=== PATIENT | female | born 1935 | race Caucasian/White ===

== ENCOUNTER 2016-08-18 18:48 | Inpatient (IN) | payer OTHER ==
[~2016-08-18] VITALS: Ht 162.6 cm; Wt 65.4 kg
[~2016-08-18 18:48] MED LIST: ASPI81TA28 PO; BENA-4 PO; CALCTAB5 PO; CHOL100010 PO; DTR5 PO; FSM70 PO; LEVO112T4 PO; MULT-506 PO; PANT40TA2 PO; PRED1SUS3 OPR; ULT50HP PO; ZNTT/150 PO
[2016-08-18 19:14] LABS: BASO % 1.1 %; BASO ABS # 0.07 K/uL (0-0.2); COMPLETE YES; EOS % 2.1 %; HEMATOCRIT 34.1 % (37-47); IG% 0.2 %; LYMPH % 38.4 %; LYMPH ABS # 2.37 K/uL (1.2-3.4); MEAN CELL VOLUME 80.2 fL (80-100); MEAN CORPUSCULAR HEMOGLOBIN 27.1 pg (25-34); MEAN CORPUSCULAR HGB CONC 33.7 g/dl (32-36); MEAN PLATELET VOLUME 9.2 fL (7.4-10.4); MONO % 10.7 %; NEUT % 47.5 %; PLATELET COUNT 213 K/uL (130-400); RED BLOOD COUNT 4.25 M/uL (4.2-5.4); WHITE BLOOD COUNT 6.17 K/uL (4.8-10.8)
[2016-08-18 19:29] LABS: PROTHROMBIN TIME (PATIENT) 10.9 SECONDS (9.0-12.0)
[2016-08-18 19:30] LABS: ALT/SGPT 13 U/L (12-78); BLOOD UREA NITROGEN 15 mg/dl (7-18); BUN/CREATININE RATIO 18.8 (10-20); CALCIUM 9.1 mg/dl (8.5-10.1); CARBON DIOXIDE 29 mmol/L (21-32); CHLORIDE 94 mmol/L (98-107); CREATININE 0.82 mg/dl (0.60-1.20); GLUCOSE 98 mg/dl (70-99); POTASSIUM 3.4 mmol/L (3.5-5.1); SODIUM 132 mmol/L (136-145)
[2016-08-18 19:35] LABS: ALKALINE PHOSPHATASE 52 U/L (45-117); AST/SGOT 16 U/L (15-37); CKMB/CK RATIO 1.5 (0-3.0)
--- NOTE | 2016-08-18 19:44 | DIAGNOSTIC IMAGING REPORT ---
CHEST ONE VIEW PORTABLE CLINICAL HISTORY: Gastrointestinal hemorrhage COMPARISON STUDY: No previous studies for comparison. FINDINGS: The heart is normal in size. There is mild elevation right hemidiaphragm. There is no failure. There is no focal pulmonary consolidation. There is mild basilar interstitial thickening. There is no free intraperitoneal air. Surgical clips are visualized in the right upper quadrant consistent with a prior cholecystectomy.[ IMPRESSION: No active disease in the chest. Electronically signed by: Kristopher Kumar M.D. 08/18/2016 7:42 PM Dictated Date/Time: 08/18/2016 7:41 PM
[2016-08-18] MEDS ORDERED: DTR/5 PO (19:46)
[2016-08-18] MEDS ORDERED: CALCTAB7 PO (19:46)
[2016-08-18] MEDS ORDERED: ULT50 PO (19:46)
[2016-08-18] MEDS ORDERED: CHOL100041 PO (19:46)
[2016-08-18] MEDS ORDERED: SODIUM CHLORIDE 0.9% 1000ML 1,000 ML IV STA (20:03)
[2016-08-18 20:17] LABS: URINE APPEARANCE TURBID (CLEAR); URINE BILIRUBIN NEG (NEG); URINE COLOR YELLOW; URINE EPITHELIAL CELL AUTO >30 /lpf (0-5); URINE NITRITE NEG (NEG); URINE SPECIFIC GRAVITY 1.015 (1.000-1.030); UROBILINOGEN NEG (NEG)
[2016-08-18 20:23] LABS: MANUAL MICROSCOPIC REQUIRED? NO; REVIEW REQ? YES
[2016-08-18] MEDS ORDERED: OPTIRAY 320 IV PRN (21:15)
[2016-08-18] MEDS ORDERED: ONDANSETRON INJ 2 MG/ML 2 ML VIAL IV PRN (21:30)
[2016-08-18] MEDS ORDERED: TRAM-10 PO (21:42)
[2016-08-18] MEDS ORDERED: LEVO100T7 PO (21:42)
[2016-08-18] MEDS ORDERED: PANTOprazole INJ 80 MG in DEXTROSE 5% 100ML IV STA (21:54)
--- NOTE | 2016-08-18 22:03 | DIAGNOSTIC IMAGING REPORT ---
CT ABD/PELVIS IV CONTRAST ONLY CLINICAL HISTORY: Heme-positive stools. Suspected diverticular hemorrhage. COMPARISON STUDY: 07/28/2014 TECHNIQUE: Following the IV administration of 94 mL of Optiray-320, CT scan of the abdomen and pelvis was performed from the lung bases to the proximal femurs. Images are reviewed in the axial, sagittal, and coronal planes. IV contrast was administered without complication. CT DOSE: 311.69 mGy.cm FINDINGS: Lower chest: There is mild basilar atelectasis. There is colonic interposition. Liver: There are scattered hypodensities, the largest of which is located within the right lobe measuring 25 mm. These are felt to reflect cysts. There is mild prominence the central intrahepatic biliary ducts unchanged the prior study Gallbladder: Surgically absent. The common bile duct remains dilated measuring 1 cm. Spleen: Normal in size and attenuation. Pancreas: The pancreas is atrophic. There is borderline dilatation of pancreatic duct which measures 4 mm. Adrenal glands: Unremarkable. Kidneys: There is an 11.5 cm upper pole left renal cyst. There is a 13 mm mid pole right renal cortical cyst. There is mild prominence of the collecting systems bilaterally. There is no ureteral dilatation. Bowel: There are no transition zones indicate bowel obstruction. There is colonic diverticulosis. There are foci of increased density within the sigmoid colon. These are viewed as suspicious for hemorrhage or contrast extravasation. This suggests a sigmoid source for the patient's hemorrhage. Peritoneum: There is no intraperitoneal free air or abdominal ascites. Vasculature: The abdominal aorta is normal in course and caliber. Adenopathy: None. Pelvic viscera: The bladder is mildly dilated. The uterus appears absent. Skeletal structures: Postsurgical changes involve the left hip. IMPRESSION: 1. Hyperdense material within the sigmoid colon, likely representing hemorrhage or extravasated contrast. Given the clinical history, the findings suggest a sigmoid source for the patient's gastrointestinal hemorrhage 2. Colonic diverticulosis. 3. Surgically absent gallbladder with stable mild intrahepatic biliary ductal dilatation and a dilated common bile duct 4. Pancreatic atrophy and borderline dilatation of pancreatic duct 5. Bilateral renal cysts including an 11.5 cm left renal cyst 6. Mild bilateral hydronephrosis. No ureteral dilatation.. Electronically signed by: Kristopher Kumar M.D. 08/18/2016 10:01 PM Dictated Date/Time: 08/18/2016 9:52 PM
[2016-08-18 22:04] LABS: HEMATOCRIT 28.9 % (37-47)
--- NOTE | 2016-08-18 22:04 | History and Physical ---
History & Physical Date & Time of Service: Aug 18, 2016 at 21:44 Chief Complaint: Rectal Bleeding Primary Care Physician: Josesito Frost M.D. History of Present Illness Source: patient This is an 81 y/o female with PMHx of Hypothyroidism, HTN, Dyslipidemia and other problems as outlined below who presents to the ED c/o rectal bleed that began this morning. Pt reports that around 0630 she had a loose BM that was mostly dark blood. She experienced 5 more episodes over the course of the day. Pt takes a baby aspirin daily but is not on any other anticoagulation. Pt denies recent NSAID or abx use. She has a history of similar sxs in 2014 when she had a rectal bleed that was thought to be secondary to C.diff colitis. Colonoscopy August 2014 + diverticulosis of sigmoid, descending and ascending colon as well as internal hemorrhoids. Pt denies fever/chills, diaphoresis, syncope, chest pain, palpitations, SOB, wheezing, abd pain, N/V, bladder issues , LE edema, calf pain, lightheadedness/dizziness. In the ED, pt is tachy on arrival. HgB 11.5. UA 4+ bacteria. Pt is hemodynamically stable and will be admitted for further evaluation and treatment. Past Medical/Surgical History Medical Problems: (1) Dyslipidemia Status: Chronic (2) GERD (gastroesophageal reflux disease) Status: Chronic (3) HTN (hypertension) Status: Chronic (4) Hypothyroidism Status: Chronic (5) Osteoarthritis Status: Chronic Surgical Problems: (1) History of arthroscopic knee surgery Status: Resolved (2) History of cholecystectomy Status: Resolved (3) History of hysterectomy Status: Resolved (4) History of tonsillectomy Status: Resolved Social History Smoking Status: Never Smoker Alcohol Use: none Drug Use: none Marital Status: Housing status: lives with family Occupational Status: retired Immunizations History of Influenza Vaccine: N/A History of Tetanus Vaccine?: Yes History of Pneumococcal: Yes History of Hepatitis B Vaccine: Yes Multi-Drug Resistant Organisms History of MDRO: No Allergies Coded Allergies: Montelukast (Verified Allergy, Intermediate, RASH, HYPER, 08/18/16) Adhesives (Verified Adverse Reaction, Intermediate, SENSITIVE, RASH, ) Salicylates (Verified Adverse Reaction, Mild, VOMITING, 08/18/16) can take baby asp/lo dose...high dose lead to stomach probllems Home Medications Scheduled Aspirin (Aspirin Ec), 81 MG PO QAM Benazepril/Hctz (Lotensin Hct), 1 TAB PO BID Calcium Carbonate-Vitamin D W/ (Caltrate 600 Plus), 1 TAB PO DAILY Cholecalciferol (D 1000), 1,000 UNITS PO DAILY Levothyroxine Sodium (Levothyroxine Sodium), 100 MCG PO DAILY Multivitamin (Multivitamin), 1 TAB PO QAM Oxybutynin Chloride (Ditropan), 5 MG PO QID Pantoprazole (Pantoprazole Sodium), 40 MG PO QAM Ranitidine (Zantac), 150 MG PO BID Scheduled PRN Tramadol (Ultram), 50 MG PO Q6H PRN for Pain Review of Systems Constitutional: + fatigue, No chills, No fever, No sweats, No weakness Eyes: No worsening of vision ENT: + hearing loss (hearing aids) Respiratory: No cough, No shortness of breath Cardiovascular: No chest pain, No claudication, No edema Abdomen: + GI bleeding, + diarrhea, No constipation, No nausea, No pain, No vomiting Musculoskeletal: No calf pain, No swelling Genitourinary - Female: No dysuria Neurologic: No weakness Psychiatric: No depression symptoms Endocrine: + fatigue Hematologic / Lymphatic: + abnormal bleeding/bruising Integumentary: No new/changing skin lesions Physical Exam Vital Signs Date Time Temp Pulse Resp B/P Pulse Ox O2 Delivery O2 Flow Rate FiO2 08/18/16 20:27 90 16 157/76 93 Room Air 08/18/16 19:11 92 08/18/16 19:06 95 Room Air 08/18/16 18:50 36.5 123 20 173/90 94 Room Air General Appearance: WD/WN, no apparent distress, + pertinent finding (Pt is sitting in bed with at bedside ) Head: normocephalic, atraumatic Eyes: normal inspection ENT: hearing grossly normal Neck: supple Respiratory/Chest: chest non-tender, lungs clear, normal breath sounds, no respiratory distress Cardiovascular: no edema, no murmur, + tachycardia Abdomen/GI: normal bowel sounds, non tender, soft Back: normal inspection Extremities/Musculoskelatal: normal inspection, no calf tenderness, no pedal edema Neurologic/Psych: alert, normal mood/affect, oriented x 3 Skin: normal color, warm/dry Diagnostics Laboratory Results Results Past 24 Hours Test 08/18/16 19:05 08/18/16 19:55 Range/Units White Blood Count 6.17 4.8-10.8 K/uL Red Blood Count 4.25 4.2-5.4 M/uL Hemoglobin 11.5 12.0-16.0 g/dL Hematocrit 34.1 37-47 % Mean Corpuscular Volume 80.2 80-100 fL Mean Corpuscular Hemoglobin 27.1 25-34 pg Mean Corpuscular Hemoglobin Concent 33.7 32-36 g/dl Platelet Count 213 130-400 K/uL Mean Platelet Volume 9.2 7.4-10.4 fL Neutrophils (%) (Auto) 47.5 % Lymphocytes (%) (Auto) 38.4 % Monocytes (%) (Auto) 10.7 % Eosinophils (%) (Auto) 2.1 % Basophils (%) (Auto) 1.1 % Neutrophils # (Auto) 2.93 1.4-6.5 K/uL Lymphocytes # (Auto) 2.37 1.2-3.4 K/uL Monocytes # (Auto) 0.66 0.11-0.59 K/uL Eosinophils # (Auto) 0.13 0-0.5 K/uL Basophils # (Auto) 0.07 0-0.2 K/uL RDW Standard Deviation 44.8 36.4-46.3 fL RDW Coefficient of Variation 15.2 11.5-14.5 % Immature Granulocyte % (Auto) 0.2 % Immature Granulocyte # (Auto) 0.01 0.00-0.02 K/uL Prothrombin Time 10.9 9.0-12.0 SECONDS Prothromb Time International Ratio 1.0 0.9-1.1 Activated Partial Thromboplast Time 26.1 21.0-31.0 SECONDS Partial Thromboplastin Ratio 1.0 Sodium Level 132 136-145 mmol/L Potassium Level 3.4 3.5-5.1 mmol/L Chloride Level 94 98-107 mmol/L Carbon Dioxide Level 29 21-32 mmol/L Anion Gap 9.0 3-11 mmol/L Blood Urea Nitrogen 15 7-18 mg/dl Creatinine 0.82 0.60-1.20 mg/dl Est Creatinine Clear Calc Drug Dose 47.6 ml/min Estimated GFR () 77.2 Estimated GFR (Non- 66.6 BUN/Creatinine Ratio 18.8 10-20 Random Glucose 98 70-99 mg/dl Calcium Level 9.1 8.5-10.1 mg/dl Total Bilirubin 0.8 0.2-1 mg/dl Direct Bilirubin 0.3 0-0.2 mg/dl Aspartate Amino Transf (AST/SGOT) 16 15-37 U/L Alanine Aminotransferase (ALT/SGPT) 13 12-78 U/L Alkaline Phosphatase 52 45-117 U/L Total Creatine Kinase 68 26-192 U/L Creatine Kinase MB 1.0 0.5-3.6 ng/ml Creatine Kinase MB Ratio 1.5 0-3.0 Troponin I < 0.015 0-0.045 ng/ml Total Protein 7.5 6.4-8.2 gm/dl Albumin 4.0 3.4-5.0 gm/dl Lipase 105 73-393 U/L Urine Color YELLOW Urine Appearance TURBID CLEAR Urine pH 6.0 4.5-7.5 Urine Specific [place] 1.015 1.000-1.030 Urine Protein NEG NEG Urine Glucose (UA) NEG NEG Urine Ketones NEG NEG Urine Occult Blood 3+ NEG Urine Nitrite NEG NEG Urine Bilirubin NEG NEG Urine Urobilinogen NEG NEG Urine Leukocyte Esterase SMALL NEG Urine WBC (Auto) 1-5 0-5 /hpf Urine RBC (Auto) 0-4 0-4 /hpf Urine Hyaline Casts (Auto) 1-5 0-5 /lpf Urine Epithelial Cells (Auto) >30 0-5 /lpf Urine Bacteria (Auto) 4+ NEG Urine Yeast (Auto) NONE PRSENT Diagnostic Radiology CXR IMPRESSION: No active disease in the chest. EKG EKG: sinus rhythm at [address] [facility] PACs; PACs are new when compared to EKG from 07/28/14 Impression Assessment and Plan RECTAL BLEED; POSSIBLE DIVERTICULITIS pt presented with painless rectal bleed; no abd pain, N/V -admit to telemetry -tachy on arrival; improved with IVF -no recent abx or NSAIDs -colonoscopy 2014 + diverticulosis in the sigmoid, ascending and descending colon as well as internal hemorrhoids -FOBT is positive in ED -Hgb currently 11.5; will continue to monitor with H&H q 8h -obtain CT abd/pelvis to evaluate for diverticulitis -check stool studies -hold ASA -start IVF and Protonix -type and screen completed; transfuse PRN HgB <8 -keep NPO for now -consult GI, Dr. Borrego-pending input -pt appears to be hemodynamically stable -continue to monitor closely POSSIBLE UTI -pt denies urinary sxs -UA 4+ bacteria. neg nitrates. >30 epis; question contamination -no empiric abx; follows urine cx HYPOTHYROIDISM -hold levothyroxine for now due to NPO status -TSH level in AM HTN -BP stable -holding all home meds for now -monitor DYSLIPIDEMIA -diet-controlled DVT PROPHYLAXIS -SCDs only in setting of GI bleed CODE STATUS -FULL CODE status per discussion with patient upon admission DISPO -Pt seen in collaboration with Dr Root. Please see addendum for further details. Thanks! -Of note: patient will be seen by Dr. Leal starting tomorrow morning ATTENDING NOTE : pt seen and examined , in agreement with H&P by Laurie Bella PA-C labs and images reviewed 81 yo F presented with multiple episodes of bright red blood per rectum no complain of abdominal pain or nausea no dizzy spell initial Hb ~11 Ct abdomen /pelvis shows possible diverticular bleed in sigmoid area P/E: gen ; no sign of distress HEENT ; sclera non icteric HT: regular lungs: CTA abdomen ; soft, non tender ext ; no rash or edema neuro; no focal deficit A/P : BRBPR /LOWER GI BLEED /POSSIBLE ACUTE DIVERTICULAR BLEED ; pt had similar lower GI bleed in 2014 has colonoscopy done on 08/2013 showing diverticulosis in sigmoid colon, descending and ascending colon takes Aspirin 81 mg PO daily -kept on hold ordered for NPO H&H will be continued to be monitored q8hrs tx for acute drop of hb /hemodynamic instability or hb < 8 GI eval requested rest of the chronic problems/issues as outlined by Laurie Garcia PA-C VTE Prophylaxis VTE Risk Assessment Done? Y/N: Yes Risk Level: Moderate
[2016-08-18 22:35] VITALS: BP 137/79; PULSE 136; TEMP 36.7; O2SAT 100; Ht 162.6 cm; Wt 65.4 kg
[2016-08-18] MEDS: PANTOprazole INJ 40 MG in DEXTROSE 5% 100ML IV SCH (22:41)
[2016-08-18 22:43] VITALS: BP 137/79; PULSE 136; TEMP 36.7; O2SAT 93
--- NOTE | 2016-08-18 22:55 | EMERGENCY ROOM VISIT NOTE ---
History Report prepared by Crystal: Brigido Cherry Under the Supervision of: Dr. Isaak Alfaro M.D. First contact with patient: 18:54 Chief Complaint: RECTAL BLEEDING Stated Complaint: RECTAL BLEEDING History of Present Illness The patient is a 81 year old female who presents to the Emergency Room with complaints of persistent rectal bleeding beginning this morning. She notes she has had 4 bloody bowel movements today, she describes as loose. She notes the stools have been mostly blood. The patient has had C. diff a couple years ago, and denies being on any blood thinners currently. She has never had a blood transfusion. Pt denies LOC, headache, fevers, chills, diaphoresis, visual changes, neck pain , chest pain, breathing difficulties, nausea, vomiting, abdominal pain, back pain, melena, urinary symptoms, numbness, weakness, lymphadenopathy, rash, or other complaints. Source of History: patient Onset: this morning Position: other (rectum) Symptom Intensity: 4 bloody BMs Quality: other (rectal bleeding) Timing: other (persistent) Review of Systems See HPI for pertinent positives and negatives. A total of ten systems were reviewed and were otherwise negative. Past Medical & Surgical Medical Problems: (1) Dyslipidemia (2) GERD (gastroesophageal reflux disease) (3) HTN (hypertension) (4) Hypothyroidism (5) Osteoarthritis Surgical Problems: (1) History of arthroscopic knee surgery (2) History of cholecystectomy (3) History of hysterectomy (4) History of tonsillectomy Family History No pertinent family history stated. Social History Smoking Status: Never Smoker Marital Status: Housing Status: lives with family Current/Historical Medications Scheduled Aspirin (Aspirin Ec), 81 MG PO QAM Benazepril/Hctz (Lotensin Hct), 1 TAB PO BID Calcium Carbonate-Vitamin D W/ (Caltrate 600 Plus), 1 TAB PO DAILY Cholecalciferol (D 1000), 1,000 UNITS PO DAILY Levothyroxine Sodium (Levothyroxine Sodium), 100 MCG PO DAILY Multivitamin (Multivitamin), 1 TAB PO QAM Oxybutynin Chloride (Ditropan), 5 MG PO QID Pantoprazole (Pantoprazole Sodium), 40 MG PO QAM Ranitidine (Zantac), 150 MG PO BID Scheduled PRN Tramadol (Ultram), 50 MG PO Q6H PRN for Pain Allergies Coded Allergies: Montelukast (Verified Allergy, Intermediate, RASH, HYPER, 08/18/16) Adhesives (Verified Adverse Reaction, Intermediate, SENSITIVE, RASH, ) Salicylates (Verified Adverse Reaction, Mild, VOMITING, 08/18/16) can take baby asp/lo dose...high dose lead to stomach probllems Physical Exam Vital Signs Date Time Temp Pulse Resp B/P Pulse Ox O2 Delivery O2 Flow Rate FiO2 08/18/16 20:27 90 16 157/76 93 Room Air 08/18/16 19:11 92 08/18/16 19:06 95 Room Air 08/18/16 18:50 36.5 123 20 173/90 94 Room Air Physical Exam GENERAL: Awake, alert, well-appearing, in no distress HENT: Normocephalic, atraumatic. Oropharynx unremarkable. EYES: Normal conjunctiva. Sclera non-icteric. NECK: Supple. No nuchal rigidity. FROM. No JVD. RESPIRATORY: Clear to auscultation. CARDIAC: Regular rate, normal rhythm. Extremities warm and well perfused. Pulses equal. ABDOMEN: Soft, non-distended. No tenderness to palpation. No rebound or guarding. No masses. RECTAL: Bloody stool, heme positive. MUSCULOSKELETAL: Chest examination reveals no tenderness. The back is symmetrical on inspection without obvious abnormality. There is no CVA tenderness to palpation. No joint edema. LOWER EXTREMITIES: Calves are equal size bilaterally and non-tender. No edema. No discoloration. NEURO: Normal sensorium. No sensory or motor deficits noted. SKIN: No rash or jaundice noted. Medical Decision & Procedures ER Provider Diagnostic Interpretation: Radiology results as stated below per my review and radiologist interpretation CHEST ONE VIEW PORTABLE CLINICAL HISTORY: Gastrointestinal hemorrhage COMPARISON STUDY: No previous studies for comparison. FINDINGS: The heart is normal in size. There is mild elevation right hemidiaphragm. There is no failure. There is no focal pulmonary consolidation. There is mild basilar interstitial thickening. There is no free intraperitoneal air. Surgical clips are visualized in the right upper quadrant consistent with a prior cholecystectomy. IMPRESSION: No active disease in the chest. Electronically signed by: Kristopher Kumar M.D. 08/18/2016 7:42 PM Dictated Date/Time: 08/18/2016 7:41 PM Laboratory Results 08/18/16 19:05 Red Blood Count 4.25, Mean Corpuscular Volume 80.2, Mean Corpuscular Hemoglobin 27.1, Mean Corpuscular Hemoglobin Concent 33.7, Mean Platelet Volume 9.2, Neutrophils (%) (Auto) 47.5, Lymphocytes (%) (Auto) 38.4, Monocytes (%) (Auto) 10.7, Eosinophils (%) (Auto) 2.1, Basophils (%) (Auto) 1.1, Neutrophils # (Auto ) 2.93, Lymphocytes # (Auto) 2.37, Monocytes # (Auto) 0.66, Eosinophils # (Auto ) 0.13, Basophils # (Auto) 0.07 08/18/16 19:05 Test 08/18/16 19:05 08/18/16 19:55 White Blood Count 6.17 K/uL (4.8-10.8) Red Blood Count 4.25 M/uL (4.2-5.4) Hemoglobin 11.5 g/dL (12.0-16.0) Hematocrit 34.1 % (37-47) Mean Corpuscular Volume 80.2 fL (80-100) Mean Corpuscular Hemoglobin 27.1 pg (25-34) Mean Corpuscular Hemoglobin Concent 33.7 g/dl (32-36) Platelet Count 213 K/uL (130-400) Mean Platelet Volume 9.2 fL (7.4-10.4) Neutrophils (%) (Auto) 47.5 % Lymphocytes (%) (Auto) 38.4 % Monocytes (%) (Auto) 10.7 % Eosinophils (%) (Auto) 2.1 % Basophils (%) (Auto) 1.1 % Neutrophils # (Auto) 2.93 K/uL (1.4-6.5) Lymphocytes # (Auto) 2.37 K/uL (1.2-3.4) Monocytes # (Auto) 0.66 K/uL (0.11-0.59) Eosinophils # (Auto) 0.13 K/uL (0-0.5) Basophils # (Auto) 0.07 K/uL (0-0.2) RDW Standard Deviation 44.8 fL (36.4-46.3) RDW Coefficient of Variation 15.2 % (11.5-14.5) Immature Granulocyte % (Auto) 0.2 % Immature Granulocyte # (Auto) 0.01 K/uL (0.00-0.02) Prothrombin Time 10.9 SECONDS (9.0-12.0) Prothromb Time International Ratio 1.0 (0.9-1.1) Activated Partial Thromboplast Time 26.1 SECONDS (21.0-31.0) Partial Thromboplastin Ratio 1.0 Anion Gap 9.0 mmol/L (3-11) Est Creatinine Clear Calc Drug Dose 47.6 ml/min Estimated GFR () 77.2 Estimated GFR (Non- 66.6 BUN/Creatinine Ratio 18.8 (10-20) Calcium Level 9.1 mg/dl (8.5-10.1) Total Bilirubin 0.8 mg/dl (0.2-1) Direct Bilirubin 0.3 mg/dl (0-0.2) Aspartate Amino Transf (AST/SGOT) 16 U/L (15-37) Alanine Aminotransferase (ALT/SGPT) 13 U/L (12-78) Alkaline Phosphatase 52 U/L (45-117) Total Creatine Kinase 68 U/L (26-192) Creatine Kinase MB 1.0 ng/ml (0.5-3.6) Creatine Kinase MB Ratio 1.5 (0-3.0) Troponin I < 0.015 ng/ml (0-0.045) Total Protein 7.5 gm/dl (6.4-8.2) Albumin 4.0 gm/dl (3.4-5.0) Lipase 105 U/L (73-393) Urine Color YELLOW Urine Appearance TURBID (CLEAR) Urine pH 6.0 (4.5-7.5) Urine Specific [place] 1.015 (1.000-1.030) Urine Protein NEG (NEG) Urine Glucose (UA) NEG (NEG) Urine Ketones NEG (NEG) Urine Occult Blood 3+ (NEG) Urine Nitrite NEG (NEG) Urine Bilirubin NEG (NEG) Urine Urobilinogen NEG (NEG) Urine Leukocyte Esterase SMALL (NEG) Urine WBC (Auto) 1-5 /hpf (0-5) Urine RBC (Auto) 0-4 /hpf (0-4) Urine Hyaline Casts (Auto) 1-5 /lpf (0-5) Urine Epithelial Cells (Auto) >30 /lpf (0-5) Urine Bacteria (Auto) 4+ (NEG) Urine Yeast (Auto) (NONE PRSENT) Laboratory results reviewed by me Medications Administered Medications (Trade) Dose Ordered Sig/Ted Route Start Time Stop Time Status Last Admin Dose Admin Sodium Chloride (Nss 1000ml) 1,000 ml @ 125 mls/hr Q8H STAT IV 08/18/16 20:03 08/18/16 22:34 DC 08/18/16 20:40 125 MLS/HR ECG Indication: other (rectal bleeding) Rate (beats per minute): 85 Rhythm: sinus rhythm Findings: PAC, no acute ischemic change, no ectopy ED Course 1916: The patient was evaluated in room C1B. A complete history and physical exam was performed. 1954: The patient had a fifth bowel movement, which was also bloody. 2002: Ordered NSS 1,000 ml @ 125 mls/hr IV. 2099: Discussed the patient's case with Laurie Guerrero PA-C. The patient will be evaluated for further treatment and disposition. Medical Decision Triage Nursing notes reviewed. The patient's presentation and history were concerning for rectal bleeding. Etiologies such as diverticulosis, AVM, coagulopathy, colitis, inflammatory bowel disease, malignancy,Kelly-Pastor tear, esophagitis, peptic ulcer disease , variceal bleed, gastritis, epistaxis, fissure, hemorrhoids, as well as others were entertained. The patient was evaluated. She had no abdominal pain. She had 4 episodes of bright red blood per rectum at home. She had another episode in the emergency department. Blood work was obtained. The patient had a mild anemia on CBC. Chemistry panel was unremarkable. The patient had some bacteria on urinalysis but mostly epithelial cells. Consultation was made with internal medicine. The patient was evaluated in the Emergency Room for further treatment. The chart was completed utilizing [employer] voice recognition software. Grammatical errors, random word insertions, pronoun errors, and incomplete sentences are an occasional consequence of this system due to software limitations, ambient noise, and hardware issues. Any formal questions or concerns about the content, text, or information contained within the body of this dictation should be directly addressed to the physician for clarification. Consults Time Called: 2054 Consulting Physician: Laurie Guerrero PA-C, [facility] Returned Call: [phone] Discussed the patient's case with Laurie Guerrero PA-C. The patient will be evaluated for further treatment and disposition. Impression Primary Impression: GI bleed Scribe Attestation The scribe's documentation has been prepared under my direction and personally reviewed by me in its entirety. I confirm that the note above accurately reflects all work, treatment, procedures, and medical decision making performed by me. Departure Information Dispostion Being Evaluated By Hospitalist Referrals Josesito Frost M.D. (PCP) Patient Instructions My [facility]
[2016-08-18] MEDS: NSS + 20MEQ KCL 1000ML 1,000 ML IV SCH (23:06)
[2016-08-19 01:41] LABS: HEMATOCRIT 28.6 % (37-47)
[2016-08-19] MEDS: PANTOprazole INJ 40 MG in DEXTROSE 5% 100ML IV SCH ×4 (03:18→14:58)
[2016-08-19 04:17] VITALS: BP 147/80; PULSE 79; TEMP 37; O2SAT 96
[2016-08-19 06:14] LABS: HEMATOCRIT 27.5 % (37-47); MEAN CELL VOLUME 81.8 fL (80-100); MEAN CORPUSCULAR HEMOGLOBIN 27.4 pg (25-34); MEAN CORPUSCULAR HGB CONC 33.5 g/dl (32-36); MEAN PLATELET VOLUME 9.7 fL (7.4-10.4); PLATELET COUNT 170 K/uL (130-400); RED BLOOD COUNT 3.36 M/uL (4.2-5.4); WHITE BLOOD COUNT 5.44 K/uL (4.8-10.8)
[2016-08-19] MEDS ORDERED: SOD PHOSPHATE/SOD BIPHOSPHATE ENEMA 132 ML BTL PR STA (07:30)
[2016-08-19 07:38] LABS: BUN/CREATININE RATIO 19.5 (10-20); CALCIUM 8.2 mg/dl (8.5-10.1); CREATININE 0.62 mg/dl (0.60-1.20); POTASSIUM 3.7 mmol/L (3.5-5.1)
[2016-08-19 07:52] VITALS: BP 121/78; PULSE 111; TEMP 36.7; O2SAT 96
--- NOTE | 2016-08-19 08:31 | Gastrointestinal Consultation ---
Gastrointestinal Consultation Date of Consultation: Aug 19, 2016 Consulting Physician: Elmo Reason for Consultation: BRBPR History of Present Illness Patient is a 81 year old female w/ PMH significant for HTN, hypothyroidism, dyslipidemia, GERD, osteoarthritis who presents to the ED following a one day history of painless rectal bleeding. Blood is dark red with clots. She woke up in the AM with an urge to have a BM. At this time, there was some stool with a significant amount of dark blood with clots. She had 5 more bloody BMs since her first episode. There are no abdominal symptoms. No abdominal pain, cramping , nausea, vomiting. No rectal pain. Has had BRBPR in the past with infectious colitis and c.diff. Today, she denies fever, chills, chest pain, SOB, abdominal pain, nausea or vomiting. No recent ABX. ASA, no other NSAIDs. No ETOH. No anticoagulants. No adverse reactions with past anesthesia use. CT abd 08/18/16: Hyperdense material within the sigmoid colon, likely representing hemorrhage or extravasated contrast. Given the clinical history, the findings suggest a sigmoid source for the patient's gastrointestinal hemorrhage Colonic diverticulosis. Surgically absent gallbladder with stable mild intrahepatic biliary ductal dilatation and a dilated common bile duct Pancreatic atrophy and borderline dilatation of pancreatic duct Bilateral renal cysts including an 11.5 cm left renal cyst Mild bilateral hydronephrosis. No ureteral dilatation.. Colonoscopy 09/05/14: poor prep, stool in entire colon, diverticulosis and internal hemorrhoids Past Medical/Surgical History Medical Problems: (1) GI bleed Status: Acute Past Medical History: HTN, dyslipidemia, GERD, hypothyroidism, osteoarthritis Past Surgical History: arthroscopic knee surgery, cholecystectomy, hysterectomy, tonsillectomy Social History Smoking Status: Never Smoker Drug Use: none Marital Status: Housing Status: lives with family Occupation Status: retired Allergies Coded Allergies: Montelukast (Verified Allergy, Intermediate, RASH, HYPER, 08/18/16) Adhesives (Verified Adverse Reaction, Intermediate, SENSITIVE, RASH, ) Salicylates (Verified Adverse Reaction, Mild, VOMITING, 08/18/16) can take baby asp/lo dose...high dose lead to stomach probllems Current Medications Home Meds and Scripts Medications Dose Route/Sig Max Daily Dose Days Date Category Ultram (Tramadol HCl) 50 Mg Tab 50 Mg PO Q6H PRN 08/18/16 Reported Levothyroxine Sodium 100 Mcg Tab 100 Mcg PO DAILY 30 08/18/16 Reported Caltrate 600 Plus (Calcium Carbonate-Vitamin D W/) 1 Tab Tab 1 Tab PO DAILY 08/18/16 Reported D 1000 (Cholecalciferol) 1,000 Unit Cap 1,000 Units PO DAILY 08/18/16 Reported Ditropan (Oxybutynin Chloride) 5 Mg Tab 5 Mg PO QID 08/18/16 Reported Multivitamin (Multivitamins) Tab 1 Tab PO QAM 12/02/15 Reported Zantac (Ranitidine HCl) 150 Mg Tab 150 Mg PO BID 12/02/15 Reported Lotensin Hct (Benazepril/HCTZ) 20 Mg/12.5 Mg Tab 1 Tab PO BID 07/28/14 Reported Aspirin Ec (Aspirin) 81 Mg Tab 81 Mg PO QAM 07/28/14 Reported Pantoprazole Sodium (Pantoprazole) 40 Mg Tab 40 Mg PO QAM 07/28/14 Reported Review of Systems Constitutional: No chills, No fever ENT: + hearing loss (does not have her hearing aids) Respiratory: No cough, No shortness of breath Cardiac: No chest pain, No edema Abdomen: + GI bleeding, No constipation, No diarrhea, No nausea, No pain, No vomiting Physical Exam Date Time Temp Pulse Resp B/P Pulse Ox O2 Delivery O2 Flow Rate FiO2 08/19/16 07:52 36.7 111 18 121/78 96 Room Air 08/19/16 04:17 37.0 79 16 147/80 96 08/19/16 04:00 Room Air 08/19/16 00:00 Room Air 08/18/16 22:43 36.7 136 16 137/79 93 Room Air 08/18/16 22:35 36.7 136 18 137/79 100 Room Air 08/18/16 22:27 90 18 122/83 95 08/18/16 20:27 90 16 157/76 93 Room Air 08/18/16 19:11 92 08/18/16 19:06 95 Room Air 08/18/16 18:50 36.5 123 20 173/90 94 Room Air General Appearance: no apparent distress Eyes: PERRL ENT: hearing grossly normal Neck: supple, trachea midline Respiratory/Chest: lungs clear, normal breath sounds, no respiratory distress, no accessory muscle use Cardiovascular: regular rate, rhythm, no edema, no gallop, no JVD Abdomen: normal bowel sounds, non tender, soft, no organomegaly, no pulsatile mass Neurologic/Psych: alert, normal mood/affect, oriented x 3 Skin: normal color, no jaundice, warm/dry, no rash Laboratory Results Last 24 Hours Test 08/18/16 19:05 08/18/16 19:55 08/18/16 21:57 08/19/16 01:34 White Blood Count 6.17 K/uL Red Blood Count 4.25 M/uL Hemoglobin 11.5 g/dL 9.7 g/dL 9.6 g/dL Hematocrit 34.1 % 28.9 % 28.6 % Mean Corpuscular Volume 80.2 fL Mean Corpuscular Hemoglobin 27.1 pg Mean Corpuscular Hemoglobin Concent 33.7 g/dl Platelet Count 213 K/uL Mean Platelet Volume 9.2 fL Neutrophils (%) (Auto) 47.5 % Lymphocytes (%) (Auto) 38.4 % Monocytes (%) (Auto) 10.7 % Eosinophils (%) (Auto) 2.1 % Basophils (%) (Auto) 1.1 % Neutrophils # (Auto) 2.93 K/uL Lymphocytes # (Auto) 2.37 K/uL Monocytes # (Auto) 0.66 K/uL Eosinophils # (Auto) 0.13 K/uL Basophils # (Auto) 0.07 K/uL RDW Standard Deviation 44.8 fL RDW Coefficient of Variation 15.2 % Immature Granulocyte % (Auto) 0.2 % Immature Granulocyte # (Auto) 0.01 K/uL Prothrombin Time 10.9 SECONDS Prothromb Time International Ratio 1.0 Activated Partial Thromboplast Time 26.1 SECONDS Partial Thromboplastin Ratio 1.0 Sodium Level 132 mmol/L Potassium Level 3.4 mmol/L Chloride Level 94 mmol/L Carbon Dioxide Level 29 mmol/L Anion Gap 9.0 mmol/L Blood Urea Nitrogen 15 mg/dl Creatinine 0.82 mg/dl Est Creatinine Clear Calc Drug Dose 47.6 ml/min Estimated GFR () 77.2 Estimated GFR (Non- 66.6 BUN/Creatinine Ratio 18.8 Random Glucose 98 mg/dl Calcium Level 9.1 mg/dl Total Bilirubin 0.8 mg/dl Direct Bilirubin 0.3 mg/dl Aspartate Amino Transf (AST/SGOT) 16 U/L Alanine Aminotransferase (ALT/SGPT) 13 U/L Alkaline Phosphatase 52 U/L Total Creatine Kinase 68 U/L Creatine Kinase MB 1.0 ng/ml Creatine Kinase MB Ratio 1.5 Troponin I < 0.015 ng/ml Total Protein 7.5 gm/dl Albumin 4.0 gm/dl Lipase 105 U/L Urine Color YELLOW Urine Appearance TURBID Urine pH 6.0 Urine Specific [place] 1.015 Urine Protein NEG Urine Glucose (UA) NEG Urine Ketones NEG Urine Occult Blood 3+ Urine Nitrite NEG Urine Bilirubin NEG Urine Urobilinogen NEG Urine Leukocyte Esterase SMALL Urine WBC (Auto) 1-5 /hpf Urine RBC (Auto) 0-4 /hpf Urine Hyaline Casts (Auto) 1-5 /lpf Urine Epithelial Cells (Auto) >30 /lpf Urine Bacteria (Auto) 4+ Urine Yeast (Auto) Test 08/19/16 05:55 08/19/16 06:45 White Blood Count 5.44 K/uL Red Blood Count 3.36 M/uL Hemoglobin 9.2 g/dL Hematocrit 27.5 % Mean Corpuscular Volume 81.8 fL Mean Corpuscular Hemoglobin 27.4 pg Mean Corpuscular Hemoglobin Concent 33.5 g/dl RDW Standard Deviation 45.1 fL RDW Coefficient of Variation 15.2 % Platelet Count 170 K/uL Mean Platelet Volume 9.7 fL Sodium Level 137 mmol/L Potassium Level 3.7 mmol/L Chloride Level 102 mmol/L Carbon Dioxide Level 28 mmol/L Anion Gap 7.0 mmol/L Blood Urea Nitrogen 12 mg/dl Creatinine 0.62 mg/dl Est Creatinine Clear Calc Drug Dose 65.5 ml/min Estimated GFR () 97.3 Estimated GFR (Non- 84.0 BUN/Creatinine Ratio 19.5 Random Glucose 92 mg/dl Calcium Level 8.2 mg/dl Impression Patient is a 81 year old female with a one day history of BRBPR with clots without any associated symptoms. Obtain stool studies. Flex sig today. Differentials include infectious colitis, diverticular bleed, IBD etc Plan NPO Enema prep Colonoscopy today Trend H&H Transfuse as needed Monitor stools IVF for hydration Hold ASA Continue other outpatient medications Further recommendations pending results of colonoscopy. I aurora seen and evaluated the patient. she presented with 24 hours of dark stool and hematochezia. Imaging suggestive of a diverticular etiology. PE: nad , tachycardia, 2/6 berenice Impression: suspect a diverticular hemorrhage Plan EGD (r/o PUD) Colonoscopy / sigmoidoscopy today
[2016-08-19] MEDS: NSS + 20MEQ KCL 1000ML 1,000 ML IV SCH ×3 (09:40→21:33)
[2016-08-19] MEDS ORDERED: ATROPINE SULFATE 0.1 MG/ML 5ML SYR IV PRN (11:30)
[2016-08-19] MEDS ORDERED: EpHEDrine SULFATE INJ 50 MG/ML AMP IV PRN (11:30)
[2016-08-19] MEDS ORDERED: LIDOCAINE HCL 2% 2 ML VIAL (20MG/ML) ONE (11:40)
[2016-08-19] MEDS ORDERED: PROPOFOL IV EMULSION 10 MG/ML 20 ML VIAL IV ONE (11:40)
[2016-08-19] MEDS ORDERED: ESMOLOL HCL 10 MG/ML 10 ML VIAL ONE (12:03)
[2016-08-19] MEDS ORDERED: LABETALOL HCL IV 5 MG/ML 20ML IV ONE (12:03)
--- NOTE | 2016-08-19 12:06 | GI REPORT ---
Procedure Date: 08/19/2016 11:28 AM Procedure: Upper GI endoscopy Indications: Hematochezia Medicines: Monitored Anesthesia Care Complications: No immediate complications. Estimated blood loss: Minimal. Estimated Blood Loss: Estimated blood loss was minimal. Procedure: Pre-Anesthesia Assessment: - Prior to the procedure, a History and Physical was performed, and patient medications, allergies and sensitivities were reviewed. The patient's tolerance of previous anesthesia was reviewed. - The risks and benefits of the procedure and the sedation options and risks were discussed with the patient. All questions were answered and informed consent was obtained. - Patient identification and proposed procedure were verified prior to the procedure by the physician, the nurse and the chief operator. The procedure was verified in the procedure room. - Pre-procedure physical examination revealed no contraindications to sedation. - ASA Grade Assessment: IV - A patient with severe systemic disease that is a constant threat to life. - After reviewing the risks and benefits, the patient was deemed in satisfactory condition to undergo the procedure. - The anesthesia plan was to use monitored anesthesia care (MAC). - Immediately prior to administration of medications, the patient was re-assessed for adequacy to receive sedatives. - The heart rate, respiratory rate, oxygen saturations, blood pressure, adequacy of pulmonary ventilation, and response to care were monitored throughout the procedure. - The physical status of the patient was re-assessed after the procedure. After obtaining informed consent, the endoscope was passed under direct vision. Throughout the procedure, the patient's blood pressure, pulse, and oxygen saturations were monitored continuously. The scope was introduced through the mouth, and advanced to the third part of duodenum. The upper GI endoscopy was accomplished without difficulty. The patient tolerated the procedure well. Findings: The examined esophagus was normal. Patchy moderate inflammation characterized by congestion (edema), erythema and granularity was found in the entire examined stomach. Biopsies were taken with a cold forceps for histology. Estimated blood loss was minimal. The examined duodenum was normal. Impression: - Normal esophagus. - Chronic gastritis. Biopsied. - Normal examined duodenum. Recommendation: - Perform a colonoscopy today. - Await pathology results. Kimberly Borrego D.O. Kimberly Borrego DO 08/19/2016 12:05:34 PM This report has been signed electronically. Note Initiated On: 08/19/2016 11:28 AM I attest to the content of the Intraoperative Record and orders documented therein, exceptions below
--- NOTE | 2016-08-19 12:12 | GI REPORT ---
Procedure Date: 08/19/2016 11:44 AM Procedure: Colonoscopy Indications: Hematochezia Medicines: Monitored Anesthesia Care Complications: No immediate complications. Estimated blood loss: Minimal. Estimated Blood Loss: Estimated blood loss was minimal. Procedure: Pre-Anesthesia Assessment: - Prior to the procedure, a History and Physical was performed, and patient medications, allergies and sensitivities were reviewed. The patient's tolerance of previous anesthesia was reviewed. - The risks and benefits of the procedure and the sedation options and risks were discussed with the patient. All questions were answered and informed consent was obtained. - Patient identification and proposed procedure were verified prior to the procedure by the physician, the nurse and the cardiovascular lab director. The procedure was verified in the procedure room. - Pre-procedure physical examination revealed no contraindications to sedation. - ASA Grade Assessment: IV - A patient with severe systemic disease that is a constant threat to life. - After reviewing the risks and benefits, the patient was deemed in satisfactory condition to undergo the procedure. - The anesthesia plan was to use monitored anesthesia care (MAC). - Immediately prior to administration of medications, the patient was re-assessed for adequacy to receive sedatives. - The heart rate, respiratory rate, oxygen saturations, blood pressure, adequacy of pulmonary ventilation, and response to care were monitored throughout the procedure. - The physical status of the patient was re-assessed after the procedure. After I obtained informed consent, the scope was passed under direct vision. Throughout the procedure, the patient's blood pressure, pulse, and oxygen saturations were monitored continuously. The scope was introduced through the anus and advanced to the ascending colon. The colonoscopy was somewhat difficult due to poor endoscopic visualization. Successful completion of the procedure was aided by lavage. The patient tolerated the procedure well. The quality of the bowel preparation was fair. Findings: The digital rectal exam findings include non-thrombosed external hemorrhoids. Pertinent negatives include normal sphincter tone. Many small and large-mouthed diverticula were found in the sigmoid colon, in the descending colon, in the transverse colon and in the ascending colon. There was evidence of past bleeding (clot and some fresh blood in a majority of the colon). A transition point was noted at the hepatic flexture where the stool became a normal colon. The bleeding is likely distal to the flexture, however, despite a careful inspection I could not identify the culprit diverticulum. Impression: - Non-thrombosed external hemorrhoids found on digital rectal exam. - Moderate diverticulosis in the sigmoid colon, in the descending colon, in the transverse colon and in the ascending colon. There was evidence of past/recent bleeding without being able to identify a specific site. Recommendation: - [facility]. - Consider a referral to a tertiary centerfor Tagged RBC study and possible Angiography. Kimberly Borrego D.O. Kimberly Borrego, 08/19/2016 12:11:29 PM This report has been signed electronically. Note Initiated On: 08/19/2016 11:44 AM I attest to the content of the Intraoperative Record and orders documented therein, exceptions below
--- NOTE | 2016-08-19 12:16 | Progress Note ---
Progress Note Date of Service Aug 19, 2016. Progress Note Endoscopy results EGD--diffuse gastritis (no evidence of recent bleeding) Colonoscopy--was able to reach ascending colon (fleets prep only) -- no blood / clot noted in the right colon -- blood / clot noted from rectum to hepatic flexture -- diffuse diverticulosis Recomendations -- consider a referral to tertiary center as patient may benefit from angiography (if bleeding persists)
[2016-08-19] MEDS ORDERED: PHENYLEPHRINE HCL INJ 10 MG/ML VIAL ONE (12:22)
--- NOTE | 2016-08-19 12:25 | Anesthesiology Progress Note ---
Anesthesia Post Op Note Date & Time Aug 19, 2016 at 12:24 Vital Signs Pain Intensity: 0.0 Vital Signs Past 12 Hours Date Time Temp Pulse Resp B/P Pulse Ox O2 Delivery O2 Flow Rate FiO2 08/19/16 11:15 37.1 120 20 147/81 95 Room Air 08/19/16 07:52 36.7 111 18 121/78 96 Room Air 08/19/16 07:50 Room Air 08/19/16 04:17 37.0 79 16 147/80 96 08/19/16 04:00 Room Air Notes Mental Status: alert / awake / arousable, participated in evaluation Pt Amnestic to Procedure: Yes Nausea / Vomiting: adequately controlled Pain: adequately controlled Airway Patency, RR, SpO2: stable & adequate BP & HR: stable & adequate Hydration State: stable & adequate Anesthetic Complications: no major complications apparent
--- NOTE | 2016-08-19 13:26 | Clinical Documentation Query ---
CLINICAL DOCUMENTATION QUERY Dr. ANDERSON, In your clinical opinion is this patient being managed for: ( X ) rectal bleed due to Diverticulosis of large intestine with bleeding ( ) Other explanation of clinical findings (Please Explain) ( ) Unable to determine (Please Define) ( ) Need to Discuss ( ) Not Agree The medical record reflects the following clinical findings, treatment, and risk factors. Clinical Indicators:81 yo female presenting with rectal bleeding. Colonoscopy showed blood / clot noted from rectum to hepatic flexure. Treatment: IV fluids, IV protonix, serial H/H, Risk Factors: known diverticulosis, ASA therapy Please clarify and document your clinical opinion in the progress notes and discharge summary. Terms such as "probable", "suspected", "likely", "questionable", "possible", or "still to be ruled out" are acceptable. IF IN AGREEMENT, YOU MUST DOCUMENT ABOVE DIAGNOSTIC STATEMENT IN DAILY PROGRESS NOTES AND DISCHARGE SUMMARY. This document is not part of the patient's record. Thank You, Leandra Tapia RN [phone]
[2016-08-19 14:54] LABS: HEMATOCRIT 26.4 % (37-47)
[2016-08-19 15:21] VITALS: BP 154/77; PULSE 79; TEMP 36.7; O2SAT 96
--- NOTE | 2016-08-19 17:52 | Progress Note ---
Internal Med Progress Note Date of Service: Aug 19, 2016. Provider Documentation: SUBJECTIVE: Patient is lying in her bed comfortably and is in no apparent distress. Alert/ Awake and answers my questions well. Denies any abdominal pain. No new BM or episode of rectal bleeding today. OBJECTIVE: Vital Signs-as noted below Examination: General Appearance: WD/WN, Lying in the in no apparent distress with family members at bedside, Head: normocephalic, atraumatic Eyes: normal inspection ENT: hearing grossly normal. Ears, Nose & Throat are normal looking. Neck: supple, midline trachea, Respiratory/Chest: chest non-tender, lungs clear, normal breath sounds, no respiratory distress Cardiovascular: no edema, no murmur, + tachycardia, Normal S1, S2. Abdomen/GI: normal bowel sounds, non tender, soft Back: normal inspection Extremities/Musculoskeletal: normal inspection, no calf tenderness, no pedal edema Neurologic/Psych: alert, normal mood/affect, oriented x 3 Skin: normal color, warm/dry Lab data as noted below. ASSESSMENT & PLAN: Endoscopy results EGD--diffuse gastritis (no evidence of recent bleeding) Colonoscopy--was able to reach ascending colon (fleets prep only) -- no blood / clot noted in the right colon -- blood / clot noted from rectum to hepatic flexture -- diffuse diverticulosis Recommendations -- consider a referral to tertiary center as patient may benefit from angiography (if bleeding persists) Rectal Bleeding due to Diverticulosis: Clinically & hemodynamically stable.Patient presented with painless rectal bleed; no abd pain, N/V Was tachycardic on arrival which improved with IVF -No recent abx or NSAIDs -colonoscopy 2014 + diverticulosis in the sigmoid, ascending and descending colon as well as internal hemorrhoids -Reviewed fidnings of Endoscopies done today (08/19/2016). Explained findings to family members -FOBT positive in ED -Hgb currently 11.5; will continue to monitor with H&H q 8h -Reviewed findings of CT abd/pelvis -Reviewed GI consult. Dom for input. Discussed with Dr. Borrego as well. -No acute drop in H/H and is being monitored closely. -Continue Protonix -Type and screen done. Will transfuse PRN HgB <8 -keep NPO for now Possible UTI : No urinary symptoms. -UA 4+ bacteria. neg nitrates. >30 epis; question contamination -no empiric abx; Will follow urine culture. Hypothyroidism: Continue Synthroid Hypertension: BP stable -Holding all home meds for now -Monitor Dyslipidemia: Diet-controlled DVT ProphylaxisSCDs only in setting of GI bleed Code Status: FULL CODE status per discussion with patient upon admission Disposition: Being monitored closely. may need to be transferred to [facility] but they have no beds as of now. Vital Signs: Date Time Temp Pulse Resp B/P Pulse Ox O2 Delivery O2 Flow Rate FiO2 08/19/16 15:21 36.7 79 18 154/77 96 Nasal Cannula 4.0 08/19/16 12:34 86 20 145/91 99 Nasal Cannula 4 08/19/16 12:19 130 20 130/84 99 Nasal Cannula 4 08/19/16 12:04 103 20 137/78 93 Room Air 08/19/16 11:15 37.1 120 20 147/81 95 Room Air 08/19/16 07:52 36.7 111 18 121/78 96 Room Air 08/19/16 07:50 Room Air 08/19/16 04:17 37.0 79 16 147/80 96 08/19/16 04:00 Room Air 08/19/16 00:00 Room Air 08/18/16 22:43 36.7 136 16 137/79 93 Room Air 08/18/16 22:35 36.7 136 18 137/79 100 Room Air 08/18/16 22:27 90 18 122/83 95 08/18/16 20:27 90 16 157/76 93 Room Air 08/18/16 19:11 92 08/18/16 19:06 95 Room Air 08/18/16 18:50 36.5 123 20 173/90 94 Room Air Lab Results: Results Past 24 Hours Test 08/18/16 19:05 08/18/16 19:55 08/18/16 21:57 08/19/16 01:34 Range/Units White Blood Count 6.17 4.8-10.8 K/uL Red Blood Count 4.25 4.2-5.4 M/uL Hemoglobin 11.5 9.7 9.6 12.0-16.0 g/dL Hematocrit 34.1 28.9 28.6 37-47 % Mean Corpuscular Volume 80.2 80-100 fL Mean Corpuscular Hemoglobin 27.1 25-34 pg Mean Corpuscular Hemoglobin Concent 33.7 32-36 g/dl Platelet Count 213 130-400 K/uL Mean Platelet Volume 9.2 7.4-10.4 fL Neutrophils (%) (Auto) 47.5 % Lymphocytes (%) (Auto) 38.4 % Monocytes (%) (Auto) 10.7 % Eosinophils (%) (Auto) 2.1 % Basophils (%) (Auto) 1.1 % Neutrophils # (Auto) 2.93 1.4-6.5 K/uL Lymphocytes # (Auto) 2.37 1.2-3.4 K/uL Monocytes # (Auto) 0.66 0.11-0.59 K/uL Eosinophils # (Auto) 0.13 0-0.5 K/uL Basophils # (Auto) 0.07 0-0.2 K/uL RDW Standard Deviation 44.8 36.4-46.3 fL RDW Coefficient of Variation 15.2 11.5-14.5 % Immature Granulocyte % (Auto) 0.2 % Immature Granulocyte # (Auto) 0.01 0.00-0.02 K/uL Prothrombin Time 10.9 9.0-12.0 SECONDS Prothromb Time International Ratio 1.0 0.9-1.1 Activated Partial Thromboplast Time 26.1 21.0-31.0 SECONDS Partial Thromboplastin Ratio 1.0 Sodium Level 132 136-145 mmol/L Potassium Level 3.4 3.5-5.1 mmol/L Chloride Level 94 98-107 mmol/L Carbon Dioxide Level 29 21-32 mmol/L Anion Gap 9.0 3-11 mmol/L Blood Urea Nitrogen 15 7-18 mg/dl Creatinine 0.82 0.60-1.20 mg/dl Est Creatinine Clear Calc Drug Dose 47.6 ml/min Estimated GFR () 77.2 Estimated GFR (Non- 66.6 BUN/Creatinine Ratio 18.8 10-20 Random Glucose 98 70-99 mg/dl Calcium Level 9.1 8.5-10.1 mg/dl Total Bilirubin 0.8 0.2-1 mg/dl Direct Bilirubin 0.3 0-0.2 mg/dl Aspartate Amino Transf (AST/SGOT) 16 15-37 U/L Alanine Aminotransferase (ALT/SGPT) 13 12-78 U/L Alkaline Phosphatase 52 45-117 U/L Total Creatine Kinase 68 26-192 U/L Creatine Kinase MB 1.0 0.5-3.6 ng/ml Creatine Kinase MB Ratio 1.5 0-3.0 Troponin I < 0.015 0-0.045 ng/ml Total Protein 7.5 6.4-8.2 gm/dl Albumin 4.0 3.4-5.0 gm/dl Lipase 105 73-393 U/L Urine Color YELLOW Urine Appearance TURBID CLEAR Urine pH 6.0 4.5-7.5 Urine Specific [place] 1.015 1.000-1.030 Urine Protein NEG NEG Urine Glucose (UA) NEG NEG Urine Ketones NEG NEG Urine Occult Blood 3+ NEG Urine Nitrite NEG NEG Urine Bilirubin NEG NEG Urine Urobilinogen NEG NEG Urine Leukocyte Esterase SMALL NEG Urine WBC (Auto) 1-5 0-5 /hpf Urine RBC (Auto) 0-4 0-4 /hpf Urine Hyaline Casts (Auto) 1-5 0-5 /lpf Urine Epithelial Cells (Auto) >30 0-5 /lpf Urine Bacteria (Auto) 4+ NEG Urine Yeast (Auto) NONE PRSENT Test 08/19/16 05:55 08/19/16 06:45 08/19/16 14:35 Range/Units White Blood Count 5.44 4.8-10.8 K/uL Red Blood Count 3.36 4.2-5.4 M/uL Hemoglobin 9.2 9.1 12.0-16.0 g/dL Hematocrit 27.5 26.4 37-47 % Mean Corpuscular Volume 81.8 80-100 fL Mean Corpuscular Hemoglobin 27.4 25-34 pg Mean Corpuscular Hemoglobin Concent 33.5 32-36 g/dl RDW Standard Deviation 45.1 36.4-46.3 fL RDW Coefficient of Variation 15.2 11.5-14.5 % Platelet Count 170 130-400 K/uL Mean Platelet Volume 9.7 7.4-10.4 fL Sodium Level 137 136-145 mmol/L Potassium Level 3.7 3.5-5.1 mmol/L Chloride Level 102 98-107 mmol/L Carbon Dioxide Level 28 21-32 mmol/L Anion Gap 7.0 3-11 mmol/L Blood Urea Nitrogen 12 7-18 mg/dl Creatinine 0.62 0.60-1.20 mg/dl Est Creatinine Clear Calc Drug Dose 65.5 ml/min Estimated GFR () 97.3 Estimated GFR (Non- 84.0 BUN/Creatinine Ratio 19.5 10-20 Random Glucose 92 70-99 mg/dl Calcium Level 8.2 8.5-10.1 mg/dl Microbiology Results 08/19/16 Urine Culture, Received Pending
[2016-08-19 20:01] VITALS: BP 132/89; PULSE 133; TEMP 37.3; O2SAT 97
[2016-08-19] MEDS: PANTOprazole INJ 40 MG in SYRINGE 0 ML IV SCH (21:22)
[2016-08-19 22:51] LABS: HEMATOCRIT 24.4 % (37-47)
[2016-08-19 22:53] VITALS: BP 132/85; PULSE 116; TEMP 37.6; O2SAT 98
[2016-08-20] VITALS (10 sets, daily range): BP systolic 113–164; BP diastolic 69–89; PULSE 77–129; TEMP 36.6–37.2; O2SAT 90–99
[2016-08-20] MEDS: NSS + 20MEQ KCL 1000ML 1,000 ML IV SCH ×2 (04:57→13:04)
[2016-08-20] MEDS: LEVOTHYROXINE 100 MCG TAB PO SCH ×2 (06:18→06:24)
[2016-08-20 07:42] LABS: HEMATOCRIT 26.4 % (37-47); MEAN CORPUSCULAR HEMOGLOBIN 26.7 pg (25-34); MEAN CORPUSCULAR HGB CONC 32.6 g/dl (32-36); MEAN PLATELET VOLUME 9.9 fL (7.4-10.4); PLATELET COUNT 179 K/uL (130-400); RED BLOOD COUNT 3.22 M/uL (4.2-5.4)
[2016-08-20] MEDS: PANTOprazole INJ 40 MG in SYRINGE 0 ML IV SCH (08:13)
[2016-08-20 08:14] LABS: BUN/CREATININE RATIO 15.9 (10-20); CALCIUM 7.5 mg/dl (8.5-10.1); CREATININE 0.56 mg/dl (0.60-1.20); POTASSIUM 3.5 mmol/L (3.5-5.1)
--- NOTE | 2016-08-20 12:31 | Progress Note ---
Internal Med Progress Note Date of Service: Aug 20, 2016. Provider Documentation: SUBJECTIVE: Patient is lying in her bed comfortably and is in no apparent distress. Alert/ Awake and answers my questions well. Denies any abdominal pain. 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 OBJECTIVE: Vital Signs-as noted below Examination: General Appearance: WD/WN, Lying in the in no apparent distress with family members at bedside, Head: normocephalic, atraumatic Eyes: normal inspection ENT: hearing grossly normal. Ears, Nose & Throat are normal looking. Neck: supple, midline trachea, Respiratory/Chest: chest non-tender, lungs clear, normal breath sounds, no respiratory distress Cardiovascular: no edema, no murmur, + tachycardia, Normal S1, S2. Abdomen/GI: normal bowel sounds, non tender, soft Back: normal inspection Extremities/Musculoskeletal: normal inspection, no calf tenderness, no pedal edema Neurologic/Psych: alert, normal mood/affect, oriented x 3 Skin: normal color, warm/dry Lab data as noted below. ASSESSMENT & PLAN: Endoscopy results EGD--diffuse gastritis (no evidence of recent bleeding) Colonoscopy--was able to reach ascending colon (fleets prep only) -- no blood / clot noted in the right colon -- blood / clot noted from rectum to hepatic flexture -- diffuse diverticulosis Recommendations -- consider a referral to tertiary center as patient may benefit from angiography (if bleeding persists) Rectal Bleeding due to Diverticulosis: Getting tachycardic and hypotensive now..Patient presented with painless rectal bleed; no abd pain, N/V Was tachycardic on arrival which improved with IVF -No recent abx or NSAIDs -colonoscopy 2014 + diverticulosis in the sigmoid, ascending and descending colon as well as internal hemorrhoids -Reviewed fidnings of Endoscopies done today (08/19/2016). Explained findings to family members -FOBT positive in ED -Hgb currently 8.3; will continue to monitor with H&H q 8h. ( 11.6 --> 9.2 -- > 9.1 --> 8.3) -Reviewed findings of CT abd/pelvis -Reviewed GI consult. Dom for input. Discussed with Dr. Borrego as well. -No acute drop in H/H and is being monitored closely. -Continue Protonix -Type and screen done. Will transfuse one unit of PRBC now. -keep NPO for now Possible UTI : No urinary symptoms. -UA 4+ bacteria. neg nitrates. >30 epis; question contamination -no empiric abx; Will follow urine culture. Hypothyroidism: Continue Synthroid Hypertension: BP stable -Holding all home meds for now -Monitor Dyslipidemia: Diet-controlled DVT ProphylaxisSCDs only in setting of GI bleed Code Status: FULL CODE status per discussion with patient upon admission Disposition: Being monitored closely. Spoke to Dr. Fontanez in [place] with help of transfer service and he has accepted the patient. Have done all the needed paper work. have been in touch with family members continuously. Vital Signs: Date Time Temp Pulse Resp B/P Pulse Ox O2 Delivery O2 Flow Rate FiO2 08/20/16 11:35 36.8 126 17 145/82 98 2.0 08/20/16 11:05 37.0 127 18 139/88 96 2.0 08/20/16 10:50 36.8 127 17 135/83 97 2.0 08/20/16 10:35 37.0 121 18 138/89 98 2.0 08/20/16 07:59 37.0 118 16 113/73 96 Nasal Cannula 2.0 08/20/16 07:45 Nasal Cannula 2.0 08/20/16 04:29 37.2 88 18 132/77 99 Nasal Cannula 2.0 08/20/16 04:00 Room Air 08/20/16 00:00 Room Air 08/19/16 22:53 37.6 116 18 132/85 98 Nasal Cannula 4.0 08/19/16 20:05 Room Air 08/19/16 20:01 37.3 133 18 132/89 97 Nasal Cannula 4.0 08/19/16 16:00 Room Air 08/19/16 15:21 36.7 79 18 154/77 96 Nasal Cannula 4.0 08/19/16 13:00 Room Air 08/19/16 12:34 86 20 145/91 99 Nasal Cannula 4 Lab Results: Results Past 24 Hours Test 08/19/16 14:35 08/19/16 22:33 08/20/16 06:57 Range/Units Hemoglobin 9.1 8.3 8.6 12.0-16.0 g/dL Hematocrit 26.4 24.4 26.4 37-47 % White Blood Count 6.30 4.8-10.8 K/uL Red Blood Count 3.22 4.2-5.4 M/uL Mean Corpuscular Volume 82.0 80-100 fL Mean Corpuscular Hemoglobin 26.7 25-34 pg Mean Corpuscular Hemoglobin Concent 32.6 32-36 g/dl RDW Standard Deviation 46.6 36.4-46.3 fL RDW Coefficient of Variation 15.5 11.5-14.5 % Platelet Count 179 130-400 K/uL Mean Platelet Volume 9.9 7.4-10.4 fL Sodium Level 141 136-145 mmol/L Potassium Level 3.5 3.5-5.1 mmol/L Chloride Level 108 98-107 mmol/L Carbon Dioxide Level 25 21-32 mmol/L Anion Gap 8.0 3-11 mmol/L Blood Urea Nitrogen 9 7-18 mg/dl Creatinine 0.56 0.60-1.20 mg/dl Est Creatinine Clear Calc Drug Dose 66.9 ml/min Estimated GFR () 100.6 Estimated GFR (Non- 86.8 BUN/Creatinine Ratio 15.9 10-20 Random Glucose 107 70-99 mg/dl Calcium Level 7.5 8.5-10.1 mg/dl Iron Level 63 35-150 mcg/dl Total Iron Binding Capacity 256 250-450 mcg/dl
[2016-08-20 14:36] LABS: HEMATOCRIT 26.9 % (37-47); MEAN CELL VOLUME 81.3 fL (80-100); MEAN CORPUSCULAR HEMOGLOBIN 27.8 pg (25-34); MEAN CORPUSCULAR HGB CONC 34.2 g/dl (32-36); MEAN PLATELET VOLUME 9.2 fL (7.4-10.4); PLATELET COUNT 165 K/uL (130-400); RED BLOOD COUNT 3.31 M/uL (4.2-5.4); WHITE BLOOD COUNT 7.19 K/uL (4.8-10.8)
--- NOTE | 2016-08-20 14:52 | Discharge Instructions ---
Discharge Instructions Date of Service Aug 20, 2016. Admission Reason for Admission: Rectal Bleeding Discharge Discharge Diagnosis / Problem: Lower GI Bleeding Discharge Goals Goal(s): Therapeutic intervention Activity Recommendations Activity Limitations: as noted below (Bed Rest) . Current Hospital Diet Patient's current hospital diet: Discharge Diet Recommended Diet: N/A (Maintain NPO.) Pending Studies Studies pending at discharge: no Medical Emergencies . Who to Call and When: Medical Emergencies: If at any time you feel your situation is an emergency, please call 911 immediately. . Non-Emergent Contact Non-Emergency issues call your: Primary Care Provider, [facility] . . "Provider Documentation" section prepared by Ramirez Leal. VTE Core Measure Inpt VTE Proph given/why not?: SCD's
--- NOTE | 2016-08-20 14:57 | Discharge Summary ---
Discharge Summary Date of Service Aug 20, 2016. Discharge Summary Admission Date: Aug 18, 2016 at 21:09 Discharge Date: Aug 20, 2016 Discharge Disposition: Acute care facility ([facility]) Principal Diagnosis: Lower GI Bleeding due to Diverticulosis Anemia Due to acute blood loss Secondary Diagnoses/Problems: History Hypertension Hypothyroidism Dyslipidemia Procedures: Colonoscopy EGD CT Abdomen/Pelvis IMPRESSION: 1. Hyperdense material within the sigmoid colon, likely representing hemorrhage or extravasated contrast. Given the clinical history, the findings suggest a sigmoid source for the patient's gastrointestinal hemorrhage 2. Colonic diverticulosis. 3. Surgically absent gallbladder with stable mild intrahepatic biliary ductal dilatation and a dilated common bile duct 4. Pancreatic atrophy and borderline dilatation of pancreatic duct 5. Bilateral renal cysts including an 11.5 cm left renal cyst 6. Mild bilateral hydronephrosis. No ureteral dilatation.. Vaccinations: NONE Consultations: Gastroenterology Pending Studies/Follow-Up: Patient is being transferred to [facility]. Medication Reconciliation Continued Medications: Levothyroxine Sodium (Levothyroxine Sodium) 100 Mcg Tab 100 MCG PO DAILY for 30 Days, #30 TAB 5 Refills Discontinued Medications: Aspirin (Aspirin Ec) 81 Mg Tab 81 MG PO QAM Benazepril/Hctz (Lotensin Hct) 20 Mg/12.5 Mg Tab 1 TAB PO BID, TAB Calcium Carbonate-Vitamin D W/ (Caltrate 600 Plus) 1 Tab Tab 1 TAB PO DAILY, TAB Cholecalciferol (D 1000) 1,000 Unit Cap 1000 UNITS PO DAILY Multivitamin (Multivitamin) Tab 1 TAB PO QAM, TAB Oxybutynin Chloride (Ditropan) 5 Mg Tab 5 MG PO QID, TAB Pantoprazole (Pantoprazole Sodium) 40 Mg Tab 40 MG PO QAM Ranitidine (Zantac) 150 Mg Tab 150 MG PO BID, TAB Tramadol (Ultram) 50 Mg Tab 50 MG PO Q6H PRN for Pain, TAB Admission Information HPI (per Admitting provider): This is an 81 y/o female with PMHx of Hypothyroidism, HTN, Dyslipidemia and other problems as outlined below who presents to the ED c/o rectal bleed that began this morning. Pt reports that around 0630 she had a loose BM that was mostly dark blood. She experienced 5 more episodes over the course of the day. Pt takes a baby aspirin daily but is not on any other anticoagulation. Pt denies recent NSAID or abx use. She has a history of similar sxs in 2014 when she had a rectal bleed that was thought to be secondary to C.diff colitis. Colonoscopy August 2014 + diverticulosis of sigmoid, descending and ascending colon as well as internal hemorrhoids. Pt denies fever/chills, diaphoresis, syncope, chest pain, palpitations, SOB, wheezing, abd pain, N/V, bladder issues , LE edema, calf pain, lightheadedness/dizziness. In the ED, pt is tachy on arrival. HgB 11.5. UA 4+ bacteria. Pt is hemodynamically stable and will be admitted for further evaluation and treatment. Physical Exam (per Admitting): General Appearance: WD/WN, no apparent distress, + pertinent finding (Pt is sitting in bed with at bedside ) Head: normocephalic, atraumatic Eyes: normal inspection ENT: hearing grossly normal Neck: supple Respiratory/Chest: chest non-tender, lungs clear, normal breath sounds, no respiratory distress Cardiovascular: no edema, no murmur, + tachycardia Abdomen/GI: normal bowel sounds, non tender, soft Back: normal inspection Extremities/Musculoskelatal: normal inspection, no calf tenderness, no pedal edema Neurologic/Psych: alert, normal mood/affect, oriented x 3 Skin: normal color, warm/dry Hospital Course Endoscopy results EGD--diffuse gastritis (no evidence of recent bleeding) Colonoscopy--was able to reach ascending colon (fleets prep only) -- no blood / clot noted in the right colon -- blood / clot noted from rectum to hepatic flexture -- diffuse diverticulosis Recommendations -- consider a referral to tertiary center as patient may benefit from angiography (if bleeding persists) Rectal Bleeding due to Diverticulosis: Getting tachycardic and hypotensive now..Patient presented with painless rectal bleed; no abd pain, N/V Was tachycardic on arrival which improved with IVF -No recent abx or NSAIDs -colonoscopy 2014 + diverticulosis in the sigmoid, ascending and descending colon as well as internal hemorrhoids -Reviewed fidnings of Endoscopies done today (08/19/2016). Explained findings to family members -FOBT positive in ED -Hgb currently 8.3; will continue to monitor with H&H q 8h. ( 11.6 --> 9.2 -- > 9.1 --> 8.3) -Reviewed findings of CT abd/pelvis -Reviewed GI consult. Dom for input. Discussed with Dr. Borrego as well. -No acute drop in H/H and is being monitored closely. -Continue Protonix -Type and screen done. Will transfuse one unit of PRBC now. -keep NPO for now Anemia Due to Acute Blood Loss: Monitoring H/H closely. -Transfuse if H/H drops low or is hemodynamically unstable. Possible UTI : No urinary symptoms. -UA 4+ bacteria. neg nitrates. >30 epis; question contamination -no empiric abx; Will follow urine culture. Hypothyroidism: Continue Synthroid Hypertension: BP stable -Holding all home meds for now -Monitor Dyslipidemia: Diet-controlled DVT ProphylaxisSCDs only in setting of GI bleed Code Status: FULL CODE status per discussion with patient upon admission Disposition: Being monitored closely. Spoke to Dr. Fontanez in [place] with help of transfer service and he has accepted the patient. Have done all the needed paper work. have been in touch with family members continuously. Total time spent on discharge = 55 minutes. This includes examination of the patient, discharge planning, medication reconciliation, and communication with other providers. Discharge Instructions Patient is being transferred to [facility]. Additional Copies To Josesito Frost M.D. Kimberly Borrego,
== END 2016-08-20 16:31 | disposition short-term general hospital (02) | DRG 378 ==
LOC: ENRESERVTM → ENRESERVDT → C.EDB 18:49 → C.MED 21:09
PROVIDERS: ADMIT Hospitalist; ATTEND Emergency Medicine
PROC: 0DB68ZX Excision of Stomach, Via Natural or Artificial Opening Endoscopic, Diagnostic (ICD-10-PCS; principal; 2016-08-19 11:05)
PROC: 0DJD8ZZ Inspection of Lower Intestinal Tract, Via Natural or Artificial Opening Endoscopic (ICD-10-PCS; principal; 2016-08-19 11:05)
DX: K57.31 Diverticulosis of large intestine without perforation or abscess with bleeding (principal); D62 Acute posthemorrhagic anemia; K29.50 Unspecified chronic gastritis without bleeding; K64.4 Residual hemorrhoidal skin tags; E03.9 Hypothyroidism, unspecified; E78.5 Hyperlipidemia, unspecified; I10 Essential (primary) hypertension; K21.9 Gastro-esophageal reflux disease without esophagitis; M19.90 Unspecified osteoarthritis, unspecified site; Z90.49 Acquired absence of other specified parts of digestive tract; Z90.710 Acquired absence of both cervix and uterus

== ENCOUNTER 2020-06-15 07:54 | Inpatient (IN) ==
[2020-06-15] MEDS ORDERED: fentaNYL citrate 100 MCG/2 ML VIAL IV STA (08:16)
--- NOTE | 2020-06-15 08:21 | Emergency Department Note ---
Impression & Plan Intertrochanteric fracture of right femur, UTI (urinary tract infection) ED Provider Note CHIEF COMPLAINT: Fall, right leg pain HISTORY OF PRESENTING ILLNESS: This is an 84-year-old female who presents to the emergency department via EMS with complaint of right hip pain and left knee pain after a fall this morning. Patient states that she fell asleep while sitting on the toilet, and when she went to get up her legs were numb causing her to fall. She states she fell directly onto the right hip and also struck the left knee. She denies hitting her head or loss of consciousness. She denies any headache or neck pain. She is complaining primarily of the right hip. She was not able to get herself up off of the ground. EMS noted some shortening and external rotation of the right leg concerning for hip injury. She denies any numbness/tingling in either leg, but reports pain with bending the left knee and pain with any movement of the right leg. She rates the pain 5/10, and has not tried any medication for the pain. REVIEW OF SYSTEMS: A complete 10 point review of systems was reviewed with the patient with pertinent positives and negatives as per history of present illness . All else were negative. PAST MEDICAL HISTORY: Hypertension, dyslipidemia, osteoarthritis, hypothy roidism, GERD, history of hysterectomy, tonsillectomy, cholecystectomy, arthroscopic knee surgery, left hip replacement SOCIAL HISTORY: Lives at home, denies tobacco use ALLERGIES: Reviewed in chart and with the patient PHYSICAL EXAM: CONSTITUTIONAL: Pleasant and cooperative. No acute distress. Well appearing and well nourished. HEENT: Normocephalic, atraumatic. PERRL, EOMI. NECK: Supple, full active range of motion without discomfort. No midline tenderness to palpation of the cervical spine. RESPIRATORY: Clear to auscultation bilaterally with no wheezing, crackles, rhonchi or stridor. Equal expansion bilaterally. CARDIOVASCULAR: Regular rate and rhythm with no murmurs, rubs or gallops. Normal peripheral perfusion. No edema. GASTROINTESTINAL: Soft, nontender, nondistended. No palpable masses or HSM. Bowel sounds present in all quadrants. MUSCULOSKELETAL: The right leg is slightly shortened and externally rotated. Tenderness to palpation over the right hip joint. Mild proximal tenderness and swelling of the thigh is noted. Mild tenderness to palpation of both knees. No tenderness to palpation of the feet or ankles. INTEGUMENTARY: No rash or other significant dermatologic conditions noted. NEUROLOGIC: Alert and oriented X 4 with normal affect. Normal strength and sens ation in all 4 extremities. Normal sensation to light touch. Normal speech. ED COURSE AND MEDICAL DECISION MAKING: CC: Patient presenting with complaint of fall, right leg pain DIFFERENTIAL DIAGNOSIS: Includes, but not limited to hip contusion, fracture, dislocation, sprain/strain, hematoma, pelvic injury, urinary tract infection, among others. INTERPRETATION OF LABS: No leukocytosis, no anemia, normal platelets, no significant electrolyte abnormalities, elevated BUN with a normal creatinine, normal liver enzymes. Coagulation factors within normal limits. Urinalysis is consistent with a UTI, urine culture also pending. SARS-CoV-2 RNA test is NEGATIVE. IMAGING: SINGLE VIEW CHEST CLINICAL HISTORY: Fall. FINDINGS: An AP, portable, supine chest radiograph is compared to study dated 08/18/2016. The heart is mildly enlarged. The pulmonary vasculature is noncongested. Chronic interstitial thickening is similar to previous. There is chronic elevation of right hemidiaphragm with bibasilar scarring/atelectasis. No airspace consolidation or large pleural effusion is identified. No pneumothorax is seen. The skeletal structures are osteopenic. The bony thorax is grossly intact. Advanced degenerative change is noted in the shoulders and thoracic spine. Cholecystectomy clips are seen in the right upper quadrant. IMPRESSION: No acute cardiopulmonary abnormality. ----- SINGLE VIEW PELVIS; 2 VIEWS RIGHT HIP; 2 VIEWS RIGHT FEMUR CLINICAL HISTORY: Fall. Right leg injury. FINDINGS: An AP view of the pelvis with AP and crosstable lateral views of both the right hip and femur are compared to study dated 09/30/2012. The skeletal structures are osteopenic. There is no radiographic evidence of acute fracture involving the bony pelvis. There is chronic posttraumatic deformity and postoperative change seen in the left hip. There is an acute comminuted fracture of the intertrochanteric right femur with angulation and medial displacement of the lesser trochanter. Overlying soft tissue edema is noted. The remainder of the right femur appears intact. A right knee arthroplasty is in place. Moderate degenerative joint space narrowing is seen in both hips. Sclerotic change is seen in the sacroiliac joints and pubic symphysis. Advanced lumbosacral spondylosis and is partially visualized. Small phleboliths are noted in the pelvis. IMPRESSION: 1. There is an acute, comminuted, and angulated fracture of the intertrochanteric right femur as above. 2. No acute fracture is seen involving the bony pelvis or left hip. 3. Osteopenia and degenerative change as above. ----- XR knee LT 1 or 2V routine, XR knee RT 1 or 2V routine CLINICAL HISTORY: fall, knee pain COMPARISON STUDY: None. FINDINGS: The bones are osteopenic. No acute fracture or dislocation within the right or left knee. No significant knee effusions. Soft tissues are unremarkable. There is a right total knee arthroplasty. There is moderate to severe left tricompartmental osteoarthritis with [id number] articulation at the medial compartment. There is also chondrocalcinosis within the left knee. Th e partially visualized left femoral intramedullary jose cruz appears intact. IMPRESSION: No fracture or dislocation within the right or left knee. EKG: Shows sinus rhythm with a rate of 82 bpm, normal intervals, no ST elevation or depression, frequent PVCs by my interpretation. MEDICATION RECONCILIATION: I attest that I have personally reviewed the patient's current medication list. INITIAL VITAL SIGNS REVIEW: I reviewed the patient's initial vital signs and interpret them as follows: T: Afebrile; BP: Hypertensive; HR: Within normal limits; RR: Within normal limits; Pulse Ox: Hypoxic on room air, improved on 2 L nasal cannula. MDM SUMMARY: Patient was evaluated at bedside, history and physical exam performed. Patient is alert and oriented, in no acute distress, resting calmly in stretcher. She does have visibly shortened and externally rotated right leg concerning for femur or hip injury. She has tenderness to palpation over the right hip joint and proximal thigh with some swelling noted. She is neurovascularly intact distal to the injury and is able to move her toes. Patient was initially noted to be hypoxic with sats of 89% on room air, she was placed on 2 L nasal cannula by nursing and has normal saturations on my assessment. The patient denies any chest pain, shortness of breath, or difficulty breathing. Cardiac monitoring: An order was placed for continuous cardiac monitoring. The monitor shows a rate of 83 bpm with normal sinus rhythm. EKG reviewed at bedside noting normal sinus rhythm with no acute ischemic changes and some PVCs. Orders were placed for labs, urinalysis, Fuentes placement, IV fentanyl for pain, x-rays of the chest, pelvis, right hip and femur, and bilateral knees to evaluate for trauma. COVID-19 testing ordered suspecting the patient will be admitted. Patient discussed with Dr. Hines, who also evaluated the patient and agrees with my assessment, plan, and disposition. Labs and imaging reviewed as above, labs are fairly unremarkable. Urinalysis appears consistent with a UTI. IV Rocephin 2000 mg was ordered to treat for the UTI. X-ray of the chest did not show any acute cardiopulmonary abnormalities. Patient was able to be weaned off of nasal cannula back to room air. X-ray imaging shows an acute, comminuted and angulated fracture of the intertrochanteric right femur with no other apparent fractures. Patient reassessed multiple times throughout ED stay, she has remained hemodynamically stable and reports that her pain has been adequately controlled with the fentanyl. [facility] the patient for [facility]. The patient was updated on all results and plan for admission, she verbalized understanding and was agreeable to this plan. All questions were answered to the best of my ability at this time. The patient was stable at time of admission. The chart was completed utilizing [employer] Speech voice recognition software. Grammatical errors, random word insertions, pronoun errors, and incomplete sentences are an occasional consequence of this system due to software limitations, ambient noise, and hardware issues. Any formal questions or concerns about the content, text, or information contained within the body of this dictation should be directly addressed to the nurse practitioner for clarification. Past Med/Surg History Medical History Aortic valve sclerosis Depression Dyslipidemia GERD (gastroesophageal reflux disease) History of gastrointestinal diverticular hemorrhage HTN (hypertension) Hypothyroidism Osteoarthritis Urge incontinence Surgical History History of arthroscopic knee surgery History of cholecystectomy History of hysterectomy History of tonsillectomy Family History Father Heart disease Brother Lung cancer Brother Gastric cancer Mother Brain cancer Social History Smoking Status: Never smoker Hx Alcohol Use: No Hx Substance Use: No Preferred Language: Andorran Communication Ability: Effective Auction Clerk Required: No Beliefs That Will Affect Care: None Current Living Situation: Spouse Other Information That Helps Us Care for You: No Feels Safe at Home: Yes Safety Concerns: Feels Safe At This Time Assistive Devices: Denture - Upper, Denture - Lower, Glasses and Hearing Aid - Bilateral Allergies Allergies Allergy/AdvReac Type Severity Reaction Status Date / Time montelukast Allergy Intermediate RASH, HYPER Verified 06/15/20 08:32 adhesive AdvReac Intermediate SENSITIVE, Verified 06/15/20 08:32 RASH salicylates AdvReac Mild VOMITING Verified 06/15/20 08:32 Home Meds Home Medications Medication Instructions Recorded Confirmed benazepril-hydrochlorothiazide 1 tab PO BID 06/15/20 06/15/20 citalopram [Celexa] 10 mg PO DAILY 06/15/20 06/15/20 famotidine 20 mg PO DAILY 06/15/20 06/15/20 levothyroxine 100 mcg PO DAILY 06/15/20 06/15/20 mirabegron [Myrbetriq] 50 mg PO DAILY 06/15/20 06/15/20 pantoprazole 40 mg PO DAILY 06/15/20 06/15/20 solifenacin 5 mg PO DAILY 06/15/20 06/15/20 tramadol 50 mg PO Q6H PRN 06/15/20 06/15/20 Results & Data (ED) Vital Signs Vital Signs - 24 hr 06/15/20 07:55 06/15/20 08:00 06/15/20 08:27 Pulse Rate 92 H 88 Pulse Rate from SpO2 Sensor 88 Respiratory Rate 17 18 Respiratory Effort / Characteristics Non-Labored Spontaneous Respiratory Depth Normal Respiratory Pattern Regular Blood Pressure 164/104 H 174/99 H Blood Pressure Mean 124 124 Blood Pressure Position Sitting Pulse Oximetry 89 L 96 95 Oxygen Delivery Method Room Air Nasal Cannula Nasal Cannula Oxygen Flow Rate 2 2 Sepsis Recent Fever Within 48 Hours No Sepsis New/Unexplained Change in Mental Status N/A Sepsis Action Taken by Nursing No Action Required 06/15/20 09:04 06/15/20 09:30 06/15/20 10:00 Pulse Rate 93 H 101 H 96 H Pulse Rate from SpO2 Sensor 93 H 100 H 96 H Respiratory Rate 18 19 12 Respiratory Effort / Characteristics Respiratory Depth Respiratory Pattern Blood Pressure 136/90 124/76 118/82 Blood Pressure Mean 105 92 94 Blood Pressure Position Pulse Oximetry 98 97 96 Oxygen Delivery Method Nasal Cannula Oxygen Flow Rate 2 Sepsis Recent Fever Within 48 Hours Sepsis New/Unexplained Change in Mental Status Sepsis Action Taken by Nursing 06/15/20 10:30 06/15/20 10:31 Pulse Rate 98 H 100 H Pulse Rate from SpO2 Sensor 98 H 101 H Respiratory Rate 14 14 Respiratory Effort / Characteristics Respiratory Depth Respiratory Pattern Blood Pressure 120/70 Blood Pressure Mean 86 Blood Pressure Position Pulse Oximetry 96 96 Oxygen Delivery Method Oxygen Flow Rate 2 2 Sepsis Recent Fever Within 48 Hours Sepsis New/Unexplained Change in Mental Status Sepsis Action Taken by Nursing Laboratory Data Result diagrams: 06/15/20 08:05 06/15/20 08:05 Lab Results 06/15/20 06/15/20 06/15/20 Range/Units 08:05 08:05 08:05 WBC 7.95 (4.8-10.8) K/uL RBC 4.78 (4.2-5.4) M/uL Hgb 13.2 (12.0-16.0) g/dL Hct 41.0 (37-47) % MCV 85.8 (80-100) fL MCH 27.6 (25-34) pg MCHC 32.2 (32-36) g/dL RDW Std Deviation 51.2 H (36.4-46.3) fL RDW Coeff of Talisha 16.2 H (11.5-14.5) % Plt Count 213 (130-400) K/uL MPV 10.7 H (7.4-10.4) fL Immature Gran % (Auto) 0.3 % Neut % (Auto) 64.4 % Lymph % (Auto) 21.8 % Bond % (Auto) 10.4 % Eos % (Auto) 2.5 % Baso % (Auto) 0.6 % Neut # (Auto) 5.12 (1.4-6.5) K/uL Lymph # (Auto) 1.73 (1.2-3.4) K/uL Bond # (Auto) 0.83 H (0.11-0.59) K/uL Eos # (Auto) 0.20 (0-0.5) K/uL Baso # (Auto) 0.05 (0-0.2) K/uL Immature Gran # (Auto) 0.02 (0.00-0.02) K/uL PT 10.9 (9.0-12.0) Seconds INR 1.0 (0.9-1.1) Sodium 139 (136-145) mmol/L Potassium 3.4 L (3.5-5.1) mmol/L Chloride 103 (98-107) mmol/L Carbon Dioxide 30 (21-32) mmol/L Anion Gap 6.0 (3-11) BUN 27 H (7-18) mg/dl Creatinine 1.05 (0.6-1.2) mg/dl Est Cr Clr Drug Dosing 40.4 ml/min Est GFR ( Amer) 56.1 Est GFR (Non-Af Amer) 48.4 BUN/Creatinine Ratio 25.4 H (10-20) Glucose 98 (70-99) mg/dl Calcium 9.8 (8.5-10.1) mg/dl Total Bilirubin 0.9 (0.2-1) mg/dl AST 15 (15-37) U/L ALT 16 (12-78) U/L Alkaline Phosphatase 63 (45-117) U/L Total Protein 8.1 (6.4-8.2) gm/dl Albumin 3.6 (3.4-5.0) gm/dl Globulin 4.5 H (2.5-4.0) gm/dl Albumin/Globulin Ratio 0.8 L (0.9-2) Urine Color Urine Appearance (Clear) Urine pH (4.5-7.5) Ur Specific Mcclure (1.000-1.030) Urine Protein (Negative) Urine Glucose (UA) (Negative) Urine Ketones (Negative) Urine Blood (Negative) Urine Nitrite (Negative) Urine Bilirubin (Negative) Urine Urobilinogen (Negative) Ur Leukocyte Esterase (Negative) Urine WBC (Auto) (0-5) /hpf Urine RBC (Auto) (0-4) /hpf U Hyaline Cast (Auto) (0-5) /lpf U Epithel Cells (Auto) (0-5) /lpf Urine Bacteria (Auto) (Negative) COVID-19 Eval Order SARS-CoV-2, RNA, NAAT (NEGATIVE) 06/15/20 06/15/20 06/15/20 Range/Units 08:07 09:05 09:05 WBC (4.8-10.8) K/uL RBC (4.2-5.4) M/uL Hgb (12.0-16.0) g/dL Hct (37-47) % MCV (80-100) fL MCH (25-34) pg MCHC (32-36) g/dL RDW Std Deviation (36.4-46.3) fL RDW Coeff of Talisha (11.5-14.5) % Plt Count (130-400) K/uL MPV (7.4-10.4) fL Immature Gran % (Auto) % Neut % (Auto) % Lymph % (Auto) % Bond % (Auto) % Eos % (Auto) % Baso % (Auto) % Neut # (Auto) (1.4-6.5) K/uL Lymph # (Auto) (1.2-3.4) K/uL Bond # (Auto) (0.11-0.59) K/uL Eos # (Auto) (0-0.5) K/uL Baso # (Auto) (0-0.2) K/uL Immature Gran # (Auto) (0.00-0.02) K/uL PT (9.0-12.0) Seconds INR (0.9-1.1) Sodium (136-145) mmol/L Potassium (3.5-5.1) mmol/L Chloride (98-107) mmol/L Carbon Dioxide (21-32) mmol/L Anion Gap (3-11) BUN (7-18) mg/dl Creatinine (0.6-1.2) mg/dl Est Cr Clr Drug Dosing ml/min Est GFR ( Amer) Est GFR (Non-Af Amer) BUN/Creatinine Ratio (10-20) Glucose (70-99) mg/dl Calcium (8.5-10.1) mg/dl Total Bilirubin (0.2-1) mg/dl AST (15-37) U/L ALT (12-78) U/L Alkaline Phosphatase (45-117) U/L Total Protein (6.4-8.2) gm/dl Albumin (3.4-5.0) gm/dl Globulin (2.5-4.0) gm/dl Albumin/Globulin Ratio (0.9-2) Urine Color Yellow Urine Appearance Turbid A (Clear) Urine pH 8.5 H (4.5-7.5) Ur Specific Mcclure 1.015 (1.000-1.030) Urine Protein Trace H (Negative) Urine Glucose (UA) Negative (Negative) Urine Ketones Negative (Negative) Urine Blood 1+ H (Negative) Urine Nitrite Positive A (Negative) Urine Bilirubin Negative (Negative) Urine Urobilinogen Negative (Negative) Ur Leukocyte Esterase 3+ H (Negative) Urine WBC (Auto) >30 H (0-5) /hpf Urine RBC (Auto) 0-4 (0-4) /hpf U Hyaline Cast (Auto) 5-10 H (0-5) /lpf U Epithel Cells (Auto) 5-10 H (0-5) /lpf Urine Bacteria (Auto) 4+ H (Negative) COVID-19 Eval [facility] [place] SARS-CoV-2, RNA, NAAT NEGATIVE (NEGATIVE) Administered Medications Potassium Chloride (K rKaig / Wtr) 10 meq in 100 mls @ 100 mls/hr IV Q1H AREN Stop: 06/15/20 16:59 Last Admin: 06/15/20 15:49 Dose: 100 mls/hr Documented by: [id number] Acetaminophen (Ofirmev) 1,000 mg in 100 mls @ 400 mls/hr IV Q8H AREN Stop: 06/18/20 14:35 Last Infusion: 06/15/20 15:36 Dose: 0 mls/hr Documented by: [id number] Admin: 06/15/20 15:20 Dose: 400 mls/hr Documented by: [id number] Discontinued Medications Fentanyl Citrate (Fentanyl Citrate 100 Mcg/2 Ml Vial) 50 mcg IV NOW STA Stop: 06/15/20 08:17 Last Admin: 06/15/20 08:22 Dose: 50 mcg Documented by: [id number] Ceftriaxone Sodium (Rocephin) 2,000 mg in 70 mls @ 140 mls/hr IV NOW STA Stop: 06/15/20 09:16 Last Infusion: 06/15/20 09:31 Dose: 0 mls/hr Documented by: [id number] Admin: 06/15/20 09:01 Dose: 140 mls/hr Documented by: [id number] Discharge Plan Visit Data Chief Complaint: Fall ED Provider: Lin Hines ED Midlevel Provider: Morena Pineda Discharge Problem: Intertrochanteric fracture of right femur, UTI (urinary tract infection) Patient Disposition: Admitted As Inpatient Condition: Good Discharge Instructions Interventions: ED Discharge Assessment Last Done: 06/15/20 12:28 Discharge Problem: Intertrochanteric fracture of right femur Qualifiers: Encounter type: initial encounter Fracture type: closed Fracture alignment: displaced Qualified Code(s): S72.141A - Displaced intertrochanteric fracture of right femur, initial encounter for closed fracture UTI (urinary tract infection) Qualifiers: Urinary tract infection type: acute cystitis Hematuria presence: without hematuria Qualified Code(s): N30.00 - Acute cystitis without hematuria
[2020-06-15 08:29] LABS: Basophils # (auto) 0.05 K/uL (0-0.2); Basophils % (auto) 0.6 %; Eosinophils % (auto) 2.5 %; Hemoglobin 13.2 g/dL (12.0-16.0); Immature Granulocytes # (auto) 0.02 K/uL (0.00-0.02); Immature Granulocytes % (auto) 0.3 %; Lymphocytes # (auto) 1.73 K/uL (1.2-3.4); Lymphocytes % (auto) 21.8 %; Mean Corpuscular Hemoglobin 27.6 pg (25-34); Mean Corpuscular Hgb Conc 32.2 g/dL (32-36); Mean Corpuscular Volume 85.8 fL (80-100); Mean Platelet Volume 10.7 fL (7.4-10.4); Monocytes # (auto) 0.83 K/uL (0.11-0.59); Monocytes % (auto) 10.4 %; Neutrophils # (auto) 5.12 K/uL (1.4-6.5); Neutrophils % (auto) 64.4 %; Platelet Count 213 K/uL (130-400); RDW Coefficient of Variation 16.2 % (11.5-14.5); RDW Standard Deviation 51.2 fL (36.4-46.3); Red Blood Count 4.78 M/uL (4.2-5.4); White Blood Count 7.95 K/uL (4.8-10.8)
[2020-06-15 08:38] LABS: Appearance Urine Turbid (Clear); Bacteria Urine Automated 4+ (Negative); Bilirubin Urine Negative (Negative); Blood Urine 1+ (Negative); Color Urine Yellow; Glucose Urine UA Negative (Negative); Ketones Urine Negative (Negative); Leukocyte Esterase Urine 3+ (Negative); Nitrite Urine Positive (Negative); RBC Urine Automated 0-4 /hpf (0-4); Specific Gravity Urine 1.015 (1.000-1.030); Urobilinogen Urine Negative (Negative); WBC Urine Automated >30 /hpf (0-5); pH Urine 8.5 (4.5-7.5)
[2020-06-15 08:41] LABS: Prothrombin Time 10.9 Seconds (9.0-12.0)
[2020-06-15 08:45] LABS: Albumin Level 3.6 gm/dl (3.4-5.0); BUN Creatinine Ratio 25.4 (10-20); Calcium 9.8 mg/dl (8.5-10.1); Creatinine Clr Calc Pharmacy 40.4 ml/min; Est GFR (African American) 56.1; Est GFR (Non-African American) 48.4; Potassium 3.4 mmol/L (3.5-5.1)
[2020-06-15 08:46] LABS: Protein Urine Trace (Negative)
[2020-06-15] MEDS ORDERED: cefTRIAXone SODIUM 2,000 MG/70 ML BAG IV STA (08:47)
[2020-06-15 08:48] LABS: Albumin Globulin Ratio 0.8 (0.9-2); Bilirubin,Total 0.9 mg/dl (0.2-1); Globulin 4.5 gm/dl (2.5-4.0); Total Protein 8.1 gm/dl (6.4-8.2)
--- NOTE | 2020-06-15 09:10 | XRay Report ---
SINGLE VIEW CHEST CLINICAL HISTORY: Fall. FINDINGS: An AP, portable, supine chest radiograph is compared to study dated 08/18/2016. The heart is mildly enlarged. The pulmonary vasculature is noncongested. Chronic interstitial thickening is simila r to previous. There is chronic elevation of right hemidiaphragm with bibasilar scarring/atelectasis. No airspace consolidation or large pleural effusion is identified. No pneumothorax is seen. The skel etal structures are osteopenic. The bony thorax is grossly intact. Advanced degenerative change is no fidel in the shoulders and thoracic spine. Cholecystectomy clips are seen in the right upper quadrant. IMPRESSION: No acute cardiopulmonary abnormality. ACT 112: Negative or not required by law. Electronically signed by: Warren Johnson M.D. 06/15/2020 9:08 AM
--- NOTE | 2020-06-15 09:14 | XRay Report ---
SINGLE VIEW PELVIS; 2 VIEWS RIGHT HIP; 2 VIEWS RIGHT FEMUR CLINICAL HISTORY: Fall. Right leg injury. FINDINGS: An AP view of the pelvis with AP and crosstable lateral views of both the right hip and fem ur are compared to study dated 09/30/2012. The skeletal structures are osteopenic. There is no radiogr aphic evidence of acute fracture involving the bony pelvis. There is chronic posttraumatic deformity and postoperative change seen in the left hip. There is an acute comminuted fracture of the intertroc hanteric right femur with angulation and medial displacement of the lesser trochanter. Overlying soft tissue edema is noted. The remainder of the right femur appears intact. A right knee arthroplasty is in place. Moderate degenerative joint space narrowing is seen in both hips. Sclerotic change is seen in the sacroiliac joints and pubic symphysis. Advanced lumbosacral spondylosis and is partially visu alized. Small phleboliths are noted in the pelvis. IMPRESSION: 1. There is an acute, comminuted, and angulated fracture of the intertrochanteric right femur as abov e. 2. No acute fracture is seen involving the bony pelvis or left hip. 3. Osteopenia and degenerative change as above. Electronically signed by: Warren Johnson M.D. 06/15/2020 9:13 AM
--- NOTE | 2020-06-15 09:19 | XRay Report ---
XR knee LT 1 or 2V routine, XR knee RT 1 or 2V routine CLINICAL HISTORY: fall, knee pain COMPARISON STUDY: None. FINDINGS: The bones are osteopenic. No acute fracture or dislocation within the right or left knee. N o significant knee effusions. Soft tissues are unremarkable. There is a right total knee arthroplasty . There is moderate to severe left tricompartmental osteoarthritis with [id number] articulation at the medial compartment. There is also chondrocalcinosis within the left knee. The partially visualize d left femoral intramedullary jose cruz appears intact. IMPRESSION: No fracture or dislocation within the right or left knee. ACT 112: Negative or not required by law. Electronically signed by: Dann Childs M.D. 06/15/2020 9:18 AM
--- NOTE | 2020-06-15 09:19 | XRay Report ---
XR knee LT 1 or 2V routine, XR knee RT 1 or 2V routine CLINICAL HISTORY: fall, knee pain COMPARISON STUDY: None. FINDINGS: The bones are osteopenic. No acute fracture or dislocation within the right or left knee. N o significant knee effusions. Soft tissues are unremarkable. There is a right total knee arthroplasty . There is moderate to severe left tricompartmental osteoarthritis with [id number] articulation at the medial compartment. There is also chondrocalcinosis within the left knee. The partially visualize d left femoral intramedullary jose cruz appears intact. IMPRESSION: No fracture or dislocation within the right or left knee. ACT 112: Negative or not required by law. Electronically signed by: Dann Childs M.D. 06/15/2020 9:18 AM
--- NOTE | 2020-06-15 10:53 | Emergency Department Note ---
ED Visit Note I have personally seen and evaluated the patient with the PA. I agree with the diagnosis and management decisions and have been personally involved in the case. Please see CHELE Tee's notes for further details of the history, physical and visit. .
--- NOTE | 2020-06-15 11:16 | History & Physical Report ---
Date of Service June 15, 2020 Assessment & Plan (1) Intertrochanteric fracture of right femur: Due to fall at home this morning when leg gave out - no syncope, no dizziness. - Consult orthopedics for additional recommendations - SCDs for DVT prophylaxis until decision about potential surgical intervention - Due to hx of valvular heart disease, will check ECHO prior to OR - Oxycodone for pain control - monitor mental status - Case management consult for D/C planning (2) UTI (urinary tract infection): - Culture send by ED - starting empiric treatment based on UA - Continue ceftriaxone 2 g IV daily for now (3) GERD (gastroesophageal reflux disease): - Count outpatient PPI and famotidine (4) Hypothyroidism: - Continue levothyroxine - Check TSH in AM (5) HTN (hypertension): - Continue outpatient benazepril/HCTZ (6) Depression: - Continue Celexa Patient seen and reviewed with attending physician, Dr. Mckeon. Plan of care discussed and as outlined above. Remi Torres PA-C History of Present Illness Chief Complaint: fall, right hip pain Primary Care Provider: Josesito Frost MD This is an 84 y/o female with a PMH of HTN, aortic sclerosis, hypothyroidism, GERD, anxiety, depression, memory loss, and urge incontinence who presents to the ED via EMS after a fall at home. Pt reports that she went to the bathroom around 7 am today but fell asleep on the toilet. When she woke up and went to get up, her legs were numb and "asleep" and the left leg gave out on her when she stood resulting in a loss of balance and fall onto her right hip and knee. She denies any dizziness, syncope or hitting her head. She denies any other recent falls at home or recent gait unsteadiness. She does have a hx of a left hip fracture requiring surgical repair several years ago but cannot recall who performed that surgery. Prior right knee replacement by Dr. Nation. Per pt and the last note from her PCP, she is overall doing well from a medical perspective. Ongoing issues with memory but pt has declined neurology evaluation. She lives with her and her daughter but reports being independent in ADLs at baseline. She denies chest pain, palpitations, SOB, RED, N/V, dysuria, hematuria, diarrhea, blood in stools. Bowel pattern tends towards constipation for which patient uses Miralax 1-2 times per week with good results. No recent malaise, fatigue, fevers, chills or sweats. +nocturia but unchaged from baseline. Currently, her hip pain is tolerable after a dose of Fentanyl in the ED. She denies numbness or tingling in her LE. Allergies Allergy/AdvReac Type Severity Reaction Status Date / Time montelukast Allergy Intermediate RASH, HYPER Verified 06/15/20 08:32 adhesive AdvReac Intermediate SENSITIVE, Verified 06/15/20 08:32 RASH salicylates AdvReac Mild VOMITING Verified 06/15/20 08:32 Home Medications Medication Instructions Recorded Confirmed Type benazepril-hydrochlorothiazide 1 tab PO BID 06/15/20 06/15/20 History citalopram [Celexa] 10 mg PO DAILY 06/15/20 06/15/20 History famotidine 20 mg PO DAILY 06/15/20 06/15/20 History levothyroxine 100 mcg PO DAILY 06/15/20 06/15/20 History mirabegron [Myrbetriq] 50 mg PO DAILY 06/15/20 06/15/20 History pantoprazole 40 mg PO DAILY 06/15/20 06/15/20 History solifenacin 5 mg PO DAILY 06/15/20 06/15/20 History tramadol 50 mg PO Q6H PRN 06/15/20 06/15/20 History Past Med/Surg History Medical History (Updated 06/15/20 @ 16:20 by Salome Torres PA-C) Aortic valve sclerosis Depression Dyslipidemia GERD (gastroesophageal reflux disease) History of gastrointestinal diverticular hemorrhage HTN (hypertension) Hypothyroidism Osteoarthritis Urge incontinence Surgical History History of arthroscopic knee surgery History of cholecystectomy History of hysterectomy History of tonsillectomy Family History (Updated 06/15/20 @ 16:11 by Salome Torres PA-C) Father Heart disease Brother Lung cancer Brother Gastric cancer Mother Brain cancer Social History Smoking Status: Never smoker Hx Alcohol Use: No Hx Substance Use: No Preferred Language: Bengali Communication Ability: Effective Elevator Supervisor Required: No Beliefs That Will Affect Care: None Current Living Situation: Spouse Other Information That Helps Us Care for You: No Feels Safe at Home: Yes Safety Concerns: Feels Safe At This Time Assistive Devices: Denture - Upper, Denture - Lower, Glasses and Hearing Aid - Bilateral Review of Systems Review of Systems: All systems reviewed & are unremarkable except as noted in HPI & below Constitutional: no fever, no chills, no sweats and no fatigue Eyes: no diplopia Ear, Nose, Mouth, Throat: + hearing loss; no nasal congestion and no sore throat Respiratory: + cough (occasional at baseline); no dyspnea, no dyspnea on exertion, no hemoptysis and no wheezing Cardiovascular: no chest pain with activity, no dyspnea on exertion, no palpitations, no syncope and no edema Gastrointestinal: + constipation; no abdominal pain, no nausea, no vomiting, no diarrhea/loose stools and no blood in stools Genitourinary: no dysuria, no urinary frequency, no urinary urgency and no hematuria Musculoskeletal: as per Subjective / HPI Integumentary: no rash and no skin ulcer Neurologic: + falls; no unsteadiness, no generalized weakness, no paresthesia and no dizziness Psychiatric: + anxiety Physical Exam Constitutional: WD/WN, vitals as above no acute distress Eyes: PERRL, conjunctivae normal, anicteric sclerae Neck: trachea midline Respiratory: no respiratory distress and no labored breathing Auscultation: lungs clear to auscultation bilaterally; no rales, no rhonchi and no wheezes Cardiovascular: Rate/Rhythm: regular rate and regular rhythm Heart Sounds: no gallop, no murmur and no cardiac rub Vessels: posterior tibial pulses present and dorsalis pedis pulses present Gastrointestinal (Abdomen): Inspection/Auscultation: normal bowel sounds; abdomen not distended Percussion/Palpation: abdomen soft; abdomen nontender Musculoskeletal: Head/Neck/Chest: normocephalic, head atraumatic and neck supple Extremities: + leg externally rotated (right LE externally rotated and shortened) Moving toes bilaterally. Sensation to light touch intact distal LE bilaterally. Skin: no rashes, warm and dry Neurologic: Speech / Cognition: normal speech Psychiatric: A+Ox3, euthymic affect Results & Data Results & Data ([facility]) Vital Signs (Past 12 Hours) Vital Signs Pulse Resp BP Pulse Ox 06/15/20 10:00 96 H 12 118/82 96 06/15/20 09:30 101 H 19 124/76 97 06/15/20 09:04 93 H 18 136/90 98 06/15/20 08:27 95 06/15/20 08:00 88 18 174/99 H 96 06/15/20 07:55 92 H 17 164/104 H 89 L Laboratory Results Laboratory Results - last 24 hr 06/15/20 06/15/20 06/15/20 08:05 08:05 08:05 WBC 7.95 RBC 4.78 Hgb 13.2 Hct 41.0 MCV 85.8 MCH 27.6 MCHC 32.2 RDW Std Deviation 51.2 H RDW Coeff of Talisha 16.2 H Plt Count 213 MPV 10.7 H Immature Gran % (Auto) 0.3 Neut % (Auto) 64.4 Lymph % (Auto) 21.8 [place] % (Auto) 10.4 Eos % (Auto) 2.5 Baso % (Auto) 0.6 Neut # (Auto) 5.12 Lymph # (Auto) 1.73 [place] # (Auto) 0.83 H Eos # (Auto) 0.20 Baso # (Auto) 0.05 Immature Gran # (Auto) 0.02 PT 10.9 INR 1.0 Sodium 139 Potassium 3.4 L Chloride 103 Carbon Dioxide 30 Anion Gap 6.0 BUN 27 H Creatinine 1.05 Est Cr Clr Drug Dosing 40.4 Est GFR ( Amer) 56.1 Est GFR (Non-Af Amer) 48.4 BUN/Creatinine Ratio 25.4 H Glucose 98 Calcium 9.8 Total Bilirubin 0.9 AST 15 ALT 16 Alkaline Phosphatase 63 Total Protein 8.1 Albumin 3.6 Globulin 4.5 H Albumin/Globulin Ratio 0.8 L Urine Color Urine Appearance Urine pH Ur Specific [place] Urine Protein Urine Glucose (UA) Urine Ketones Urine Blood Urine Nitrite Urine Bilirubin Urine Urobilinogen Ur Leukocyte Esterase Urine WBC (Auto) Urine RBC (Auto) U Hyaline Cast (Auto) U Epithel Cells (Auto) Urine Bacteria (Auto) COVID-19 Eval Order SARS-CoV-2, RNA, NAAT 06/15/20 06/15/20 06/15/20 08:07 09:05 09:05 WBC RBC Hgb Hct MCV MCH MCHC RDW Std Deviation RDW Coeff of Talisha Plt Count MPV Immature Gran % (Auto) Neut % (Auto) Lymph % (Auto) [place] % (Auto) Eos % (Auto) Baso % (Auto) Neut # (Auto) Lymph # (Auto) [place] # (Auto) Eos # (Auto) Baso # (Auto) Immature Gran # (Auto) PT INR Sodium Potassium Chloride Carbon Dioxide Anion Gap BUN Creatinine Est Cr Clr Drug Dosing Est GFR ( Amer) Est GFR (Non-Af Amer) BUN/Creatinine Ratio Glucose Calcium Total Bilirubin AST ALT Alkaline Phosphatase Total Protein Albumin Globulin Albumin/Globulin Ratio Urine Color Yellow Urine Appearance Turbid A Urine pH 8.5 H Ur Specific [place] 1.015 Urine Protein Trace H Urine Glucose (UA) Negative Urine Ketones Negative Urine Blood 1+ H Urine Nitrite Positive A Urine Bilirubin Negative Urine Urobilinogen Negative Ur Leukocyte Esterase 3+ H Urine WBC (Auto) >30 H Urine RBC (Auto) 0-4 U Hyaline Cast (Auto) 5-10 H U Epithel Cells (Auto) 5-10 H Urine Bacteria (Auto) 4+ H COVID-19 Eval Order Covid19 [facility]Now [facility] SARS-CoV-2, RNA, NAAT NEGATIVE Diagnostic Findings Chest x-ray 06/15/20 - IMPRESSION: No acute cardiopulmonary abnormality. Femur/Hip/Pelvis x-ray 06/15/20 - IMPRESSION: 1. There is an acute, comminuted, and angulated fracture of the intertrochanteric right femur as above. 2. No acute fracture is seen involving the bony pelvis or left hip. 3. Osteopenia and degenerative change as above. Knee x-ray 06/15/20 - IMPRESSION: No fracture or dislocation within the right or left knee. Medications Administered Discontinued Medications Fentanyl Citrate (Fentanyl Citrate 100 Mcg/2 Ml Vial) 50 mcg IV NOW STA Stop: 06/15/20 08:17 Last Admin: 06/15/20 08:22 Dose: 50 mcg Documented by: [id number] Ceftriaxone Sodium (Rocephin) 2,000 mg in 70 mls @ 140 mls/hr IV NOW STA Stop: 06/15/20 09:16 Last Infusion: 06/15/20 09:31 Dose: 0 mls/hr Documented by: [id number] Admin: 06/15/20 09:01 Dose: 140 mls/hr Documented by: [id number] Code Status & VTE Plan VTE Prophylaxis Plan VTE Prophylaxis will be ordered: Yes Supervising Physician Co-Signing Physician Notes Ground-level fall at home S/P cute, comminuted, and angulated fracture of the intertrochanteric right femur COVID-19 ruled out History of hypertension, osteoarthritis, hypothyroidism, hyperlipidemia, depression and aortic stenosis Patient was resting comfortably upon arrival. She was sleeping. However was able to wake up and was oriented x3. Denies any chest pain or shortness of breath. Does report mild nonproductive cough. Denies any fever or sore throat. Denies any abdominal pain, diarrhea, dysuria or increased urinary frequency. Does report pain at right hip site. Uses a walker at home. Denies losing consciousness or hitting her head. Lives with her and daughter. I performed a history and physical examination of the patient on 06/15/20, including specifically History & Physical Exam. I have discussed the patient's management with the advanced practitioner. Please refer to the Elise Torres note for the documented findings and plan of care. (1) Hypothyroidism Hypothyroidism type: acquired Qualified Code(s): E03.9 - Hypothyroidism, unspecified (2) HTN (hypertension) Hypertension type: essential hypertension Qualified Code(s): I10 - Essential (primary) hypertension
--- NOTE | 2020-06-15 13:14 | XCELERA ---
[id number]
--- NOTE | 2020-06-15 13:30 | Electrocardiogram Report ---
Test Reason : Blood Pressure : / mmHG Vent. Rate : 082 BPM Atrial Rate : 082 BPM P-R Int : 156 ms QRS Dur : 084 ms QT Int : 372 ms P-R-T Axes : 060 -25 073 degrees QTc Int : 434 ms Poor data quality, interpretation may be adversely affected Sinus rhythm with frequent Premature ventricular complexes Nonspecific T wave abnormality Abnormal ECG When compared with ECG of 18-AUG-2016 19:02, Premature ventricular complexes are now Present Premature atrial complexes are no longer Present Nonspecific T wave abnormality now evident in Anterolateral leads Confirmed by Hardy Selby ([id number]) on 06/15/2020 1:30:21 PM Referred By: Confirmed By:Hardy Selby
[2020-06-15] MEDS ORDERED: NALOXONE HCL 0.4 MG/1 ML VIAL/CARP IV PRN (14:36)
[2020-06-15] MEDS ORDERED: ACETAMINOPHEN 325 MG TAB PO PRN (14:36)
[2020-06-15] MEDS ORDERED: bisacodyL 10 MG SUPP PR PRN (14:36)
[2020-06-15] MEDS: ACETAMINOPHEN 1,000 MG/100 ML VIAL IV SCH ×2 (15:20→21:13)
[2020-06-15] MEDS: POTASSIUM CHLORIDE / WTR 10 MEQ/100 ML PLCT IV SCH ×2 (15:49→18:31)
--- NOTE | 2020-06-15 16:50 | Orthopedic Consultation ---
Date of Consultation June 15, 2020 Assessment & Plan (1) Intertrochanteric fracture of right femur: The patient is a 84yo female with displaced right intertrochanteric hip fracture sustained after a fall from standing height. I indicated the patient for right hip cephalomedullary nail. The patient was informed of the risks and benefits of surgery, which include but not limited to infection, bleeding, blood clots, damage to nerves, vessels, bone and soft tissue, dislocation, leg length discrepancy, malunion, nonunion, failure of the implants, need for additional surgery and . The patient wished to proceed with surgical intervention. Tentatively planning for surgery 06/16/2020 pending medical clearance, or and surgeon availability. Maintain nonweightbearing right lower extremity, pain control, hold anticoagulation, n.p.o. after midnight. Thank you for the consultation. History of Present Illness Reason for Consultation: Right hip fracture Attending Physician: Vimal Mckeon MD History of Present Illness The patient is an 84-year-old female who presented to [facility] secondary to a mechanical fall when using the bathroom this morning. Patient fell onto her right side, complains of subsequent pain to her right hip and inability to ambulate. X-rays taken at [facility] emergency department demonstrated a right-sided intertrochanteric hip fracture, the patient denies any associated injuries, denies any numbness or tingling in her right lower extremity. Allergies Allergy/AdvReac Type Severity Reaction Status Date / Time montelukast Allergy Intermediate RASH, HYPER Verified 06/15/20 08:32 adhesive AdvReac Intermediate SENSITIVE, Verified 06/15/20 08:32 RASH salicylates AdvReac Mild VOMITING Verified 06/15/20 08:32 Home Medications Medication Instructions Recorded Confirmed Type benazepril-hydrochlorothiazide 1 tab PO BID 06/15/20 06/15/20 History citalopram [Celexa] 10 mg PO DAILY 06/15/20 06/15/20 History famotidine 20 mg PO DAILY 06/15/20 06/15/20 History levothyroxine 100 mcg PO DAILY 06/15/20 06/15/20 History mirabegron [Myrbetriq] 50 mg PO DAILY 06/15/20 06/15/20 History pantoprazole 40 mg PO DAILY 06/15/20 06/15/20 History solifenacin 5 mg PO DAILY 06/15/20 06/15/20 History tramadol 50 mg PO Q6H PRN 06/15/20 06/15/20 History Patient History Medical History Aortic valve sclerosis Depression Dyslipidemia GERD (gastroesophageal reflux disease) History of gastrointestinal diverticular hemorrhage HTN (hypertension) Hypothyroidism Osteoarthritis Urge incontinence Surgical History History of arthroscopic knee surgery History of cholecystectomy History of hysterectomy History of tonsillectomy Family History Father Heart disease Brother Lung cancer Brother Gastric cancer Mother Brain cancer Social History Smoking Status: Never smoker Hx Alcohol Use: No Hx Substance Use: No Preferred Language: [place] Communication Ability: Effective Floor Inspector Required: No Beliefs That Will Affect Care: None Current Living Situation: Spouse Other Information That Helps Us Care for You: No Feels Safe at Home: Yes Safety Concerns: Feels Safe At This Time Assistive Devices: Denture - Upper, Denture - Lower, Glasses and Hearing Aid - Bilateral Review of Systems Review of Systems: All systems reviewed & are unremarkable except as noted in HPI & below Constitutional: as per Subjective / HPI Physical Exam Physical Exam: Right lower extremity is neurovascularly and sensory intact grossly, compartment soft nontender, short and externally rotated, +2 dorsalis pedis pulse. Constitutional: WD/WN, vitals as above Results & Data ([place]) Vital Signs (Past 12 Hours) Vital Signs Temp Pulse Pulse Resp BP BP Pulse Ox 06/15/20 15:26 36.8 C 113 H 16 149/66 H 93 06/15/20 14:36 37.2 C 107 H 16 139/88 93 06/15/20 12:01 106 H 14 06/15/20 12:00 112 H 15 117/69 06/15/20 11:31 108 H 19 99 06/15/20 11:30 107 H 18 139/93 97 06/15/20 11:01 102 H 12 96 06/15/20 11:00 102 H 15 130/83 96 06/15/20 10:31 100 H 14 96 06/15/20 10:30 98 H 14 120/70 96 06/15/20 10:00 96 H 12 118/82 96 06/15/20 09:30 101 H 19 124/76 97 06/15/20 09:04 93 H 18 136/90 98 06/15/20 08:27 95 06/15/20 08:00 88 18 174/99 H 96 06/15/20 07:55 92 H 17 164/104 H 89 L Pulse Ox 06/15/20 15:26 06/15/20 14:36 90 06/15/20 12:01 06/15/20 12:00 06/15/20 11:31 06/15/20 11:30 06/15/20 11:01 06/15/20 11:00 06/15/20 10:31 06/15/20 10:30 06/15/20 10:00 06/15/20 09:30 06/15/20 09:04 06/15/20 08:27 06/15/20 08:00 06/15/20 07:55 Diagnostic Findings XR knee LT 1 or 2V routine, XR knee RT 1 or 2V routine CLINICAL HISTORY: fall, knee pain COMPARISON STUDY: None. FINDINGS: The bones are osteopenic. No acute fracture or dislocation within the right or left knee. No significant knee effusions. Soft tissues are unremarkable. There is a right total knee arthroplasty. There is moderate to severe left tricompartmental osteoarthritis with [id number] articulation at the medial compartment. There is also chondrocalcinosis within the left knee. The partially visualized left femoral intramedullary jose cruz appears intact. IMPRESSION: No fracture or dislocation within the right or left knee. SINGLE VIEW PELVIS; 2 VIEWS RIGHT HIP; 2 VIEWS RIGHT FEMUR CLINICAL HISTORY: Fall. Right leg injury. FINDINGS: An AP view of the pelvis with AP and crosstable lateral views of both the right hip and femur are compared to study dated 09/30/2012. The skeletal structures are osteopenic. There is no radiographic evidence of acute fracture involving the bony pelvis. There is chronic posttraumatic deformity and postoperative change seen in the left hip. There is an acute comminuted fracture of the intertrochanteric right femur with angulation and medial displacement of the lesser trochanter. Overlying soft tissue edema is noted. The remainder of the right femur appears intact. A right knee arthroplasty is in place. Moderate degenerative joint space narrowing is seen in both hips. Sclerotic change is seen in the sacroiliac joints and pubic symphysis. Advanced lumbosacral spondylosis and is partially visualized. Small phleboliths are noted in the pelvis. IMPRESSION: 1. There is an acute, comminuted, and angulated fracture of the intertrochanteric right femur as above. 2. No acute fracture is seen involving the bony pelvis or left hip. 3. Osteopenia and degenerative change as above. SINGLE VIEW PELVIS; 2 VIEWS RIGHT HIP; 2 VIEWS RIGHT FEMUR CLINICAL HISTORY: Fall. Right leg injury. FINDINGS: An AP view of the pelvis with AP and crosstable lateral views of both the right hip and femur are compared to study dated 09/30/2012. The skeletal structures are osteopenic. There is no radiographic evidence of acute fracture involving the bony pelvis. There is chronic posttraumatic deformity and postoperative change seen in the left hip. There is an acute comminuted fracture of the intertrochanteric right femur with angulation and medial displacement of the lesser trochanter. Overlying soft tissue edema is noted. The remainder of the right femur appears intact. A right knee arthroplasty is in place. Moderate degenerative joint space narrowing is seen in both hips. Sclerotic change is seen in the sacroiliac joints and pubic symphysis. Advanced lumbosacral spondylosis and is partially visualized. Small phleboliths are noted in the pelvis.
[2020-06-15] MEDS: hydroCHLOROthiazide 25 MG TAB PO SCH (21:17)
[2020-06-15] MEDS: ENALAPRIL MALEATE 10 MG TAB PO SCH (21:17)
[2020-06-15] MEDS: oxyCODONE HCL IR 5 MG TAB (IMMEDIATE RELEASE) PO PRN (23:43)
[2020-06-16] MEDS: LEVOTHYROXINE SODIUM 100 MCG TABLET PO SCH (05:30)
[2020-06-16] MEDS: ACETAMINOPHEN 1,000 MG/100 ML VIAL IV SCH ×3 (05:31→22:03)
[2020-06-16 06:12] LABS: Basophils # (auto) 0.03 K/uL (0-0.2); Basophils % (auto) 0.3 %; Eosinophils # (auto) 0.01 K/uL (0-0.5); Eosinophils % (auto) 0.1 %; Hematocrit (blood only) 35.9 % (37-47); Hemoglobin 11.5 g/dL (12.0-16.0); Immature Granulocytes # (auto) 0.02 K/uL (0.00-0.02); Immature Granulocytes % (auto) 0.2 %; Lymphocytes # (auto) 1.23 K/uL (1.2-3.4); Lymphocytes % (auto) 13.4 %; Mean Corpuscular Hemoglobin 27.4 pg (25-34); Mean Corpuscular Volume 85.7 fL (80-100); Mean Platelet Volume 10.7 fL (7.4-10.4); Monocytes # (auto) 1.03 K/uL (0.11-0.59); Monocytes % (auto) 11.2 %; Neutrophils # (auto) 6.89 K/uL (1.4-6.5); Neutrophils % (auto) 74.8 %; Platelet Count 190 K/uL (130-400); RDW Coefficient of Variation 16.4 % (11.5-14.5); RDW Standard Deviation 51.8 fL (36.4-46.3); Red Blood Count 4.19 M/uL (4.2-5.4); White Blood Count 9.21 K/uL (4.8-10.8)
[2020-06-16 06:43] LABS: BUN Creatinine Ratio 25.5 (10-20); Calcium 8.8 mg/dl (8.5-10.1); Creatinine Clr Calc Pharmacy 49.3 ml/min; Est GFR (African American) 71.4; Est GFR (Non-African American) 61.6; Potassium 3.4 mmol/L (3.5-5.1)
[2020-06-16] MEDS: cefTRIAXone SODIUM 2,000 MG in DEXTROSE 5% 50 ML IV SCH (08:58)
[2020-06-16] MEDS: ENALAPRIL MALEATE 10 MG TAB PO SCH ×2 (08:59→20:17)
[2020-06-16] MEDS: PANTOprazole 40 MG TAB PO SCH (08:59)
[2020-06-16] MEDS: FAMOTIDINE 20 MG TAB PO SCH (08:59)
[2020-06-16] MEDS: hydroCHLOROthiazide 25 MG TAB PO SCH ×2 (08:59→20:17)
[2020-06-16] MEDS: CITALOPRAM 20 MG TAB PO SCH (08:59)
[2020-06-16] MEDS: MIRABEGRON ER 25 MG TAB PO SCH (09:00)
[2020-06-16] MEDS ORDERED: PROPOFOL IV EMULSION 10 MG/ML 20 ML VIAL IV ONE ×2 (10:49→14:25)
[2020-06-16] MEDS ORDERED: LIDOCAINE HCL 2% 2 ML VIAL/AMP(20MG/ML) INFIL ONE ×2 (10:49→14:25)
[2020-06-16] MEDS ORDERED: fentaNYL citrate 100 MCG/2 ML VIAL ONE ×3 (10:50→16:01)
[2020-06-16] MEDS ORDERED: MIDAZOLAM HCL 1 MG/ML 2ML VIAL ONE (10:50)
--- NOTE | 2020-06-16 10:59 | Anesthesiology Consultation ---
Date of Service June 16, 2020 Assessment & Plan Chart Review Chart Review: Acceptable Risk for Surgery and Patient NOT seen in Pre Admission Testing Consults Requested none ASA ASA3 Proposed Anesthesia Anesthesia Type: General History Surgery Operation Date: 06/16/20 07:00 Proposed Procedures p Right Troch Nail Hip Fracture - Nazario Bishop DO Height/Weight Height: 5 ft 4 in Weight: 81.2 kg Allergies Allergy/AdvReac Type Severity Reaction Status Date / Time montelukast Allergy Intermediate RASH, HYPER Verified 06/15/20 08:32 adhesive AdvReac Intermediate SENSITIVE, Verified 06/15/20 08:32 RASH salicylates AdvReac Mild VOMITING Verified 06/15/20 08:32 Medications Home Medications Medication Instructions Recorded Confirmed Last Taken benazepril-hydrochlorothiazide 1 tab PO BID 06/15/20 06/15/20 06/14/20 citalopram [Celexa] 10 mg PO DAILY 06/15/20 06/15/20 Unknown famotidine 20 mg PO DAILY 06/15/20 06/15/20 06/14/20 levothyroxine 100 mcg PO DAILY 06/15/20 06/15/20 06/14/20 mirabegron [Myrbetriq] 50 mg PO DAILY 06/15/20 06/15/20 06/14/20 pantoprazole 40 mg PO DAILY 06/15/20 06/15/20 Unknown solifenacin 5 mg PO DAILY 06/15/20 06/15/20 06/14/20 tramadol 50 mg PO Q6H PRN 06/15/20 06/15/20 06/14/20 Active Medications Generic Name Dose Route Start Last Admin Trade Name Freq PRN Reason Stop Dose Admin Citalopram Hydrobromide 10 mg 06/16/20 09:00 06/16/20 08:59 Citalopram 20 Mg Tab PO 07/16/20 08:59 10 mg DAILY AREN Administration Enalapril Maleate 20 mg 06/15/20 21:00 06/16/20 08:59 Enalapril Maleate 10 Mg Tab PO 07/15/20 20:59 20 mg BID AREN Administration Famotidine 20 mg 06/16/20 09:00 06/16/20 08:59 Famotidine 20 Mg Tab PO 07/16/20 08:59 20 mg DAILY AREN Administration Hydrochlorothiazide 12.5 mg 06/15/20 21:00 06/16/20 08:59 Hydrochlorothiazide 25 Mg Tab PO 07/15/20 20:59 12.5 mg BID AREN Administration Ceftriaxone Sodium 2,000 mg/ 70 mls @ 100 mls/hr 06/16/20 09:00 06/16/20 09:40 Dextrose IV 06/20/20 08:59 Infused DAILY AREN Infusion Protocol Acetaminophen 1,000 mg in 100 mls @ 400 mls/hr 06/15/20 14:36 06/16/20 05:50 Ofirmev IV 06/18/20 14:35 Infused Q8H AREN Infusion Levothyroxine Sodium 100 mcg 06/16/20 06:30 06/16/20 05:30 Levothyroxine Sodium 100 Mcg Tablet PO 07/16/20 06:29 100 mcg DAILYBB AREN Administration Mirabegron 50 mg 06/16/20 09:00 06/16/20 09:00 Mirabegron Er 25 Mg Tab PO 07/16/20 08:59 50 mg DAILY AREN Administration Miscellaneous 1 ea 06/16/20 00:00 06/16/20 07:54 Vesicare- Order Awaiting Action N/A 07/16/20 00:00 Not Given QS ARNE Oxycodone HCl 5 mg 06/15/20 13:17 06/15/20 23:43 Oxycodone Hcl Ir 5 Mg Tab (Immediate Release) PO 06/29/20 13:16 5 mg Q8H PRN Administration Pain Pantoprazole Sodium 40 mg 06/16/20 09:00 06/16/20 08:59 Pantoprazole 40 Mg Tab PO 07/16/20 08:59 40 mg DAILY AREN Administration NPO Date Last Intake of Fluids: 06/16/20 Time Last Intake of Fluids: 05:30 Last Intake of Fluids Comment: Pt had sip of water with morning med. Past Medical History Medical History Aortic valve sclerosis Depression Dyslipidemia GERD (gastroesophageal reflux disease) History of gastrointestinal diverticular hemorrhage HTN (hypertension) Hypothyroidism Osteoarthritis Urge incontinence Exercise / Class Metabolic Activity III < 4 Walking/Shop/Light housework Past Family History Family History Father Heart disease Brother Lung cancer Brother Gastric cancer Mother Brain cancer Past Surgical History Surgical History History of arthroscopic knee surgery History of cholecystectomy History of hysterectomy History of tonsillectomy Past Anesthesia History No Hx of Anesthesia Complications and No Family Hx of Anesthesia Complications History of PONV No Hx of PONV and No Hx of Motion Sickness Social History Smoking Status: Never smoker Hx Alcohol Use: No Hx Substance Use: No Physical Exam Vital Signs Last Vital Signs Temp 36.6 C 06/16/20 07:12 Pulse 106 H 06/16/20 07:12 Resp 16 06/16/20 07:12 BP 128/77 06/16/20 07:12 Pulse Ox 93 06/16/20 07:12 Testing Laboratory Results 06/16/20 05:34 06/16/20 05:34 PT 10.9 Seconds (9.0-12.0) 06/15/20 08:05 INR 1.0 (0.9-1.1) 06/15/20 08:05 Urine Color Yellow 06/15/20 08:07 Urine Appearance Turbid (Clear) A 06/15/20 08:07 Urine pH 8.5 (4.5-7.5) H 06/15/20 08:07 Ur Specific [place] 1.015 (1.000-1.030) 06/15/20 08:07 Urine Protein Trace (Negative) H 06/15/20 08:07 Urine Glucose (UA) Negative (Negative) 06/15/20 08:07 Urine Ketones Negative (Negative) 06/15/20 08:07 Urine Nitrite Positive (Negative) A 06/15/20 08:07 Ur Leukocyte Esterase 3+ (Negative) H 06/15/20 08:07 Urine WBC (Auto) >30 /hpf (0-5) H 06/15/20 08:07 Urine RBC (Auto) 0-4 /hpf (0-4) 06/15/20 08:07 U Hyaline Cast (Auto) 5-10 /lpf (0-5) H 06/15/20 08:07 U Epithel Cells (Auto) 5-10 /lpf (0-5) H 06/15/20 08:07 Urine Bacteria (Auto) 4+ (Negative) H 06/15/20 08:07 Blood Type O Positive 06/15/20 14:41 Antibody Screen NEGATIVE 06/15/20 14:41 06/15/20 08:07 Urine Culture - Preliminary Urine,Straight Cath Proteus species Electrocardiogram Date: 06/15/20 Findings: + NSR @ (SR at 81 w/ frequent PVC's;NS T wave abnl) Chest X-Ray Date: 06/15/20 Findings: + NAD, + cardiomegaly (mild) and + other (chronic interstitial thickening) Echocardiogram Date: 06/15/20 LV Function: normal RWMA: + none Other Findings: + LVH (mild) Valvular Disease: + no significant valvular disease
--- NOTE | 2020-06-16 11:54 | Hospitalist Progress Note ---
Date of Service June 16, 2020 Assessment & Plan (1) Intertrochanteric fracture of right femur: Orthopedics is on board. Patient remains n.p.o. Plan to go to the OR today. Nonweightbearing to the right lower extremity. SCD for DVT prophylaxis. Start chemical prophylaxis postoperatively once okay with orthopedics. Oxycodone for moderate to severe pain. Work with PT/OT postoperatively. (2) UTI (urinary tract infection): Growing Proteus species. We'll continue with ceftriaxone for now. (3) GERD (gastroesophageal reflux disease): - Count outpatient PPI and famotidine. (4) Hypothyroidism: - Continue levothyroxine - TSH is pending (5) HTN (hypertension): - Continue outpatient benazepril/HCTZ (6) Depression: - Continue Celexa Admission and Anticipated Discharge Date Admission Date: June 15, 2020 Subjective Patient resting comfortably. Earlier she was having pain but reports currently it is controlled now. Denies any chest pain, shortness of breath, abdominal pain or any other weakness. No nausea or vomiting. Review of Systems Review of Systems: All systems reviewed & are unremarkable except as noted in HPI & below Physical Exam Physical Exam: General: A&Ox2 HENT: NCAT, MMM, EOMI Eyes: PERRLA Neck: Supple, normal range of motion CVS: normal rate and rhythm Resp: b/l good breath sounds Abdomen: Soft, ND/NT Extremities: right hip pain noted, externally rotated Neuro: face symmetric, able to move all four extremities - RLE weakness noted Skin: warm and dry, Results & Data Results & Data ([facility]) Vital Signs (Past 12 Hours) Vital Signs Temp Pulse Resp BP Pulse Ox 06/16/20 07:12 36.6 C 106 H 16 128/77 93 (1) Intertrochanteric fracture of right femur Encounter type: initial encounter Fracture alignment: displaced Fracture type: closed Qualified Code(s): S72.141A - Displaced intertrochanteric fracture of right femur, initial encounter for closed fracture (2) UTI (urinary tract infection) Hematuria presence: without hematuria Urinary tract infection type: acute cystitis Qualified Code(s): N30.00 - Acute cystitis without hematuria (3) Hypothyroidism Hypothyroidism type: acquired Qualified Code(s): E03.9 - Hypothyroidism, unspecified (4) HTN (hypertension) Hypertension type: essential hypertension Qualified Code(s): I10 - Essential (primary) hypertension
[2020-06-16] MEDS ORDERED: ePHEDrine sulfate 50 MG/ML AMP IV PRN (13:58)
[2020-06-16] MEDS ORDERED: ONDANSETRON INJ 2 MG/ML 2 ML VIAL IV PRN (13:58)
[2020-06-16] MEDS ORDERED: fentaNYL citrate 100 MCG/2 ML VIAL IV PRN (13:58)
[2020-06-16] MEDS ORDERED: LABETALOL HCL IV 5 MG/ML 20ML IV PRN (13:58)
[2020-06-16] MEDS ORDERED: ATROPINE SULFATE 0.1 MG/ML 10ML SYR IV PRN (13:58)
[2020-06-16] MEDS ORDERED: NALOXONE HCL 0.4 MG/1 ML VIAL/CARP IV PRN ×2 (13:58→18:04)
[2020-06-16] MEDS ORDERED: FLUMAZENIL 0.1 MG/1 ML 10 ML VIAL IV PRN (13:58)
[2020-06-16] MEDS ORDERED: PROMETHAZINE HCL 12.5 MG in SODIUM CHLORIDE 0.9% 50 ML IV PRN (13:58)
[2020-06-16] MEDS ORDERED: BUPIVACAINE/EPINEPHRINE 0.5% MPF 1:200,000 30 ML VIAL ONE (14:19)
--- NOTE | 2020-06-16 14:21 | History & Physical Bridge Note ---
Date of Service June 16, 2020 History & Physical Bridge Note I have examined the patient, reviewed the History & Physical and in the interval since the performance of the History & Physical I have noted the following changes of clinical significance: no changes noted
--- NOTE | 2020-06-16 14:22 | Orthopedic Progress Note ---
Date of Service June 16, 2020 Assessment & Plan (1) Intertrochanteric fracture of right femur: The patient is a 84yo female with displaced right intertrochanteric hip fracture sustained after a fall from standing height. The patient was medically stabilized on 06/16/2020. I indicated the patient for right hip cephalomedullary nail. The patient was informed of the risks and benefits of surgery, which include but not limited to infection, bleeding, blood clots, damage to nerves, vessels, bone and soft tissue, dislocation, leg length discrepancy, malunion, nonunion, failure of the implants, need for additional surgery and . The patient chose to proceed with surgical intervention and informed consent was obtained. Admission and Anticipated Discharge Date Admission Date: June 15, 2020 Subjective Patient seen in preoperative holding, comfortable, no acute issues, medically optimized for surgery. Review of Systems Review of Systems: All systems reviewed & are unremarkable except as noted in HPI & below Constitutional: as per Subjective / HPI Physical Exam Physical Exam: Right lower extremity is neurovascular and sensory intact, +2 dorsalis pedis pulse, compartment soft nontender, short externally rotated, skin overlying right hip clean dry and intact Constitutional: WD/WN, vitals as above Results & Data ([facility]) Vital Signs (Past 12 Hours) Vital Signs Temp Pulse Pulse Resp BP Pulse Ox 06/16/20 13:25 37.7 C H 20 L 113 H 20 126/98 93 06/16/20 07:12 36.6 C 106 H 16 128/77 93 (1) Intertrochanteric fracture of right femur Encounter type: initial encounter Fracture alignment: displaced Fracture type: closed Qualified Code(s): S72.141A - Displaced intertrochanteric fracture of right femur, initial encounter for closed fracture
[2020-06-16] MEDS ORDERED: NEOSTIGMINE METHYLSULFATE 5 MG/5 ML SYR ONE (14:25)
[2020-06-16] MEDS ORDERED: GLYCOPYRROLATE 0.2 MG/ML VIAL ONE ×2 (14:25→16:41)
[2020-06-16] MEDS ORDERED: ONDANSETRON INJ 2 MG/ML 2 ML VIAL ONE (14:25)
[2020-06-16] MEDS ORDERED: ROCURONIUM BROMIDE 10 MG/ML 5 ML VIAL IV ONE (14:25)
[2020-06-16] MEDS ORDERED: ESMOLOL HCL INJ 10 MG/ML 10ML VIAL IV ONE ×2 (14:39→15:27)
[2020-06-16] MEDS ORDERED: METOPROLOL TARTRATE 1 MG/ML VIAL IV ONE (15:27)
[2020-06-16] MEDS ORDERED: ceFAZolin 2000MG 2,000 MG/15 ML SYR IV ONE (15:49)
--- NOTE | 2020-06-16 16:59 | Post Operative Brief Note ---
Immediate Post Op Note v1 Date of Surgery June 16, 2020 Pre & Post Diagnosis Operation Date: 06/16/20 07:00 Pre-Op Diagnosis: Right Hip Fracture Post-Op Diagnosis: Right Hip Fracture I identified the patient and participated in the time-out.: Yes Procedure Operation Date: 06/16/20 07:00 Actual Procedures p Right Hip Cephalomedullary Nail(Right) - Nazario Bishop DO Surgeon Nazario Bishop DO Stick Welder none Estimated Blood Loss 175 Findings Consistent with Post-Op Diagnosis Fluids 750 cc LR Specimens none Drains Humphries Catheter (Patient had humphries in place upon arrival to OR) Anesthesia Type General Complications none Disposition Disposition: Recovery Room Overlapping Procedure I was present for: the critical portions of procedure. I was immediately available: during the entire case. Back up surgeon: was not required during procedure.
--- NOTE | 2020-06-16 17:01 | Operative Report ---
Post Operative Report Pre & Post Diagnosis Operation Date: 06/16/20 07:00 Pre-Op Diagnosis: Right Hip Fracture Post-Op Diagnosis: Right Hip Fracture I identified the patient and participated in the time-out.: Yes Procedure Operation Date: 06/16/20 07:00 Actual Procedures p Right Hip Cephalomedullary Nail(Right) - Nazario Bishop DO Surgeon Nazario Bishop DO [place] none Estimated Blood Loss 175 Findings Consistent with Post-Op Diagnosis Fluids 750 cc LR Specimens none Anesthesia Type General Complications none Disposition Disposition: Recovery Room Indications The patient is a 84yo female with displaced right intertrochanteric hip fracture sustained after a fall from standing height. The patient was medically stabilized on 06/16/2020. I indicated the patient for right hip cephalomedullary nail. The patient was informed of the risks and benefits of surgery, which include but not limited to infection, bleeding, blood clots, damage to nerves, vessels, bone and soft tissue, dislocation, leg length discrepancy, malunion, nonunion, failure of the implants, need for additional surgery and . The patient chose to proceed with surgical intervention and informed consent was obtained. Description of Procedure Following induction of adequate general anesthesia, the patient was placed on the fracture table. The left leg was placed in the well leg samuel and the right leg in the traction leg samuel. All bony prominences were protected. Utilizing c-arm fluoroscopy closed reduction of the fracture was performed utilizing tension and internal/external rotation. Once satisfied with fracture reduction the right hip and thigh was prepped and draped in the usual sterile manner. A time out was performed, the patient identified, site joe confirmed and appropriate antibiotics given. The incision was made from the tip of the greater trochanter proximally. Subcutaneous tissue was sharply dissected to the tip of the greater trochanter, electrocautery used for hemostasis. Under fluoroscopic guidance the drill tipped guidewire was inserted at the tip of the greater trochanter and advanced into the intramedullary canal. Utilizing the intramedullary drill the guidewire was overdrilled with tissue protector attached. All instruments were removed. Next a long ball-tipped guidewire was passed through the proximal opening intramedullary beyond the fracture site to the proximal pole of the patella. Guidewire position was confirmed utilizing C- arm fluoroscopy. Guidewire was measured at this time to determine length of the nail at 400 mm. An x-ray approximately was performed to verify ruler was found to bone. Next utilizing flexible reamers sequential reaming was performed in .5mm increments, a final 12.5 mm reamer was passed the length of the canal. Care was taken to protect soft tissue proximally. A 11 by 400 mm long Synthes TFN was inserted and impacted into position and confirmed by c-arm fluoroscopy. Next the aiming arm was attached to the insertion handle. A incision was made and carried down through subcutaneous tissues to bone. The blade guide sleeve was inserted and secured down to bone. The guide wire was passed across the fracture site to the tip of the femoral head, position was confirmed in the AP and lateral planes utilizing c-arm fluoroscopy. The guide pin was measured and the 11.0mm drill bit passed over the guide pin to open lateral cortex followed by a 6.0mm/10.0mm cannulated reamer to a depth of 105 mm. Next the helical blade was inserted and locked proximally. Next position the C arm in anticipation for perfect [place] technique, care was taken to insure sterilility was maintained. Distally a stab incision was made in the skin and carried down to bone. Utilizing the radiolucent drill with a 4.0mm drill bit, both cortices were drilled through the proximal static hole. The nail was locked distally using a single 4.9mm x 50 mm locking bolt. Next utilizing perfect [place] technique a distal stab incision was made overlying the dynamic hole. Blunt dissection was carried down to bone. Utilizing the radiolucent drill with a 4.0 mm drill bit both cortices were drilled through the distal aspect of the dynamic hole. A single 4.9 mm x 56 mm locking bolt was placed through the dynamic hole. The aiming guide was removed at this time and final radiographs were obtained utilizing c-arm fluoroscopy to confirm overall position and fracture reduction. Incisions were irrigated with copious amounts of sterile saline solution. Subcutaneous tissue were injected utilizing half percent Marcaine with epi. Deep closure was performed using #1 Vicryl followed by 2-0 Vicryl for subcutaneous tissues and sae in the skin. Sterile dressings were applied which included Xeroform, 4 x 4's and Tegaderm. The patient tolerated the procedure well and was transported to the PACU in stable condition. I attest to the content of the Intraoperative Record and any orders documented therein. Any exceptions are noted below.
--- NOTE | 2020-06-16 17:03 | Fluoroscopy Report ---
INTRAOPERATIVE RADIOGRAPHS CLINICAL HISTORY: Open reduction and internal fixation of the right femur. Fluoroscopy time: 211 seconds. FINDINGS: 6 spot fluoroscopic views of the right femur are compared to radiographs dated 06/15/2020. In tertrochanteric and intramedullary nails have been placed transfixing a comminuted intertrochanteric fracture. Near-anatomic alignment is restored. There is persistent medial displacement of the lesser trochanter. 2 cortical lag screws transfix the distal end of the intramedullary nail. A right knee ar throplasty is partially imaged. IMPRESSION: Intraoperative images from open reduction and internal fixation of a right femoral fractu re as above. Electronically signed by: Warren Johnson M.D. 06/16/2020 5:02 PM
--- NOTE | 2020-06-16 17:41 | Anesthesiology Progress Note ---
Date of Service June 16, 2020 Anesthesia Post Procedure Vital Signs Vital Signs: Temp Pulse Pulse Pulse Resp BP BP 06/16/20 17:30 78 18 112/53 L 06/16/20 17:20 74 20 97/54 L 06/16/20 17:10 77 14 82/59 L 06/16/20 17:02 36.5 C 80 14 103/63 06/16/20 13:25 37.7 C H 20 L 113 H 20 126/98 06/16/20 07:12 36.6 C 106 H 16 128/77 06/15/20 23:49 36.9 C 111 H 18 137/92 06/15/20 21:15 111 H 120/80 Pulse Ox 06/16/20 17:30 97 06/16/20 17:20 97 06/16/20 17:10 96 06/16/20 17:02 96 06/16/20 13:25 93 06/16/20 07:12 93 06/15/20 23:49 91 06/15/20 21:15 Pain Intensity Bilateral Knee: Pain Intensity: 5 Right Thigh: Pain Intensity: 5 Right Hip: Pain Intensity: 8 Transfer of Care Handoff Completed per policy Notes Mental Status: alert / awake / arousable Patient Amnestic to Procedure: Yes Nausea / Vomiting: adequately controlled Pain: adequately controlled Airway Patency, RR, SpO2: stable & adequate BP & HR: stable & adequate Hydration State: stable & adequate Anesthetic Complications: no major complications apparent
--- NOTE | 2020-06-16 18:31 | XRay Report ---
RIGHT FEMUR 2 VIEWS CLINICAL HISTORY: Postoperative examination. FINDINGS: AP and crosstable lateral portable views of the right femur are compared to study dated 06/15. The skeletal structures are osteopenic. There has been intertrochanteric and intramedullary na il fixation of a comminuted intertrochanteric fracture with jehovah's witness of near-anatomic alignment. 2 cortical lag screws transfix the distal end of the intramedullary nail. The orthopedic hardware appe ars intact. There is persistent medial displacement of the lesser trochanter. A right knee arthroplas ty is in place. Soft tissue edema, subcutaneous gas, and skin clips overlying the right hip are expec fidel postoperative findings. Moderate degenerative joint space narrowing seen in the right hip. The vi sualized right hemipelvis appears intact. IMPRESSION: Expected postoperative findings status post open reduction and internal fixation of the r ight femur as above. Electronically signed by: Warren Johnson M.D. 06/16/2020 6:30 PM
[2020-06-17] MEDS: ceFAZolin 2000MG 2,000 MG/15 ML SYR IV SCH ×2 (00:04→09:14)
[2020-06-17 02:59] LABS: Basophils # (auto) 0.01 K/uL (0-0.2); Basophils % (auto) 0.1 %; Hematocrit (blood only) 29.5 % (37-47); Hemoglobin 9.4 g/dL (12.0-16.0); Immature Granulocytes # (auto) 0.03 K/uL (0.00-0.02); Immature Granulocytes % (auto) 0.2 %; Lymphocytes # (auto) 0.65 K/uL (1.2-3.4); Lymphocytes % (auto) 4.9 %; Mean Corpuscular Hemoglobin 27.2 pg (25-34); Mean Corpuscular Hgb Conc 31.9 g/dL (32-36); Mean Corpuscular Volume 85.5 fL (80-100); Monocytes # (auto) 1.06 K/uL (0.11-0.59); Neutrophils # (auto) 11.56 K/uL (1.4-6.5); Neutrophils % (auto) 86.8 %; Platelet Count 164 K/uL (130-400); RDW Coefficient of Variation 16.4 % (11.5-14.5); RDW Standard Deviation 51.2 fL (36.4-46.3); Red Blood Count 3.45 M/uL (4.2-5.4); White Blood Count 13.31 K/uL (4.8-10.8)
[2020-06-17 03:01] LABS: Base Excess ABG -0.3 mEq/L (-9-1.8); HCO3 ABG 24 mmol/L (19-24); Oxygen Saturation ABG 94.3 % (90-95); PCO2 ABG 35 mmHg (35-46); PO2 ABG 67 mmHg (80-95); pH ABG 7.45 (7.35-7.45)
[2020-06-17 03:03] LABS: Allen Test Pos (Pos)
[2020-06-17 03:09] LABS: Partial Thromboplastin Ratio 0.9; Partial Thromboplastin Time 24.3 Seconds (21.0-31.0)
[2020-06-17] MEDS: ALBUMIN 25% 12.5 GM/50 ML VIAL IV SCH ×2 (03:20→04:02)
[2020-06-17 03:25] LABS: BUN Creatinine Ratio 24.3 (10-20); Calcium 8.3 mg/dl (8.5-10.1); Creatinine Clr Calc Pharmacy 43.7 ml/min; Est GFR (African American) 61.7; Est GFR (Non-African American) 53.3; Magnesium 2.2 mg/dl (1.8-2.4); Potassium 3.7 mmol/L (3.5-5.1)
[2020-06-17] MEDS ORDERED: POTASSIUM CHLORIDE CRTAB 20 MEQ TABCR PO STA (03:31)
[2020-06-17 03:53] LABS: Thyroid Stimulating Hormone 0.653 uIu/ml (0.300-4.500)
[2020-06-17] MEDS: LEVOTHYROXINE SODIUM 100 MCG TABLET PO SCH (05:02)
[2020-06-17] MEDS: ACETAMINOPHEN 1,000 MG/100 ML VIAL IV SCH ×3 (05:50→21:50)
[2020-06-17] MEDS: ENOXAPARIN INJ 40 MG/0.4 ML SYR SQ SCH (07:24)
[2020-06-17] MEDS: CITALOPRAM 20 MG TAB PO SCH (07:25)
[2020-06-17] MEDS: MIRABEGRON ER 25 MG TAB PO SCH (07:25)
[2020-06-17] MEDS: FAMOTIDINE 20 MG TAB PO SCH (07:25)
[2020-06-17] MEDS: PANTOprazole 40 MG TAB PO SCH (07:25)
[2020-06-17] MEDS: ENALAPRIL MALEATE 10 MG TAB PO SCH (07:26)
--- NOTE | 2020-06-17 07:34 | XRay Report ---
XR chest 1V portable HISTORY: Low oxygen. COMPARISON: Chest 06/15/2020. FINDINGS: The heart is normal in size. There is mild elevation the right hemidiaphragm, unchanged. A few bibasilar linear densities favor scarring or atelectasis. This is similar to the prior study. No new focal lung consolidations to suggest pneumonia. No evidence for pulmonary edema. No pleural effus ions. No pneumothorax. Degenerative changes again noted within the shoulders. IMPRESSION: No significant change compared to the prior study. No acute process. ACT 112: Negative or not required by law. Electronically signed by: Dann Childs M.D. 06/17/2020 7:33 AM
[2020-06-17] MEDS: cefTRIAXone SODIUM 2,000 MG in DEXTROSE 5% 50 ML IV SCH (09:13)
--- NOTE | 2020-06-17 10:37 | Orthopedic Progress Note ---
Date of Service June 17, 2020 Assessment & Plan (1) Intertrochanteric fracture of right femur: s/p R hip long cephalomedullary nail POD#1 -Ancef x 24 -DVT ppx: SCDs, TEDs, Lovenox daily -Toe touch WB RLE -PT/OT -PO XR demonstrates a well aligned well fixed implant, improved alignment of fractures. -am labs, as above, hgb 9.4 Admission and Anticipated Discharge Date Admission Date: June 15, 2020 Subjective Post Operative Progress Note Patient seen in PACU postoperatively and this am sitting up in bed, comfortable, denies complaints, pain well controlled, no acute issues. Denies F/C/N/V/SOB/CP. Review of Systems Review of Systems: All systems reviewed & are unremarkable except as noted in HPI & below Constitutional: as per Subjective / HPI Physical Exam Physical Exam: RLE NVSI +EHL/FHL/TA/GS SILT grossly, +2 DP pulse, compartments soft NT, dressing cdi. Constitutional: WD/WN, vitals as above Results & Data ([facility]) Vital Signs (Past 12 Hours) Vital Signs Temp Pulse Pulse Resp BP Pulse Ox Pulse Ox 06/17/20 07:18 36.6 C 118 H 18 99/61 L 92 06/17/20 04:59 36.7 C 86 16 107/67 90 06/17/20 03:17 36.7 C 115 H 16 103/69 94 06/17/20 03:03 110 H 06/17/20 02:59 36.7 C 116 H 18 94/61 L 91 06/17/20 02:05 90 06/17/20 00:11 104/68 06/17/20 00:08 93 06/17/20 00:06 95 06/17/20 00:05 94 06/16/20 23:26 36.7 C 100 H 20 93/63 L 92 Laboratory Results 06/17/20 06/17/20 06/17/20 Range/Units 02:39 02:33 02:33 WBC (4.8-10.8) K/uL RBC (4.2-5.4) M/uL Hgb (12.0-16.0) g/dL Hct (37-47) % MCV (80-100) fL MCH (25-34) pg MCHC (32-36) g/dL RDW Std Deviation (36.4-46.3) fL RDW Coeff of Talisha (11.5-14.5) % Plt Count (130-400) K/uL MPV (7.4-10.4) fL Immature Gran % (Auto) % Neut % (Auto) % Lymph % (Auto) % [place] % (Auto) % Eos % (Auto) % Baso % (Auto) % Neut # (Auto) (1.4-6.5) K/uL Lymph # (Auto) (1.2-3.4) K/uL [place] # (Auto) (0.11-0.59) K/uL Eos # (Auto) (0-0.5) K/uL Baso # (Auto) (0-0.2) K/uL Immature Gran # (Auto) (0.00-0.02) K/uL APTT 24.3 (21.0-31.0) Seconds PTT Ratio 0.9 ABG pH 7.45 (7.35-7.45) ABG pCO2 35 (35-46) mmHg ABG pO2 67 L (80-95) mmHg ABG HCO3 24 (19-24) mmol/L ABG O2 Saturation 94.3 (90-95) % ABG Base Excess -0.3 (-9-1.8) mEq/L Diogo Test Pos (Pos) Barometric Pressure 722.5 mm/Hg Oxygen Given 1L Sodium 140 (136-145) mmol/L Potassium 3.7 (3.5-5.1) mmol/L Chloride 105 (98-107) mmol/L Carbon Dioxide 29 (21-32) mmol/L Anion Gap 6.0 (3-11) BUN 24 H (7-18) mg/dl Creatinine 0.97 (0.6-1.2) mg/dl Est Cr Clr Drug Dosing 43.7 ml/min Est GFR ( Amer) 61.7 Est GFR (Non-Af Amer) 53.3 BUN/Creatinine Ratio 24.3 H (10-20) Glucose 144 H (70-99) mg/dl Calcium 8.3 L (8.5-10.1) mg/dl Magnesium 2.2 (1.8-2.4) mg/dl TSH 0.653 (0.300-4.500) uIu/ml 02/03/21 Range/Units 02:33 WBC 13.31 H (4.8-10.8) K/uL RBC 3.45 L (4.2-5.4) M/uL Hgb 9.4 L (12.0-16.0) g/dL Hct 29.5 L (37-47) % MCV 85.5 (80-100) fL MCH 27.2 (25-34) pg MCHC 31.9 L (32-36) g/dL RDW Std Deviation 51.2 H (36.4-46.3) fL RDW Coeff of [place] 16.4 H (11.5-14.5) % Plt Count 164 (130-400) K/uL MPV 11.0 H (7.4-10.4) fL Immature Gran % (Auto) 0.2 % Neut % (Auto) 86.8 % Lymph % (Auto) 4.9 % [place] % (Auto) 8.0 % Eos % (Auto) 0.0 % Baso % (Auto) 0.1 % Neut # (Auto) 11.56 H (1.4-6.5) K/uL Lymph # (Auto) 0.65 L (1.2-3.4) K/uL [place] # (Auto) 1.06 H (0.11-0.59) K/uL Eos # (Auto) 0.00 (0-0.5) K/uL Baso # (Auto) 0.01 (0-0.2) K/uL Immature Gran # (Auto) 0.03 H (0.00-0.02) K/uL APTT (21.0-31.0) Seconds PTT Ratio ABG pH (7.35-7.45) ABG pCO2 (35-46) mmHg ABG pO2 (80-95) mmHg ABG HCO3 (19-24) mmol/L ABG O2 Saturation (90-95) % ABG Base Excess (-9-1.8) mEq/L Diogo Test (Pos) Barometric Pressure mm/Hg Oxygen Given Sodium (136-145) mmol/L Potassium (3.5-5.1) mmol/L Chloride (98-107) mmol/L Carbon Dioxide (21-32) mmol/L Anion Gap (3-11) BUN (7-18) mg/dl Creatinine (0.6-1.2) mg/dl Est Cr Clr Drug Dosing ml/min Est GFR ( Amer) Est GFR (Non-Af Amer) BUN/Creatinine Ratio (10-20) Glucose (70-99) mg/dl Calcium (8.5-10.1) mg/dl Magnesium (1.8-2.4) mg/dl TSH (0.300-4.500) uIu/ml (1) Intertrochanteric fracture of right femur Encounter type: initial encounter Fracture alignment: displaced Fracture type: closed Qualified Code(s): S72.141A - Displaced intertrochanteric fracture of right femur, initial encounter for closed fracture
[2020-06-17] MEDS: oxyCODONE HCL IR 5 MG TAB (IMMEDIATE RELEASE) PO PRN (10:42)
--- NOTE | 2020-06-17 16:15 | Hospitalist Progress Note ---
Date of Service June 17, 2020 Assessment & Plan (1) Intertrochanteric fracture of right femur: Age-related n osteoporotic fracture of right femur in setting of ground level fall 84-year-old female who sustained a ground-level fall where she fractured her right intertrochanteric femur. Orthopedics consulted , s/p R hip long cephalomedullary nail on 06/16/2020 POD#1 cont PT/OT Non weightbearing to the right lower extremity-per ortho Lovenox sc for DVT prophylaxis post op (2) UTI (urinary tract infection): Growing Proteus species. on ceftriaxone , can be discharged on po Cipro on discharge needs 5-7 days tx leukocytosis : WBC elevated post op 13 K on IV Ancef X24 hrs post op cont IV Rocephin for UTI repeat CBC in AM Acute Blood loss anemia : Hb drop noted form 11.4- 9 due to post op status /acute blood loss anemia no indication for PRBC transfusion repeat CBC in AM (3) GERD (gastroesophageal reflux disease): - Count outpatient PPI and famotidine. (4) Hypothyroidism: - Continue levothyroxine - (5) HTN (hypertension): - Continue outpatient benazepril/HCTZ (6) Depression: - Continue Celexa FULL CODE DISPOSITION : cont PT/OT post hip fx social service consulted for discharge planning Had a long discussion with Daughter Lydia ( ) regarding discharge planning , as per PT eval today pt required 2 person assistance , will need continued PT while in patient for post op hip surgery daughter was worried about COVID 19 infection at rehab updated all accepting rehab facilities has strict protocol to protect patient's from infection similar to hospital admissions after next 1-2 days of PT if pt's still needs considerable assistance , not safe to return home and will benefit with rehab daughter is willing to consider for it will keep family updated regarding pt's improvement Admission and Anticipated Discharge Date Admission Date: June 15, 2020 Subjective Follow up visit for : Rt hip fracture s/p ORIF/UTI pt reports of feeling better , still experiencing some pain and discomfort on rt hip surgical site -with change of position appears to be comfortable at rest denies of any feeling of SOB , chest heaviness no fever or chills utilizing 2 L 02 via nasal canula ( was not on home 02 ) hypoxic episode noted post op recovery period , and while pt was sleeping pt will need nocturnal pulse oximetry test prior to DC Review of Systems Review of Systems: All systems reviewed & are unremarkable except as noted in Subjective Physical Exam Constitutional: WD/WN, vitals as above Eyes: + anicteric sclerae ENMT: external ear and nose normal, oropharynx normal Neck: trachea midline, no thyromegaly Respiratory: normal respiratory effort, lungs clear to auscultation Cardiovascular: RRR, no murmur, no edema Gastrointestinal (Abdomen): normal bowel sounds, soft, nontender, no hepatosplenomegaly Percussion/Palpation: abdomen soft Musculoskeletal: Extremities: + lower leg abnormality (s/p rt hip surgery ) Right Skin: no rashes, warm and dry Neurologic: PERRL, EOMI, accommodation nl, no face palsy, no dysarthria Psychiatric: A+Ox3, euthymic affect Results & Data Results & Data ([facility]) Vital Signs (Past 12 Hours) Vital Signs Temp Pulse Resp BP BP Pulse Ox Pulse Ox 06/17/20 15:13 36.7 C 109 H 18 107/69 97 06/17/20 14:31 84 L 06/17/20 07:18 36.6 C 118 H 18 99/61 L 92 06/17/20 04:59 36.7 C 86 16 107/67 90 (1) UTI (urinary tract infection) Hematuria presence: without hematuria Urinary tract infection type: acute cystitis Qualified Code(s): N30.00 - Acute cystitis without hematuria (2) Hypothyroidism Hypothyroidism type: acquired Qualified Code(s): E03.9 - Hypothyroidism, u nspecified (3) HTN (hypertension) Hypertension type: essential hypertension Qualified Code(s): I10 - Essential (primary) hypertension (4) Intertrochanteric fracture of right femur Encounter type: initial encounter Fracture alignment: displaced Fracture type: closed Qualified Code(s): S72.141A - Displaced intertrochanteric fracture of right femur, initial encounter for closed fracture
[2020-06-18] MEDS: ACETAMINOPHEN 1,000 MG/100 ML VIAL IV SCH (05:44)
[2020-06-18] MEDS: LEVOTHYROXINE SODIUM 100 MCG TABLET PO SCH (05:45)
[2020-06-18 05:57] LABS: Hematocrit (blood only) 23.6 % (37-47); Hemoglobin 7.5 g/dL (12.0-16.0); Mean Corpuscular Hemoglobin 27.6 pg (25-34); Mean Corpuscular Hgb Conc 31.8 g/dL (32-36); Mean Corpuscular Volume 86.8 fL (80-100); Mean Platelet Volume 10.5 fL (7.4-10.4); Platelet Count 150 K/uL (130-400); RDW Coefficient of Variation 16.6 % (11.5-14.5); RDW Standard Deviation 52.1 fL (36.4-46.3); Red Blood Count 2.72 M/uL (4.2-5.4); White Blood Count 9.79 K/uL (4.8-10.8)
[2020-06-18 06:28] LABS: BUN Creatinine Ratio 33.9 (10-20); Calcium 8.4 mg/dl (8.5-10.1); Creatinine Clr Calc Pharmacy 55.1 ml/min; Est GFR (African American) 81.6; Est GFR (Non-African American) 70.4; Potassium 4.1 mmol/L (3.5-5.1)
[2020-06-18] MEDS: ENALAPRIL MALEATE 10 MG TAB PO SCH (07:28)
[2020-06-18] MEDS: cefTRIAXone SODIUM 2,000 MG in DEXTROSE 5% 50 ML IV SCH (07:28)
[2020-06-18] MEDS: PANTOprazole 40 MG TAB PO SCH (07:29)
[2020-06-18] MEDS: CITALOPRAM 20 MG TAB PO SCH (07:29)
[2020-06-18] MEDS: FAMOTIDINE 20 MG TAB PO SCH (07:29)
[2020-06-18] MEDS: MIRABEGRON ER 25 MG TAB PO SCH (07:29)
[2020-06-18] MEDS: ENOXAPARIN INJ 40 MG/0.4 ML SYR SQ SCH (07:30)
[2020-06-18] MEDS: oxyCODONE HCL IR 5 MG TAB (IMMEDIATE RELEASE) PO PRN (09:03)
[2020-06-18] MEDS ORDERED: ONDANSETRON INJ 2 MG/ML 2 ML VIAL IV PRN (09:30)
--- NOTE | 2020-06-18 09:38 | Orthopedic Progress Note ---
Date of Service June 18, 2020 Assessment & Plan (1) Intertrochanteric fracture of right femur: s/p R hip long cephalomedullary nail POD#2 -Ancef x 24, then dc -DVT ppx: SCDs, TEDs, Lovenox daily -Toe touch WB RLE -PT/OT -am labs, as above, hgb 7.5 ; Will discuss possible transfusion with Med Service. DC planning - discussed with pt that she would likely need a rehab stay prior to going home. She is in agreement today. CM to arrange. Admission and Anticipated Discharge Date Admission Date: June 15, 2020 Supervising Physician Co-Signing Physician Notes Patient seen and examined agree with above assessment and plan RLE NVSI +EHL/FHL/TA/GS SILT grossly, +2 DP pulse, compartments soft NT, dressing cdi. s/p R hip long cephalomedullary nail POD#2 TTWB RLE PT/OT Lovenox daily am labs as above, hgb 7.5, patient receiving blood transfusion Subjective POD 2 Sitting up in bed. Awake, alert. States her hip pain is controlled at rest. Some discomfort with getting OOB. Feeling a little nauseated today. No other complaints. Review of Systems Review of Systems: All systems reviewed & are unremarkable except as noted in HPI & below Constitutional: as per Subjective / HPI Physical Exam Physical Exam: Dressings are C/D/I. Thigh with swelling but soft. NV intact. Toes mobile. Calves soft,NT. Results & Data ([facility]) Vital Signs (Past 12 Hours) Vital Signs Temp Pulse Resp BP BP Pulse Ox 06/18/20 07:20 36.7 C 95 H 16 133/78 91 06/17/20 23:11 36.7 C 90 16 118/75 96 Laboratory Results Laboratory Results WBC 9.79 K/uL (4.8-10.8) 06/18/20 05:37 RBC 2.72 M/uL (4.2-5.4) L 06/18/20 05:37 Hgb 7.5 g/dL (12.0-16.0) L 06/18/20 05:37 Hct 23.6 % (37-47) L 06/18/20 05:37 MCV 86.8 fL (80-100) 06/18/20 05:37 MCH 27.6 pg (25-34) 06/18/20 05:37 MCHC 31.8 g/dL (32-36) L 06/18/20 05:37 RDW Std Deviation 52.1 fL (36.4-46.3) H 06/18/20 05:37 RDW Coeff of Talisha 16.6 % (11.5-14.5) H 06/18/20 05:37 Plt Count 150 K/uL (130-400) 06/18/20 05:37 MPV 10.5 fL (7.4-10.4) H 06/18/20 05:37 Immature Gran % (Auto) 0.2 % 06/17/20 02:33 Neut % (Auto) 86.8 % 06/17/20 02:33 Lymph % (Auto) 4.9 % 06/17/20 02:33 Mcdonald % (Auto) 8.0 % 06/17/20 02:33 Eos % (Auto) 0.0 % 06/17/20 02:33 Baso % (Auto) 0.1 % 06/17/20 02:33 Neut # (Auto) 11.56 K/uL (1.4-6.5) H 06/17/20 02:33 Lymph # (Auto) 0.65 K/uL (1.2-3.4) L 06/17/20 02:33 Mcdonald # (Auto) 1.06 K/uL (0.11-0.59) H 06/17/20 02:33 Eos # (Auto) 0.00 K/uL (0-0.5) 06/17/20 02:33 Baso # (Auto) 0.01 K/uL (0-0.2) 06/17/20 02:33 Immature Gran # (Auto) 0.03 K/uL (0.00-0.02) H 06/17/20 02:33 PT 10.9 Seconds (9.0-12.0) 06/15/20 08:05 INR 1.0 (0.9-1.1) 06/15/20 08:05 APTT 24.3 Seconds (21.0-31.0) 06/17/20 02:33 PTT Ratio 0.9 06/17/20 02:33 ABG pH 7.45 (7.35-7.45) 06/17/20 02:39 ABG pCO2 35 mmHg (35-46) 06/17/20 02:39 ABG pO2 67 mmHg (80-95) L 06/17/20 02:39 ABG HCO3 24 mmol/L (19-24) 06/17/20 02:39 ABG O2 Saturation 94.3 % (90-95) 06/17/20 02:39 ABG Base Excess -0.3 mEq/L (-9-1.8) 06/17/20 02:39 Diogo Test Pos (Pos) 06/17/20 02:39 Barometric Pressure 722.5 mm/Hg 06/17/20 02:39 Oxygen Given 1L 06/17/20 02:39 Sodium 136 mmol/L (136-145) 06/18/20 05:37 Potassium 4.1 mmol/L (3.5-5.1) 06/18/20 05:37 Chloride 104 mmol/L (98-107) 06/18/20 05:37 Carbon Dioxide 30 mmol/L (21-32) 06/18/20 05:37 Anion Gap 2.0 (3-11) L 06/18/20 05:37 BUN 26 mg/dl (7-18) H 06/18/20 05:37 Creatinine 0.77 mg/dl (0.6-1.2) 06/18/20 05:37 Est Cr Clr Drug Dosing 55.1 ml/min 06/18/20 05:37 Est GFR ( Amer) 81.6 06/18/20 05:37 Est GFR (Non-Af Amer) 70.4 06/18/20 05:37 BUN/Creatinine Ratio 33.9 (10-20) H 06/18/20 05:37 Glucose 111 mg/dl (70-99) H 06/18/20 05:37 Calcium 8.4 mg/dl (8.5-10.1) L 06/18/20 05:37 Magnesium 2.2 mg/dl (1.8-2.4) 06/17/20 02:33 Total Bilirubin 0.9 mg/dl (0.2-1) 06/15/20 08:05 AST 15 U/L (15-37) 06/15/20 08:05 ALT 16 U/L (12-78) 06/15/20 08:05 Alkaline Phosphatase 63 U/L (45-117) 06/15/20 08:05 Total Protein 8.1 gm/dl (6.4-8.2) 06/15/20 08:05 Albumin 3.6 gm/dl (3.4-5.0) 06/15/20 08:05 Globulin 4.5 gm/dl (2.5-4.0) H 06/15/20 08:05 Albumin/Globulin Ratio 0.8 (0.9-2) L 06/15/20 08:05 TSH 0.653 uIu/ml (0.300-4.500) 06/17/20 02:33 Urine Color Yellow 06/15/20 08:07 Urine Appearance Turbid (Clear) A 06/15/20 08:07 Urine pH 8.5 (4.5-7.5) H 06/15/20 08:07 Ur Specific [place] 1.015 (1.000-1.030) 06/15/20 08:07 Urine Protein Trace (Negative) H 06/15/20 08:07 Urine Glucose (UA) Negative (Negative) 06/15/20 08:07 Urine Ketones Negative (Negative) 06/15/20 08:07 Urine Blood 1+ (Negative) H 06/15/20 08:07 Urine Nitrite Positive (Negative) A 06/15/20 08:07 Urine Bilirubin Negative (Negative) 06/15/20 08:07 Urine Urobilinogen Negative (Negative) 06/15/20 08:07 Ur Leukocyte Esterase 3+ (Negative) H 06/15/20 08:07 Urine WBC (Auto) >30 /hpf (0-5) H 06/15/20 08:07 Urine RBC (Auto) 0-4 /hpf (0-4) 06/15/20 08:07 U Hyaline Cast (Auto) 5-10 /lpf (0-5) H 06/15/20 08:07 U Epithel Cells (Auto) 5-10 /lpf (0-5) H 06/15/20 08:07 Urine Bacteria (Auto) 4+ (Negative) H 06/15/20 08:07 COVID-19 Eval Order Covid19 IDNow [facility] 06/15/20 09:05 SARS-CoV-2, RNA, NAAT NEGATIVE (NEGATIVE) 06/15/20 09:05 Blood Type O Positive 06/15/20 14:41 Antibody Screen NEGATIVE 06/15/20 14:41 (1) Intertrochanteric fracture of right femur Encounter type: initial encounter Fracture alignment: displaced Fracture type: closed Qualified Code(s): S72.141A - Displaced intertrochanteric fracture of right femur, initial encounter for closed fracture
[2020-06-18] MEDS ORDERED: SODIUM CHLORIDE 0.9% 250 ML IV PRN (09:49)
[2020-06-18] MEDS: CIPROFLOXACIN 250 MG TAB PO SCH ×2 (10:38→21:53)
[2020-06-18] MEDS ORDERED: FUROSEMIDE 40 MG in SYRINGE 0 ML IV ONE (16:45)
--- NOTE | 2020-06-18 18:09 | Hospitalist Progress Note ---
Date of Service June 18, 2020 Assessment & Plan (1) Intertrochanteric fracture of right femur: Age-related n osteoporotic fracture of right femur in setting of ground level fall 84-year-old female who sustained a ground-level fall where she fractured her right intertrochanteric femur. Orthopedics consulted , s/p R hip long cephalomedullary nail on 06/16/2020 POD#2 cont PT/OT Non weightbearing to the right lower extremity-per ortho Lovenox sc for DVT prophylaxis post op (2) UTI (urinary tract infection): urine culture Growing Proteus species. 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 (4) Hypothyroidism: - Continue levothyroxine - (5) HTN (hypertension): - Continue outpatient benazepril/HCTZ (6) Depression: - Continue Celexa FULL CODE DISPOSITION : cont PT/OT post hip fx : recommends short term skilled rehab post discharge from [facility] social service consulted for discharge planning Daughter Lydia ( ) will be updated over phone Admission and Anticipated Discharge Date Admission Date: June 15, 2020 Subjective Follow up visit for fall /right hip fracture s/p ORIF : reports of not feeling well today , could not specify any exact complain just feels " lousy" on 2 L 02 via nasal canula( change from baseline -not on home 02 ) , no cough or SOB no fever or chills rt hip surgical site pain controlled for now received 1 units of PRBC transfusion this AM for acute drop in Hb 7.5 post surgery Review of Systems Review of Systems: All systems reviewed & are unremarkable except as noted in Subjective Physical Exam Constitutional: WD/WN, vitals as above Eyes: + anicteric sclerae ENMT: external ear and nose normal, oropharynx normal Neck: trachea midline, no thyromegaly Respiratory: normal respiratory effort; no cough Auscultation: + rales (bilasilar rales ); no wheezes Cardiovascular: RRR, no murmur, no edema Gastrointestinal (Abdomen): normal bowel sounds, soft, nontender, no hepatosplenomegaly Percussion/Palpation: abdomen soft Musculoskeletal: Extremities: + lower leg abnormality (s/p rt hip surgery ) Skin: no rashes, warm and dry Neurologic: PERRL, EOMI, accommodation nl, no face palsy, no dysarthria Psychiatric: A+Ox3, euthymic affect Results & Data Results & Data ([facility]) Vital Signs (Past 12 Hours) Vital Signs Temp Pulse Pulse Resp BP BP BP 06/18/20 15:06 37.3 C 94 H 18 121/72 06/18/20 13:10 37.3 C 92 H 16 119/74 06/18/20 12:10 37.4 C 94 H 18 103/61 06/18/20 11:39 37.3 C 95 H 18 106/67 06/18/20 11:22 36.9 C 99 H 16 95/57 L 06/18/20 07:20 36.7 C 95 H 16 133/78 Pulse Ox 06/18/20 15:06 95 06/18/20 13:10 98 06/18/20 12:10 97 06/18/20 11:39 06/18/20 11:22 06/18/20 07:20 91 (1) Intertrochanteric fracture of right femur Encounter type: initial encounter Fracture alignment: displaced Fracture type: closed Qualified Code(s): S72.141A - Displaced intertrochanteric fracture of right femur, initial encounter for closed fracture (2) UTI (urinary tract infection) Hematuria presence: without hematuria Urinary tract infection type: acute cystitis Qualified Code(s): N30.00 - Acute cystitis without hematuria (3) Hypothyroidism Hypothyroidism type: acquired Qualified Code(s): E03.9 - Hypothyroidism, unspecified (4) HTN (hypertension) Hypertension type: essential hypertension Qualified Code(s): I10 - Essential (primary) hypertension
[2020-06-18] MEDS: hydroCHLOROthiazide 25 MG TAB PO SCH (21:53)
[2020-06-19 05:46] LABS: Hematocrit (blood only) 24.3 % (37-47); Hemoglobin 7.8 g/dL (12.0-16.0); Mean Corpuscular Hemoglobin 28.4 pg (25-34); Mean Corpuscular Hgb Conc 32.1 g/dL (32-36); Mean Corpuscular Volume 88.4 fL (80-100); Mean Platelet Volume 10.4 fL (7.4-10.4); Platelet Count 157 K/uL (130-400); RDW Coefficient of Variation 16.4 % (11.5-14.5); RDW Standard Deviation 53.3 fL (36.4-46.3); Red Blood Count 2.75 M/uL (4.2-5.4); White Blood Count 9.23 K/uL (4.8-10.8)
[2020-06-19] MEDS: LEVOTHYROXINE SODIUM 100 MCG TABLET PO SCH (05:56)
[2020-06-19] MEDS: CIPROFLOXACIN 250 MG TAB PO SCH ×2 (09:05→21:34)
[2020-06-19] MEDS: CITALOPRAM 20 MG TAB PO SCH (09:05)
[2020-06-19] MEDS: hydroCHLOROthiazide 25 MG TAB PO SCH ×2 (09:06→21:34)
[2020-06-19] MEDS: ENOXAPARIN INJ 40 MG/0.4 ML SYR SQ SCH (09:07)
[2020-06-19] MEDS: ENALAPRIL MALEATE 10 MG TAB PO SCH (09:09)
[2020-06-19] MEDS: PANTOprazole 40 MG TAB PO SCH (09:09)
[2020-06-19] MEDS: FAMOTIDINE 20 MG TAB PO SCH (09:11)
[2020-06-19] MEDS: MIRABEGRON ER 25 MG TAB PO SCH (09:11)
[2020-06-19] MEDS ORDERED: MoRPHine SULFATE 2 MG/ML CARP IV STA (09:14)
[2020-06-19] MEDS ORDERED: SODIUM CHLORIDE 0.9% 250 ML IV PRN (09:14)
[2020-06-19] MEDS ORDERED: FUROSEMIDE 20 MG in SYRINGE 0 ML IV ONE (09:45)
--- NOTE | 2020-06-19 09:50 | Orthopedic Progress Note ---
Date of Service June 19, 2020 Assessment & Plan (1) Intertrochanteric fracture of right femur: POD#3 s/p R hip long cephalomedullary nail -Ancef x 24, then dc -DVT ppx: SCDs, TEDs, Lovenox daily -Toe touch WB RLE -PT/OT -am labs, as above, hgb 7.8 after 1 unit transfused; second unit ordered by Dr. Dk PARIKH planning - discussed with pt that she would likely need a rehab stay prior to going home. CM to arrange. Orthopedics will sign off at this time. Instructions placed in the discharge section. Please call with any questions. Admission and Anticipated Discharge Date Admission Date: June 15, 2020 Supervising Physician Co-Signing Physician Notes Patient seen and examined, agree with above assessment and plan. RLE NVSI +EHL/FHL/TA/GS SILT grossly, +2 DP pulse, compartments soft NT, dressing cdi. s/p R hip TFN POD#3 TTWB RLE Lovenox PT/OT Subjective Postop day 3 status post right TFN Patient sitting up in the bed awake and alert. States she is having some pain with getting out of bed but is otherwise doing okay at rest. Pain is currently controlled. Review of Systems Review of Systems: All systems reviewed & are unremarkable except as noted in HPI & below Constitutional: as per Subjective / HPI Physical Exam Physical Exam: Dressings have been changed. Her wounds are benign. Thigh has some swelling but is soft and nontender. Calves are soft nontender. Neurovascular is intact. Toes are mobile. Results & Data ([facility]) Vital Signs (Past 12 Hours) Vital Signs Temp Pulse Resp BP BP Pulse Ox 06/19/20 08:01 37.0 C 87 20 148/81 H 96 06/18/20 22:53 36.8 C 86 16 134/77 95 Laboratory Results Laboratory Results WBC 9.23 K/uL (4.8-10.8) 06/19/20 05:20 RBC 2.75 M/uL (4.2-5.4) L 06/19/20 05:20 Hgb 7.8 g/dL (12.0-16.0) L 06/19/20 05:20 Hct 24.3 % (37-47) L 06/19/20 05:20 MCV 88.4 fL (80-100) 06/19/20 05:20 MCH 28.4 pg (25-34) 06/19/20 05:20 MCHC 32.1 g/dL (32-36) 06/19/20 05:20 RDW Std Deviation 53.3 fL (36.4-46.3) H 06/19/20 05:20 RDW Coeff of Talisha 16.4 % (11.5-14.5) H 06/19/20 05:20 Plt Count 157 K/uL (130-400) 06/19/20 05:20 MPV 10.4 fL (7.4-10.4) 06/19/20 05:20 Immature Gran % (Auto) 0.2 % 06/17/20 02:33 Neut % (Auto) 86.8 % 06/17/20 02:33 Lymph % (Auto) 4.9 % 06/17/20 02:33 [place] % (Auto) 8.0 % 06/17/20 02:33 Eos % (Auto) 0.0 % 06/17/20 02:33 Baso % (Auto) 0.1 % 06/17/20 02:33 Neut # (Auto) 11.56 K/uL (1.4-6.5) H 06/17/20 02:33 Lymph # (Auto) 0.65 K/uL (1.2-3.4) L 06/17/20 02:33 [place] # (Auto) 1.06 K/uL (0.11-0.59) H 06/17/20 02:33 Eos # (Auto) 0.00 K/uL (0-0.5) 06/17/20 02:33 Baso # (Auto) 0.01 K/uL (0-0.2) 06/17/20 02:33 Immature Gran # (Auto) 0.03 K/uL (0.00-0.02) H 06/17/20 02:33 PT 10.9 Seconds (9.0-12.0) 06/15/20 08:05 INR 1.0 (0.9-1.1) 06/15/20 08:05 APTT 24.3 Seconds (21.0-31.0) 06/17/20 02:33 PTT Ratio 0.9 06/17/20 02:33 ABG pH 7.45 (7.35-7.45) 06/17/20 02:39 ABG pCO2 35 mmHg (35-46) 06/17/20 02:39 ABG pO2 67 mmHg (80-95) L 06/17/20 02:39 ABG HCO3 24 mmol/L (19-24) 06/17/20 02:39 ABG O2 Saturation 94.3 % (90-95) 06/17/20 02:39 ABG Base Excess -0.3 mEq/L (-9-1.8) 06/17/20 02:39 Diogo Test Pos (Pos) 06/17/20 02:39 Barometric Pressure 722.5 mm/Hg 06/17/20 02:39 Oxygen Given 1L 06/17/20 02:39 Sodium 136 mmol/L (136-145) 06/18/20 05:37 Potassium 4.1 mmol/L (3.5-5.1) 06/18/20 05:37 Chloride 104 mmol/L (98-107) 06/18/20 05:37 Carbon Dioxide 30 mmol/L (21-32) 06/18/20 05:37 Anion Gap 2.0 (3-11) L 06/18/20 05:37 BUN 26 mg/dl (7-18) H 06/18/20 05:37 Creatinine 0.77 mg/dl (0.6-1.2) 06/18/20 05:37 Est Cr Clr Drug Dosing 55.1 ml/min 06/18/20 05:37 Est GFR ( Amer) 81.6 06/18/20 05:37 Est GFR (Non-Af Amer) 70.4 06/18/20 05:37 BUN/Creatinine Ratio 33.9 (10-20) H 06/18/20 05:37 Glucose 111 mg/dl (70-99) H 06/18/20 05:37 Calcium 8.4 mg/dl (8.5-10.1) L 06/18/20 05:37 Magnesium 2.2 mg/dl (1.8-2.4) 06/17/20 02:33 Total Bilirubin 0.9 mg/dl (0.2-1) 06/15/20 08:05 AST 15 U/L (15-37) 06/15/20 08:05 ALT 16 U/L (12-78) 06/15/20 08:05 Alkaline Phosphatase 63 U/L (45-117) 06/15/20 08:05 Total Protein 8.1 gm/dl (6.4-8.2) 06/15/20 08:05 Albumin 3.6 gm/dl (3.4-5.0) 06/15/20 08:05 Globulin 4.5 gm/dl (2.5-4.0) H 06/15/20 08:05 Albumin/Globulin Ratio 0.8 (0.9-2) L 06/15/20 08:05 TSH 0.653 uIu/ml (0.300-4.500) 06/17/20 02:33 Urine Color Yellow 06/15/20 08:07 Urine Appearance Turbid (Clear) A 06/15/20 08:07 Urine pH 8.5 (4.5-7.5) H 06/15/20 08:07 Ur Specific [place] 1.015 (1.000-1.030) 06/15/20 08:07 Urine Protein Trace (Negative) H 06/15/20 08:07 Urine Glucose (UA) Negative (Negative) 06/15/20 08:07 Urine Ketones Negative (Negative) 06/15/20 08:07 Urine Blood 1+ (Negative) H 06/15/20 08:07 Urine Nitrite Positive (Negative) A 06/15/20 08:07 Urine Bilirubin Negative (Negative) 06/15/20 08:07 Urine Urobilinogen Negative (Negative) 06/15/20 08:07 Ur Leukocyte Esterase 3+ (Negative) H 06/15/20 08:07 Urine WBC (Auto) >30 /hpf (0-5) H 06/15/20 08:07 Urine RBC (Auto) 0-4 /hpf (0-4) 06/15/20 08:07 U Hyaline Cast (Auto) 5-10 /lpf (0-5) H 06/15/20 08:07 U Epithel Cells (Auto) 5-10 /lpf (0-5) H 06/15/20 08:07 Urine Bacteria (Auto) 4+ (Negative) H 06/15/20 08:07 COVID-19 Eval Order Covid19 IDNow [facility] 06/15/20 09:05 SARS-CoV-2, RNA, NAAT NEGATIVE (NEGATIVE) 06/15/20 09:05 Blood Type O Positive 06/17/20 02:37 Antibody Screen NEGATIVE 06/17/20 02:37 Crossmatch See Detail 06/17/20 02:37 (1) Intertrochanteric fracture of right femur Encounter type: initial encounter Fracture alignment: displaced Fracture type: closed Qualified Code(s): S72.141A - Displaced intertrochanteric fracture of right femur, initial encounter for closed fracture
--- NOTE | 2020-06-19 10:11 | XRay Report ---
XR chest 1V portable CLINICAL HISTORY: Shortness of breath. COMPARISON STUDY: Chest radiograph June 17, 2020. FINDINGS: Moderate elevation of the right hemidiaphragm is unchanged. There is no pneumothorax or ple ural effusion. Linear left basilar opacity favors atelectasis. There is no consolidation. Cardiomedia stinal silhouette is stable. Appearance of the chest is unchanged. IMPRESSION: No acute cardiopulmonary findings. No change in appearance of the chest. ACT 112: Negative or not required by law. Electronically signed by: Jamison Cespedes M.D. 06/19/2020 10:10 AM
[2020-06-19 10:19] LABS: BUN Creatinine Ratio 27.1 (10-20); Calcium 8.4 mg/dl (8.5-10.1); Creatinine Clr Calc Pharmacy 56.5 ml/min; Est GFR (African American) 84.2; Est GFR (Non-African American) 72.7; Potassium 3.8 mmol/L (3.5-5.1)
--- NOTE | 2020-06-19 13:45 | Electrocardiogram Report ---
Test Reason : Blood Pressure : / mmHG Vent. Rate : 089 BPM Atrial Rate : 089 BPM P-R Int : 144 ms QRS Dur : 092 ms QT Int : 394 ms P-R-T Axes : 061 -11 094 degrees QTc Int : 479 ms Normal sinus rhythm Nonspecific T wave abnormality Abnormal ECG When compared with ECG of 15-JUN-2020 08:03, Premature ventricular complexes are no longer Present Confirmed by Hardy Selby ([id number]) on 06/19/2020 1:44:33 PM Referred By: REFERRED SELF Confirmed By:Hardy Selby
--- NOTE | 2020-06-19 20:02 | Hospitalist Progress Note ---
Date of Service June 19, 2020 Assessment & Plan (1) Intertrochanteric fracture of right femur: Age-related n osteoporotic fracture of right femur in setting of ground level fall 84-year-old female who sustained a ground-level fall where she fractured her right intertrochanteric femur. Orthopedics consulted , s/p R hip long cephalomedullary nail on 06/16/2020 POD#3 cont PT/OT Non weightbearing to the right lower extremity-per ortho Lovenox sc for DVT prophylaxis post op (2) UTI (urinary tract infection): urine culture Growing Proteus species. on ceftriaxone , can be discharged on po Cipro on discharge needs 5-7 days tx leukocytosis : due to UTI abx as above Acute Blood loss anemia : Hb drop noted form 11.4- 9 -> 7.5 due to post op status /acute blood loss anemia s/p 1 units for PRBC transfusion repeat H&H today 7.8 ordered for 1 more unit of PRBC tx Acute on chronic CHF with diasostic heart failure : ECHO : this admission pre op : normal EF , no wall motion abnormality pt developed hypoxia post op -requiring supplemental 02 , possible due to vol over load /IV fluid given pre op and intra-operatively received 1 units of PRBC transfusion chest auscultation : bibasilar rales Lasix ordered post transfusion (3) GERD (gastroesophageal reflux disease): - Count outpatient PPI and famotidine. (4) Hypothyroidism: - Continue levothyroxine - (5) HTN (hypertension): - Continue outpatient benazepril/HCTZ (6) Depression: - Continue Celexa FULL CODE DISPOSITION : cont PT/OT post hip fx : recommends short term skilled rehab post discharge from [facility] social service consulted for discharge planning Daughter Lydia ( ) will be updated over phone, in agreeable for SNF referral Admission and Anticipated Discharge Date Admission Date: June 15, 2020 Subjective Follow up visit for fall /right hip fracture s/p ORIF //acute blood loss anemia post op : feels much better today had 2 unit of PRBC transfused earlier less fatigued today , no complain of sob or chest heaviness , no cough no fever or chills Review of Systems Review of Systems: All systems reviewed & are unremarkable except as noted in Subjective Physical Exam Constitutional: WD/WN, vitals as above Eyes: + anicteric sclerae ENMT: external ear and nose normal, oropharynx normal Neck: trachea midline, no thyromegaly Respiratory: normal respiratory effort, lungs clear to auscultation normal respiratory effort; no cough Auscultation: + rales (bilasilar rales ); no wheezes Cardiovascular: RRR, no murmur, no edema Gastrointestinal (Abdomen): normal bowel sounds, soft, nontender, no hepatosplenomegaly Percussion/Palpation: abdomen soft Musculoskeletal: Extremities: + lower leg abnormality (s/p rt hip surgery ) Skin: no rashes, warm and dry Neurologic: PERRL, EOMI, accommodation nl, no face palsy, no dysarthria Psychiatric: A+Ox3, euthymic affect Results & Data Results & Data ([facility]) Vital Signs (Past 12 Hours) Vital Signs Temp Pulse Pulse Pulse Resp BP BP 06/19/20 18:58 120 H 18 06/19/20 18:30 37.0 C 114 H 16 120/74 06/19/20 15:30 36.8 C 92 H 18 06/19/20 14:03 37.0 C 95 H 18 132/77 06/19/20 13:05 37.0 C 87 18 104/68 06/19/20 12:00 36.9 C 94 H 16 116/74 06/19/20 11:00 37.1 C 113 H 20 130/78 06/19/20 10:27 36.8 C 87 16 137/90 06/19/20 10:14 37.2 C 87 16 156/83 H BP Pulse Ox 06/19/20 18:58 96 06/19/20 18:30 98 06/19/20 15:30 150/85 H 96 06/19/20 14:03 96 06/19/20 13:05 98 06/19/20 12:00 96 06/19/20 11:00 91 06/19/20 10:27 96 06/19/20 10:14 (1) UTI (urinary tract infection) Hematuria presence: without hematuria Urinary tract infection type: acute cystitis Qualified Code(s): N30.00 - Acute cystitis without hematuria (2) Hypothyroidism Hypothyroidism type: acquired Qualified Code(s): E03.9 - Hypothyroidism, unspecified (3) HTN (hypertension) Hypertension type: essential hypertension Qualified Code(s): I10 - Essential (primary) hypertension (4) Intertrochanteric fracture of right femur Encounter type: initial encounter Fracture alignment: displaced Fracture type: closed Qualified Code(s): S72.141A - Displaced intertrochanteric fracture of right femur, initial encounter for closed fracture
[2020-06-20 06:06] LABS: Hematocrit (blood only) 28.7 % (37-47); Hemoglobin 9.2 g/dL (12.0-16.0); Mean Corpuscular Hemoglobin 28.6 pg (25-34); Mean Corpuscular Hgb Conc 32.1 g/dL (32-36); Mean Corpuscular Volume 89.1 fL (80-100); Mean Platelet Volume 10.1 fL (7.4-10.4); Platelet Count 177 K/uL (130-400); RDW Coefficient of Variation 16.1 % (11.5-14.5); RDW Standard Deviation 51.8 fL (36.4-46.3); Red Blood Count 3.22 M/uL (4.2-5.4); White Blood Count 8.64 K/uL (4.8-10.8)
[2020-06-20] MEDS: LEVOTHYROXINE SODIUM 100 MCG TABLET PO SCH (06:24)
[2020-06-20] MEDS: FAMOTIDINE 20 MG TAB PO SCH (08:35)
[2020-06-20] MEDS: PANTOprazole 40 MG TAB PO SCH (08:35)
[2020-06-20] MEDS: ENALAPRIL MALEATE 10 MG TAB PO SCH (08:35)
[2020-06-20] MEDS: MIRABEGRON ER 25 MG TAB PO SCH (08:36)
[2020-06-20] MEDS: hydroCHLOROthiazide 25 MG TAB PO SCH ×2 (08:36→21:20)
[2020-06-20] MEDS: CITALOPRAM 20 MG TAB PO SCH (08:37)
[2020-06-20] MEDS: ENOXAPARIN INJ 40 MG/0.4 ML SYR SQ SCH (08:38)
[2020-06-20] MEDS: CIPROFLOXACIN 250 MG TAB PO SCH ×2 (10:14→21:20)
--- NOTE | 2020-06-20 19:14 | Hospitalist Progress Note ---
Date of Service June 20, 2020 Assessment & Plan (1) Intertrochanteric fracture of right femur: Age-related n osteoporotic fracture of right femur in setting of ground level fall 84-year-old female who sustained a ground-level fall where she fractured her right intertrochanteric femur. Orthopedics help apprecaited s/p R hip long cephalomedullary nail on 06/16/2020 cont PT/OT Non weightbearing to the right lower extremity-per ortho Lovenox sc for DVT prophylaxis post op (2) UTI (urinary tract infection): urine culture Growing Proteus species. on PO Ciprofloxacin needs 5-7 days tx leukocytosis : due to UTI abx as above Acute Blood loss anemia : Hb drop noted form 11.4- 9 -> 7.5 due to post op status /acute blood loss anemia s/p 2 units for PRBC transfusion hb improved to 9.2 post transfusion Acute on chronic CHF with diasostic heart failure : ECHO : this admission pre op : normal EF , no wall motion abnormality pt developed hypoxia post op -requiring supplemental 02 , possible due to vol over load /IV fluid given pre op and intra-operatively Lasix ordered post transfusion monitor vol status (3) GERD (gastroesophageal reflux disease): - Count outpatient PPI and famotidine. (4) Hypothyroidism: - Continue levothyroxine - (5) HTN (hypertension): - Continue outpatient benazepril/HCTZ (6) Depression: - Continue Celexa FULL CODE DISPOSITION : cont PT/OT post hip fx : recommends short term skilled rehab post discharge from [facility] social service consulted for discharge planning Junior Freeman ( ) will be updated over phone, in agreeable for SNF referral Admission and Anticipated Discharge Date Admission Date: June 15, 2020 Subjective Follow up visit for fall /right hip fracture s/p ORIF //acute blood loss anemia post op : offers no new complain no fever or chills Review of Systems Review of Systems: All systems reviewed & are unremarkable except as noted in Subjective Physical Exam Constitutional: WD/WN, vitals as above Eyes: + anicteric sclerae ENMT: external ear and nose normal, oropharynx normal Neck: trachea midline, no thyromegaly Respiratory: normal respiratory effort, lungs clear to auscultation normal respiratory effort; no cough Auscultation: + rales (bilasilar rales ); no wheezes Cardiovascular: RRR, no murmur, no edema Gastrointestinal (Abdomen): normal bowel sounds, soft, nontender, no hepatosplenomegaly Percussion/Palpation: abdomen soft Musculoskeletal: Extremities: + lower leg abnormality (s/p rt hip surgery ) Skin: no rashes, warm and dry Neurologic: PERRL, EOMI, accommodation nl, no face palsy, no dysarthria Psychiatric: A+Ox3, euthymic affect Results & Data Results & Data ([facility]) Vital Signs (Past 12 Hours) Vital Signs Temp Pulse Pulse Resp BP Pulse Ox 06/20/20 17:56 37.2 C 134 H 16 104/67 95 06/20/20 15:04 37.6 C H 108 H 18 113/63 92 06/20/20 07:13 37.1 C 95 H 16 144/67 H 94 (1) UTI (urinary tract infection) Hematuria presence: without hematuria Urinary tract infection type: acute cystitis Qualified Code(s): N30.00 - Acute cystitis without hematuria (2) Hypothyroidism Hypothyroidism type: acquired Qualified Code(s): E03.9 - Hypothyroidism, unspecified (3) HTN (hypertension) Hypertension type: essential hypertension Qualified Code(s): I10 - Essential (primary) hypertension (4) Intertrochanteric fracture of right femur Encounter type: initial encounter Fracture alignment: displaced Fracture type: closed Qualified Code(s): S72.141A - Displaced intertrochanteric fracture of right femur, initial encounter for closed fracture
[2020-06-20] MEDS ORDERED: FUROSEMIDE 40 MG/4 ML VIAL IV STA (21:00)
[2020-06-20] MEDS: traMADol HCL 50 MG TABLET PO PRN (21:19)
[2020-06-20] MEDS ORDERED: FUROSEMIDE 20 MG in SYRINGE 0 ML IV STA (21:35)
[2020-06-21 06:07] LABS: Hematocrit (blood only) 28.9 % (37-47); Hemoglobin 9.3 g/dL (12.0-16.0); Mean Corpuscular Hemoglobin 28.9 pg (25-34); Mean Corpuscular Hgb Conc 32.2 g/dL (32-36); Mean Corpuscular Volume 89.8 fL (80-100); Mean Platelet Volume 10.3 fL (7.4-10.4); Platelet Count 204 K/uL (130-400); RDW Coefficient of Variation 16.4 % (11.5-14.5); RDW Standard Deviation 53.1 fL (36.4-46.3); Red Blood Count 3.22 M/uL (4.2-5.4); White Blood Count 9.94 K/uL (4.8-10.8)
[2020-06-21] MEDS: LEVOTHYROXINE SODIUM 100 MCG TABLET PO SCH (06:29)
[2020-06-21] MEDS: ENALAPRIL MALEATE 10 MG TAB PO SCH (08:32)
[2020-06-21] MEDS: CITALOPRAM 20 MG TAB PO SCH (08:33)
[2020-06-21] MEDS: PANTOprazole 40 MG TAB PO SCH (08:33)
[2020-06-21] MEDS: MIRABEGRON ER 25 MG TAB PO SCH (08:33)
[2020-06-21] MEDS: hydroCHLOROthiazide 25 MG TAB PO SCH ×2 (08:33→21:09)
[2020-06-21] MEDS: ENOXAPARIN INJ 40 MG/0.4 ML SYR SQ SCH (08:34)
--- NOTE | 2020-06-21 09:01 | XRay Report ---
XR chest 1V portable HISTORY: Shortness of breath. COMPARISON: Chest 06/19/2020. FINDINGS: No pneumothorax. No pleural effusions. Mild elevation of the right hemidiaphragm, unchanged . No focal lung consolidations to suggest pneumonia. No evidence for pulmonary edema. The heart is no rmal in size. IMPRESSION: No significant change compared to the prior study. No acute process. ACT 112: Negative or not required by law. Electronically signed by: Dann Childs M.D. 06/21/2020 9:00 AM
[2020-06-21] MEDS: FAMOTIDINE 20 MG TAB PO SCH (09:59)
[2020-06-21] MEDS: CIPROFLOXACIN 250 MG TAB PO SCH ×2 (09:59→21:09)
--- NOTE | 2020-06-21 11:37 | Electrocardiogram Report ---
Test Reason : Blood Pressure : / mmHG Vent. Rate : 102 BPM Atrial Rate : 102 BPM P-R Int : 166 ms QRS Dur : 086 ms QT Int : 366 ms P-R-T Axes : 062 -10 090 degrees QTc Int : 477 ms Sinus tachycardia with Premature atrial complexes Otherwise normal ECG When compared with ECG of 19-JUN-2020 09:28, Premature atrial complexes are now Present Nonspecific T wave abnormality, improved in Anterior leads Confirmed by Alan Woods ([id number]) on 06/21/2020 11:37:02 AM Referred By: REFERRED SELF Confirmed By:Alan Woods
--- NOTE | 2020-06-21 18:09 | Hospitalist Progress Note ---
Date of Service June 21, 2020 Assessment & Plan (1) Intertrochanteric fracture of right femur: Age-related n osteoporotic fracture of right femur in setting of ground level fall 84-year-old female who sustained a ground-level fall where she fractured her right intertrochanteric femur. Orthopedics help apprecaited s/p R hip long cephalomedullary nail on 06/16/2020 cont PT/OT Non weightbearing to the right lower extremity-per ortho Lovenox sc for DVT prophylaxis post op plan to discharge to rehab on monday (2) UTI (urinary tract infection): urine culture Growing Proteus species. on PO Ciprofloxacin needs 5-7 days tx leukocytosis : due to UTI /improved abx as above Acute Blood loss anemia : due to post op status /acute blood loss anemia s/p 2 units for PRBC transfusion hb stable > 9 post transfusion Acute on chronic CHF with diasostic heart failure : compensated after diuresis vol status stable , no SOB , RED , in room air, no cough or fever or chills ECHO : this admission pre op : normal EF , no wall motion abnormality pt developed hypoxia post op -requiring supplemental 02 , possible due to vol over load /IV fluid given pre op and intra-operatively given lasix ,with adequate diuresis no further diuresis needed (3) GERD (gastroesophageal reflux disease): - Count outpatient PPI and famotidine. (4) Hypothyroidism: - Continue levothyroxine - (5) HTN (hypertension): - Continue outpatient benazepril/HCTZ (6) Depression: - Continue Celexa FULL CODE DISPOSITION : cont PT/OT post hip fx : recommends short term skilled rehab post discharge from [facility] social service consulted for discharge planning plan to dc to rehab /anupama [facility]ter on monday Daughter Lydia ( ) will be updated over phone, in agreeable for SNF referral Admission and Anticipated Discharge Date Admission Date: June 15, 2020 Subjective Follow up visit for fall /right hip fracture s/p ORIF //acute blood loss anemia post op : doing well today has been OOB , minimum pain at hip surgical site no fever or chills no SOB, RED or cough Review of Systems Review of Systems: All systems reviewed & are unremarkable except as noted in Subjective Physical Exam Constitutional: WD/WN, vitals as above Eyes: + anicteric sclerae ENMT: external ear and nose normal, oropharynx normal Neck: trachea midline, no thyromegaly Respiratory: normal respiratory effort, lungs clear to auscultation normal respiratory effort; no cough Auscultation: + rales (bilasilar rales ); no wheezes Cardiovascular: RRR, no murmur, no edema Gastrointestinal (Abdomen): normal bowel sounds, soft, nontender, no hepatosplenomegaly Percussion/Palpation: abdomen soft Musculoskeletal: Extremities: + lower leg abnormality (s/p rt hip surgery ) Skin: no rashes, warm and dry Neurologic: PERRL, EOMI, accommodation nl, no face palsy, no dysarthria Psychiatric: A+Ox3, euthymic affect Results & Data Results & Data ([facility]) Vital Signs (Past 12 Hours) Vital Signs Temp Pulse Pulse Resp BP Pulse Ox 06/21/20 14:53 37.0 C 96 H 18 102/65 93 06/21/20 06:51 36.9 C 95 H 18 135/82 92 (1) UTI (urinary tract infection) Hematuria presence: without hematuria Urinary tract infection type: acute cystitis Qualified Code(s): N30.00 - Acute cystitis without hematuria (2) Hypothyroidism Hypothyroidism type: acquired Qualified Code(s): E03.9 - Hypothyroidism, unspecified (3) HTN (hypertension) Hypertension type: essential hypertension Qualified Code(s): I10 - Essential (primary) hypertension (4) Intertrochanteric fracture of right femur Encounter type: initial encounter Fracture alignment: displaced Fracture type: closed Qualified Code(s): S72.141A - Displaced intertrochanteric fracture of right femur, initial encounter for closed fracture
[2020-06-22] MEDS: LEVOTHYROXINE SODIUM 100 MCG TABLET PO SCH (06:03)
[2020-06-22] MEDS: CITALOPRAM 20 MG TAB PO SCH (08:29)
[2020-06-22] MEDS: hydroCHLOROthiazide 25 MG TAB PO SCH ×2 (08:29→20:07)
[2020-06-22] MEDS: ENALAPRIL MALEATE 10 MG TAB PO SCH (08:35)
[2020-06-22] MEDS: ENOXAPARIN INJ 40 MG/0.4 ML SYR SQ SCH (08:36)
[2020-06-22] MEDS: MIRABEGRON ER 25 MG TAB PO SCH (08:36)
[2020-06-22] MEDS: PANTOprazole 40 MG TAB PO SCH (08:36)
[2020-06-22] MEDS: FAMOTIDINE 20 MG TAB PO SCH (09:57)
[2020-06-22] MEDS: CIPROFLOXACIN 250 MG TAB PO SCH ×2 (09:57→22:29)
--- NOTE | 2020-06-22 18:02 | Communication Note ---
Date of Service: June 22, 2020 pt is medically stable to be discharged to rehab referral made to [facility] and [facility] insurance auth pending Updated daughter Lydia , hoping pt would get approved to [facility] will update family plan to dc to skilled rehab tomorrow if insurance approval available Family /daughter is willing to provide transport Ashli Root MD
[2020-06-22] MEDS: MAGNESIUM HYDROXIDE SUSP 30 ML UDC PO PRN (20:06)
[2020-06-22] MEDS: traMADol HCL 50 MG TABLET PO PRN (20:06)
--- NOTE | 2020-06-22 21:06 | Hospitalist Progress Note ---
Date of Service June 22, 2020 Assessment & Plan (1) Intertrochanteric fracture of right femur: Age-related n osteoporotic fracture of right femur in setting of ground level fall 84-year-old female who sustained a ground-level fall where she fractured her right intertrochanteric femur. Orthopedics help apprecaited s/p R hip long cephalomedullary nail on 06/16/2020 cont PT/OT Non weightbearing to the right lower extremity-per ortho Lovenox sc for DVT prophylaxis post op plan to discharge to rehab on monday (2) UTI (urinary tract infection): urine culture Growing Proteus species. on PO Ciprofloxacin needs 5-7 days tx leukocytosis : due to UTI /improved abx as above Acute Blood loss anemia : due to post op status /acute blood loss anemia s/p 2 units for PRBC transfusion hb stable > 9 post transfusion Acute on chronic CHF with diasostic heart failure : compensated after diuresis vol status stable , no SOB , RED , in room air, no cough or fever or chills ECHO : this admission pre op : normal EF , no wall motion abnormality pt developed hypoxia post op -requiring supplemental 02 , possible due to vol over load /IV fluid given pre op and intra-operatively given lasix ,with adequate diuresis no further diuresis needed (3) GERD (gastroesophageal reflux disease): - Count outpatient PPI and famotidine. (4) Hypothyroidism: - Continue levothyroxine - (5) HTN (hypertension): - Continue outpatient benazepril/HCTZ (6) Depression: - Continue Celexa FULL CODE DISPOSITION : waiting for insurance approval to go to rehab Junior Freeman ( ) will be updated over phone Admission and Anticipated Discharge Date Admission Date: June 15, 2020 Subjective Follow up visit for fall /right hip fracture s/p ORIF //acute blood loss anemia post op : doing well today has been OOB , minimum pain at hip surgical site no fever or chills no SOB, RED or cough Physical Exam Constitutional: WD/WN, vitals as above Eyes: + anicteric sclerae ENMT: external ear and nose normal, oropharynx normal Neck: trachea midline, no thyromegaly Respiratory: normal respiratory effort, lungs clear to auscultation normal respiratory effort; no cough Auscultation: + rales (bilasilar rales ); no wheezes Cardiovascular: RRR, no murmur, no edema Gastrointestinal (Abdomen): normal bowel sounds, soft, nontender, no hepatosplenomegaly Percussion/Palpation: abdomen soft Musculoskeletal: Extremities: + lower leg abnormality (s/p rt hip surgery ) Skin: no rashes, warm and dry Neurologic: PERRL, EOMI, accommodation nl, no face palsy, no dysarthria Psychiatric: A+Ox3, euthymic affect Results & Data Results & Data ([facility]) Vital Signs (Past 12 Hours) Vital Signs Temp Pulse Resp BP Pulse Ox 06/22/20 15:50 103 H 06/22/20 14:42 37.1 C 119 H 16 111/72 95 (1) Intertrochanteric fracture of right femur Encounter type: initial encounter Fracture alignment: displaced Fracture type: closed Qualified Code(s): S72.141A - Displaced intertrochanteric fracture of right femur, initial encounter for closed fracture (2) UTI (urinary tract infection) Hematuria presence: without hematuria Urinary tract infection type: acute cystitis Qualified Code(s): N30.00 - Acute cystitis without hematuria (3) Hypothyroidism Hypothyroidism type: acquired Qualified Code(s): E03.9 - Hypothyroidism, unspecified (4) HTN (hypertension) Hypertension type: essential hypertension Qualified Code(s): I10 - Essential (primary) hypertension
[2020-06-23] MEDS ORDERED: SODIUM CHLORIDE 0.9% 1000ML 250 ML IV SCH (00:15)
[2020-06-23] MEDS: SODIUM CHLORIDE 0.9% 1000ML 1,000 ML IV SCH ×2 (00:28→12:22)
[2020-06-23 00:47] LABS: BUN Creatinine Ratio 31.3 (10-20); Calcium 9.1 mg/dl (8.5-10.1); Creatinine Clr Calc Pharmacy 46.6 ml/min; Est GFR (African American) 66.7; Est GFR (Non-African American) 57.5; Magnesium 2.5 mg/dl (1.8-2.4); Potassium 3.6 mmol/L (3.5-5.1)
[2020-06-23 00:55] LABS: Basophils # (auto) 0.05 K/uL (0-0.2); Basophils % (auto) 0.5 %; Eosinophils # (auto) 0.23 K/uL (0-0.5); Eosinophils % (auto) 2.3 %; Hematocrit (blood only) 31.4 % (37-47); Hemoglobin 10.1 g/dL (12.0-16.0); Immature Granulocytes # (auto) 0.11 K/uL (0.00-0.02); Immature Granulocytes % (auto) 1.1 %; Lymphocytes # (auto) 2.16 K/uL (1.2-3.4); Lymphocytes % (auto) 21.7 %; Mean Corpuscular Hgb Conc 32.2 g/dL (32-36); Mean Corpuscular Volume 90.2 fL (80-100); Mean Platelet Volume 10.2 fL (7.4-10.4); Monocytes # (auto) 1.37 K/uL (0.11-0.59); Monocytes % (auto) 13.8 %; Neutrophils # (auto) 6.02 K/uL (1.4-6.5); Neutrophils % (auto) 60.6 %; Platelet Count 299 K/uL (130-400); RDW Coefficient of Variation 17.4 % (11.5-14.5); RDW Standard Deviation 56.2 fL (36.4-46.3); Red Blood Count 3.48 M/uL (4.2-5.4); White Blood Count 9.94 K/uL (4.8-10.8)
[2020-06-23 00:57] LABS: Troponin I 0.069 ng/ml (0-0.045)
[2020-06-23] MEDS: LEVOTHYROXINE SODIUM 100 MCG TABLET PO SCH (05:36)
[2020-06-23] MEDS: FAMOTIDINE 20 MG TAB PO SCH (07:59)
[2020-06-23] MEDS: MIRABEGRON ER 25 MG TAB PO SCH (07:59)
[2020-06-23] MEDS: ENOXAPARIN INJ 40 MG/0.4 ML SYR SQ SCH (07:59)
[2020-06-23] MEDS: MAGNESIUM HYDROXIDE SUSP 30 ML UDC PO PRN (07:59)
[2020-06-23] MEDS: CITALOPRAM 20 MG TAB PO SCH (07:59)
[2020-06-23] MEDS: PANTOprazole 40 MG TAB PO SCH (07:59)
[2020-06-23] MEDS: hydroCHLOROthiazide 25 MG TAB PO SCH (07:59)
[2020-06-23] MEDS: ENALAPRIL MALEATE 10 MG TAB PO SCH (07:59)
--- NOTE | 2020-06-23 09:42 | Electrocardiogram Report ---
Test Reason : Blood Pressure : / mmHG Vent. Rate : 103 BPM Atrial Rate : 103 BPM P-R Int : 148 ms QRS Dur : 084 ms QT Int : 370 ms P-R-T Axes : 054 -21 078 degrees QTc Int : 484 ms Sinus tachycardia Diffuse Minor Nonspecific T wave abnormality Abnormal ECG When compared with ECG of 20-JUN-2020 20:40, Premature atrial complexes are no longer Present Confirmed by Seth Armendariz ([id number]) on 06/23/2020 9:41:38 AM Referred By: REFERRED SELF Confirmed By:Seth Armendariz
--- NOTE | 2020-06-23 09:43 | Electrocardiogram Report ---
Test Reason : Blood Pressure : / mmHG Vent. Rate : 085 BPM Atrial Rate : 085 BPM P-R Int : 154 ms QRS Dur : 088 ms QT Int : 398 ms P-R-T Axes : 071 003 088 degrees QTc Int : 473 ms Normal sinus rhythm Diffuse Minor Nonspecific T wave abnormality Abnormal ECG When compared with ECG of 22-JUN-2020 23:40, No significant change was found Confirmed by Seth Armendariz ([id number]) on 06/23/2020 9:43:38 AM Referred By: REFERRED SELF Confirmed By:Seth Armendariz
--- NOTE | 2020-06-23 10:38 | Cardiology Consultation ---
Date of Consultation June 23, 2020 Assessment & Plan (1) Troponin I above reference range: (2) Intertrochanteric fracture of right femur: (3) HTN (hypertension): (4) Osteoarthritis: (5) Aortic regurgitation: I do not see any ischemic component to this troponin elevation. The patient is clinically without complaint. No ischemic EKG changes. Echocardiogram shows no new wall motion abnormalities. No further cardiac testing or intervention is necessary at this time. Would recommend transfer to inpatient rehab No cardiac follow-up necessary at this time but recommend follow-up with PCP upon discharge. No medication changes will be made. History of Present Illness Reason for Consultation: Elevated troponin level Requesting Physician: Dr. Root Attending Physician: Ashli Root MD History of Present Illness It was my pleasure to see Mrs. Steiner in cardiac consultation today June 23, 2020. She is a very pleasant 84-year-old woman who originally presented to [facility] on June 15, 2020 after report of a fall and right hip pain. She was found to have an intertrochanteric hip fracture and underwent surgical repair. On 06/22/2020 patient was anticipating discharge to rehab when she was found to be tachycardic. An EKG was performed which showed sinus tachycardia and troponin level was then drawn. The troponin level was mildly above normal laboratory standard and she was then transferred to telemetry. Clinically she denies any cardiac complaints whatsoever. She specifically denies experiencing chest pain, shortness of breath, palpitations, lightheadedness, dizziness or syncope. She states that her hip pain is impro ving. She is anxious for discharge to rehab. Allergies Allergy/AdvReac Type Severity Reaction Status Date / Time montelukast Allergy Intermediate RASH, HYPER Verified 06/15/20 08:32 adhesive AdvReac Intermediate SENSITIVE, Verified 06/15/20 08:32 RASH salicylates AdvReac Mild VOMITING Verified 06/15/20 08:32 Home Medications Medication Instructions Recorded Confirmed Type benazepril-hydrochlorothiazide 1 tab PO BID 06/15/20 06/15/20 History citalopram [Celexa] 10 mg PO DAILY 06/15/20 06/15/20 History famotidine 20 mg PO DAILY 06/15/20 06/15/20 History levothyroxine 100 mcg PO DAILY 06/15/20 06/15/20 History mirabegron [Myrbetriq] 50 mg PO DAILY 06/15/20 06/15/20 History pantoprazole 40 mg PO DAILY 06/15/20 06/15/20 History solifenacin 5 mg PO DAILY 06/15/20 06/15/20 History tramadol 50 mg PO Q6H PRN 06/15/20 06/15/20 History ciprofloxacin HCl 250 mg PO Q12H 2 Days #4 tab 06/22/20 Rx Patient History Medical History Aortic valve sclerosis Depression Dyslipidemia GERD (gastroesophageal reflux disease) History of gastrointestinal diverticular hemorrhage HTN (hypertension) Hypothyroidism Osteoarthritis Urge incontinence Surgical History History of arthroscopic knee surgery History of cholecystectomy History of hysterectomy History of tonsillectomy Family History Father Heart disease Brother Lung cancer Brother Gastric cancer Mother Brain cancer Social History Smoking Status: Never smoker Hx Alcohol Use: No Hx Substance Use: No Preferred Language: Nepalese Communication Ability: Effective Dial Mounter Required: No Beliefs That Will Affect Care: None Current Living Situation: Spouse Other Information That Helps Us Care for You: No Feels Safe at Home: Yes Safety Concerns: Feels Safe At This Time Assistive Devices: Walker Review of Systems Review of Systems: All systems reviewed & are unremarkable except as noted in HPI & below Physical Exam Physical Exam: General: Awake, alert and oriented x 3. No acute distress. HEENT: Normocephalic, atraumatic. Pupils equal, round and reactive to light and accommodation. Extraocular muscles are intact. Anicteric sclera. Moist mucous membranes. Neck: No JVD. No bruit. Cardiovascular: Regular. Positive S-4. Normal S-1 and S-2. No S-3. 3/6 mid to late systolic ejection murmur, greatest at the right sternal border, second intercostal space with radiation to the bilateral carotids. No rubs. Pulmonary: Clear to auscultation bilaterally. No rales, rhonchi, or wheezing. Abdomen: Bowel sounds x 4, soft. No rebound, guarding or tenderness. No organomegaly. Extremities: No clubbing, cyanosis or edema. +2 pedal pulses bilaterally. Skin: Warm and dry. Results & Data ([facility]) Vital Signs (Past 12 Hours) Vital Signs Temp Pulse Pulse Resp BP Pulse Ox 06/23/20 07:30 36.8 C 84 18 145/80 H 91 06/23/20 07:18 81 06/23/20 04:00 36.8 C 56 L 18 126/78 99 06/23/20 02:43 96 H (1) Intertrochanteric fracture of right femur Encounter type: initial encounter Fracture alignment: displaced Fracture type: closed Qualified Code(s): S72.141A - Displaced intertrochanteric fracture of right femur, initial encounter for closed fracture (2) HTN (hypertension) Hypertension type: essential hypertension Qualified Code(s): I10 - Essential (primary) hypertension
[2020-06-23] MEDS: METOPROLOL TARTRATE 25 MG TAB PO SCH ×2 (15:45→19:36)
--- NOTE | 2020-06-23 17:10 | Hospitalist Progress Note ---
Date of Service June 23, 2020 Assessment & Plan (1) Intertrochanteric fracture of right femur: Age-related n osteoporotic fracture of right femur in setting of ground level fall 84-year-old female who sustained a ground-level fall where she fractured her right intertrochanteric femur. Orthopedics help appreciated s/p R hip long cephalomedullary nail on 06/16/2020 cont PT/OT Non weightbearing to the right lower extremity-per ortho Lovenox sc for DVT prophylaxis post op pt be on full aspirin 325 mg daily for post discharge DVT prophylaxis for 4 weeks post op Sinus tachycardia /mild elevation of troponin transferred to tele last night , pt remains asymptomatic Echo no wall motion abnormality /hb stable appreciate input from cardiology , no further cardiac testing need sinus tach -possible due to mild dehydration post op given IV fluid , dc HCTZ , added low dose beta pato (2) UTI (urinary tract infection): urine culture Growing Proteus species. on PO Ciprofloxacin needs 5-7 days tx leukocytosis : due to UTI /improved abx as above Acute Blood loss anemia : due to post op status /acute blood loss anemia s/p 2 units for PRBC transfusion hb stable > post transfusion Acute on chronic CHF with diasostic heart failure : compensated after diuresis vol status stable , no SOB , RED , in room air, no cough or fever or chills ECHO : this admission pre op : normal EF , no wall motion abnormality pt developed hypoxia post op -requiring supplemental 02 , possible due to vol over load /IV fluid given pre op and intra-operatively given lasix ,with adequate diuresis no further diuresis needed cont ACEI added beta pato low dose for sinus tachycardia HCTZ d.kwabena -to prevent hypotension (3) GERD (gastroesophageal reflux disease): - Count outpatient PPI and famotidine. (4) Hypothyroidism: - Continue levothyroxine - (5) HTN (hypertension): - BP stable , change of meds as outlined above (6) Depression: - Continue Celexa FULL CODE DISPOSITION : pt will need skilled rehab plan is to observe on tele overnight tx to rehab in am if remains medically stable Junior Freeman ( ) updated over phone Admission and Anticipated Discharge Date Admission Date: June 15, 2020 Subjective Follow up visit for fall /right hip fracture s/p ORIF //acute blood loss anemia post op : sitting up on chair, no complain of chest pain or SOB , no dizzy spell or lightheadedness HR in 90's -low 100's on monitor , sinus tachycardia pt denies of any complain palpitation no fever or chills or cough Review of Systems Review of Systems: All systems reviewed & are unremarkable except as noted in Subjective Physical Exam Constitutional: WD/WN, vitals as above Eyes: + anicteric sclerae ENMT: external ear and nose normal, oropharynx normal Neck: trachea midline, no thyromegaly Respiratory: normal respiratory effort, lungs clear to auscultation normal respiratory effort; no cough Auscultation: no wheezes Cardiovascular: RRR, no murmur, no edema Gastrointestinal (Abdomen): normal bowel sounds, soft, nontender, no hepatosplenomegaly Percussion/Palpation: abdomen soft Musculoskeletal: Extremities: + lower leg abnormality (s/p rt hip surgery ) Skin: no rashes, warm and dry Neurologic: PERRL, EOMI, accommodation nl, no face palsy, no dysarthria Psychiatric: A+Ox3, euthymic affect Results & Data Results & Data ([facility]) Vital Signs (Past 12 Hours) Vital Signs Temp Pulse Pulse Pulse Resp BP BP 06/23/20 16:00 37 C 119 H 20 114/76 06/23/20 11:22 36.7 C 121 H 18 119/77 06/23/20 07:30 36.8 C 84 18 145/80 H 06/23/20 07:18 81 Pulse Ox 06/23/20 16:00 94 06/23/20 11:22 90 06/23/20 07:30 91 06/23/20 07:18 (1) Intertrochanteric fracture of right femur Encounter type: initial encounter Fracture alignment: displaced Fracture type: closed Qualified Code(s): S72.141A - Displaced intertrochanteric fracture of right femur, initial encounter for closed fracture (2) UTI (urinary tract infection) Hematuria presence: without hematuria Urinary tract infection type: acute cystitis Qualified Code(s): N30.00 - Acute cystitis without hematuria (3) Hypothyroidism Hypothyroidism type: acquired Qualified Code(s): E03.9 - Hypothyroidism, unspecified (4) HTN (hypertension) Hypertension type: essential hypertension Qualified Code(s): I10 - Essential (primary) hypertension
[2020-06-24] MEDS: LEVOTHYROXINE SODIUM 100 MCG TABLET PO SCH (06:13)
[2020-06-24 06:51] LABS: Appearance Urine Slightly Cloudy (Clear); Bilirubin Urine Negative (Negative); Blood Urine Trace (Negative); Color Urine Yellow; Glucose Urine UA Negative (Negative); Ketones Urine Negative (Negative); Leukocyte Esterase Urine Negative (Negative); Nitrite Urine Negative (Negative); Protein Urine Negative (Negative); Urobilinogen Urine Negative (Negative)
[2020-06-24 07:09] LABS: Amorphous Sediment Urine Present (None Prsent)
[2020-06-24 07:10] LABS: Bacteria Urine 1+ (Negative); RBC Urine 0-4 /hpf (0-4); WBC Urine 0-5 /hpf (0-5)
[2020-06-24] MEDS: ENOXAPARIN INJ 40 MG/0.4 ML SYR SQ SCH (08:24)
[2020-06-24] MEDS: CITALOPRAM 20 MG TAB PO SCH (08:26)
[2020-06-24] MEDS: METOPROLOL TARTRATE 25 MG TAB PO SCH (08:27)
[2020-06-24] MEDS: MIRABEGRON ER 25 MG TAB PO SCH (08:28)
[2020-06-24] MEDS: FAMOTIDINE 20 MG TAB PO SCH (08:28)
[2020-06-24] MEDS: ENALAPRIL MALEATE 10 MG TAB PO SCH (08:29)
[2020-06-24] MEDS: PANTOprazole 40 MG TAB PO SCH (08:29)
--- NOTE | 2020-06-24 10:20 | Cardiology Progress Note ---
Date of Service June 24, 2020 Assessment & Plan (1) Troponin I above reference range: (2) Intertrochanteric fracture of right femur: (3) HTN (hypertension): (4) Osteoarthritis: (5) Aortic regurgitation: I do not see any ischemic component to this troponin elevation. The patient is clinically without complaint. No ischemic EKG changes. Echocardiogram shows no new wall motion abnormalities. No further cardiac testing or intervention is necessary at this time. Would recommend transfer to inpatient rehab No cardiac follow-up necessary at this time but recommend follow-up with PCP upon discharge. No medication changes will be made. Admission and Anticipated Discharge Date Admission Date: June 15, 2020 Subjective Patient seen and examined, chart reviewed. States that she feels well and is anxious for discharge. Denies chest pain, shortness of breath, palpitations, lightheadedness, dizziness or syncope. Telemetry reviewed: Normal sinus rhythm without arrhythmia Review of Systems Review of Systems: All systems reviewed & are unremarkable except as noted in HPI & below Physical Exam Physical Exam: General: Awake, alert and oriented x 3. No acute distress. HEENT: Normocephalic, atraumatic. Pupils equal, round and reactive to light and accommodation. Extraocular muscles are intact. Anicteric sclera. Moist mucous membranes. Neck: No JVD. No bruit. Cardiovascular: Regular. Positive S-4. Normal S-1 and S-2. No S-3. 3/6 mid to late systolic ejection murmur, greatest at the right sternal border, second intercostal space with radiation to the bilateral carotids. No rubs. Pulmonary: Clear to auscultation bilaterally. No rales, rhonchi, or wheezing. Abdomen: Bowel sounds x 4, soft. No rebound, guarding or tenderness. No organomegaly. Extremities: No clubbing, cyanosis or edema. +2 pedal pulses bilaterally. Skin: Warm and dry. Results & Data ([facility]) Vital Signs (Past 12 Hours) Vital Signs Temp Pulse Pulse Resp BP Pulse Ox 06/24/20 08:14 89 06/24/20 07:33 36.7 C 107 H 18 135/80 92 06/24/20 04:00 37.0 C 65 18 155/82 H 96 06/24/20 02:57 76 06/23/20 23:00 36.8 C 56 L 18 132/55 L 96 (1) Intertrochanteric fracture of right femur Encounter type: initial encounter Fracture alignment: displaced Fracture type: closed Qualified Code(s): S72.141A - Displaced intertrochanteric fracture of right femur, initial encounter for closed fracture (2) HTN (hypertension) Hypertension type: essential hypertension Qualified Code(s): I10 - Essential (primary) hypertension
--- NOTE | 2020-06-24 14:15 | Hospitalist Progress Note ---
Date of Service June 24, 2020 Assessment & Plan (1) Intertrochanteric fracture of right femur: per Dr. Root's notes: Age-related n osteoporotic fracture of right femur in setting of ground level fall 84-year-old female who sustained a ground-level fall where she fractured her right intertrochanteric femur. Orthopedics help appreciated s/p R hip long cephalomedullary nail on 06/16/[address] Bishop cont PT/OT toe touch weightbearing to the right lower extremity-per ortho Lovenox sc for DVT prophylaxis post op x 4 weeks Sinus tachycardia /mild elevation of troponin transferred to teleemetry pt remains asymptomatic Echo no wall motion abnormality /hb stable appreciate input from cardiology , no further cardiac testing need sinus tach -possible due to mild dehydration post op given IV fluid , dc HCTZ (2) UTI (urinary tract infection): urine culture Growing Proteus species. completed 5 days of PO Ciprofloxacin leukocytosis : due to UTI /improved abx as above Acute Blood loss anemia : due to post op status /acute blood loss anemia s/p 2 units for PRBC transfusion hb stable > post transfusion Acute on chronic CHF with diasostic heart failure : compensated after diuresis vol status stable , no SOB , RED , in room air, no cough or fever or chills ECHO : this admission pre op : normal EF , no wall motion abnormality pt developed hypoxia post op -requiring supplemental 02 , possible due to vol over load /IV fluid given pre op and intra-operatively given lasix ,with adequate diuresis no further diuresis needed cont ACEI added HCTZ discontinued in light of dehydration, resume accordingly in 1-2 days (3) GERD (gastroesophageal reflux disease): - Count outpatient PPI and famotidine. (4) Hypothyroidism: - Continue levothyroxine - (5) HTN (hypertension): - BP stable , change of meds as outlined above (6) Depression: - Continue Celexa FULL CODE DISPOSITION : d/c to [facility] up with [facility] in 1 week Daughter Lydia ( ) updated over phone Admission and Anticipated Discharge Date Admission Date: June 15, 2020 Subjective ff up for right hip fracture s/p surgery etc seen resting in chair, comfortable in good spirits states she feels fine overall no chest pain, dyspnea, palpitations, dizziness denies pain no other symptoms states she is agreeable for discharge today to Rehab Review of Systems Review of Systems: All systems reviewed & are unremarkable except as noted in Subjective Physical Exam Physical Exam: General- oriented x 3, not in distress, speaks in sentences with no effort or accessory muscle use Eyes- anicteric Neck- no JVD Lungs- clear breath sounds bilaterally, no rales/wheezes Heart- normal rate, regular rhythm; no murmurs Abdomen- normal bowel sounds, nondistended, soft, nontender Extremities- no pretibial edema, no calf tenderness r hip- mild edema, surgical site with no bleeding, discharge or signs of infection Neuro- alert, oriented x 3; no gross focal neurologic deficits Skin- warm & dry Results & Data Results & Data ([facility]) Vital Signs (Past 12 Hours) Vital Signs Temp Pulse Pulse Resp BP Pulse Ox 06/24/20 11:20 37.0 C 107 H 18 125/74 93 06/24/20 08:14 89 06/24/20 07:33 36.7 C 107 H 18 135/80 92 06/24/20 04:00 37.0 C 65 18 155/82 H 96 06/24/20 02:57 76 Laboratory Results Laboratory Results - last 24 hr 06/24/20 06/24/20 04:32 Unknown Urine Color Yellow Urine Appearance Slightly Cloudy Urine pH 8.0 H Ur Specific [place] 1.020 Urine Protein Negative Urine Glucose (UA) Negative Urine Ketones Negative Urine Blood Trace H Urine Nitrite Negative Urine Bilirubin Negative Urine Urobilinogen Negative Ur Leukocyte Esterase Negative Urine RBC 0-4 Urine WBC 0-5 Ur Epithelial Cells 10-20 H Amorphous Sediment Present A Urine Bacteria 1+ H SARS-CoV-2 Ag (Rapid) Negative (1) UTI (urinary tract infection) Hematuria presence: without hematuria Urinary tract infection type: acute cystitis Qualified Code(s): N30.00 - Acute cystitis without hematuria (2) Hypothyroidism Hypothyroidism type: acquired Qualified Code(s): E03.9 - Hypothyroidism, unspecified (3) HTN (hypertension) Hypertension type: essential hypertension Qualified Code(s): I10 - Essential (primary) hypertension (4) Intertrochanteric fracture of right femur Encounter type: initial encounter Fracture alignment: displaced Fracture typ e: closed Qualified Code(s): S72.141A - Displaced intertrochanteric fracture of right femur, initial encounter for closed fracture
--- NOTE | 2020-06-24 14:35 | Discharge Summary ---
Date of Service June 24, 2020 Admission HPI Per Admitting Provider This is an 84 y/o female with a PMH of HTN, aortic sclerosis, hypothyroidism, GERD, anxiety, depression, memory loss, and urge incontinence who presents to the ED via EMS after a fall at home. Pt reports that she went to the bathroom around 7 am today but fell asleep on the toilet. When she woke up and went to get up, her legs were numb and "asleep" and the left leg gave out on her when she stood resulting in a loss of balance and fall onto her right hip and knee. She denies any dizziness, syncope or hitting her head. She denies any other recent falls at home or recent gait unsteadiness. She does have a hx of a left hip fracture requiring surgical repair several years ago but cannot recall who performed that surgery. Prior right knee replacement by Dr. Nation. Per pt and the last note from her PCP, she is overall doing well from a medical perspective. Ongoing issues with memory but pt has declined neurology evaluation. She lives with her and her daughter but reports being independent in ADLs at baseline. She denies chest pain, palpitations, SOB, RED, N/V, dysuria, hematuria, diarrhea, blood in stools. Bowel pattern tends towards constipation for which patient uses Miralax 1-2 times per week with good results. No recent malaise, fatigue, fevers, chills or sweats. +nocturia but unchaged from baseline. Currently, her hip pain is tolerable after a dose of Fentanyl in the ED. She denies numbness or tingling in her LE. Admission Exam Per Admitting Provider Constitutional: WD/WN, vitals as above no acute distress Eyes: PERRL, conjunctivae normal, anicteric sclerae Neck: trachea midline Respiratory: no respiratory distress and no labored breathing Auscultation: lungs clear to auscultation bilaterally; no rales, no rhonchi and no wheezes Cardiovascular: Rate/Rhythm: regular rate and regular rhythm Heart Sounds: no gallop, no murmur and no cardiac rub Vessels: posterior tibial pulses present and dorsalis pedis pulses present Gastrointestinal (Abdomen): Inspection/Auscultation: normal bowel sounds; abdomen not distended Percussion/Palpation: abdomen soft; abdomen nontender Musculoskeletal: Head/Neck/Chest: normocephalic, head atraumatic and neck supple Extremities: + leg externally rotated (right LE externally rotated and shortened) Moving toes bilaterally. Sensation to light touch intact distal LE bilaterally. Skin: no rashes, warm and dry Neurologic: Speech / Cognition: normal speech Psychiatric: A+Ox3, euthymic affect Principal Diagnosis RIGHT HIP FRACTURE S/P SURGERY Discharge Exam General- oriented x 3, not in distress, speaks in sentences with no effort or accessory muscle use Eyes- anicteric Neck- no JVD Lungs- clear breath sounds bilaterally, no rales/wheezes Heart- normal rate, regular rhythm; no murmurs Abdomen- normal bowel sounds, nondistended, soft, nontender Extremities- no pretibial edema, no calf tenderness r hip- mild edema, surgical site with no bleeding, discharge or signs of infection Neuro- alert, oriented x 3; no gross focal neurologic deficits Skin- warm & dry Discharge Data Allergies Allergy/AdvReac Type Severity Reaction Status Date / Time montelukast Allergy Intermediate RASH, HYPER Verified 06/15/20 08:32 adhesive AdvReac Intermediate SENSITIVE, Verified 06/15/20 08:32 RASH salicylates AdvReac Mild VOMITING Verified 06/15/20 08:32 Consultations 06/15/20 09:58 ED Decision to Admit Stat 06/15/20 10:56 Consult Orthopedic Surgery Routine 06/15/20 14:36 Consult Case Management - Discharge Planning Routine 06/16/20 18:04 Consult Case Management - Discharge Planning Routine 06/23/20 08:00 Consult Cardiology Routine Procedures Performed Operation Date: 06/16/20 07:00 Actual Procedures p Right Hip Cephalomedullary Nail(Right) - Nazario Bishop DO Ordered Studies 06/16/20 12:00 FL fluoroscopy <1hr Routine FL hip RT 2-3V Routine Hospital Course (1) Intertrochanteric fracture of right femur: per Dr. Root's notes: Age-related n osteoporotic fracture of right femur in setting of ground level fall 84-year-old female who sustained a ground-level fall where she fractured her right intertrochanteric femur. s/p R hip long cephalomedullary nail on 06/16/[address] Bishop cont PT/OT toe touch weightbearing to the right lower extremity-per ortho Lovenox sc for DVT prophylaxis post op x 4 weeks Sinus tachycardia /mild elevation of troponin transferred to teleemetry pt remains asymptomatic Echo no wall motion abnormality /hb stable appreciate input from cardiology , no further cardiac testing need sinus tach -possible due to mild dehydration post op given IV fluid , dc HCTZ (2) UTI (urinary tract infection): urine culture Growing Proteus species. completed 5 days of PO Ciprofloxacin Leukocytosis : due to UTI /improved abx as above Acute Blood loss anemia : due to post op status /acute blood loss anemia s/p 2 units for PRBC transfusion hb stable > post transfusion Monitor Hg as outpatient Acute on chronic CHF with diasostic heart failure : compensated after diuresis vol status stable , no SOB , RED , in room air, no cough or fever or chills ECHO : this admission pre op : normal EF , no wall motion abnormality pt developed hypoxia post op -requiring supplemental 02 , possible due to vol over load /IV fluid given pre op and intra-operatively given lasix ,with adequate diuresis no further diuresis needed cont ACEI added HCTZ discontinued in light of dehydration, resume accordingly in 1-2 days (3) GERD (gastroesophageal reflux disease): - Count outpatient PPI and famotidine. (4) Hypothyroidism: - Continue levothyroxine - (5) HTN (hypertension): - BP stable , change of meds as outlined above (6) Depression: - Continue Celexa FULL CODE DISPOSITION : d/c to [facility] up with [facility] in 1 week Junior Freeman ( ) Total Time Total Time Spent Total Time Spent (In Minutes): 55 minutes Discharge Plan Discharge Items Patient Disposition: Transfer Half-Way Fac Reason For Visit: R HIP FX Discharge Diagnosis: Right hip Fracture s/p fall ORIF of right hip Condition on Discharge: Good Activity: Per Instructions section Weightbearing: Right toe touch Weightbearing Comment: With walker Non-emergency contact: Surgeon Call non-emergency contact if: your pain is not controlled, your temperature is above 101.5, your wound has increased redness and your wound has increased drainage Follow-up/Referrals: Josesito Frost MD [Primary Care Provider] - Nazario Bishop DO [Physician] - (f/u 10-14 days from day of surgery for wound check. ) Puja Medeiros CRNP [Nurse Practitioner] - (f/u in 6 weeks for osteoporosis check up) Diet: Heart Healthy Addtl Attending Provider Instructions: Please refer to accompanying hospital discharge summary for further details. Addtl Motor Vehicle Clerk Provider Instructions: [facility] DISCHARGE INSTRUCTIONS: HIP FRACTURE SELF CARE INSTRUCTIONS: A. You are to ambulate with a walker or crutches for approximately 6 weeks. B. You are TOE TOUCH WEIGHT BEARING on your operative lower extremity for at least 6 weeks. C. Wear low heeled shoes with non-slip soles D. Be sure that your floors are free of things that could trip you throw rugs, electrical cords, and small objects. Avoid wet and waxed floors, especially with crutches/walker/cane. E. Try to walk several times a day with rest periods between. F. You may shower 48 hours after surgery and get the incision area wet, but DO NOT soak or submerge incision area in water. (No baths, swimming pools, hot tubs) G. Change dressing daily for 1 week, then every other day for 1 week if remaining dry. . H. Do NOT apply soap or any ointment/lotions directly over incision. I. You may use ice as needed to operative site. SPECIAL CARE INSTRUCTIONS: VERY IMPORTANT TO READ AND REVIEW A. You may be at risk for phlebitis or blood clots. a. Wear surgical stockings (JAYY hose) for 2 weeks after surgery to improve circulation and reduce swelling. b. Take LOVENOX 40mg SQ daily for 4 weeks or as directed. This is your blood thinner. B. There are a few signs you need to watch for after you are home. Call [facility] at [phone] if you experience any of the following: a. If you have a temperature of 101 degrees or higher. b. Sudden increase in pain in your hip not relieved by res t or pain medication. c. Any fluid or drainage from the incision; redness of the incision. d. Shortness of breath or chest pain. C. Call your physician if: a. Temperature is greater than 101 degrees (F). b. Pain is not relieved by prescribed pain medications. c. Increase drainage or redness from incision. d. Unanswered questions or concerns. D. Pain Medication: a. You will be prescribed pain medication upon discharge that should last till your first post-operative appointment. b. If you experience nausea and/or skin rash, discontinue this medication and contact our office for an alternative medication. c. Caution- narcotic pain medication can cause constipation. FOLLOW UP VISIT: Please call [facility] at [phone] to schedule a follow up appointment 10-14 days from the date of your surgery date. Pending Studies at Discharge: No Stand-Alone Forms: My [facility] Skilled Items Patient informed of condition?: Yes DNR: No Discharge Level of Care: Skilled Communicable Disease: No Discharge Prognosis: Stable Lines: None Urinary Catheter: No Medications and DC Order Prescriptions: New Probiotic Complex (with FOS) 10 billion cell-100 mg capsule 1 cap PO DAILY 7 Days Qty: 7 RF: 0 enalapril maleate 2.5 mg tablet 2.5 mg PO DAILY Qty: 30 RF: 0 enoxaparin 40 mg/0.4 mL Syringe 40 mg subcut Q24H 30 Days Qty: 12 RF: 0 Continued tramadol 50 mg tablet 50 mg PO Q6H PRN (Reason: Pain) RF: 0 famotidine 20 mg tablet 20 mg PO DAILY RF: 0 solifenacin 5 mg tablet 5 mg PO DAILY RF: 0 Myrbetriq 50 mg tablet extended release 24 hr 50 mg PO DAILY RF: 0 citalopram [Celexa] 10 mg Tablet 10 mg PO DAILY RF: 0 levothyroxine 100 mcg Tablet 100 mcg PO DAILY RF: 0 pantoprazole 40 mg Tablet,Delayed Release (Dr/Ec) 40 mg PO DAILY RF: 0 Discontinued benazepril-hydrochlorothiazide 20-12.5 mg Tablet 1 tab PO BID RF: 0 Discharge Orders: Discharge Order (Routine); Ordered 06/24/20 Ordered By: Channing Santana Admission Data Admit Date/Time: 06/15/20 10:56 Attending Provider: Channing Santana Admit Provider: Vimal Mckeon Primary Care Provider: Josesito Frost Other Providers: [facility],Home Health ; [facility] Healthcare ; [facility] ; [facility] ; Vimal Mckeon ; Nazario Bishop ; Maxime Zelaya ; Quinn Borjas ; Lokesh Fernandez ; Helio Waller ; Natan Taylor. ; Reilly Rocha ; Maria Del Carmen Connelly ; Pooja Jamison ; Benito Nielson ; Ashli Root.
== END 2020-06-24 16:15 | DRG 480 ==
LOC: ED 07:54 → 3W 10:56 → SUATTDRO 10:56 → 3W 12:28 → 3E 06-19 18:28 → 2N 06-23 02:17

== ENCOUNTER 2021-11-22 17:48 | Observation (INO) ==
[2021-11-22] MEDS ORDERED: PANTOprazole 40 MG in SYRINGE 0 ML IV ONE (18:37)
[2021-11-22] MEDS ORDERED: SODIUM CHLORIDE 0.9% 1000ML 250 ML IV ONE (18:37)
[2021-11-22] MEDS ORDERED: ONDANSETRON INJ 2 MG/ML 2 ML VIAL IV STA (18:37)
--- NOTE | 2021-11-22 18:37 | Emergency Department Note ---
Impression & Plan Rectal bleeding, Near syncope, Nausea & vomiting ED Provider Note Provider: Marek Laura MD DATE OF SERVICE: 11/22/2021 CHIEF COMPLAINT: HISTORY OF PRESENT ILLNESS: Patient is a 86-year-old female history of hypertension, thyroidism, dementia presenting with daughter today with the onset and last 2 hours prior to arrival of rectal bleeding. Had 2 bloody bowel movements at home and a third upon arrival here. Has had some nausea and vomiting as well. Denies abdominal pain. States she feels lightheaded. No trauma, falls, or syncope reported. Not on blood thinners or anticoagulants /platelets by daughter's report. History of diverticulitis bleeding as well as C. difficile. No ill contacts recently reported. REVIEW OF SYSTEMS: A total of 10 review of systems was obtained and negative except as stated above in the HPI. PAST MEDICAL HISTORY: As noted above MEDICATIONS: Reviewed home medications SOCIAL HISTORY: Lives at home with and daughter PHYSICAL EXAM: GENERAL: alert and oriented only clammy and fatigue being assisted to the bed by staff. Just had a bloody bowel movement in the bathroom. Head: normocephalic and atraumatic EYES: No injection, discharge or icterus. NECK: Trachea midline. ENT: Mucous membranes pink and moist. LUNGS: Airway patent. No retractions. Breath sounds clear HEART: Regular rate and rhythm. No chest wall tenderness ABDOMEN: Soft and non-tender, without guarding or rebound. SKIN: Acyanotic, warm, dry, without rashes EXTREMITIES: Without swelling, tenderness or deformity with healed prior surgical scars on the right knee and left lateral lower thigh. NEUROLOGICAL: No focal deficits. No aphasia. No facial droop or slurred speech. Ambulatory with two assist in room EK bpm sinus rhythm with PAC. No acute ST segment elevation or depression with QTC of 444. Left axis. CONTINUOUS CARDIAC MONITORING: was ordered and showed a heart rate of 80s-100s bpm in normal sinus rhythm to sinus tachycardia regional PAC Patient's laboratory studies and imaging reviewed. Differential includes Diverticulosis, AVM, coagulopathy, colitis, inflammatory bowel disease, malignancy, Kelly-Pastor tear, esophagitis, peptic ulcer disease, variceal bleed, gastritis, epistaxis, fissure, hemorrhoids, as well as other pathologies. IMPRESSION/MEDICAL DECISION MAKING: Patient not on anticoagulants or antiplatelets history of lower GI bleed presenting with rectal bleeding starting over the last 2 hours. Patient with obvious maroon bloody stool upon arrival. Denies pain and has a benign abdomen. Question diverticular in nature as has a history. Did send stool test as well. CT scan question cystitis and diverticulosis without evidence of diverticulitis. Type and screen was present in the blood bank. Blood work with out evidence of significant anemia right now with a borderline leukocytosis of 11.6. Nonspecific WBC count. COVID negative. No significant BUN elevation or normal renal function and doubt this represents upper GI bleed. Give a dose of Protonix however Believe LGIB. Lipase and LFTs without significant abnormality. Given her history of significant bleeding and age and comorbidity discussed wit h daughter further observation here overnight. Hospitalist contacted. Awaiting urine sample to exclude cystitis. Stool PCR reassuring without evidence of C. difficile. DIAGNOSIS: Rectal bleeding, nausea and vomiting, near syncopal DISPOSITION: Hospitalist will evaluate Patient was agreeable with this plan. Past Med/Surg History Medical History Aortic valve sclerosis Depression Dyslipidemia GERD (gastroesophageal reflux disease) History of gastrointestinal diverticular hemorrhage HTN (hypertension) Hypothyroidism Osteoarthritis Urge incontinence Surgical History History of arthroscopic knee surgery History of cholecystectomy History of hysterectomy History of tonsillectomy Family History Father Heart disease Brother Lung cancer Brother Gastric cancer Mother Brain cancer Social History Smoking Status: Never smoker Hx Alcohol Use: No Hx Substance Use: No Preferred Language: Dutch Communication Ability: Effective Proof Technician Required: No Beliefs That Will Affect Care: None Current Living Situation: Spouse Feels Safe at Home: Yes Assistive Devices: Hearing Aid - Bilateral Allergies Allergies Allergy/AdvReac Type Severity Reaction Status Date / Time adhesive Allergy Intermediate SENSITIVE, Verified 11/22/21 20:23 RASH montelukast Allergy Intermediate RASH, HYPER Verified 11/22/21 20:23 salicylates AdvReac Intermediate VOMITING Verified 11/22/21 20:23 Home Meds Home Medications Medication Instructions Recorded Confirmed citalopram 10 mg tablet (Celexa) 10 mg PO DAILY 06/15/20 11/22/21 famotidine 20 mg tablet 20 mg PO DAILY 06/15/20 11/22/21 levothyroxine 100 mcg tablet 100 mcg PO DAILY 06/15/20 11/22/21 mirabegron 50 mg tablet,extended 50 mg PO DAILY 06/15/20 11/22/21 release 24 hr (Myrbetriq) pantoprazole 40 mg tablet,delayed 40 mg PO DAILY 06/15/20 11/22/21 release solifenacin 5 mg tablet 5 mg PO DAILY 06/15/20 11/22/21 tramadol 50 mg tablet 50 mg PO Q6H PRN 06/15/20 11/22/21 acetaminophen 500 mg tablet 1,000 mg PO BID 11/22/21 11/22/21 (Tylenol Extra Strength) calcium carbonate 600 mg-vitamin 1 tab PO DAILY 11/22/21 11/22/21 D3 10 mcg (400 unit) tablet (Calcium 600 + D(3)) docusate sodium 100 mg capsule 200 mg PO DAILY 11/22/21 11/22/21 (Stool Softener) enalapril maleate 5 mg tablet 5 mg PO QAM 11/22/21 11/22/21 furosemide 20 mg tablet 20 mg PO QAM 11/22/21 11/22/21 multivitamin 1 tab PO DAILY 11/22/21 11/22/21 potassium chloride 10 mEq 10 meq PO DAILY 11/22/21 11/22/21 capsule,extended release Results & Data (ED) Vital Signs Vital Signs - 24 hr 11/22/21 17:57 11/22/21 18:48 11/22/21 18:53 Temperature 35.7 C L Temperature Source Temporal Artery Scan Pulse Rate 96 H 104 H Pulse Rate [Right Finger] 109 H Pulse Rhythm Regular Pulse Strength [Right Finger] Normal Respiratory Rate 18 24 16 Respiratory Effort / Characteristics Non-Labored Spontaneous Respiratory Depth Normal Respiratory Pattern Regular Blood Pressure 130/72 Blood Pressure [Right Arm] 104/77 Blood Pressure Mean 91 Blood Pressure Mean [Right Arm] 86 Blood Pressure Position Sitting Blood Pressure Position [Right Arm] Lying Pulse Oximetry 95 92 94 Oxygen Delivery Method Room Air Room Air Room Air Sepsis Recent Fever Within 48 Hours No Sepsis New/Unexplained Change in Mental Status No Sepsis Action Taken by Nursing No Action Required 11/22/21 19:34 Temperature Temperature Source Pulse Rate Pulse Rate [Right Finger] 89 Pulse Rhythm Pulse Strength [Right Finger] Respiratory Rate 16 Respiratory Effort / Characteristics Respiratory Depth Respiratory Pattern Blood Pressure Blood Pressure [Right Arm] 104/77 Blood Pressure Mean Blood Pressure Mean [Right Arm] 86 Blood Pressure Position Blood Pressure Position [Right Arm] Pulse Oximetry 97 Oxygen Delivery Method Room Air Sepsis Recent Fever Within 48 Hours Sepsis New/Unexplained Change in Mental Status Sepsis Action Taken by Nursing Laboratory Data Result diagrams: 11/22/21 18:40 11/22/21 18:40 Lab Results 11/22/21 11/22/21 11/22/21 Range/Units 18:40 18:40 18:40 WBC 11.62 H (4.8-10.8) K/ul RBC 4.45 (3.93-5.22) M/uL Hgb 13.1 (12.0-16.0) g/dl POC Hgb (12.0-16.0) g/dl Hct 40.4 (34.1-44.9) % POC Hct (37-47) % MCV 90.8 (80.0-100.0) fL MCH 29.4 (25.0-34.0) pg MCHC 32.4 (32.0-36.0) g/dL RDW Std Deviation 49.1 H (36.4-46.3) fL RDW Coeff of Talisha 14.7 H (11.5-14.5) % Plt Count 222 (130-400) K/uL MPV 10.6 (9.4-12.3) fL Immature Gran % (Auto) 0.8 % Neut % (Auto) 53.2 % Lymph % (Auto) 33.6 % Kleberg % (Auto) 10.3 % Eos % (Auto) 1.3 % Baso % (Auto) 0.8 % Neut # (Auto) 6.18 (1.4-6.5) K/uL Lymph # (Auto) 3.91 H (1.2-3.4) K/uL Kleberg # (Auto) 1.20 H (0.24-0.82) K/uL Eos # (Auto) 0.15 (0-0.50) K/uL Baso # (Auto) 0.09 (0-0.2) K/uL Immature Gran # (Auto) 0.09 H (0.00-0.02) K/uL PT 10.5 (9.0-12.0) Seconds INR 1.0 (0.9-1.1) APTT 22.2 (21.0-31.0) Seconds PTT Ratio 0.8 POC Sodium (135-144) mmol/L Sodium 136 (136-145) mmol/L POC Potassium (3.3-5.0) mmol/L Potassium 3.8 (3.5-5.1) mmol/L POC Chloride (101-112) mmol/L Chloride 103 (98-107) mmol/L Carbon Dioxide 21 (21-32) mmol/L POC Total CO2 (24-31) mmol/L Anion Gap 12 H (3-11) POC Anion Gap (16-25) mmol/L POC BUN (7-18) mg/dl BUN 24 H (6-23) mg/dl Creatinine 0.93 (0.6-1.2) mg/dl POC Creatinine (0.6-1.3) mg/dl Est Cr Clr Drug Dosing 44.0 ml/min Est GFR ( Amer) 64.0 ml/min Est GFR (Non-Af Amer) 55.3 ml/min BUN/Creatinine Ratio 25.8 H (10-20) Glucose 164 H (70-99(Fasting)) mg/dl POC Glucose (other) (70-99) mg/dl Calcium 9.0 (8.5-10.1) mg/dl POC Ioniz Calcium Jacqueline (1.12-1.32) mmol/l Total Bilirubin 0.7 (0.2-1.0) mg/dl AST 16 (13-39) U/L ALT 11 (7-52) U/L Alkaline Phosphatase 44 (34-104) U/L Troponin I High Sens 11.4 (0-14) pg/ml Total Protein 7.3 (6.0-8.3) gm/dl Albumin 4.1 (3.4-5.0) gm/dl Globulin 3.2 (2.5-4.0) gm/dl Albumin/Globulin Ratio 1.3 (0.9-2) Lipase 20 (11-82) U/L POC Stool Occult Blood (Negative) Stl C. cayetanensis PCR (NotDetected) Stool Rotavirus A PCR (NotDetected) Stl Adenov F 40/41 PCR (NotDetected) Stool Astrovirus (PCR) (NotDetected) Stool Campylobacter PCR (NotDetected) Stl C. diff Tox A/B PCR (NotDetected) Stool Cryptosporidium PCR (NotDetected) Stl E.coli Shiga Tox PCR (NotDetected) Stl Enterotoxigenic E PCR (NotDetected) Stool EPEC (PCR) (NotDetected) Stool EAEC (PCR) (NotDetected) Stl E. histolytica PCR (NotDetected) Stool Giardia Lamblia PCR (NotDetected) Stool Salmonella PCR (NotDetected) Stool Sapovirus (PCR) (NotDetected) Stl P. shigelloides PCR (NotDetected) Stl Shigella/EIEC PCR (NotDetected) St Y.enterocolitica PCR (NotDetected) Stool Vibrio (PCR) (NotDetected) Stl Vibrio cholerae PCR (NotDetected) Stl Norovirus GI/GII PCR (NotDetected) SARS-CoV-2, RNA, NAAT (NEGATIVE) Blood Type Antibody Screen 11/22/21 11/22/21 11/22/21 Range/Units 18:45 18:58 18:58 WBC (4.8-10.8) K/ul RBC (3.93-5.22) M/uL Hgb (12.0-16.0) g/dl POC Hgb 14.3 (12.0-16.0) g/dl Hct (34.1-44.9) % POC Hct 42 (37-47) % MCV (80.0-100.0) fL MCH (25.0-34.0) pg MCHC (32.0-36.0) g/dL RDW Std Deviation (36.4-46.3) fL RDW Coeff of Talisha (11.5-14.5) % Plt Count (130-400) K/uL MPV (9.4-12.3) fL Immature Gran % (Auto) % Neut % (Auto) % Lymph % (Auto) % Kleberg % (Auto) % Eos % (Auto) % Baso % (Auto) % Neut # (Auto) (1.4-6.5) K/uL Lymph # (Auto) (1.2-3.4) K/uL Kleberg # (Auto) (0.24-0.82) K/uL Eos # (Auto) (0-0.50) K/uL Baso # (Auto) (0-0.2) K/uL Immature Gran # (Auto) (0.00-0.02) K/uL PT (9.0-12.0) Seconds INR (0.9-1.1) APTT (21.0-31.0) Seconds PTT Ratio POC Sodium 138 (135-144) mmol/L Sodium (136-145) mmol/L POC Potassium 3.9 (3.3-5.0) mmol/L Potassium (3.5-5.1) mmol/L POC Chloride 104 (101-112) mmol/L Chloride (98-107) mmol/L Carbon Dioxide (21-32) mmol/L POC Total CO2 22 L (24-31) mmol/L Anion Gap (3-11) POC Anion Gap 16.0 (16-25) mmol/L POC BUN 26 H (7-18) mg/dl BUN (6-23) mg/dl Creatinine (0.6-1.2) mg/dl POC Creatinine 0.9 (0.6-1.3) mg/dl Est Cr Clr Drug Dosing ml/min Est GFR ( Amer) ml/min Est GFR (Non-Af Amer) ml/min BUN/Creatinine Ratio (10-20) Glucose (70-99(Fasting)) mg/dl POC Glucose (other) 173 H (70-99) mg/dl Calcium (8.5-10.1) mg/dl POC Ioniz Calcium Jacqueline 1.16 (1.12-1.32) mmol/l Total Bilirubin (0.2-1.0) mg/dl AST (13-39) U/L ALT (7-52) U/L Alkaline Phosphatase (34-104) U/L Troponin I High Sens (0-14) pg/ml Total Protein (6.0-8.3) gm/dl Albumin (3.4-5.0) gm/dl Globulin (2.5-4.0) gm/dl Albumin/Globulin Ratio (0.9-2) Lipase (11-82) U/L POC Stool Occult Blood (Negative) Stl C. cayetanensis PCR Not Detected (NotDetected) Stool Rotavirus A PCR Not Detected (NotDetected) Stl Adenov F 40/41 PCR Not Detected (NotDetected) Stool Astrovirus (PCR) Not Detected (NotDetected) Stool Campylobacter PCR Not Detected (NotDetected) Stl C. diff Tox A/B PCR Not Detected (NotDetected) Stool Cryptosporidium PCR Not Detected (NotDetected) Stl E.coli Shiga Tox PCR Not Detected (NotDetected) Stl Enterotoxigenic E PCR Not Detected (NotDetected) Stool EPEC (PCR) Not Detected (NotDetected) Stool EAEC (PCR) Not Detected (NotDetected) Stl E. histolytica PCR Not Detected (NotDetected) Stool Giardia Lamblia PCR Not Detected (NotDetected) Stool Salmonella PCR Not Detected (NotDetected) Stool Sapovirus (PCR) Not Detected (NotDetected) Stl P. shigelloides PCR Not Detected (NotDetected) Stl Shigella/EIEC PCR Not Detected (NotDetected) St Y.enterocolitica PCR Not Detected (NotDetected) Stool Vibrio (PCR) Not Detected (NotDetected) Stl Vibrio cholerae PCR Not Detected (NotDetected) Stl Norovirus GI/GII PCR Not Detected (NotDetected) SARS-CoV-2, RNA, NAAT NEGATIVE (NEGATIVE) Blood Type Antibody Screen 11/22/21 11/22/21 Range/Units 18:59 19:12 WBC (4.8-10.8) K/ul RBC (3.93-5.22) M/uL Hgb (12.0-16.0) g/dl POC Hgb (12.0-16.0) g/dl Hct (34.1-44.9) % POC Hct (37-47) % MCV (80.0-100.0) fL MCH (25.0-34.0) pg MCHC (32.0-36.0) g/dL RDW Std Deviation (36.4-46.3) fL RDW Coeff of Talisha (11.5-14.5) % Plt Count (130-400) K/uL MPV (9.4-12.3) fL Immature Gran % (Auto) % Neut % (Auto) % Lymph % (Auto) % Kleberg % (Auto) % Eos % (Auto) % Baso % (Auto) % Neut # (Auto) (1.4-6.5) K/uL Lymph # (Auto) (1.2-3.4) K/uL Kleberg # (Auto) (0.24-0.82) K/uL Eos # (Auto) (0-0.50) K/uL Baso # (Auto) (0-0.2) K/uL Immature Gran # (Auto) (0.00-0.02) K/uL PT (9.0-12.0) Seconds INR (0.9-1.1) APTT (21.0-31.0) Seconds PTT Ratio POC Sodium (135-144) mmol/L Sodium (136-145) mmol/L POC Potassium (3.3-5.0) mmol/L Potassium (3.5-5.1) mmol/L POC Chloride (101-112) mmol/L Chloride (98-107) mmol/L Carbon Dioxide (21-32) mmol/L POC Total CO2 (24-31) mmol/L Anion Gap (3-11) POC Anion Gap (16-25) mmol/L POC BUN (7-18) mg/dl BUN (6-23) mg/dl Creatinine (0.6-1.2) mg/dl POC Creatinine (0.6-1.3) mg/dl Est Cr Clr Drug Dosing ml/min Est GFR ( Amer) ml/min Est GFR (Non-Af Amer) ml/min BUN/Creatinine Ratio (10-20) Glucose (70-99(Fasting)) mg/dl POC Glucose (other) (70-99) mg/dl Calcium (8.5-10.1) mg/dl POC Ioniz Calcium Jacqueline (1.12-1.32) mmol/l Total Bilirubin (0.2-1.0) mg/dl AST (13-39) U/L ALT (7-52) U/L Alkaline Phosphatase (34-104) U/L Troponin I High Sens (0-14) pg/ml Total Protein (6.0-8.3) gm/dl Albumin (3.4-5.0) gm/dl Globulin (2.5-4.0) gm/dl Albumin/Globulin Ratio (0.9-2) Lipase (11-82) U/L POC Stool Occult Blood Positive A (Negative) Stl C. cayetanensis PCR (NotDetected) Stool Rotavirus A PCR (NotDetected) Stl Adenov F 40/41 PCR (NotDetected) Stool Astrovirus (PCR) (NotDetected) Stool Campylobacter PCR (NotDetected) Stl C. diff Tox A/B PCR (NotDetected) Stool Cryptosporidium PCR (NotDetected) Stl E.coli Shiga Tox PCR (NotDetected) Stl Enterotoxigenic E PCR (NotDetected) Stool EPEC (PCR) (NotDetected) Stool EAEC (PCR) (NotDetected) Stl E. histolytica PCR (NotDetected) Stool Giardia Lamblia PCR (NotDetected) Stool Salmonella PCR (NotDetected) Stool Sapovirus (PCR) (NotDetected) Stl P. shigelloides PCR (NotDetected) Stl Shigella/EIEC PCR (NotDetected) St Y.enterocolitica PCR (NotDetected) Stool Vibrio (PCR) (NotDetected) Stl Vibrio cholerae PCR (NotDetected) Stl Norovirus GI/GII PCR (NotDetected) SARS-CoV-2, RNA, NAAT (NEGATIVE) Blood Type O Positive Antibody Screen NEGATIVE Administered Medications Discontinued Medications Pantoprazole Sodium 40 mg/ (Syringe) 10 mls @ 5 mls/min IV NOW ONE Stop: 11/22/21 18:38 Last Admin: 11/22/21 19:19 Dose: 5 mls/min Documented by: [id number] Sodium Chloride (Nss 1000ml) 250 mls @ 999 mls/hr IV .Q16M ONE Stop: 11/22/21 18:52 Last Infusion: 11/22/21 18:59 Dose: 0 mls/hr Documented by: [id number] Admin: 11/22/21 18:30 Dose: 999 mls/hr Documented by: [id number] Ioversol (Optiray 320 100ml) 94 ml IV ONCE ONE Stop: 11/22/21 19:40 Last Admin: 11/22/21 19:40 Dose: 94 ml Documented by: [id number] Ondansetron HCl (Ondansetron Inj 2 Mg/Ml 2 Ml Vial) 4 mg IV NOW STA Stop: 11/22/21 18:38 Last Admin: 11/22/21 19:19 Dose: 4 mg Documented by: [id number] Imaging Data Radiologist's Impression: Abdomen/Pelvis CT 11/22/21 18:25 CT SCAN OF THE ABDOMEN AND PELVIS WITH IV CONTRAST CLINICAL HISTORY: Rectal bleeding. COMPARISON STUDY: Abdominal CT dated 08/18/2016. TECHNIQUE: Following the IV administration of 94 cc of Optiray 320, CT scan of the abdomen and pelvis is performed from the lung bases to the proximal femora. Images are reviewed in the axial, sagittal, and coronal planes. IV contrast was administered without complication. A dose lowering technique was utilized adhering to the principles of ALARA. CT DOSE: 407.72 mGy.cm FINDINGS: Lung bases: The heart is enlarged and without pericardial effusion. Dilatation of the main pulmonary arteries suggests pulmonary artery hypertension. The lung bases are clear noting dependent atelectasis. Liver: The contrast-enhanced liver is normal in size, contour, and attenuation. There is mild intrahepatic biliary ductal dilatation, which is similar to previous. The hepatic veins and portal veins are patent. A 2.3 cm cyst is noted in the right lobe. Gallbladder: Surgically absent noting clips in the gallbladder fossa. Spleen: Normal in size and attenuation. Pancreas: Moderately atrophic and grossly unremarkable. Adrenal glands: Unremarkable. Kidneys: The contrast enhanced kidneys are atrophic. Mild left hydronephrosis is unchanged. The left renal collecting system is patulous and there is a large extrarenal pelvis. The left ureter is normal in caliber and this is unchanged from 2017. There is no right-sided hydronephrosis. The kidneys enhance symmetrically. A 10.5 cm simple cyst arises from the upper pole of the left kidney. A 1.8 cm indeterminant lesion in the interpolar right kidney likely represents a complex cyst. This has modestly increased in size dating back to 2017. Abdominal vasculature: The abdominal aorta is normal in course and caliber noting mild atherosclerotic calcification. Bowel: There is advanced colonic diverticulosis without CT evidence of acute diverticulitis. Colonic interposition is incidentally noted. There is no bowel obstruction. A right groin hernia contains a nonobstructed loop of small bowel. The appendix is well-visualized and normal. Peritoneum: There is no intraperitoneal free air or abdominal ascites. Lymphadenopathy: None. Pelvic viscera: The bladder wall is thickened and there is pericystic infiltration. The uterus is surgically absent. No adnexal lesion is seen. A right groin hernia contains a nonobstructed bowel loop. Skeletal structures: The skeletal structures are osteopenic. There is advanced on the sacral spondylosis and scoliosis. No lytic or blastic lesions are seen. Postoperative change is noted in both proximal femurs. 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 IMPRESSION: 1. Findings suggest cystitis. Correlate with clinical findings and urinalysis. 2. Advanced colonic diverticulosis without CT evidence of acute diverticulitis. 3. A right groin hernia contains a nonobstructed loop of small bowel. 4. Cardiomegaly. 5. Additional findings as above. ACT 112: Negative or not required by law. Electronically signed by: Warren Johnson M.D. 11/22/2021 8:06 PM Discharge Plan Visit Data Chief Complaint: Rectal Bleed Stated Complaint: BLEEDING FROM [facility] ED Provider: Marek Laura Discharge Problem: Rectal bleeding, Near syncope, Nausea & vomiting Patient Disposition: Being Evaluated by Hospitalist Forms Stand Alone Forms: [facility] [employer] Prescriptions Prescriptions: No Action tramadol 50 mg tablet 50 mg PO Q6H PRN (Reason: Pain) RF: 0 famotidine 20 mg tablet 20 mg PO DAILY RF: 0 solifenacin 5 mg tablet 5 mg PO DAILY RF: 0 Myrbetriq 50 mg tablet extended release 24 hr 50 mg PO DAILY RF: 0 citalopram [Celexa] 10 mg Tablet 10 mg PO DAILY RF: 0 levothyroxine 100 mcg Tablet 100 mcg PO DAILY RF: 0 pantoprazole 40 mg Tablet,Delayed Release (Dr/Ec) 40 mg PO DAILY RF: 0 multivitamin [One A Day Vitamin] Tablet 1 tab PO DAILY RF: 0 potassium chloride 10 mEq capsule, extended release 10 meq PO DAILY RF: 0 enalapril maleate 5 mg tablet 5 mg PO QAM RF: 0 acetaminophen [Tylenol Extra Strength] 500 mg Tablet 1,000 mg PO BID RF: 0 docusate sodium [Stool Softener] 100 mg Capsule 200 mg PO DAILY RF: 0 furosemide 20 mg tablet 20 mg PO QAM RF: 0 calcium carbonate-vitamin D3 [Calcium 600 + D(3)] 600 mg-10 mcg (400 unit) Tablet 1 tab PO DAILY RF: 0 Referrals Referrals: Josesito Frost MD [Primary Care Provider] - Discharge Problem: Nausea & vomiting Qualifiers: Vomiting type: unspecified Qualified Code(s): R11.2 - Nausea with vomiting, unspecified
[2021-11-22 18:53] LABS: Basophils # (auto) 0.09 K/uL (0-0.2); Basophils % (auto) 0.8 %; Eosinophils # (auto) 0.15 K/uL (0-0.50); Eosinophils % (auto) 1.3 %; Hematocrit (blood only) 40.4 % (34.1-44.9); Hemoglobin 13.1 g/dl (12.0-16.0); Immature Granulocytes # (auto) 0.09 K/uL (0.00-0.02); Immature Granulocytes % (auto) 0.8 %; Lymphocytes # (auto) 3.91 K/uL (1.2-3.4); Lymphocytes % (auto) 33.6 %; Mean Corpuscular Hemoglobin 29.4 pg (25.0-34.0); Mean Corpuscular Hgb Conc 32.4 g/dL (32.0-36.0); Mean Corpuscular Volume 90.8 fL (80.0-100.0); Mean Platelet Volume 10.6 fL (9.4-12.3); Monocytes % (auto) 10.3 %; Neutrophils # (auto) 6.18 K/uL (1.4-6.5); Neutrophils % (auto) 53.2 %; Platelet Count 222 K/uL (130-400); RDW Coefficient of Variation 14.7 % (11.5-14.5); RDW Standard Deviation 49.1 fL (36.4-46.3); Red Blood Count 4.45 M/uL (3.93-5.22); White Blood Count 11.62 K/ul (4.8-10.8)
[2021-11-22 18:57] LABS: iSTAT Creatinine 0.9 mg/dl (0.6-1.3); iSTAT Hemoglobin 14.3 g/dl (12.0-16.0); iSTAT Ionized Calcium 1.16 mmol/l (1.12-1.32); iSTAT Potassium 3.9 mmol/L (3.3-5.0)
[2021-11-22 19:06] LABS: Partial Thromboplastin Ratio 0.8; Partial Thromboplastin Time 22.2 Seconds (21.0-31.0); Prothrombin Time 10.5 Seconds (9.0-12.0)
[2021-11-22] MEDS ORDERED: OPTIRAY 320 100ml IV ONE (19:39)
[2021-11-22 19:44] LABS: Albumin Globulin Ratio 1.3 (0.9-2); Albumin Level 4.1 gm/dl (3.4-5.0); BUN Creatinine Ratio 25.8 (10-20); Bilirubin,Total 0.7 mg/dl (0.2-1.0); Est GFR (Non-African American) 55.3 ml/min; Globulin 3.2 gm/dl (2.5-4.0); Potassium 3.8 mmol/L (3.5-5.1); Total Protein 7.3 gm/dl (6.0-8.3); Troponin I High Sensitivity 11.4 pg/ml (0-14)
--- NOTE | 2021-11-22 20:08 | CT Scan Report ---
CT SCAN OF THE ABDOMEN AND PELVIS WITH IV CONTRAST CLINICAL HISTORY: Rectal bleeding. COMPARISON STUDY: Abdominal CT dated 08/18/2016. TECHNIQUE: Following the IV administration of 94 cc of Optiray 320, CT scan of the abdomen and pelvi s is performed from the lung bases to the proximal femora. Images are reviewed in the axial, sagittal , and coronal planes. IV contrast was administered without complication. A dose lowering technique wa s utilized adhering to the principles of ALARA. CT DOSE: 407.72 mGy.cm FINDINGS: Lung bases: The heart is enlarged and without pericardial effusion. Dilatation of the main pulmonary arteries suggests pulmonary artery hypertension. The lung bases are clear noting dependent atelectasi s. Liver: The contrast-enhanced liver is normal in size, contour, and attenuation. There is mild intrahe patic biliary ductal dilatation, which is similar to previous. The hepatic veins and portal veins are patent. A 2.3 cm cyst is noted in the right lobe. Gallbladder: Surgically absent noting clips in the gallbladder fossa. Spleen: Normal in size and attenuation. Pancreas: Moderately atrophic and grossly unremarkable. Adrenal glands: Unremarkable. Kidneys: The contrast enhanced kidneys are atrophic. Mild left hydronephrosis is unchanged. The left renal collecting system is patulous and there is a large extrarenal pelvis. The left ureter is normal in caliber and this is unchanged from 2017. There is no right-sided hydronephrosis. The kidneys enha nce symmetrically. A 10.5 cm simple cyst arises from the upper pole of the left kidney. A 1.8 cm inde terminant lesion in the interpolar right kidney likely represents a complex cyst. This has modestly i ncreased in size dating back to 2017. Abdominal vasculature: The abdominal aorta is normal in course and caliber noting mild atheroscleroti c calcification. Bowel: There is advanced colonic diverticulosis without CT evidence of acute diverticulitis. Colonic interposition is incidentally noted. There is no bowel obstruction. A right groin hernia contains a n onobstructed loop of small bowel. The appendix is well-visualized and normal. Peritoneum: There is no intraperitoneal free air or abdominal ascites. Lymphadenopathy: None. Pelvic viscera: The bladder wall is thickened and there is pericystic infiltration. The uterus is kelly gically absent. No adnexal lesion is seen. A right groin hernia contains a nonobstructed bowel loop. Skeletal structures: The skeletal structures are osteopenic. There is advanced on the sacral spondylo sis and scoliosis. No lytic or blastic lesions are seen. Postoperative change is noted in both proxim al femurs. 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 IMPRESSION: 1. Findings suggest cystitis. Correlate with clinical findings and urinalysis. 2. Advanced colonic diverticulosis without CT evidence of acute diverticulitis. 3. A right groin hernia contains a nonobstructed loop of small bowel. 4. Cardiomegaly. 5. Additional findings as above. ACT 112: Negative or not required by law. Electronically signed by: Warren Johnson M.D. 11/22/2021 8:06 PM
[2021-11-22 20:24] LABS: Adenovirus F 40/41 PCR Not Detected (NotDetected); Astrovirus PCR Not Detected (NotDetected); Campylobacter PCR Not Detected (NotDetected); Clostridium diff Toxin A/B PCR Not Detected (NotDetected); Cryptosporidium PCR Not Detected (NotDetected); Cyclospora cayetanensis PCR Not Detected (NotDetected); Entamoeba histolytica PCR Not Detected (NotDetected); Enteroaggregative E.coli(EAEC) Not Detected (NotDetected); Enteropathogenic E.coli (EPEC) Not Detected (NotDetected); Enterotoxigenic E.coli (ETEC) Not Detected (NotDetected); Giardia lamblia PCR Not Detected (NotDetected); Norovirus GI/GII PCR Not Detected (NotDetected); Plesiomonas shigelloides PCR Not Detected (NotDetected); Rotavirus A PCR Not Detected (NotDetected); Salmonella PCR Not Detected (NotDetected); Sapovirus PCR Not Detected (NotDetected); Shiga-like Toxin E.coli (STEC) Not Detected (NotDetected); Shigella/Enteroinvasive E.coli Not Detected (NotDetected); Vibrio cholerae PCR Not Detected (NotDetected); Vibrio species PCR Not Detected (NotDetected); Yersinia enterocolitica PCR Not Detected (NotDetected)
--- NOTE | 2021-11-22 21:18 | History & Physical Report ---
Date of Service November 22, 2021 Assessment & Plan (1) LGI bleed: Plan: Likely diverticular bleed possible hemodynamic instability given lightheadedness complaints BP being on the lower side. Complicated UTI, history of urge incontinence as per records, no sepsis HTN, BP on the lower side hypothyroidism, TSH slight elevated mood disorder/dementia Hyperglycemia rule out DM OBS Medical telemetry Check orthostatic vitals May need to hold BP medication if positive Follow H&H, transfuse PRBC if hemoglobin less than 7 and or for symptomatic anemia GI consult if with progressive L GIB/significant hemoglobin drop Urine CS, Ceftriaxone Check hemoglobin A1c DVT prophylaxis. SCDs Re: GI bleed Full code as per daughter (Ms. Lydia Steiner) She requests updates from providers through [id number]. Text document was generated using [employer] voice recognition software. It may contain grammatical or spelling errors. Kindly contact undersigned for clarification of any documentation item in question. History of Present Illness Chief Complaint: Rectal bleed as per daughter Primary Care Provider: Josesito Frost MD History obtained from patient, family, and records. History from patient secondary to dementia and hearing impairment. Medical history significant for hypertension, hyperlipidemia, hypothyroidism, diverticulosis, mood disorder, dementia, urinary incontinence. Last confinement June 2020 for right hip fracture status post surgery. This morning, patient had 2 episodes of rectal bleeding. Not diarrhea as per daughter. No abdominal pain. Some lightheadedness. No chest pain, no shortness of breath. Episode of diverticular bleed years ago necessitating transfusion as per daughter. Patient brought to the ER for evaluation. IV PPI administered at the ER. 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 Allergies Allergy/AdvReac Type Severity Reaction Status Date / Time adhesive Allergy Intermediate SENSITIVE, Verified 11/22/21 20:23 RASH montelukast Allergy Intermediate RASH, HYPER Verified 11/22/21 20:23 salicylates AdvReac Intermediate VOMITING Verified 11/22/21 20:23 Home Medications Medication Instructions Recorded Confirmed Type citalopram 10 mg tablet (Celexa) 10 mg PO DAILY 06/15/20 11/22/21 History famotidine 20 mg tablet 20 mg PO DAILY 06/15/20 11/22/21 History levothyroxine 100 mcg tablet 100 mcg PO DAILY 06/15/20 11/22/21 History mirabegron 50 mg tablet,extended 50 mg PO DAILY 06/15/20 11/22/21 History release 24 hr (Myrbetriq) pantoprazole 40 mg tablet,delayed 40 mg PO DAILY 06/15/20 11/22/21 History release solifenacin 5 mg tablet 5 mg PO DAILY 06/15/20 11/22/21 History tramadol 50 mg tablet 50 mg PO Q6H PRN 06/15/20 11/22/21 History acetaminophen 500 mg tablet 1,000 mg PO BID 11/22/21 11/22/21 History (Tylenol Extra Strength) calcium carbonate 600 mg-vitamin 1 tab PO DAILY 11/22/21 11/22/21 History D3 10 mcg (400 unit) tablet (Calcium 600 + D(3)) docusate sodium 100 mg capsule 200 mg PO DAILY 11/22/21 11/22/21 History (Stool Softener) enalapril maleate 5 mg tablet 5 mg PO QAM 11/22/21 11/22/21 History furosemide 20 mg tablet 20 mg PO QAM 11/22/21 11/22/21 History multivitamin 1 tab PO DAILY 11/22/21 11/22/21 History potassium chloride 10 mEq 10 meq PO DAILY 11/22/21 11/22/21 History capsule,extended release Past Med/Surg History Medical History Aortic valve sclerosis Depression Dyslipidemia GERD (gastroesophageal reflux disease) History of gastrointestinal diverticular hemorrhage HTN (hypertension) Hypothyroidism Osteoarthritis Urge incontinence Surgical History History of arthroscopic knee surgery History of cholecystectomy History of hysterectomy History of tonsillectomy Family History Father Heart disease Brother Lung cancer Brother Gastric cancer Mother Brain cancer Social History Smoking Status: Never smoker Second Hand Exposure: No; Do You Dip or Chew Tobacco: No; Hx Alcohol Use: No Hx Substance Use: No Preferred Language: Scottish Communication Ability: Effective Front Office Representative Required: No Beliefs That Will Affect Care: None Current Living Situation: Family Current Living Situation Comment: lives with and daughter Other Information That Helps Us Care for You: No Feels Safe at Home: Yes Safety Concerns: Feels Safe At This Time Assistive Devices: Denture - Upper, Denture - Lower, Glasses, Hearing Aid - Bilateral and Walker Review of Systems Review of Systems: Could not be reliably obtained secondary to dementia and hearing impairment. Physical Exam Physical Exam: GENERAL: Comfortable, pleasant, demented, obese, no respiratory distress SKIN: Normal color, warm HEENT: [place] palpebral conjunctivae, no ptosis, dry buccal mucosa NECK : Supple, short neck, no tenderness CHEST : CTA, no tenderness HEART : RRR, no obvious murmurs ABDOMEN: Some distention, nontender EXTREMITIES : Bilateral LE swelling (chronic as per daughter), no LE tenderness, no other conspicuous deformities noted NEUROLOGIC : Demented, no facial asymmetry, no other gross focality Results & Data Results & Data ([facility]) Vital Signs (Past 12 Hours) Vital Signs Temp Pulse Pulse Resp BP BP Pulse Ox 11/22/21 19:34 89 16 104/77 97 11/22/21 18:53 104 H 16 94 11/22/21 18:48 109 H 24 104/77 92 11/22/21 17:57 35.7 C L 96 H 18 130/72 95 Laboratory Results Laboratory Results WBC 11.62 K/ul (4.8-10.8) H 11/22/21 18:40 RBC 4.45 M/uL (3.93-5.22) 11/22/21 18:40 Hgb 13.1 g/dl (12.0-16.0) 11/22/21 18:40 POC Hgb 14.3 g/dl (12.0-16.0) 11/22/21 18:45 Hct 40.4 % (34.1-44.9) 11/22/21 18:40 POC Hct 42 % (37-47) 11/22/21 18:45 MCV 90.8 fL (80.0-100.0) 11/22/21 18:40 MCH 29.4 pg (25.0-34.0) 11/22/21 18:40 MCHC 32.4 g/dL (32.0-36.0) 11/22/21 18:40 RDW Std Deviation 49.1 fL (36.4-46.3) H 11/22/21 18:40 RDW Coeff of Talisha 14.7 % (11.5-14.5) H 11/22/21 18:40 Plt Count 222 K/uL (130-400) 11/22/21 18:40 MPV 10.6 fL (9.4-12.3) 11/22/21 18:40 Immature Gran % (Auto) 0.8 % 11/22/21 18:40 Neut % (Auto) 53.2 % 11/22/21 18:40 Lymph % (Auto) 33.6 % 11/22/21 18:40 [place] % (Auto) 10.3 % 11/22/21 18:40 Eos % (Auto) 1.3 % 11/22/21 18:40 Baso % (Auto) 0.8 % 11/22/21 18:40 Neut # (Auto) 6.18 K/uL (1.4-6.5) 11/22/21 18:40 Lymph # (Auto) 3.91 K/uL (1.2-3.4) H 11/22/21 18:40 [place] # (Auto) 1.20 K/uL (0.24-0.82) H 11/22/21 18:40 Eos # (Auto) 0.15 K/uL (0-0.50) 11/22/21 18:40 Baso # (Auto) 0.09 K/uL (0-0.2) 11/22/21 18:40 Immature Gran # (Auto) 0.09 K/uL (0.00-0.02) H 11/22/21 18:40 PT 10.5 Seconds (9.0-12.0) 11/22/21 18:40 INR 1.0 (0.9-1.1) 11/22/21 18:40 APTT 22.2 Seconds (21.0-31.0) 11/22/21 18:40 PTT Ratio 0.8 11/22/21 18:40 POC Sodium 138 mmol/L (135-144) 11/22/21 18:45 Sodium 136 mmol/L (136-145) 11/22/21 18:40 POC Potassium 3.9 mmol/L (3.3-5.0) 11/22/21 18:45 Potassium 3.8 mmol/L (3.5-5.1) 11/22/21 18:40 POC Chloride 104 mmol/L (101-112) 11/22/21 18:45 Chloride 103 mmol/L (98-107) 11/22/21 18:40 Carbon Dioxide 21 mmol/L (21-32) 11/22/21 18:40 POC Total CO2 22 mmol/L (24-31) L 11/22/21 18:45 Anion Gap 12 (3-11) H 11/22/21 18:40 POC Anion Gap 16.0 mmol/L (16-25) 11/22/21 18:45 POC BUN 26 mg/dl (7-18) H 11/22/21 18:45 BUN 24 mg/dl (6-23) H 11/22/21 18:40 Creatinine 0.93 mg/dl (0.6-1.2) 11/22/21 18:40 POC Creatinine 0.9 mg/dl (0.6-1.3) 11/22/21 18:45 Est Cr Clr Drug Dosing 44.0 ml/min 11/22/21 18:40 Est GFR ( Amer) 64.0 ml/min 11/22/21 18:40 Est GFR (Non-Af Amer) 55.3 ml/min 11/22/21 18:40 BUN/Creatinine Ratio 25.8 (10-20) H 11/22/21 18:40 Glucose 164 mg/dl (70-99(Fasting)) H 11/22/21 18:40 POC Glucose (other) 173 mg/dl (70-99) H 11/22/21 18:45 Calcium 9.0 mg/dl (8.5-10.1) 11/22/21 18:40 POC Ioniz Calcium Jacqueline 1.16 mmol/l (1.12-1.32) 11/22/21 18:45 Total Bilirubin 0.7 mg/dl (0.2-1.0) 11/22/21 18:40 AST 16 U/L (13-39) 11/22/21 18:40 ALT 11 U/L (7-52) 11/22/21 18:40 Alkaline Phosphatase 44 U/L (34-104) 11/22/21 18:40 Troponin I High Sens 11.4 pg/ml (0-14) 11/22/21 18:40 Total Protein 7.3 gm/dl (6.0-8.3) 11/22/21 18:40 Albumin 4.1 gm/dl (3.4-5.0) 11/22/21 18:40 Globulin 3.2 gm/dl (2.5-4.0) 11/22/21 18:40 Albumin/Globulin Ratio 1.3 (0.9-2) 11/22/21 18:40 Lipase 20 U/L (11-82) 11/22/21 18:40 POC Stool Occult Blood Positive (Negative) A 11/22/21 19:12 Stl C. cayetanensis PCR Not Detected (NotDetected) 11/22/21 18:58 Stool Rotavirus A PCR Not Detected (NotDetected) 11/22/21 18:58 Stl Adenov F 40/41 PCR Not Detected (NotDetected) 11/22/21 18:58 Stool Astrovirus (PCR) Not Detected (NotDetected) 11/22/21 18:58 Stool Campylobacter PCR Not Detected (NotDetected) 11/22/21 18:58 Stl C. diff Tox A/B PCR Not Detected (NotDetected) 11/22/21 18:58 Stool Cryptosporidium PCR Not Detected (NotDetected) 11/22/21 18:58 Stl E.coli Shiga Tox PCR Not Detected (NotDetected) 11/22/21 18:58 Stl Enterotoxigenic E PCR Not Detected (NotDetected) 11/22/21 18:58 Stool EPEC (PCR) Not Detected (NotDetected) 11/22/21 18:58 Stool EAEC (PCR) Not Detected (NotDetected) 11/22/21 18:58 Stl E. histolytica PCR Not Detected (NotDetected) 11/22/21 18:58 Stool Giardia Lamblia PCR Not Detected (NotDetected) 11/22/21 18:58 Stool Salmonella PCR Not Detected (NotDetected) 11/22/21 18:58 Stool Sapovirus (PCR) Not Detected (NotDetected) 11/22/21 18:58 Stl P. shigelloides PCR Not Detected (NotDetected) 11/22/21 18:58 Stl Shigella/EIEC PCR Not Detected (NotDetected) 11/22/21 18:58 St Y.enterocolitica PCR Not Detected (NotDetected) 11/22/21 18:58 Stool Vibrio (PCR) Not Detected (NotDetected) 11/22/21 18:58 Stl Vibrio cholerae PCR Not Detected (NotDetected) 11/22/21 18:58 Stl Norovirus GI/GII PCR Not Detected (NotDetected) 11/22/21 18:58 SARS-CoV-2, RNA, NAAT NEGATIVE (NEGATIVE) 11/22/21 18:58 Blood Type O Positive 11/22/21 18:59 Antibody Screen NEGATIVE 11/22/21 18:59 Impressions Abdomen/Pelvis CT 11/22/21 18:25 CT SCAN OF THE ABDOMEN AND PELVIS WITH IV CONTRAST CLINICAL HISTORY: Rectal bleeding. COMPARISON STUDY: Abdominal CT dated 08/18/2016. TECHNIQUE: Following the IV administration of 94 cc of Optiray 320, CT scan of the abdomen and pelvis is performed from the lung bases to the proximal femora. Images are reviewed in the axial, sagittal, and coronal planes. IV contrast was administered without complication. A dose lowering technique was utilized adhering to the principles of ALARA. CT DOSE: 407.72 mGy.cm FINDINGS: Lung bases: The heart is enlarged and without pericardial effusion. Dilatation of the main pulmonary arteries suggests pulmonary artery hypertension. The lung bases are clear noting dependent atelectasis. Liver: The contrast-enhanced liver is normal in size, contour, and attenuation. There is mild intrahepatic biliary ductal dilatation, which is similar to previous. The hepatic veins and portal veins are patent. A 2.3 cm cyst is noted in the right lobe. Gallbladder: Surgically absent noting clips in the gallbladder fossa. Spleen: Normal in size and attenuation. Pancreas: Moderately atrophic and grossly unremarkable. Adrenal glands: Unremarkable. Kidneys: The contrast enhanced kidneys are atrophic. Mild left hydronephrosis is unchanged. The left renal collecting system is patulous and there is a large extrarenal pelvis. The left ureter is normal in caliber and this is unchanged from 2017. There is no right-sided hydronephrosis. The kidneys enhance symmetrically. A 10.5 cm simple cyst arises from the upper pole of the left kidney. A 1.8 cm indeterminant lesion in the interpolar right kidney likely represents a complex cyst. This has modestly increased in size dating back to 2017. Abdominal vasculature: The abdominal aorta is normal in course and caliber noting mild atherosclerotic calcification. Bowel: There is advanced colonic diverticulosis without CT evidence of acute diverticulitis. Colonic interposition is incidentally noted. There is no bowel obstruction. A right groin hernia contains a nonobstructed loop of small bowel. The appendix is well-visualized and normal. Peritoneum: There is no intraperitoneal free air or abdominal ascites. Lymphadenopathy: None. Pelvic viscera: The bladder wall is thickened and there is pericystic infiltration. The uterus is surgically absent. No adnexal lesion is seen. A right groin hernia contains a nonobstructed bowel loop. Skeletal structures: The skeletal structures are osteopenic. There is advanced on the sacral spondylosis and scoliosis. No lytic or blastic lesions are seen. Postoperative change is noted in both proximal femurs. 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 IMPRESSION: 1. Findings suggest cystitis. Correlate with clinical findings and urinalysis. 2. Advanced colonic diverticulosis without CT evidence of acute diverticulitis. 3. A right groin hernia contains a nonobstructed loop of small bowel. 4. Cardiomegaly. 5. Additional findings as above. ACT 112: Negative or not required by law. Electronically signed by: Warren Johnson M.D. 11/22/2021 8:06 PM Diagnostic Findings EKG as per my interpretation : Rate 85, NSR, LAD, LAFB, LVH, T wave flattening inferior leads
[2021-11-22 21:30] LABS: Thyroid Stimulating Hormone 5.241 uIu/ml (0.300-4.500)
[2021-11-22 21:32] LABS: Magnesium 2.2 mg/dl (1.7-2.4)
[2021-11-22 21:45] LABS: Appearance Urine Clear (Clear); Bacteria Urine Automated 4+ (Negative); Bilirubin Urine Negative (Negative); Blood Urine 3+ (Negative); Color Urine Yellow; Glucose Urine UA Negative (Negative); Ketones Urine Negative (Negative); Leukocyte Esterase Urine 2+ (Negative); Nitrite Urine Positive (Negative); Protein Urine Negative (Negative); RBC Urine Automated 0-4 /hpf (0-4); Specific Gravity Urine > 1.045 (1.000-1.030); Urobilinogen Urine Negative (Negative); WBC Urine Automated >30 /hpf (0-5)
[2021-11-22 22:12] LABS: T4 Free Thyroxine 1.3 ng/dl (0.61-1.60)
[2021-11-23] MEDS ORDERED: ACETAMINOPHEN 325 MG TAB PO PRN (00:12)
[2021-11-23] MEDS ORDERED: traMADol HCL 50 MG TABLET PO PRN (00:12)
[2021-11-23] MEDS ORDERED: LACTATED RINGER'S 1,000 ML IV ONE (00:12)
[2021-11-23] MEDS ORDERED: PROMETHAZINE HCL 12.5 MG in SODIUM CHLORIDE 0.9% 50 ML IV PRN (00:12)
[2021-11-23 00:41] LABS: Hematocrit (blood only) 35.4 % (34.1-44.9); Hemoglobin 11.3 g/dl (12.0-16.0)
[2021-11-23] MEDS: cefTRIAXone SODIUM 1,000 MG in DEXTROSE 5% 50 ML IV SCH (04:04)
[2021-11-23] MEDS: LEVOTHYROXINE SODIUM 100 MCG TABLET PO SCH (05:51)
[2021-11-23 07:55] LABS: Basophils # (auto) 0.06 K/uL (0-0.2); Basophils % (auto) 0.7 %; Eosinophils # (auto) 0.11 K/uL (0-0.50); Eosinophils % (auto) 1.2 %; Hematocrit (blood only) 33.3 % (34.1-44.9); Hemoglobin 10.7 g/dl (12.0-16.0); Immature Granulocytes # (auto) 0.05 K/uL (0.00-0.02); Immature Granulocytes % (auto) 0.6 %; Lymphocytes # (auto) 2.25 K/uL (1.2-3.4); Lymphocytes % (auto) 25.3 %; Mean Corpuscular Hgb Conc 32.1 g/dL (32.0-36.0); Mean Corpuscular Volume 93.3 fL (80.0-100.0); Mean Platelet Volume 11.2 fL (9.4-12.3); Monocytes # (auto) 1.21 K/uL (0.24-0.82); Monocytes % (auto) 13.6 %; Neutrophils # (auto) 5.21 K/uL (1.4-6.5); Neutrophils % (auto) 58.6 %; Platelet Count 163 K/uL (130-400); RDW Standard Deviation 51.5 fL (36.4-46.3); Red Blood Count 3.57 M/uL (3.93-5.22); White Blood Count 8.89 K/ul (4.8-10.8)
[2021-11-23] MEDS: ACETAMINOPHEN 500 MG TAB PO SCH ×2 (07:55→20:09)
[2021-11-23] MEDS: CITALOPRAM 20 MG TAB PO SCH (07:55)
[2021-11-23] MEDS: MULTIVITAMIN TAB PO SCH (07:55)
[2021-11-23] MEDS: PANTOprazole 40 MG TAB PO SCH (07:56)
[2021-11-23] MEDS: MIRABEGRON ER 25 MG TAB PO SCH (07:56)
[2021-11-23] MEDS: FAMOTIDINE 20 MG TAB PO SCH (07:56)
[2021-11-23 08:04] LABS: Estimated Average Glucose 111 mg/dl; Hemoglobin A1C 5.5 % (4.5-5.6)
[2021-11-23 08:42] LABS: Creatinine Clr Calc Pharmacy 50.6 ml/min; Est GFR (African American) 80.5 ml/min; Est GFR (Non-African American) 69.4 ml/min; Potassium 4.5 mmol/L (3.5-5.1)
--- NOTE | 2021-11-23 10:00 | Gastrointestinal Consultation ---
Date of Consultation November 23, 2021 Assessment & Plan (1) LGI bleed: Plan Bleeding which seems to have stopped, this most likely secondary to diverticular bleed. She is hemodynamically stable. I spoke with her daughter who is agreeable with the following plan. Advance diet slowly, if no further rectal bleeding and no further significant drop in hemoglobin hematocrit, would consider discharge tomorrow. We will plan for outpatient colonoscopy in a few months (per patient's daughter preference). Most recent colonoscopy was 2016. Gi will watch peripherally. Please call us if further rectal bleeding or significant drop in hemoglobin hematocrit Supervising Physician Co-Signing Physician Notes Late entry: Patient was seen and examined on 11/23 with CHELE Ratliff whose note reflects our findings and plan. History of Present Illness Reason for Consultation: Lower GI bleed Requesting Physician: Dr. Herman Attending Physician: Felice Herman MD History of Present Illness Ms Soco Steiner is an 86 yr old female patient of Dr. Frost, with a history of, HTN, hypothyroid, dementia per daughter, who is her care provider, for rectal bleeding. She had experienced 2 episodes of large-volume bright red rectal bleeding without pain, yesterday morning. She has not had any further rectal bleeding. On arrival, CT scan with diverticulosis no diverticulitis. Hemoglobin 13 which is decreased to 10.7. BUN is normal. The patient has remained hemodynamically stable. She is awake and alert and free of pain. Most recent colonoscopy in August 2016: diverticulosis. Allergies Allergy/AdvReac Type Severity Reaction Status Date / Time adhesive Allergy Intermediate SENSITIVE, Verified 11/22/21 20:23 RASH montelukast Allergy Intermediate RASH, HYPER Verified 11/22/21 20:23 Penicillins Allergy Rash Verified 11/23/21 16:10 salicylates AdvReac Intermediate VOMITING Verified 11/22/21 20:23 Home Medications Medication Instructions Recorded Confirmed Type citalopram 10 mg tablet (Celexa) 10 mg PO DAILY 06/15/20 11/22/21 History famotidine 20 mg tablet 20 mg PO DAILY 06/15/20 11/22/21 History levothyroxine 100 mcg tablet 100 mcg PO DAILY 06/15/20 11/22/21 History mirabegron 50 mg tablet,extended 50 mg PO DAILY 06/15/20 11/22/21 History release 24 hr (Myrbetriq) pantoprazole 40 mg tablet,delayed 40 mg PO DAILY 06/15/20 11/22/21 History release solifenacin 5 mg tablet 5 mg PO DAILY 06/15/20 11/22/21 History tramadol 50 mg tablet 50 mg PO Q6H PRN Pain 06/15/20 11/22/21 History acetaminophen 500 mg tablet 1,000 mg PO BID 11/22/21 11/22/21 History (Tylenol Extra Strength) calcium carbonate 600 mg-vitamin 1 tab PO DAILY 11/22/21 11/22/21 History D3 10 mcg (400 unit) tablet (Calcium 600 + D(3)) docusate sodium 100 mg capsule 200 mg PO DAILY 11/22/21 11/22/21 History (Stool Softener) enalapril maleate 5 mg tablet 5 mg PO QAM 11/22/21 11/22/21 History furosemide 20 mg tablet 20 mg PO QAM 11/22/21 11/22/21 History multivitamin 1 tab PO DAILY 11/22/21 11/22/21 History potassium chloride 10 mEq 10 meq PO DAILY 11/22/21 11/22/21 History capsule,extended release Patient History Medical History Aortic valve sclerosis Depression Dyslipidemia GERD (gastroesophageal reflux disease) History of gastrointestinal diverticular hemorrhage HTN (hypertension) Hypothyroidism Osteoarthritis Urge incontinence Surgical History History of arthroscopic knee surgery History of cholecystectomy History of hysterectomy History of tonsillectomy Family History Father Heart disease Brother Lung cancer Brother Gastric cancer Mother Brain cancer Social History Smoking Status: Never smoker Second Hand Exposure: No; Hx Alcohol Use: No Hx Substance Use: No Preferred Language: Yoruba Communication Ability: Effective Principal Data Architect Required: No Beliefs That Will Affect Care: None Current Living Situation: Family Current Living Situation Comment: lives with and daughter Feels Safe at Home: Yes Assistive Devices: Walker and Wheelchair Review of Systems Review of Systems: Patient denies any signs or symptoms other than the rectal bleeding. However she is not a reliable historian. Physical Exam Constitutional: well developed, + ill appearing, + thin and cooperative Eyes: PERRL, conjunctivae normal, anicteric sclerae Respiratory: normal respiratory effort, lungs clear to auscultation Cardiovascular: RRR, no murmur, no edema Gastrointestinal (Abdomen): normal bowel sounds, soft, nontender, no hepatosplenomegaly Skin: no rashes, warm and dry normal turgor and + pallor Neurologic: PERRL, EOMI, accommodation nl, no face palsy, no dysarthria awake Psychiatric: A+Ox3, euthymic affect poor information retentin Lymphatic: no cervical or axillary lymphadenopathy Results & Data ([facility]) Vital Signs (Past 12 Hours) Vital Signs Temp Pulse Pulse Resp BP BP Pulse Ox 11/23/21 07:16 36.9 C 96 H 18 133/85 90 11/23/21 07:00 88 11/23/21 04:16 36.7 C 87 18 150/95 H 94 11/23/21 02:01 94 H 11/23/21 00:15 36.6 C 98 H 18 165/98 H 94 11/22/21 23:00 37 C 107 H 18 167/89 H 97 Laboratory Results Hb 10.7, HCT 33.3, PLT S163, INR 1.0, NA 137, K4.5, CL 105, CO2 28, BUN 20, CR 0.77. Diagnostic Findings CTAP w IV contrast on 11/22/21: 1. Findings suggest cystitis. Correlate with clinical findings and urinalysis. 2. Advanced colonic diverticulosis without CT evidence of acute diverticulitis. 3. A right groin hernia contains a nonobstructed loop of small bowel. 4. Cardiomegaly.
--- NOTE | 2021-11-23 12:05 | Electrocardiogram Report ---
Test Reason : Blood Pressure : / mmHG Vent. Rate : 083 BPM Atrial Rate : 083 BPM P-R Int : 146 ms QRS Dur : 084 ms QT Int : 378 ms P-R-T Axes : 038 -33 043 degrees QTc Int : 444 ms Poor data quality, interpretation may be adversely affected Sinus rhythm with Premature atrial complexes Left axis deviation Minimal voltage criteria for LVH, may be normal variant Poor R wave progression, consider anterior HI vs. lead placement vs. LVH Abnormal ECG When compared with ECG of 23-JUN-2020 06:36, Premature atrial complexes are now Present QRS axis Shifted left Confirmed by Daniel Luna ([id number]) on 11/23/2021 12:04:57 PM Referred By: REFERRED SELF Confirmed By:Alan Luna
--- NOTE | 2021-11-23 13:21 | Hospitalist Progress Note ---
Date of Service November 23, 2021 Assessment & Plan (1) LGI bleed: Plan: 2 episodes of bright red rectal blood on the day of admission Likely diverticular bleed CT scan of the abdomen and pelvis did not show any significant findings accounting to the cause of bleeding Though admission hemoglobin was 13 which dropped to 10.7 today Doubt any significant hemodilution given only 410 mL of cumulative fluid accumulation for No more bleeding since admission Appreciate GI input and recommendation Lightheadedness Likely secondary to bleeding and dehydration Noted to be tachycardic with ambulation this morning Will increase the intravenous fluid to 125 cc an hour for at least 3 L We will monitor heart rate and blood pressure (2) HTN (hypertension): Plan: HTN, BP on the lower side Has been getting intravenous fluid Blood pressure seems to be stable at 133/85 (3) UTI (urinary tract infection): Plan: Complicated UTI, history of urge incontinence as per records, no sepsis Has been started on intravenous ceftriaxone Will await cultures (4) Dyslipidemia: (5) Hypothyroidism: Plan: TSH slight elevated But free T4 is normal We will continue with current supplement (6) Memory loss: Plan: History of dementia No acute delirium (7) Depression: Plan: DVT prophylaxis. SCDs Re: GI bleed Full code as per daughter (Ms. Lydia Steiner) She requests updates from providers through [id number]. Admission and Anticipated Discharge Date Admission Date: November 22, 2021 Subjective 11/23/2021 The patient was seen and examined in medical telemetry unit She has had 2 episode of bright red rectal bleed in the morning of admission She was noted to have increasing heart rate with ambulation this morning No more bleeding since admission Denies any chest pain, palpitation or shortness of breath Review of Systems Review of Systems: All systems reviewed and are unremarkable except as mentioned below Cardiovascular: Additional Comments: Noted to be tachycardic with ambulation Physical Exam Physical Exam: Lying in bed comfortably Constitutional: well developed, well nourished, + ill appearing and + obese Eyes: PERRL, conjunctivae normal, anicteric sclerae ENMT: external ear and nose normal, oropharynx normal Neck: trachea midline, no thyromegaly Respiratory: no respiratory distress Auscultation: lungs clear to auscultation bilaterally Cardiovascular: Rate/Rhythm: regular rate and regular rhythm; not tachycardic Heart Sounds: normal S1 and normal S2; no murmur Extremities: no edema Gastrointestinal (Abdomen): Inspection/Auscultation: normal bowel sounds; abdomen not distended Percussion/Palpation: abdomen soft; abdomen nontender Musculoskeletal: No acute arthritis in any joint Neurologic: Alert, awake and oriented x3. Lymphatic: no cervical or axillary lymphadenopathy Results & Data Results & Data ([facility]) Vital Signs (Past 12 Hours) Vital Signs Temp Pulse Pulse Resp BP BP Pulse Ox 11/23/21 07:16 36.9 C 96 H 18 133/85 90 11/23/21 07:00 88 11/23/21 04:16 36.7 C 87 18 150/95 H 94 11/23/21 02:01 94 H Laboratory Results Short CBC 11/22/21 11/23/21 11/23/21 Range/Units 18:40 00:27 06:39 WBC 11.62 H 8.89 (4.8-10.8) K/ul Hgb 13.1 11.3 L 10.7 L (12.0-16.0) g/dl Hct 40.4 35.4 33.3 L (34.1-44.9) % Plt Count 222 163 (130-400) K/uL BMP 11/22/21 11/23/21 18:40 06:39 Sodium 136 137 Potassium 3.8 4.5 Chloride 103 105 Carbon Dioxide 21 28 BUN 24 H 20 Creatinine 0.93 0.77 Glucose 164 H 90 Calcium 9.0 8.0 L Liver Function 11/22/21 Range/Units 18:40 Total Bilirubin 0.7 (0.2-1.0) mg/dl AST 16 (13-39) U/L ALT 11 (7-52) U/L Alkaline Phosphatase 44 (34-104) U/L Albumin 4.1 (3.4-5.0) gm/dl Urine 11/22/21 Range/Units 21:17 Urine Color Yellow Urine Appearance Clear (Clear) Urine pH 6.0 (4.5-7.5) Ur Specific [place] > 1.045 H (1.000-1.030) Urine Protein Negative (Negative) Urine Glucose (UA) Negative (Negative) Medications Administered Current Inpatient Medications Acetaminophen (Acetaminophen 500 Mg Tab) 1,000 mg PO BID AREN Stop: 12/23/21 08:59 Last Admin: 11/23/21 07:55 Dose: 1,000 mg Documented by: Acetaminophen (Acetaminophen 325 Mg Tab) 650 mg PO Q4H PRN PRN Reason: Pain or Fever Stop: 12/23/21 00:11 Citalopram Hydrobromide (Citalopram 20 Mg Tab) 10 mg PO DAILY [facility] Stop: 12/23/21 08:59 Last Admin: 11/23/21 07:55 Dose: 10 mg Documented by: Famotidine (Famotidine 20 Mg Tab) 20 mg PO DAILY [facility] Stop: 12/23/21 08:59 Last Admin: 11/23/21 07:56 Dose: 20 mg Documented by: Promethazine HCl 12.5 mg/ (Sodium Chloride) 50.5 mls @ 202 mls/hr IV Q6H PRN PRN Reason: Nausea And Vomiting Stop: 12/23/21 00:11 Ceftriaxone Sodium 1,000 mg/ (Dextrose) 60 mls @ 120 mls/hr IV Q24H AREN; Protocol Stop: 12/03/21 02:59 Last Infusion: 11/23/21 04:41 Dose: Infused Documented by: Levothyroxine Sodium (Levothyroxine Sodium 100 Mcg Tablet) 100 mcg PO DAILYBB [facility] Stop: 12/23/21 06:29 Last Admin: 11/23/21 05:51 Dose: 100 mcg Documented by: Mirabegron (Mirabegron Er 25 Mg Tab) 50 mg PO DAILY [facility] Stop: 12/23/21 08:59 Last Admin: 11/23/21 07:56 Dose: 50 mg Documented by: Multivitamins (Multivitamin Tab) 1 tab PO DAILY [facility] Stop: 12/23/21 08:59 Last Admin: 11/23/21 07:55 Dose: 1 tab Documented by: Pantoprazole Sodium (Pantoprazole 40 Mg Tab) 40 mg PO DAILY [facility] Stop: 12/23/21 08:59 Last Admin: 11/23/21 07:56 Dose: 40 mg Documented by: Tramadol HCl (Tramadol Hcl 50 Mg Tablet) 50 mg PO Q6H PRN PRN Reason: Pain Stop: 12/23/21 00:11 (1) HTN (hypertension) Hypertension type: essential hypertension Qualified Code(s): I10 - Essential (primary) hypertension (2) UTI (urinary tract infection) Hematuria presence: without hematuria Urinary tract infection type: acute cystitis Qualified Code(s): N30.00 - Acute cystitis without hematuria (3) Hypothyroidism Hypothyroidism type: acquired Qualified Code(s): E03.9 - Hypothyroidism, unspecified
[2021-11-23] MEDS: amLODIPine BESYLATE 5 MG TAB PO SCH (20:08)
[2021-11-24] MEDS: cefTRIAXone SODIUM 1,000 MG in DEXTROSE 5% 50 ML IV SCH (01:50)
[2021-11-24] MEDS: LEVOTHYROXINE SODIUM 100 MCG TABLET PO SCH (06:18)
[2021-11-24 06:41] LABS: Basophils # (auto) 0.07 K/uL (0-0.2); Eosinophils # (auto) 0.25 K/uL (0-0.50); Eosinophils % (auto) 3.7 %; Hematocrit (blood only) 33.1 % (34.1-44.9); Hemoglobin 10.7 g/dl (12.0-16.0); Immature Granulocytes # (auto) 0.05 K/uL (0.00-0.02); Immature Granulocytes % (auto) 0.7 %; Lymphocytes % (auto) 28.4 %; Mean Corpuscular Hemoglobin 29.8 pg (25.0-34.0); Mean Corpuscular Hgb Conc 32.3 g/dL (32.0-36.0); Mean Corpuscular Volume 92.2 fL (80.0-100.0); Mean Platelet Volume 10.8 fL (9.4-12.3); Neutrophils # (auto) 3.61 K/uL (1.4-6.5); Neutrophils % (auto) 54.2 %; Platelet Count 176 K/uL (130-400); RDW Coefficient of Variation 15.1 % (11.5-14.5); RDW Standard Deviation 50.7 fL (36.4-46.3); Red Blood Count 3.59 M/uL (3.93-5.22); White Blood Count 6.68 K/ul (4.8-10.8)
[2021-11-24 07:15] LABS: BUN Creatinine Ratio 16.1 (10-20); Creatinine Clr Calc Pharmacy 62.7 ml/min; Est GFR (Non-African American) 81.1 ml/min; Magnesium 2.1 mg/dl (1.7-2.4); Potassium 3.5 mmol/L (3.5-5.1)
[2021-11-24] MEDS: PANTOprazole 40 MG TAB PO SCH (08:14)
[2021-11-24] MEDS: MULTIVITAMIN TAB PO SCH (08:15)
[2021-11-24] MEDS: CITALOPRAM 20 MG TAB PO SCH (08:15)
[2021-11-24] MEDS: ACETAMINOPHEN 500 MG TAB PO SCH (08:15)
[2021-11-24] MEDS: amLODIPine BESYLATE 5 MG TAB PO SCH (08:15)
[2021-11-24] MEDS: MIRABEGRON ER 25 MG TAB PO SCH (08:15)
[2021-11-24] MEDS: FAMOTIDINE 20 MG TAB PO SCH (08:15)
[2021-11-25] MEDS ORDERED: cephALEXin 500 MG CAP PO SCH (09:00)
--- NOTE | 2021-11-25 18:59 | Discharge Summary ---
Date of Service November 25, 2021 Admission HPI Per Admitting Provider History obtained from patient, family, and records. History from patient secondary to dementia and hearing impairment. Medical history significant for hypertension, hyperlipidemia, hypothyroidism, diverticulosis, mood disorder, dementia, urinary incontinence. Last confinement June 2020 for right hip fracture status post surgery. This morning, patient had 2 episodes of rectal bleeding. Not diarrhea as per daughter. No abdominal pain. Some lightheadedness. No chest pain, no shortness of breath. Episode of diverticular bleed years ago necessitating transfusion as per daughter. Patient brought to the ER for evaluation. IV PPI administered at the ER. 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 Tolerating a full liquid diet. No abdominal pain. No further rectal bleed. On exam, appears moderately nourished, appears stated age. CV- regular rate and rhythm, no murmurs/rubs/gallops. Pulm- breathing comfortably on room air. Abd- soft, non tender. Extr- no edema Discharge Data Allergies Allergy/AdvReac Type Severity Reaction Status Date / Time adhesive Allergy Intermediate SENSITIVE, Verified 11/22/21 20:23 RASH montelukast Allergy Intermediate RASH, HYPER Verified 11/22/21 20:23 Penicillins Allergy Rash Verified 11/23/21 16:10 salicylates AdvReac Intermediate VOMITING Verified 11/22/21 20:23 Consultations 11/22/21 20:16 ED Decision to Admit Stat 11/23/21 08:00 Consult Gastroenterology Routine Ordered Studies 11/22/21 18:25 CT abd pelvis IV con only Stat Hospital Course (1) LGI bleed: (2) HTN (hypertension): (3) UTI (urinary tract infection): (4) Dyslipidemia: (5) Hypothyroidism: (6) Memory loss: (7) Depression: Plan Ms Soco Steiner is a 86 year old female with history of diverticulitis, urinary incontinence and remaining PMHx as above in HPI presented to the ER on 11/22 with two episodes of bright red blood per rectum and feeling light headed and dizzy. She had a CT A/P which revealed diverticulosis as well as cystitis. She had no further bleed while here and her hemoglobin remained stable. She did not require blood transfusion while here. She was seen by GI and recommended outpatient colonoscopy. For her light headedness, she received gentle IV fluid hydration and symptoms resolved. She was noted to have pansensitive E coli UTI and was treated with ceftriaxone while here and upon discharge will be on Keflex to complete a 5 day course. She was seen by PT and cleared for discharge home, CM was contacted to arrange for home care services. On the day of discharge, she felt well. She was tolerating a full liquid diet and was recommended to advance slowly to low fiber diet once home. Home Health Attestation I certify that this patient is under my care and that I, or a physicians occupational therapist assistants working with me, had a face to-face encounter that meets the home health [id number] encounter requirements with this patient. The encounter with the patient was in whole, or in part, for the following medical condition, which is the primary reason for home health care (list medical condition): I certify that, based on my findings, the following services are medically necessary home health services: My clinical findings support the need for the above services because: PT Assessment for Endurance / Balance / Strength Skilled Nsg Assessment Further, I certify that my clinical findings support that this patient is homebound (i.e. absences from home require considerable and taxing effort and are for medical reasons or [facility] services or infrequently or of short duration when for other reasons) because: Certification for Home Health Services: Based on the above findings, I certify that this patient is confined to the home and needs intermittent retirement care, physical therapy and/or speech therapy or continues to need occupational therapy. The patient is under my care, and I have initiated the establishment of the plan of care. This patient will be followed by a physician who will periodically review the plan of care. Total Time Total Time Spent Total Time Spent (In Minutes): 40 Discharge Plan Discharge Items Patient Disposition: Home - Home Health Services Reason For Visit: LGIB Discharge Diagnosis: Diverticular Bleed Pansensitive E coli UTI Condition on Discharge: Good Activity: Resume your previous activity Non-emergency contact: Primary Care Provider and Or Assistant Call non-emergency contact if: you have any medication questions and your symptoms worsen Follow-up/Referrals: Josesito Frost MD [Primary Care Provider] - (Date & Time 11/29/2021 2:00 PM Provider Adriane Neri MD [facility] ) Alfreda Scott, [Physician] - Diet: Low Fiber Addtl Attending Provider Instructions: You should be on a low fiber diet for the short term to allow your bowels to rest. M[facility] (after you are cleared by GI), you should be on a high fiber diet to prevent constipation Pending Studies at Discharge: No Stand-Alone Forms: My [facility] [employer] Social Promotion, Smoking Cessation Medications and DC Order Prescriptions: New cephalexin 500 mg Capsule 500 mg PO QID 3 Days Qty: 12 0RF Continued tramadol 50 mg tablet 50 mg PO Q6H PRN (Reason: Pain) famotidine 20 mg tablet 20 mg PO DAILY solifenacin 5 mg tablet 5 mg PO DAILY Myrbetriq 50 mg tablet extended release 24 hr 50 mg PO DAILY citalopram [Celexa] 10 mg Tablet 10 mg PO DAILY levothyroxine 100 mcg Tablet 100 mcg PO DAILY pantoprazole 40 mg Tablet,Delayed Release (Dr/Ec) 40 mg PO DAILY multivitamin Tablet 1 tab PO DAILY potassium chloride 10 mEq capsule, extended release 10 meq PO DAILY enalapril maleate 5 mg tablet 5 mg PO QAM acetaminophen [Tylenol Extra Strength] 500 mg Tablet 1,000 mg PO BID docusate sodium [Stool Softener] 100 mg Capsule 200 mg PO DAILY furosemide 20 mg tablet 20 mg PO QAM calcium carbonate-vitamin D3 [Calcium 600 + D(3)] 600 mg-10 mcg (400 unit) Tablet 1 tab PO DAILY Discharge Orders: Discharge Order (Routine); Ordered 11/24/21 Ordered By: Arsalan Florence Admission Data Admit Date/Time: 11/22/21 21:20 Attending Provider: Arsalan Florence Admit Provider: Mike Ferreira Primary Care Provider: Josesito Frost Other Providers: Mike Ferreira ; Cierra Solis I. ; Stevie Cadet ; Ivette Jerry ; Leena Boss ; Hannah Adan ; Rod Oropeza ; Kimberly Borrego ; Tete Allison ; Leonardo Wu ; Myra Cohen ; Alfreda Scott ; Annalisa Robles ; Mary Bell ; Erik Wolff ; Felice Herman ; [facility] Other Interventions: Discharge Summary Assessment (RN) Last Done: 11/24/21 14:42
== END 2021-11-24 15:15 | disposition home health service (06) ==
LOC: ED 17:48 → 2N 17:48 → SUATTDRO 21:20 → 2N 23:45
DX: Z79.01 Long term (current) use of anticoagulants; R42 Dizziness and giddiness; Z88.1 Allergy status to other antibiotic agents; N39.0 Urinary tract infection, site not specified; Z79.899 Other long term (current) drug therapy; E78.5 Hyperlipidemia, unspecified; Z91.048 Other nonmedicinal substance allergy status; E03.9 Hypothyroidism, unspecified; K92.2 Gastrointestinal hemorrhage, unspecified; I10 Essential (primary) hypertension; F32.A Depression, unspecified; R41.3 Other amnesia

== ENCOUNTER 2022-09-28 15:31 | Inpatient (IN) ==
[2022-09-28] MEDS: SODIUM CHLORIDE 0.9% 500 ML IV SCH ×2 (16:00→19:10)
[2022-09-28 16:22] LABS: Basophils # (auto) 0.07 K/uL (0-0.2); Basophils % (auto) 0.9 %; Eosinophils # (auto) 0.13 K/uL (0-0.50); Eosinophils % (auto) 1.8 %; Hematocrit (blood only) 41.5 % (37.0-47.0); Hemoglobin 13.4 g/dl (12.0-16.0); Immature Granulocytes # (auto) 0.03 K/uL (0.01-0.20); Immature Granulocytes % (auto) 0.4 %; Lymphocytes # (auto) 1.58 K/uL (1.2-3.4); Lymphocytes % (auto) 21.4 %; Mean Corpuscular Hemoglobin 30.3 pg (25.0-34.0); Mean Corpuscular Hgb Conc 32.3 g/dL (32.0-36.0); Mean Corpuscular Volume 93.9 fL (80.0-100.0); Mean Platelet Volume 10.1 fL (9.4-12.4); Monocytes # (auto) 0.77 K/uL (0.11-0.59); Monocytes % (auto) 10.4 %; Neutrophils # (auto) 4.82 K/uL (1.40-6.50); Neutrophils % (auto) 65.1 %; Platelet Count 222 K/uL (130-400); RDW Coefficient of Variation 14.6 % (11.5-14.5); Red Blood Count 4.42 M/uL (4.20-5.40)
[2022-09-28 16:46] LABS: Albumin Level 4.2 gm/dl (3.4-5.0); BUN Creatinine Ratio 21.8 (10-20); Bilirubin Direct 0.2 mg/dl (0-0.2); Bilirubin,Total 0.8 mg/dl (0.2-1.0); Calcium 9.3 mg/dl (8.6-10.3); Creatinine Clr Calc Pharmacy 48.6 ml/min; Est GFR (African American) 78.7 ml/min; Est GFR (Non-African American) 67.9 ml/min; Potassium 4.1 mmol/L (3.5-5.1); Total Protein 7.2 gm/dl (6.0-8.3)
[2022-09-28 16:51] LABS: Troponin I High Sensitivity 10.3 pg/ml (0-14)
--- NOTE | 2022-09-28 16:51 | Electrocardiogram Report ---
Test Reason : Blood Pressure : / mmHG Vent. Rate : 121 BPM Atrial Rate : 121 BPM P-R Int : 156 ms QRS Dur : 084 ms QT Int : 334 ms P-R-T Axes : 071 -23 088 degrees QTc Int : 474 ms Sinus tachycardia Poor R wave progression, consider anterior MT vs. lead placement vs. LVH Incomplete right bundle branch block Abnormal ECG When compared with ECG of 22-NOV-2021 18:44, Premature atrial complexes are no longer Present Confirmed by Daniel Luna ([id number]) on 09/28/2022 4:51:27 PM Referred By: Confirmed By:Alan Luna
[2022-09-28 17:10] LABS: Partial Thromboplastin Ratio 0.9; Partial Thromboplastin Time 26.4 Seconds (21.0-31.0); Prothrombin Time 10.9 Seconds (9.0-12.0)
--- NOTE | 2022-09-28 17:24 | Emergency Department Note ---
History of Present Illness General Chief complaint: Rectal Bleed Stated complaint: RECTAL BLEED Time Seen by Provider: 09/28/22 15:38 History of Present Illness Provider Complaint: + gross hematochezia Onset (ago): 1 day(s) Pain Consistency: + intermittent Relieved By: + none Exacerbated By: + bowel movement Context: + history of GI bleed; no liver disease, no hemorrhoids, no swallowed FB, no rectal trauma, no alcohol abuse, no known esophageal varices or no anticoagulant use Associated symptoms: no abdominal pain, no nausea, no vomiting or no headaches Home Medications Medication Instructions Recorded Confirmed Type citalopram 10 mg tablet (Celexa) 10 mg PO DAILY 06/15/20 11/22/21 History famotidine 20 mg tablet 20 mg PO DAILY 06/15/20 11/22/21 History levothyroxine 100 mcg tablet 100 mcg PO DAILY 06/15/20 11/22/21 History mirabegron 50 mg tablet,extended 50 mg PO DAILY 06/15/20 11/22/21 History release 24 hr (Myrbetriq) pantoprazole 40 mg tablet,delayed 40 mg PO DAILY 06/15/20 09/28/22 History release solifenacin 5 mg tablet 5 mg PO DAILY 06/15/20 11/22/21 History tramadol 50 mg tablet 50 mg PO Q6H PRN Pain 06/15/20 11/22/21 History acetaminophen 500 mg tablet 1,000 mg PO BID 11/22/21 11/22/21 History (Tylenol Extra Strength) calcium carbonate 600 mg-vitamin 1 tab PO DAILY 11/22/21 11/22/21 History D3 10 mcg (400 unit) tablet (Calcium 600 + D(3)) docusate sodium 100 mg capsule 200 mg PO DAILY 11/22/21 11/22/21 History (Stool Softener) enalapril maleate 5 mg tablet 5 mg PO QAM 11/22/21 11/22/21 History furosemide 20 mg tablet 20 mg PO QAM 11/22/21 11/22/21 History multivitamin 1 tab PO DAILY 11/22/21 11/22/21 History potassium chloride 10 mEq 10 meq PO DAILY 11/22/21 11/22/21 History capsule,extended release Allergies Allergy/AdvReac Type Severity Reaction Status Date / Time adhesive Allergy Intermediate SENSITIVE, Verified 11/22/21 20:23 RASH montelukast Allergy Intermediate RASH, HYPER Verified 11/22/21 20:23 Penicillins Allergy Rash Verified 11/23/21 16:10 salicylates AdvReac Intermediate VOMITING Verified 11/22/21 20:23 Past Med/Surg History Medical History Aortic valve sclerosis Depression Dyslipidemia GERD (gastroesophageal reflux disease) History of gastrointestinal diverticular hemorrhage HTN (hypertension) Hypothyroidism LGI bleed Nausea & vomiting Near syncope Osteoarthritis Rectal bleeding Urge incontinence Surgical History History of arthroscopic knee surgery History of cholecystectomy History of hysterectomy History of tonsillectomy Family History Father Heart disease Brother Lung cancer Brother Gastric cancer Mother Brain cancer Social History Smoking Status: Never smoker Second Hand Exposure: No; Do You Dip or Chew Tobacco: No; Hx Alcohol Use: No Hx Substance Use: No Preferred Language: Irish Communication Ability: Effective 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 Beliefs That Will Affect Care: None Current Living Situation: Family Current Living Situation Comment: lives with and daughter Feels Safe at Home: Yes Assistive Devices: Walker and Wheelchair Physical Exam Vital Signs: Vital Signs - 24 hr 09/28/22 15:43 09/28/22 15:35 09/28/22 15:35 Temperature 37.1 C Temperature Source Oral Pulse Rate 127 H 131 H 131 H Respiratory Rate 20 20 Blood Pressure 127/91 Blood Pressure Mag n 103 Blood Pressure Pos ition Sitting Pulse Oximetry 95 95 Oxygen Delivery Me thod Nasal Cannula Nasal Cannula Oxygen Flow Rate 1 1 Sepsis Recent Feve r Within 48 Hours No Sepsis New/Unexpla ined Change in Men jack Status No Sepsis Action Take n by Nursing No Action Required Oxygen Flow Rate - Titration Pulse Oximetry Pos t Tiitration 09/28/22 15:39 09/28/22 15:34 Temperature Temperature Source Pulse Rate 130 H Respiratory Rate 22 Blood Pressure Blood Pressure Mag n Blood Pressure Pos ition Pulse Oximetry 95 89 L Oxygen Delivery Me thod Nasal Cannula Room Air Nasal Can nula Oxygen Flow Rate 1 Sepsis Recent Feve r Within 48 Hours Sepsis New/Unexpla ined Change in Men jack Status Sepsis Action Take n by Nursing Oxygen Flow Rate - Titration 1 Pulse Oximetry Pos t Tiitration 95 Physical Exam: Physical Exam HENT: Exam performed. -Head: Normocephalic and atraumatic. -Right Ear: External ear normal. No mastoid erythema -Left Ear: External ear normal. No mastoid erythema EYES: Conjunctivae and EOM are normal. Right eye exhibits no discharge. Left eye exhibits no discharge. No scleral icterus. NECK: Normal range of motion. Neck supple. No JVD present. No tracheal deviation and normal range of motion present. CV: Normal rate, regular rhythm, normal heart sounds and intact distal pulses. There is no peripheral edema. Palpable radial pulses bue. PULM/CHEST: Effort normal and breath sounds normal. No respiratory distress. No stridor. She has no wheezes. She has no rales. ABD: The abdomen is soft. There is no tenderness. There is no rebound, no guarding. Rectal: Rectal exam performed with female nursing fixture fabricator repairer Charisse at bedside. Bright red blood per rectum. NEURO: Motor and sensation grossly intact. SKIN: Pale PSYCH: She has a normal mood and affect. Behavior is normal. Judgment and thought content normal. Course Course 1538: The patient was evaluated in room B6. A complete history and physical exam was performed Cardiac monitoring: An order was placed for continuous cardiac monitoring. The monitor shows a rate of 120 with sinus rhythm interpreted by me Patient found to be hypoxic on room air at 89% supplemental oxygen was applied to the patient which improved the patient's oxygen saturation. 1741: Labs within normal limits. Imaging shows mild cardiomegaly. [facility] ED who stated to admit to Dr. Roman Medical Decision Making Laboratory Data Attestation: I reviewed the patient's lab results. 09/28/22 15:45 09/28/22 15:45 Lab Results 09/28/22 09/28/22 09/28/22 Range/Units 15:45 15:45 15:45 WBC 7.40 (4.8-10.8) K/ul RBC 4.42 (4.20-5.40) M/uL Hgb 13.4 (12.0-16.0) g/dl Hct 41.5 (37.0-47.0) % MCV 93.9 (80.0-100.0) fL MCH 30.3 (25.0-34.0) pg MCHC 32.3 (32.0-36.0) g/dL RDW Std Deviation 51.0 H (36.4-46.3) fL RDW Coeff of Talisha 14.6 H (11.5-14.5) % Plt Count 222 (130-400) K/uL MPV 10.1 (9.4-12.4) fL Immature Gran % (Auto) 0.4 % Neut % (Auto) 65.1 % Lymph % (Auto) 21.4 % [place] % (Auto) 10.4 % Eos % (Auto) 1.8 % Baso % (Auto) 0.9 % Neut # (Auto) 4.82 (1.40-6.50) K/uL Lymph # (Auto) 1.58 (1.2-3.4) K/uL [place] # (Auto) 0.77 H (0.11-0.59) K/uL Eos # (Auto) 0.13 (0-0.50) K/uL Baso # (Auto) 0.07 (0-0.2) K/uL Immature Gran # (Auto) 0.03 (0.01-0.20) K/uL PT 10.9 (9.0-12.0) Seconds INR 1.0 (0.9-1.1) APTT 26.4 (21.0-31.0) Seconds PTT Ratio 0.9 Sodium 137 (136-145) mmol/L Potassium 4.1 (3.5-5.1) mmol/L Chloride 101 (98-107) mmol/L Carbon Dioxide 28 (21-32) mmol/L Anion Gap 8 (3-11) BUN 17 (6-23) mg/dl Creatinine 0.78 (0.6-1.2) mg/dl Est Cr Clr Drug Dosing 48.6 ml/min Est GFR ( Amer) 78.7 ml/min Est GFR (Non-Af Amer) 67.9 ml/min BUN/Creatinine Ratio 21.8 H (10-20) Glucose 100 H (70-99(Fasting)) mg/dl Calcium 9.3 (8.6-10.3) mg/dl Magnesium 2.0 (1.7-2.4) mg/dl Total Bilirubin 0.8 (0.2-1.0) mg/dl Direct Bilirubin 0.2 (0-0.2) mg/dl AST 16 (13-39) U/L ALT 7 (7-52) U/L Alkaline Phosphatase 48 (34-104) U/L Troponin I High Sens 10.3 (0-14) pg/ml B-Natriuretic Peptide (0-100) pg/ml Total Protein 7.2 (6.0-8.3) gm/dl Albumin 4.2 (3.4-5.0) gm/dl Lipase 12 (11-82) U/L Blood Type Antibody Screen 09/28/22 09/28/22 Range/Units 15:45 16:32 WBC (4.8-10.8) K/ul RBC (4.20-5.40) M/uL Hgb (12.0-16.0) g/dl Hct (37.0-47.0) % MCV (80.0-100.0) fL MCH (25.0-34.0) pg MCHC (32.0-36.0) g/dL RDW Std Deviation (36.4-46.3) fL RDW Coeff of Talisha (11.5-14.5) % Plt Count (130-400) K/uL MPV (9.4-12.4) fL Immature Gran % (Auto) % Neut % (Auto) % Lymph % (Auto) % [place] % (Auto) % Eos % (Auto) % Baso % (Auto) % Neut # (Auto) (1.40-6.50) K/uL Lymph # (Auto) (1.2-3.4) K/uL [place] # (Auto) (0.11-0.59) K/uL Eos # (Auto) (0-0.50) K/uL Baso # (Auto) (0-0.2) K/uL Immature Gran # (Auto) (0.01-0.20) K/uL PT (9.0-12.0) Seconds INR (0.9-1.1) APTT (21.0-31.0) Seconds PTT Ratio Sodium (136-145) mmol/L Potassium (3.5-5.1) mmol/L Chloride (98-107) mmol/L Carbon Dioxide (21-32) mmol/L Anion Gap (3-11) BUN (6-23) mg/dl Creatinine (0.6-1.2) mg/dl Est Cr Clr Drug Dosing ml/min Est GFR ( Amer) ml/min Est GFR (Non-Af Amer) ml/min BUN/Creatinine Ratio (10-20) Glucose (70-99(Fasting)) mg/dl Calcium (8.6-10.3) mg/dl Magnesium (1.7-2.4) mg/dl Total Bilirubin (0.2-1.0) mg/dl Direct Bilirubin (0-0.2) mg/dl AST (13-39) U/L ALT (7-52) U/L Alkaline Phosphatase (34-104) U/L Troponin I High Sens (0-14) pg/ml B-Natriuretic Peptide 37 (0-100) pg/ml Total Protein (6.0-8.3) gm/dl Albumin (3.4-5.0) gm/dl Lipase (11-82) U/L Blood Type O Positive Antibody Screen NEGATIVE Imaging Data Attestation: I personally reviewed and interpreted this imaging study as follows: My Impression: Chest x-ray: Cardiomegaly ECG Data Attestation: I personally reviewed and interpreted this ECG as follows: Indication: SOB/dyspnea Rate (beats per minute): 121 Rhythm: sinus tachycardia Findings: no ST depression, no ST elevation or no prolonged QT MDM Narrative 1538: The patient was evaluated in room B6. A complete history and physical exam was performed Cardiac monitoring: An order was placed for continuous cardiac monitoring. The monitor shows a rate of 120 with sinus rhythm interpreted by me Patient found to be hypoxic on room air at 89% supplemental oxygen was applied to the patient which improved the patient's oxygen saturation. 1741: Labs within normal limits. Imaging shows mild cardiomegaly. Patient be admitted to the [facility]ist team. Spoke with ED who stated to admit to Dr. Roman Impression & Plan GI bleed, Hypoxia Discharge Plan Visit Data Chief Complaint: Rectal Bleed Stated Complaint: RECTAL BLEED ED Provider: Devin Enriquez Discharge Problem: GI bleed, Hypoxia Patient Disposition: Admitted As Inpatient Forms Stand Alone Forms: My [facility] Prescriptions Prescriptions: No Action tramadol 50 mg tablet 50 mg PO Q6H PRN (Reason: Pain) famotidine 20 mg tablet 20 mg PO DAILY solifenacin 5 mg tablet 5 mg PO DAILY Myrbetriq 50 mg tablet extended release 24 hr 50 mg PO DAILY citalopram [Celexa] 10 mg Tablet 10 mg PO DAILY levothyroxine 100 mcg Tablet 100 mcg PO DAILY pantoprazole 40 mg Tablet,Delayed Release (Dr/Ec) 40 mg PO DAILY multivitamin Tablet 1 tab PO DAILY potassium chloride 10 mEq capsule, extended release 10 meq PO DAILY enalapril maleate 5 mg tablet 5 mg PO QAM acetaminophen [Tylenol Extra Strength] 500 mg Tablet 1,000 mg PO BID docusate sodium [Stool Softener] 100 mg Capsule 200 mg PO DAILY furosemide 20 mg tablet 20 mg PO QAM calcium carbonate-vitamin D3 [Calcium 600 + D(3)] 600 mg-10 mcg (400 unit) Tablet 1 tab PO DAILY Referrals Referrals: Josesito Frost MD [Primary Care Provider] -
[2022-09-28] MEDS ORDERED: MAGNESIUM HYDROXIDE SUSP 30 ML UDC PO PRN (17:32)
[2022-09-28] MEDS ORDERED: ALUMINUM/MAGNESIUM SUSP 30 ML UDC PO PRN (17:32)
[2022-09-28] MEDS ORDERED: ACETAMINOPHEN 325 MG TAB PO PRN (17:32)
[2022-09-28] MEDS ORDERED: POLYETHYLENE (MIRALAX) 17 GM PACK PO PRN (17:32)
--- NOTE | 2022-09-28 17:45 | History & Physical Report ---
Date of Service September 28, 2022 Assessment & Plan (1) BRBPR (bright red blood per rectum): (2) Hypoxia: (3) History of gastrointestinal diverticular hemorrhage: (4) HTN (hypertension): (5) Dyslipidemia: (6) Hypothyroidism: (7) GERD (gastroesophageal reflux disease): (8) Depression: Plan 87 year old presents with BRBPR that started this morning. 3 episodes in the toilet and in a brief. History of GI diverticular hemorrhage. Has had colonoscopy for diverticulosis; EGD 2014 with mild inflammation Hgb 13.4; will trend Q6 x2 and in AM. NPO for now. LR at 80mL/hour x2 bags; reassess in AM. Blood consent signed. Type and Cross ordered; hold 2 UPRBC; transfuse for Hgb < 8.0 GI consult placed. BRBPR: Hypoxia: History of GI diverticular hemorrhage: Not on any AC Has had colonoscopy for diverticulosis; EGD 2014 with mild inflamma tion Hgb 13.4; will trend Q6 x2 and in AM NPO for now LR at 80mL/hour x2 bags; reassess in AM Blood consent signed Type and Cross ordered; hold 2 UPRBC; transfuse for Hgb < 8.0 GI consult placed HTN: Takes Enalapril; Hold for now and reassess in AM Takes Lasix; Hold for now and reassess in AM Hypothyroidism: Takes levothyroxine; continue GERD: Takes Protonix and Pepcid; continue Depression: Takes Celexa; continue Disposition: PCP: Dr. Frost Code Status: DNR/DNI VTE Prophylaxis: Teds and SCDs for now I spent a total of 87 minutes coordinating, documenting, and providing care for this patient excluding time spent in the performance of separately billed services. All of the aforementioned completed while collaborating with the assigned attending physician for a full treatment plan. Please see their addendum for further details. History of Present Illness Chief Complaint: bright red blood per rectum/GIB Primary Care Provider: Josesito Frost MD Ms. Steiner is an 87 year old female that presented to the [facility] with complaints of bright red blood per her rectum that started this morning and continued two additional times. She denied any dizziness with her bowel movements. She reports clots and blood prior to it hitting the toilet water. She was hypoxic on arrival, with SPO2 89%. She is not taking any anticoagulation. Additional past medical history includes aortic valve sclerosis, HTN, HLD, diverticular hemorrhage, OA, hypothyroidism, depression, and GERD. EGD and colonoscopy in past: Diverticulosis and EGD mild inflammation 2014. She has a history of diverticular hemorrhage that occurred 10 years ago requiring [place] [facility] No surgery at that time but she did have blood transfusions without any transfusion reactions. Hgb 13.4; will trend Q6 x2 and in AM. Blood consent obtained and type and cross just to have on hand if needed. Suspect could be hemorrhoids vs acute GIB. Hgb may be normal during first 24 hours of acute GIB before equilibration. In ED, Hgb holding at 13.4, no leukocytosis; tachycardia heart rate 127 otherwise hemodynamically stable. Troponin negative. Pt denies MCCRAY, dizziness, chest pain, heart palpitations, N/V/D, recent falls or trauma, tenesmus. Suspect could be lower GIB vs hemorrhoids, anal fissure, telangictasia. Pt reports eating and drinking ok. Pt lives with her and their daughter, Alissa (at bedside), lives with them. Pt sitting upright in her hospital bed in no apparent distress. Pt had one BM while I was in the room with clots and BRBPR. Patient will be admitted for further evaluation and management. Please see A/P for further details. Allergies Allergy/AdvReac Type Severity Reaction Status Date / Time adhesive Allergy Intermediate SENSITIVE, Verified 11/22/21 20:23 RASH montelukast Allergy Intermediate RASH, HYPER Verified 11/22/21 20:23 Penicillins Allergy Rash Verified 11/23/21 16:10 salicylates AdvReac Intermediate VOMITING Verified 11/22/21 20:23 Home Medications Medication Instructions Recorded Confirmed Type citalopram 10 mg tablet (Celexa) 10 mg PO DAILY 06/15/20 09/28/22 History famotidine 20 mg tablet 20 mg PO DAILY 06/15/20 09/28/22 History levothyroxine 100 mcg tablet 100 mcg PO DAILY 06/15/20 09/28/22 History pantoprazole 40 mg tablet,delayed 40 mg PO DAILY 06/15/20 09/28/22 History release solifenacin 5 mg tablet 5 mg PO DAILY 06/15/20 09/28/22 History tramadol 50 mg tablet 50 mg PO Q6H PRN Pain 06/15/20 09/28/22 History acetaminophen 500 mg tablet 1,000 mg PO BID 11/22/21 09/28/22 History (Tylenol Extra Strength) calcium carbonate 600 mg-vitamin 1 tab PO DAILY 11/22/21 09/28/22 History D3 10 mcg (400 unit) tablet (Calcium 600 + D(3)) docusate sodium 100 mg capsule 200 mg PO DAILY 11/22/21 09/28/22 History (Stool Softener) enalapril maleate 5 mg tablet 5 mg PO QAM 11/22/21 09/28/22 History furosemide 20 mg tablet 20 mg PO QAM 11/22/21 09/28/22 History multivitamin 1 tab PO DAILY 11/22/21 09/28/22 History potassium chloride 10 mEq 10 meq PO DAILY 11/22/21 09/28/22 History capsule,extended release denosumab 60 mg/mL subcutaneous 60 mg subcut .Q6M 09/28/22 09/28/22 History syringe (Prolia) mirabegron 50 mg tablet,extended 50 mg PO DAILY 09/28/22 09/28/22 History release 24 hr (Myrbetriq) Past Med/Surg History Medical History (Updated 09/28/22 @ 17:41 by CHELE Pruett) Aortic valve sclerosis BRBPR (bright red blood per rectum) Depression Dyslipidemia GERD (gastroesophageal reflux disease) History of gastrointestinal diverticular hemorrhage HTN (hypertension) Hypothyroidism Hypoxia LGI bleed Nausea & vomiting Near syncope Osteoarthritis Rectal bleeding Urge incontinence Surgical History History of arthroscopic knee surgery History of cholecystectomy History of hysterectomy History of tonsillectomy Family History Father Heart disease Brother Lung cancer Brother Gastric cancer Mother Brain cancer Social History Smoking Status: Never smoker Second Hand Exposure: No; Do You Dip or Chew Tobacco: No; Hx Alcohol Use: No Hx Substance Use: No Preferred Language: Puerto Rican Communication Ability: Effective Blue Leather Sorter Required: No Beliefs That Will Affect Care: None Current Living Situation: Family Current Living Situation Comment: lives with and daughter Feels Safe at Home: Yes Assistive Devices: Walker and Wheelchair Review of Systems Review of Systems: Neuro: (-) Falls, trauma, slurred speech HEENT: (-) MCCRAY, dizziness, dysphagia, visual or auditory changes CV: (-) CP, palpitations, swelling Resp: (-) SOB GI: (-) appetite changes, N/V (+) D, BRBPR : (-) urinary changes Skin: (-) rashes Psych: (-) anxiety, depression Physical Exam Physical Exam: Neuro: AAOx4, PERRLA, no aphagia, memory changes, CNII-XII grossly intact HEENT: head normocephalic, moist mucus membranes CV: S1/S2, (-) M/G/R, (-) edema, cap refill < 3 seconds. tachycardia Resp: Lungs CTA in all carias. On RA GI: Abdomen S/NT/ND, Ax4 bowel sounds, (-) CVA tenderness Musculoskeletal: 5/5 B/L UE strength, 5/5 B/L LE strength. No gait disturbance Skin: (-) rashes , (-) erythema. Psych: euthymic mood Results & Data Results & Data Vital Signs (Past 12 Hours) Vital Signs Temp Pulse Resp BP Pulse Ox O2 Del Method O2 Flow Rate 09/28/22 15:34 89 L Room Air, Nasal Cannula 09/28/22 15:39 130 H 22 95 Nasal Cannula 1 09/28/22 15:35 131 H 20 95 Nasal Cannula 1 09/28/22 15:35 37.1 C 131 H 20 127/91 95 Nasal Cannula 1 09/28/22 15:43 127 H Laboratory Results Short CBC 09/28/22 Range/Units 15:45 WBC 7.40 (4.8-10.8) K/ul Hgb 13.4 (12.0-16.0) g/dl Hct 41.5 (37.0-47.0) % Plt Count 222 (130-400) K/uL BMP 09/28/22 15:45 Sodium 137 Potassium 4.1 Chloride 101 Carbon Dioxide 28 BUN 17 Creatinine 0.78 Glucose 100 H Calcium 9.3 Liver Function 09/28/22 Range/Units 15:45 Total Bilirubin 0.8 (0.2-1.0) mg/dl Direct Bilirubin 0.2 (0-0.2) mg/dl AST 16 (13-39) U/L ALT 7 (7-52) U/L Alkaline Phosphatase 48 (34-104) U/L Albumin 4.2 (3.4-5.0) gm/dl Diagnostic Findings Chest X-Ray 09/28/22 16:02 XR chest 1V portable CLINICAL HISTORY: sob TECHNIQUE: Single frontal radiograph of the chest was obtained. Comparison: None available at the time of this dictation. FINDINGS: No lines and tubes are seen. Calcified aortic knob is seen. Lungs are underinflated but clear. No evidence of pleural effusion or pneumothorax. IMPRESSION: No acute abnormalities and in particular no radiographic evidence of pneumonia. ACT 112: Negative or not required by law. Electronically signed by: Brandon Nichols M.D. 09/28/2022 6:09 PM Code Status & VTE Plan Code Status DNR/DNI in the event of cardiac or respiratory arrest VTE Prophylaxis Plan VTE Prophylaxis will be ordered: Yes Supervising Physician Co-Signing Physician Notes Patient seen and examined independently. Discussed with above provider. 87-year-old female presents to the hospital with painless lower GI bleed. On presentation, normotensive, sinus tachycardic and afebrile. Hemoglobin of 13.4. Continue IV fluid resuscitation. Hold antihypertensive. H&H every 6. Type and screen. Blood culture taken. GI consult. N.p.o. from midnight. (4) HTN (hypertension) Hypertension type: essential hypertension Qualified Code(s): I10 - Essential (primary) hypertension (6) Hypothyroidism Hypothyroidism type: acquired Qualified Code(s): E03.9 - Hypothyroidism, unspecified
[2022-09-28] MEDS ORDERED: SODIUM CHLORIDE 0.9% 250 ML IV PRN (17:54)
--- NOTE | 2022-09-28 18:10 | XRay Report ---
XR chest 1V portable CLINICAL HISTORY: sob TECHNIQUE: Single frontal radiograph of the chest was obtained. Comparison: None available at the time of this dictation. FINDINGS: No lines and tubes are seen. Calcified aortic knob is seen. Lungs are underinflated but clear. No chandu dence of pleural effusion or pneumothorax. IMPRESSION: No acute abnormalities and in particular no radiographic evidence of pneumonia. ACT 112: Negative or not required by law. Electronically signed by: Brandon Nichols M.D. 09/28/2022 6:09 PM
[2022-09-28] MEDS: LACTATED RINGER'S 1,000 ML IV SCH (19:03)
[2022-09-28 22:17] LABS: Hematocrit (blood only) 34.9 % (37.0-47.0); Hemoglobin 11.5 g/dl (12.0-16.0)
[2022-09-29] MEDS ORDERED: SODIUM CHLORIDE 0.9% 250 ML IV SCH (03:15)
[2022-09-29 03:32] LABS: Hematocrit (blood only) 32.9 % (37.0-47.0); Hemoglobin 10.6 g/dl (12.0-16.0); Mean Corpuscular Hgb Conc 32.2 g/dL (32.0-36.0); Mean Corpuscular Volume 93.2 fL (80.0-100.0); Mean Platelet Volume 10.2 fL (9.4-12.4); Platelet Count 205 K/uL (130-400); RDW Coefficient of Variation 14.9 % (11.5-14.5); RDW Standard Deviation 51.3 fL (36.4-46.3); Red Blood Count 3.53 M/uL (4.20-5.40); White Blood Count 8.47 K/ul (4.8-10.8)
[2022-09-29 03:51] LABS: Prothrombin Time 11.4 Seconds (9.0-12.0)
[2022-09-29 04:01] LABS: Albumin Globulin Ratio 1.5 (0.9-2); Albumin Level 3.4 gm/dl (3.4-5.0); BUN Creatinine Ratio 29.9 (10-20); Bilirubin,Total 0.9 mg/dl (0.2-1.0); Calcium 8.6 mg/dl (8.6-10.3); Creatinine Clr Calc Pharmacy 59.8 ml/min; Est GFR (Non-African American) 78.5 ml/min; Globulin 2.2 gm/dl (2.5-4.0); Total Protein 5.6 gm/dl (6.0-8.3)
[2022-09-29] MEDS: LEVOTHYROXINE SODIUM 100 MCG TABLET PO SCH ×2 (05:45→08:47)
[2022-09-29] MEDS: LACTATED RINGER'S 1,000 ML IV SCH (08:47)
[2022-09-29] MEDS: CALCIUM 600MG + VIT D 400 IU TAB PO SCH (08:48)
[2022-09-29] MEDS: CITALOPRAM 20 MG TAB PO SCH (08:48)
[2022-09-29] MEDS: DOCUSATE SODIUM 100 MG CAP PO SCH (08:51)
[2022-09-29] MEDS: PANTOprazole 40 MG TAB PO SCH (08:52)
[2022-09-29] MEDS: FAMOTIDINE 20 MG TAB PO SCH (08:52)
[2022-09-29] MEDS ORDERED: MIRABEGRON ER 25 MG TAB PO SCH (09:00)
[2022-09-29] MEDS: OXYBUTYNIN CHLORIDE XL 5 MG TABCR PO SCH (09:40)
[2022-09-29 10:26] LABS: Basophils # (auto) 0.07 K/uL (0-0.2); Basophils % (auto) 0.9 %; Eosinophils # (auto) 0.07 K/uL (0-0.50); Eosinophils % (auto) 0.9 %; Hematocrit (blood only) 30.8 % (37.0-47.0); Immature Granulocytes # (auto) 0.03 K/uL (0.01-0.20); Immature Granulocytes % (auto) 0.4 %; Lymphocytes # (auto) 1.55 K/uL (1.2-3.4); Mean Corpuscular Hemoglobin 29.9 pg (25.0-34.0); Mean Corpuscular Hgb Conc 32.5 g/dL (32.0-36.0); Mean Corpuscular Volume 92.2 fL (80.0-100.0); Mean Platelet Volume 10.4 fL (9.4-12.4); Monocytes # (auto) 0.79 K/uL (0.11-0.59); Monocytes % (auto) 9.7 %; Neutrophils # (auto) 5.63 K/uL (1.40-6.50); Neutrophils % (auto) 69.1 %; Platelet Count 194 K/uL (130-400); RDW Coefficient of Variation 14.9 % (11.5-14.5); RDW Standard Deviation 50.2 fL (36.4-46.3); Red Blood Count 3.34 M/uL (4.20-5.40); White Blood Count 8.14 K/ul (4.8-10.8)
--- NOTE | 2022-09-29 10:41 | Gastrointestinal Consultation ---
Date of Consultation September 29, 2022 Assessment & Plan (1) BRBPR (bright red blood per rectum): Plan 87 year old female with history of aortic valve sclerosis, HTN, HLD, diverticular hemorrhage, OA, hypothyroidism, depression, and GERD presenting to the ED w/ painless rectal bleeding since Monday. Suspect diverticular bleeding vs other May have clear liquids today Can start Golytely 4L Trend H&H Transfuse PRN Monitor and document GI output Consider abdominal imaging For any persistent bleeding that does not resolve with golytely, can consider colonoscopy Monday Thank you for allowing us to participate in the care of this patient. Please call with any acute changes, questions or concerns. Please see addendum below with additional recommendation from my supervising physician. Supervising Physician Co-Signing Physician Notes I personally saw and evaluated the patient with CHELE Gandhi on 09/29/2022 and agree with her findings and plan of care. On exam patients abdomen is soft and non-tender. Patient and daughter report multiple episodes of hematochezia filling the toilet bowel without any stool. Has had 3 bloody BMs since being in the hospital and most recent BM is maroon colored. Planning for colonoscopy tomorrow for ongoing hematochezia. I suspect this is likely diverticular in etiology given prior colonoscopy findings but given she has continued to have episodes of hematochezia beyond 24 hours will plan for inpatient colonoscopy tomorrow. Patient's daughter at bedside also requesting colonoscopy. She will prep today with Golytely. Trend H/H and transfuse for hgb <7. If patient were to develop brisk bleeding at that time would recommend CTA +/- IR intervention. Nikki Lacey DO Gastroenterology and Hepatology History of Present Illness Reason for Consultation: BRBPR Requesting Physician: Max Attending Physician: Channing Santana MD History of Present Illness 87 year old female with history of aortic valve sclerosis, HTN, HLD, diverticular hemorrhage, OA, hypothyroidism, depression, and GERD presenting to the ED w/ BRBPR that started around Monday. Pt was seen and evaluated, chart reviewed. She notes that she was in her typical state of health Monday, passing formed, brown stools. Monday had one episode of BRBPR but felt well. Monday suggestss he had three episodes of BRBPR and sought ED care. Notes that she feels well. She does not have any abd pain. No nausea, vomiting. She has had 2/3 episodes of rectal bleeding today but no report of black stools. No previous nausea/vomiting or reports of black/bloody emesis. HGB 13 --> 10 Normal BUN No recent abdominal imaging EGD 2017: chronic gastritis Colon 2017: diverticulosis and hemorrhoids Allergies Allergy/AdvReac Type Severity Reaction Status Date / Time adhesive Allergy Intermediate SENSITIVE, Verified 11/22/21 20:23 RASH montelukast Allergy Intermediate RASH, HYPER Verified 11/22/21 20:23 Penicillins Allergy Rash Verified 11/23/21 16:10 salicylates AdvReac Intermediate VOMITING Verified 11/22/21 20:23 Home Medications Medication Instructions Recorded Confirmed Type citalopram 10 mg tablet (Celexa) 10 mg PO DAILY 06/15/20 09/28/22 History famotidine 20 mg tablet 20 mg PO DAILY 06/15/20 09/28/22 History levothyroxine 100 mcg tablet 100 mcg PO DAILY 06/15/20 09/28/22 History pantoprazole 40 mg tablet,delayed 40 mg PO DAILY 06/15/20 09/28/22 History release solifenacin 5 mg tablet 5 mg PO DAILY 06/15/20 09/28/22 History tramadol 50 mg tablet 50 mg PO Q6H PRN Pain 06/15/20 09/28/22 History acetaminophen 500 mg tablet 1,000 mg PO BID 11/22/21 09/28/22 History (Tylenol Extra Strength) calcium carbonate 600 mg-vitamin 1 tab PO DAILY 11/22/21 09/28/22 History D3 10 mcg (400 unit) tablet (Calcium 600 + D(3)) docusate sodium 100 mg capsule 200 mg PO DAILY 11/22/21 09/28/22 History (Stool Softener) enalapril maleate 5 mg tablet 5 mg PO QAM 11/22/21 09/28/22 History furosemide 20 mg tablet 20 mg PO QAM 11/22/21 09/28/22 History multivitamin 1 tab PO DAILY 11/22/21 09/28/22 History potassium chloride 10 mEq 10 meq PO DAILY 11/22/21 09/28/22 History capsule,extended release denosumab 60 mg/mL subcutaneous 60 mg subcut .Q6M 09/28/22 09/28/22 History syringe (Prolia) mirabegron 50 mg tablet,extended 50 mg PO DAILY 09/28/22 09/28/22 History release 24 hr (Myrbetriq) Patient History Medical History (Updated 09/28/22 @ 17:41 by CHELE Pruett) Aortic valve sclerosis BRBPR (bright red blood per rectum) Depression Dyslipidemia GERD (gastroesophageal reflux disease) History of gastrointestinal diverticular hemorrhage HTN (hypertension) Hypothyroidism Hypoxia LGI bleed Nausea & vomiting Near syncope Osteoarthritis Rectal bleeding Urge incontinence Surgical History History of arthroscopic knee surgery History of cholecystectomy History of hysterectomy History of tonsillectomy Family History Father Heart disease Brother Lung cancer Brother Gastric cancer Mother Brain cancer Social History Smoking Status: Never smoker Second Hand Exposure: No; Do You Dip or Chew Tobacco: No; Hx Alcohol Use: No Hx Substance Use: No Preferred Language: Swazi Communication Ability: Effective Patch Sander Required: No Beliefs That Will Affect Care: None Current Living Situation: Spouse and Family Current Living Situation Comment: lives with and daughter Other Information That Helps Us Care for You: No Feels Safe at Home: Yes Safety Concerns: Feels Safe At This Time Assistive Devices: Walker Review of Systems Review of Systems: All systems reviewed & are unremarkable except as noted in HPI & below Physical Exam Constitutional: WD/WN, vitals as above Neck: trachea midline Respiratory: normal respiratory effort; no respiratory distress Cardiovascular: Rate/Rhythm: regular rate and regular rhythm Gastrointestinal (Abdomen): normal bowel sounds, soft, nontender, no hepatosplenomegaly Skin: no rashes, warm and dry Results & Data Vital Signs (Past 12 Hours) Vital Signs Temp Pulse Pulse Resp BP Pulse Ox O2 Del Method 09/29/22 08:02 36.7 C 101 H 18 132/87 93 Room Air 09/29/22 02:56 36.6 C 124 H 18 117/78 94 Room Air 09/28/22 22:54 122 H 09/28/22 23:07 36.8 C 121 H 20 110/78 93 Room Air Laboratory Results 09/29/22 09/29/22 09/29/22 Range/Units 09:50 03:07 03:07 WBC 8.14 (4.8-10.8) K/ul RBC 3.34 L (4.20-5.40) M/uL Hgb 10.0 L (12.0-16.0) g/dl Hct 30.8 L (37.0-47.0) % MCV 92.2 (80.0-100.0) fL MCH 29.9 (25.0-34.0) pg MCHC 32.5 (32.0-36.0) g/dL RDW Std Deviation 50.2 H (36.4-46.3) fL RDW Coeff of Talisha 14.9 H (11.5-14.5) % Plt Count 194 (130-400) K/uL MPV 10.4 (9.4-12.4) fL Immature Gran % (Auto) 0.4 % Neut % (Auto) 69.1 % Lymph % (Auto) 19.0 % Dixie % (Auto) 9.7 % Eos % (Auto) 0.9 % Baso % (Auto) 0.9 % Neut # (Auto) 5.63 (1.40-6.50) K/uL Lymph # (Auto) 1.55 (1.2-3.4) K/uL Dixie # (Auto) 0.79 H (0.11-0.59) K/uL Eos # (Auto) 0.07 (0-0.50) K/uL Baso # (Auto) 0.07 (0-0.2) K/uL Immature Gran # (Auto) 0.03 (0.01-0.20) K/uL PT 11.4 (9.0-12.0) Seconds INR 1.0 (0.9-1.1) APTT (21.0-31.0) Seconds PTT Ratio Sodium 138 (136-145) mmol/L Potassium 4.0 (3.5-5.1) mmol/L Chloride 105 (98-107) mmol/L Carbon Dioxide 27 (21-32) mmol/L Anion Gap 6 (3-11) BUN 20 (6-23) mg/dl Creatinine 0.67 (0.6-1.2) mg/dl Est Cr Clr Drug Dosing 59.8 ml/min Est GFR ( Amer) 91.0 ml/min Est GFR (Non-Af Amer) 78.5 ml/min BUN/Creatinine Ratio 29.9 H (10-20) Glucose 114 H (70-99(Fasting)) mg/dl Calcium 8.6 (8.6-10.3) mg/dl Magnesium (1.7-2.4) mg/dl Total Bilirubin 0.9 (0.2-1.0) mg/dl Direct Bilirubin (0-0.2) mg/dl AST 13 (13-39) U/L ALT 6 L (7-52) U/L Alkaline Phosphatase 38 (34-104) U/L Troponin I High Sens (0-14) pg/ml B-Natriuretic Peptide (0-100) pg/ml Total Protein 5.6 L D (6.0-8.3) gm/dl Albumin 3.4 (3.4-5.0) gm/dl Globulin 2.2 L (2.5-4.0) gm/dl Albumin/Globulin Ratio 1.5 (0.9-2) Lipase (11-82) U/L SARS-CoV-2, RNA, NAAT (NEGATIVE) Blood Type Antibody Screen 09/29/22 09/28/22 09/28/22 Range/Units 03:07 22:00 18:00 WBC 8.47 (4.8-10.8) K/ul RBC 3.53 L (4.20-5.40) M/uL Hgb 10.6 L 11.5 L (12.0-16.0) g/dl Hct 32.9 L 34.9 L (37.0-47.0) % MCV 93.2 (80.0-100.0) fL MCH 30.0 (25.0-34.0) pg MCHC 32.2 (32.0-36.0) g/dL RDW Std Deviation 51.3 H (36.4-46.3) fL RDW Coeff of Talisha 14.9 H (11.5-14.5) % Plt Count 205 (130-400) K/uL MPV 10.2 (9.4-12.4) fL Immature Gran % (Auto) % Neut % (Auto) % Lymph % (Auto) % Dixie % (Auto) % Eos % (Auto) % Baso % (Auto) % Neut # (Auto) (1.40-6.50) K/uL Lymph # (Auto) (1.2-3.4) K/uL Dixie # (Auto) (0.11-0.59) K/uL Eos # (Auto) (0-0.50) K/uL Baso # (Auto) (0-0.2) K/uL Immature Gran # (Auto) (0.01-0.20) K/uL PT (9.0-12.0) Seconds INR (0.9-1.1) APTT (21.0-31.0) Seconds PTT Ratio Sodium (136-145) mmol/L Potassium (3.5-5.1) mmol/L Chloride (98-107) mmol/L Carbon Dioxide (21-32) mmol/L Anion Gap (3-11) BUN (6-23) mg/dl Creatinine (0.6-1.2) mg/dl Est Cr Clr Drug Dosing ml/min Est GFR ( Amer) ml/min Est GFR (Non-Af Amer) ml/min BUN/Creatinine Ratio (10-20) Glucose (70-99(Fasting)) mg/dl Calcium (8.6-10.3) mg/dl Magnesium (1.7-2.4) mg/dl Total Bilirubin (0.2-1.0) mg/dl Direct Bilirubin (0-0.2) mg/dl AST (13-39) U/L ALT (7-52) U/L Alkaline Phosphatase (34-104) U/L Troponin I High Sens (0-14) pg/ml B-Natriuretic Peptide (0-100) pg/ml Total Protein (6.0-8.3) gm/dl Albumin (3.4-5.0) gm/dl Globulin (2.5-4.0) gm/dl Albumin/Globulin Ratio (0.9-2) Lipase (11-82) U/L SARS-CoV-2, RNA, NAAT NEGATIVE (NEGATIVE) Blood Type Antibody Screen 09/28/22 09/28/22 09/28/22 Range/Units 16:32 15:45 15:45 WBC (4.8-10.8) K/ul RBC (4.20-5.40) M/uL Hgb (12.0-16.0) g/dl Hct (37.0-47.0) % MCV (80.0-100.0) fL MCH (25.0-34.0) pg MCHC (32.0-36.0) g/dL RDW Std Deviation (36.4-46.3) fL RDW Coeff of Talisha (11.5-14.5) % Plt Count (130-400) K/uL MPV (9.4-12.4) fL Immature Gran % (Auto) % Neut % (Auto) % Lymph % (Auto) % Dixie % (Auto) % Eos % (Auto) % Baso % (Auto) % Neut # (Auto) (1.40-6.50) K/uL Lymph # (Auto) (1.2-3.4) K/uL Dixie # (Auto) (0.11-0.59) K/uL Eos # (Auto) (0-0.50) K/uL Baso # (Auto) (0-0.2) K/uL Immature Gran # (Auto) (0.01-0.20) K/uL PT (9.0-12.0) Seconds INR (0.9-1.1) APTT (21.0-31.0) Seconds PTT Ratio Sodium 137 (136-145) mmol/L Potassium 4.1 (3.5-5.1) mmol/L Chloride 101 (98-107) mmol/L Carbon Dioxide 28 (21-32) mmol/L Anion Gap 8 (3-11) BUN 17 (6-23) mg/dl Creatinine 0.78 (0.6-1.2) mg/dl Est Cr Clr Drug Dosing 48.6 ml/min Est GFR ( Amer) 78.7 ml/min Est GFR (Non-Af Amer) 67.9 ml/min BUN/Creatinine Ratio 21.8 H (10-20) Glucose 100 H (70-99(Fasting)) mg/dl Calcium 9.3 (8.6-10.3) mg/dl Magnesium 2.0 (1.7-2.4) mg/dl Total Bilirubin 0.8 (0.2-1.0) mg/dl Direct Bilirubin 0.2 (0-0.2) mg/dl AST 16 (13-39) U/L ALT 7 (7-52) U/L Alkaline Phosphatase 48 (34-104) U/L Troponin I High Sens 10.3 (0-14) pg/ml B-Natriuretic Peptide 37 (0-100) pg/ml Total Protein 7.2 (6.0-8.3) gm/dl Albumin 4.2 (3.4-5.0) gm/dl Globulin (2.5-4.0) gm/dl Albumin/Globulin Ratio (0.9-2) Lipase 12 (11-82) U/L SARS-CoV-2, RNA, NAAT (NEGATIVE) Blood Type O Positive Antibody Screen NEGATIVE 09/28/22 09/28/22 Range/Units 15:45 15:45 WBC 7.40 (4.8-10.8) K/ul RBC 4.42 (4.20-5.40) M/uL Hgb 13.4 (12.0-16.0) g/dl Hct 41.5 (37.0-47.0) % MCV 93.9 (80.0-100.0) fL MCH 30.3 (25.0-34.0) pg MCHC 32.3 (32.0-36.0) g/dL RDW Std Deviation 51.0 H (36.4-46.3) fL RDW Coeff of Talisha 14.6 H (11.5-14.5) % Plt Count 222 (130-400) K/uL MPV 10.1 (9.4-12.4) fL Immature Gran % (Auto) 0.4 % Neut % (Auto) 65.1 % Lymph % (Auto) 21.4 % Dixie % (Auto) 10.4 % Eos % (Auto) 1.8 % Baso % (Auto) 0.9 % Neut # (Auto) 4.82 (1.40-6.50) K/uL Lymph # (Auto) 1.58 (1.2-3.4) K/uL Dixie # (Auto) 0.77 H (0.11-0.59) K/uL Eos # (Auto) 0.13 (0-0.50) K/uL Baso # (Auto) 0.07 (0-0.2) K/uL Immature Gran # (Auto) 0.03 (0.01-0.20) K/uL PT 10.9 (9.0-12.0) Seconds INR 1.0 (0.9-1.1) APTT 26.4 (21.0-31.0) Seconds PTT Ratio 0.9 Sodium (136-145) mmol/L Potassium (3.5-5.1) mmol/L Chloride (98-107) mmol/L Carbon Dioxide (21-32) mmol/L Anion Gap (3-11) BUN (6-23) mg/dl Creatinine (0.6-1.2) mg/dl Est Cr Clr Drug Dosing ml/min Est GFR ( Amer) ml/min Est GFR (Non-Af Amer) ml/min BUN/Creatinine Ratio (10-20) Glucose (70-99(Fasting)) mg/dl Calcium (8.6-10.3) mg/dl Magnesium (1.7-2.4) mg/dl Total Bilirubin (0.2-1.0) mg/dl Direct Bilirubin (0-0.2) mg/dl AST (13-39) U/L ALT (7-52) U/L Alkaline Phosphatase (34-104) U/L Troponin I High Sens (0-14) pg/ml B-Natriuretic Peptide (0-100) pg/ml Total Protein (6.0-8.3) gm/dl Albumin (3.4-5.0) gm/dl Globulin (2.5-4.0) gm/dl Albumin/Globulin Ratio (0.9-2) Lipase (11-82) U/L SARS-CoV-2, RNA, NAAT (NEGATIVE) Blood Type Antibody Screen
[2022-09-29] MEDS ORDERED: LAVAGE SOLUTION 4000ML PO SCH (11:00)
[2022-09-29] MEDS: ONDANSETRON INJ 2 MG/ML 2 ML VIAL IV PRN (14:10)
--- NOTE | 2022-09-29 15:12 | Hospitalist Progress Note ---
Date of Service September 29, 2022 Assessment & Plan (1) BRBPR (bright red blood per rectum): (2) Hypoxia: (3) History of gastrointestinal diverticular hemorrhage: (4) HTN (hypertension): (5) Dyslipidemia: (6) Hypothyroidism: (7) GERD (gastroesophageal reflux disease): (8) Depression: Plan Per admitting service notes with addendum: 87 year old presents with BRBPR that started this morning. 3 episodes in the toilet and in a brief. History of GI diverticular hemorrhage. Has had colonoscopy for diverticulosis; EGD 2014 with mild inflammation Hgb 13.4; will trend Q6 x2 and in AM. NPO for now. LR at 80mL/hour x2 bags; reassess in AM. Blood consent signed. Type and Cross ordered; hold 2 UPRBC; transfuse for Hgb < 8.0 GI consult placed. Hematochezia History of GI diverticular hemorrhage: Not on any AC Has had colonoscopy for diverticulosis; EGD 2014 with mild inflammation Hgb 13.4; will trend Q6 x2 and in AM NPO for now LR at 80mL/hour x2 bags; reassess in AM Blood consent signed Type and Cross ordered; hold 2 UPRBC; transfuse for Hgb < 8.0 GI consult placed 09/29 Hemoglobin trended down from 11.5, now 10 Repeat hemoglobin this afternoon GI consulted, Johnly If with persistence of hematochezia, colonoscopy tomorrow HTN: hold Enalapril and Lasix Hypothyroidism: Takes levothyroxine; continue GERD: Takes Protonix and Pepcid; continue Depression: Takes Celexa; continue Disposition: PCP: Dr. Frost Code Status: DNR/DNI VTE Prophylaxis: Teds and SCDs for now plan of care discussed with patient in detail all questions answered she is understanding, agreeable, comfortable with the plan of care Admission and Anticipated Discharge Date Admission Date: September 28, 2022 Subjective Follow-up for hematochezia, etc. Seen sitting up in bed, comfortable, not in distress Still having 2-3 episodes of hematochezia this morning Denies abdominal pain, nausea vomiting, chest pain, shortness of breath, dizziness, palpitations No other symptom Review of Systems Review of Systems: all noted and negative except for above Physical Exam Physical Exam: General- oriented x 3, not in distress, speaks in sentences with no effort or accessory muscle use Head- atraumatic Eyes- PERRL, EOMI, anicteric ENT- oropharynx clear Neck- supple, no JVD, no adenopathy, no thyromegaly; carotids +2/2, no bruits appreciated Lungs- clear to auscultation bilaterally, no rales/wheezes Heart- normal rate, regular rhythm; no murmur, no gallop, no rub appreciated Abdomen- normal bowel sounds, nondistended, soft, nontender, no masses or hepatosplenomegaly Extremities- no pretibial edema, no calf tenderness; peripheral pulses intact Neuro- alert, oriented x 3; CN 2-12 grossly intact; motor 5/5 bilaterally;sensation 100% on all extremities; no other gross focal neurologic deficits Skin- warm & dry Results & Data Results & Data Vital Signs (Past 12 Hours) Vital Signs Temp Pulse Resp BP Pulse Ox O2 Del Method 09/29/22 11:49 36.8 C 106 H 18 142/81 H 96 Room Air 09/29/22 08:02 36.7 C 101 H 18 132/87 93 Room Air all noted and reviewed including below (4) HTN (hypertension) Hypertension type: essential hypertension Qualified Code(s): I10 - Essential (primary) hypertension (6) Hypothyroidism Hypothyroidism type: acquired Qualified Code(s): E03.9 - Hypothyroidism, unspecified
[2022-09-29] MEDS ORDERED: SODIUM CHLORIDE 0.9% 1000ML 500 ML IV ONE (16:55)
[2022-09-29 16:57] LABS: Hematocrit (blood only) 28.4 % (37.0-47.0); Hemoglobin 9.4 g/dl (12.0-16.0)
[2022-09-29] MEDS ORDERED: METOPROLOL TARTRATE 1 MG/ML VIAL IV STA (20:21)
[2022-09-29] MEDS: SODIUM CHLORIDE 0.9% 1000ML 1,000 ML IV SCH (20:50)
[2022-09-29 23:25] LABS: Hemoglobin 8.8 g/dl (12.0-16.0)
[2022-09-30 04:51] LABS: Basophils # (auto) 0.06 K/uL (0-0.2); Basophils % (auto) 0.9 %; Eosinophils % (auto) 2.9 %; Hematocrit (blood only) 27.6 % (37.0-47.0); Hemoglobin 8.7 g/dl (12.0-16.0); Immature Granulocytes # (auto) 0.05 K/uL (0.01-0.20); Immature Granulocytes % (auto) 0.7 %; Lymphocytes # (auto) 1.85 K/uL (1.2-3.4); Mean Corpuscular Hgb Conc 31.5 g/dL (32.0-36.0); Mean Corpuscular Volume 95.2 fL (80.0-100.0); Mean Platelet Volume 10.1 fL (9.4-12.4); Monocytes # (auto) 0.84 K/uL (0.11-0.59); Monocytes % (auto) 12.2 %; Neutrophils # (auto) 3.86 K/uL (1.40-6.50); Neutrophils % (auto) 56.3 %; Platelet Count 175 K/uL (130-400); RDW Standard Deviation 51.8 fL (36.4-46.3); White Blood Count 6.86 K/ul (4.8-10.8)
[2022-09-30 05:04] LABS: BUN Creatinine Ratio 24.1 (10-20); Calcium 8.4 mg/dl (8.6-10.3); Creatinine Clr Calc Pharmacy 69.1 ml/min; Est GFR (African American) 95.4 ml/min; Est GFR (Non-African American) 82.3 ml/min; Potassium 3.7 mmol/L (3.5-5.1)
[2022-09-30] MEDS: LEVOTHYROXINE SODIUM 100 MCG TABLET PO SCH (05:59)
--- NOTE | 2022-09-30 08:26 | Anesthesiology Consultation ---
Date of Service September 30, 2022 Assessment & Plan (1) Encounter for pre-operative examination: History Surgery Operation Date: 09/30/22 16:45 Proposed Procedures p Colonoscopy Dr Elmo Borrego, Height/Weight Height: 5 ft 6 in Weight: 74.3 kg Allergies Allergy/AdvReac Type Severity Reaction Status Date / Time adhesive Allergy Intermediate SENSITIVE, Verified 11/22/21 20:23 RASH montelukast Allergy Intermediate RASH, HYPER Verified 11/22/21 20:23 Penicillins Allergy Rash Verified 11/23/21 16:10 salicylates AdvReac Intermediate VOMITING Verified 11/22/21 20:23 Medications Home Medications Medication Instructions Recorded Confirmed Last Taken citalopram 10 mg tablet (Celexa) 10 mg PO DAILY 06/15/20 09/28/22 11/22/21 famotidine 20 mg tablet 20 mg PO DAILY 06/15/20 09/28/22 11/22/21 levothyroxine 100 mcg tablet 100 mcg PO DAILY 06/15/20 09/28/22 11/22/21 pantoprazole 40 mg tablet,delayed 40 mg PO DAILY 06/15/20 09/28/22 11/22/21 release solifenacin 5 mg tablet 5 mg PO DAILY 06/15/20 09/28/22 11/22/21 tramadol 50 mg tablet 50 mg PO Q6H PRN Pain 06/15/20 09/28/22 06/14/20 acetaminophen 500 mg tablet 1,000 mg PO BID 11/22/21 09/28/22 11/22/21 08:00 (Tylenol Extra Strength) calcium carbonate 600 mg-vitamin 1 tab PO DAILY 11/22/21 09/28/22 11/22/21 D3 10 mcg (400 unit) tablet (Calcium 600 + D(3)) docusate sodium 100 mg capsule 200 mg PO DAILY 11/22/21 09/28/22 11/22/21 (Stool Softener) enalapril maleate 5 mg tablet 5 mg PO QAM 11/22/21 09/28/22 11/22/21 furosemide 20 mg tablet 20 mg PO QAM 11/22/21 09/28/22 11/22/21 multivitamin 1 tab PO DAILY 11/22/21 09/28/22 11/22/21 potassium chloride 10 mEq 10 meq PO DAILY 11/22/21 09/28/22 11/22/21 capsule,extended release denosumab 60 mg/mL subcutaneous 60 mg subcut .Q6M 09/28/22 09/28/22 08/29/22 syringe (Prolia) mirabegron 50 mg tablet,extended 50 mg PO DAILY 09/28/22 09/28/22 Unknown release 24 hr (Myrbetriq) Active Medications Generic Name Dose Route Start Last Admin Trade Name Freq PRN Reason Stop Dose Admin Calcium/Vitamin D 1 tab 09/29/22 09:00 09/29/22 08:48 Calcium 600mg + Vit D 400 Iu Tab PO 10/29/22 08:59 1 tab DAILY AREN Administration Citalopram Hydrobromide 10 mg 09/29/22 09:00 09/29/22 08:48 Citalopram 20 Mg Tab PO 10/29/22 08:59 10 mg DAILY AREN Administration Docusate Sodium 200 mg 09/29/22 09:00 09/29/22 08:51 Docusate Sodium 100 Mg Cap PO 10/29/22 08:59 Not Given DAILY AREN Famotidine 20 mg 09/29/22 09:00 09/29/22 08:52 Famotidine 20 Mg Tab PO 10/29/22 08:59 20 mg DAILY AREN Administration Sodium Chloride 1,000 mls @ 80 mls/hr 09/29/22 20:30 09/29/22 20:50 Nss 1000ml IV 10/29/22 20:29 80 mls/hr .[id number] AREN Administration Levothyroxine Sodium 100 mcg 09/29/22 06:30 09/30/22 05:59 Levothyroxine Sodium 100 Mcg Tablet PO 10/29/22 06:29 100 mcg DAILYBB AREN Administration Ondansetron HCl 4 mg 09/28/22 17:32 09/29/22 14:10 Ondansetron Inj 2 Mg/Ml 2 Ml Vial IV 10/28/22 17:31 4 mg Q6H PRN Administration Nausea Oxybutynin Chloride 5 mg 09/29/22 09:00 09/29/22 09:40 Oxybutynin Chloride Xl 5 Mg Tabcr PO 10/29/22 08:59 5 mg DAILY AREN Administration Pantoprazole Sodium 40 mg 09/29/22 09:00 09/29/22 08:52 Pantoprazole 40 Mg Tab PO 10/29/22 08:59 40 mg DAILY AREN Administration Past Medical History Medical History Aortic valve sclerosis BRBPR (bright red blood per rectum) Depression Dyslipidemia Encounter for pre-operative examination GERD (gastroesophageal reflux disease) History of gastrointestinal diverticular hemorrhage HTN (hypertension) Hypothyroidism Hypoxia LGI bleed Nausea & vomiting Near syncope Osteoarthritis Rectal bleeding Urge incontinence Past Family History Family History Father Heart disease Brother Lung cancer Brother Gastric cancer Mother Brain cancer Past Surgical History Surgical History History of arthroscopic knee surgery History of cholecystectomy History of hysterectomy History of tonsillectomy Social History Smoking Status: Never smoker Do You Dip or Chew Tobacco: No Hx Alcohol Use: No Hx Substance Use: No substance use type: does not use Physical Exam Vital Signs Last Vital Signs Temp 36.5 C 09/30/22 03:00 Pulse 96 H 09/30/22 03:00 Resp 16 09/30/22 03:00 BP 147/80 H 09/30/22 03:00 Pulse Ox 95 09/30/22 03:00 O2 Del Method Room Air 09/30/22 03:00 O2 Flow Rate 1 09/28/22 19:45 Testing Laboratory Results 09/30/22 04:30 09/30/22 04:30 PT 11.4 Seconds (9.0-12.0) 09/29/22 03:07 INR 1.0 (0.9-1.1) 09/29/22 03:07 APTT 26.4 Seconds (21.0-31.0) 09/28/22 15:45 Blood Type O Positive 09/28/22 16:32 Antibody Screen NEGATIVE 09/28/22 16:32 Electrocardiogram Date: 09/28/22 Test Reason : Blood Pressure : / mmHG Vent. Rate : 121 BPM Atrial Rate : 121 BPM P-R Int : 156 ms QRS Dur : 084 ms QT Int : 334 ms P-R-T Axes : 071 -23 088 degrees QTc Int : 474 ms Sinus tachycardia Poor R wave progression, consider anterior RI vs. lead placement vs. LVH Incomplete right bundle branch block Abnormal ECG When compared with ECG of 22-NOV-2021 18:44, Premature atrial complexes are no longer Present Confirmed by Daniel Luna ([id number]) on 09/28/2022 4:51:27 PM Chest X-Ray Date: 09/28/22 XR chest 1V portable CLINICAL HISTORY: sob TECHNIQUE: Single frontal radiograph of the chest was obtained. Comparison: None available at the time of this dictation. FINDINGS: No lines and tubes are seen. Calcified aortic knob is seen. Lungs are underinflated but clear. No evidence of pleural effusion or pneumothorax. IMPRESSION: No acute abnormalities and in particular no radiographic evidence of pneumonia. Echocardiogram Date: 06/23/20 EF: 55-60% LV Function: normal RWMA: + none Other Findings: + LVH (mild)
--- NOTE | 2022-09-30 08:33 | Gastroenterology Progress Note ---
Date of Service September 30, 2022 Assessment & Plan (1) BRBPR (bright red blood per rectum): Plan 87 year old female with history of aortic valve sclerosis, HTN, HLD, diverticular hemorrhage, OA, hypothyroidism, depression, and GERD presenting to the ED w/ painless rectal bleeding since Monday. Suspect diverticular bleeding vs other. Bleeding persist with golytely prep NPO Proceed with colonoscopy attempt today (only consumed 1/3 prep) Trend H&H Transfuse PRN Monitor and document GI output Thank you for allowing us to participate in the care of this patient. Please call with any acute changes, questions or concerns. Please see addendum below with additional recommendation from my supervising physician. Admission and Anticipated Discharge Date Admission Date: September 28, 2022 Supervising Physician Co-Signing Physician Notes Sinusitis I saw him today evaluated the patient, we were asked to see the patient for hematochezia. Given the brisk nature of her bleeding we will proceed with upper endoscopy and colonoscopy today. We discussed the risks to include bleeding infection perforation pain and need for further intervention such as interventional radiology referral. Subjective Pt was seen and evaluated, chart reviewed. Persistent bleeding with attempt of bowel prep last evening. Had an episode of emesis with prep, clear. No black/bloody emesis. No abd pain this AM. No fever, chills, CP, SOB. Review of Systems 2 Review of Systems: All systems reviewed & are unremarkable except as noted in HPI & below Physical Exam Constitutional: WD/WN, vitals as above Respiratory: normal respiratory effort, lungs clear to auscultation Cardiovascular: Rate/Rhythm: regular rate Gastrointestinal (Abdomen): normal bowel sounds, soft, nontender, no hepatosplenomegaly Skin: no rashes, warm and dry Results & Data Vital Signs (Past 12 Hours) Vital Signs Temp Pulse Pulse Resp BP BP Pulse Ox 09/30/22 03:00 36.5 C 96 H 16 147/80 H 95 09/30/22 01:45 36.9 C 101 H 13 150/82 H 91 09/29/22 22:00 97 H 09/29/22 22:43 36.7 C 117 H 16 132/84 93 09/29/22 22:40 36.9 C 94 H 12 130/78 91 09/29/22 20:49 125 H 130/78 O2 Del Method 09/30/22 03:00 Room Air 05/19/23 01:45 Room Air 09/29/22 22:00 09/29/22 22:43 Room Air 09/29/22 22:40 Room Air 09/29/22 20:49 Laboratory Results 09/30/22 09/30/22 09/29/22 Range/Units 04:30 04:30 22:47 WBC 6.86 (4.8-10.8) K/ul RBC 2.90 L (4.20-5.40) M/uL Hgb 8.7 L 8.8 L (12.0-16.0) g/dl Hct 27.6 L 27.0 L (37.0-47.0) % MCV 95.2 (80.0-100.0) fL MCH 30.0 (25.0-34.0) pg MCHC 31.5 L (32.0-36.0) g/dL RDW Std Deviation 51.8 H (36.4-46.3) fL RDW Coeff of Talisha 15.0 H (11.5-14.5) % Plt Count 175 (130-400) K/uL MPV 10.1 (9.4-12.4) fL Immature Gran % (Auto) 0.7 % Neut % (Auto) 56.3 % Lymph % (Auto) 27.0 % Boyd % (Auto) 12.2 % Eos % (Auto) 2.9 % Baso % (Auto) 0.9 % Neut # (Auto) 3.86 (1.40-6.50) K/uL Lymph # (Auto) 1.85 (1.2-3.4) K/uL Boyd # (Auto) 0.84 H (0.11-0.59) K/uL Eos # (Auto) 0.20 (0-0.50) K/uL Baso # (Auto) 0.06 (0-0.2) K/uL Immature Gran # (Auto) 0.05 (0.01-0.20) K/uL Sodium 139 (136-145) mmol/L Potassium 3.7 (3.5-5.1) mmol/L Chloride 109 H (98-107) mmol/L Carbon Dioxide 27 (21-32) mmol/L Anion Gap 3 (3-11) BUN 14 (6-23) mg/dl Creatinine 0.58 L (0.6-1.2) mg/dl Est Cr Clr Drug Dosing 69.1 ml/min Est GFR ( Amer) 95.4 ml/min Est GFR (Non-Af Amer) 82.3 ml/min BUN/Creatinine Ratio 24.1 H (10-20) Glucose 104 H (70-99(Fasting)) mg/dl Calcium 8.4 L (8.6-10.3) mg/dl Magnesium 2.0 (1.7-2.4) mg/dl 09/29/22 09/29/22 Range/Units 16:46 09:50 WBC 8.14 (4.8-10.8) K/ul RBC 3.34 L (4.20-5.40) M/uL Hgb 9.4 L 10.0 L (12.0-16.0) g/dl Hct 28.4 L 30.8 L (37.0-47.0) % MCV 92.2 (80.0-100.0) fL MCH 29.9 (25.0-34.0) pg MCHC 32.5 (32.0-36.0) g/dL RDW Std Deviation 50.2 H (36.4-46.3) fL RDW Coeff of Talisha 14.9 H (11.5-14.5) % Plt Count 194 (130-400) K/uL MPV 10.4 (9.4-12.4) fL Immature Gran % (Auto) 0.4 % Neut % (Auto) 69.1 % Lymph % (Auto) 19.0 % Boyd % (Auto) 9.7 % Eos % (Auto) 0.9 % Baso % (Auto) 0.9 % Neut # (Auto) 5.63 (1.40-6.50) K/uL Lymph # (Auto) 1.55 (1.2-3.4) K/uL Boyd # (Auto) 0.79 H (0.11-0.59) K/uL Eos # (Auto) 0.07 (0-0.50) K/uL Baso # (Auto) 0.07 (0-0.2) K/uL Immature Gran # (Auto) 0.03 (0.01-0.20) K/uL Sodium (136-145) mmol/L Potassium (3.5-5.1) mmol/L Chloride (98-107) mmol/L Carbon Dioxide (21-32) mmol/L Anion Gap (3-11) BUN (6-23) mg/dl Creatinine (0.6-1.2) mg/dl Est Cr Clr Drug Dosing ml/min Est GFR ( Amer) ml/min Est GFR (Non-Af Amer) ml/min BUN/Creatinine Ratio (10-20) Glucose (70-99(Fasting)) mg/dl Calcium (8.6-10.3) mg/dl Magnesium (1.7-2.4) mg/dl
[2022-09-30] MEDS: FAMOTIDINE 20 MG TAB PO SCH (09:44)
[2022-09-30] MEDS: PANTOprazole 40 MG TAB PO SCH (09:44)
[2022-09-30] MEDS: CITALOPRAM 20 MG TAB PO SCH (09:44)
[2022-09-30] MEDS: VIBEGRON 75 MG TAB PO SCH (09:44)
[2022-09-30] MEDS: CALCIUM 600MG + VIT D 400 IU TAB PO SCH (09:44)
[2022-09-30] MEDS: SODIUM CHLORIDE 0.9% 1000ML 1,000 ML IV SCH ×3 (09:44→20:41)
[2022-09-30] MEDS: OXYBUTYNIN CHLORIDE XL 5 MG TABCR PO SCH (09:44)
[2022-09-30] MEDS: DOCUSATE SODIUM 100 MG CAP PO SCH (09:45)
[2022-09-30 11:09] LABS: Basophils # (auto) 0.07 K/uL (0-0.2); Basophils % (auto) 1.1 %; Eosinophils # (auto) 0.11 K/uL (0-0.50); Eosinophils % (auto) 1.7 %; Hemoglobin 8.6 g/dl (12.0-16.0); Immature Granulocytes # (auto) 0.06 K/uL (0.01-0.20); Immature Granulocytes % (auto) 0.9 %; Lymphocytes # (auto) 1.48 K/uL (1.2-3.4); Lymphocytes % (auto) 22.6 %; Mean Corpuscular Hemoglobin 30.2 pg (25.0-34.0); Mean Corpuscular Hgb Conc 31.9 g/dL (32.0-36.0); Mean Corpuscular Volume 94.7 fL (80.0-100.0); Mean Platelet Volume 10.3 fL (9.4-12.4); Monocytes # (auto) 0.69 K/uL (0.11-0.59); Monocytes % (auto) 10.6 %; Neutrophils # (auto) 4.13 K/uL (1.40-6.50); Neutrophils % (auto) 63.1 %; Platelet Count 176 K/uL (130-400); RDW Coefficient of Variation 15.1 % (11.5-14.5); RDW Standard Deviation 53.1 fL (36.4-46.3); Red Blood Count 2.85 M/uL (4.20-5.40); White Blood Count 6.54 K/ul (4.8-10.8)
[2022-09-30] MEDS ORDERED: PROPOFOL IV EMULSION 10 MG/ML 20 ML VIAL IV ONE (14:41)
[2022-09-30] MEDS ORDERED: LIDOCAINE 2% 2 ML VIAL/AMP(20MG/ML) INFIL ONE (14:41)
--- NOTE | 2022-09-30 15:05 | GI REPORT ---
Patient Name: Soco Steiner Procedure Date: 09/30/2022 2:49 PM Date of : 1935 Admit Type: Inpatient Age: 87 Gender: Female Attending MD: Kimberly Borrego DO, Procedure: Upper GI endoscopy Providers: Kimberly Borrego DO Referring MD: Channing Santana Indications: Hematochezia Medicines: Monitored Anesthesia Care Complications: No immediate complications. Estimated blood loss: Minimal. Estimated Blood Loss: Estimated blood loss was minimal. Procedure: Pre-Anesthesia Assessment: - Prior to the procedure, a History and Physical was performed, and patient medications, allergies and sensitivities were reviewed. The patient's tolerance of previous anesthesia was reviewed. - The risks and benefits of the procedure and the sedation options and risks were discussed with the patient. All questions were answered and informed consent was obtained. - Patient identification and proposed procedure were verified prior to the procedure by the physician, the nurse and the wildlife ecologist. The procedure was verified in the procedure room. - Pre-procedure physical examination revealed no contraindications to sedation. - ASA Grade Assessment: III - A patient with severe systemic disease. - After reviewing the risks and benefits, the patient was deemed in satisfactory condition to undergo the procedure. - The anesthesia plan was to use monitored anesthesia care (MAC). - Immediately prior to administration of medications, the patient was re-assessed for adequacy to receive sedatives. - The heart rate, respiratory rate, oxygen saturations, blood pressure, adequacy of pulmonary ventilation, and response to care were monitored throughout the procedure. - The physical status of the patient was re-assessed after the procedure. After obtaining informed consent, the endoscope was passed under direct vision. Throughout the procedure, the patient's blood pressure, pulse, and oxygen saturations were monitored continuously. The Colonoscope was introduced through the mouth, and advanced to the third part of duodenum. The upper GI endoscopy was accomplished without difficulty. The patient tolerated the procedure well. Findings: The examined esophagus was normal. The Z-line was regular and was found 38 cm from the incisors. Diffuse moderate inflammation characterized by congestion (edema), erythema and granularity was found in the entire examined stomach. The examined duodenum was normal. Impression: - Normal esophagus. - Z-line regular, 38 cm from the incisors. - Atrophic gastritis. - Normal examined duodenum. - No specimens collected due to ongoing hematochezia. Recommendation: - Perform a colonoscopy today. - Use Prilosec (omeprazole) 20 mg PO daily. - Repeat upper endoscopy in 3 months for surveillance of the gastritis / possible biopsies. Kimberly Borrego D.O. Kimberly Borrego, 09/30/2022 3:04:40 PM This report has been signed electronically. Note Initiated On: 09/30/2022 2:49 PM Number of Addenda: 0 I attest to the content of the Intraoperative Record and orders documented therein, exceptions below {[id number]}
--- NOTE | 2022-09-30 15:08 | GI REPORT ---
Patient Name: Soco Steiner Procedure Date: 09/30/2022 2:48 PM Date of : 1935 Admit Type: Inpatient Age: 87 Gender: Female Attending MD: Kimberly Borrego DO, Procedure: Colonoscopy Providers: Kimberly Borrego DO Referring MD: Channing Santana Indications: Hematochezia Medicines: Monitored Anesthesia Care Complications: No immediate complications. Estimated blood loss: Minimal. Estimated Blood Loss: Estimated blood loss was minimal. Procedure: Pre-Anesthesia Assessment: - Prior to the procedure, a History and Physical was performed, and patient medications, allergies and sensitivities were reviewed. The patient's tolerance of previous anesthesia was reviewed. - The risks and benefits of the procedure and the sedation options and risks were discussed with the patient. All questions were answered and informed consent was obtained. - Patient identification and proposed procedure were verified prior to the procedure by the physician, the nurse and the marketing sales supervisor. The procedure was verified in the procedure room. - Pre-procedure physical examination revealed no contraindications to sedation. - ASA Grade Assessment: III - A patient with severe systemic disease. - After reviewing the risks and benefits, the patient was deemed in satisfactory condition to undergo the procedure. - The anesthesia plan was to use monitored anesthesia care (MAC). - Immediately prior to administration of medications, the patient was re-assessed for adequacy to receive sedatives. - The heart rate, respiratory rate, oxygen saturations, blood pressure, adequacy of pulmonary ventilation, and response to care were monitored throughout the procedure. - The physical status of the patient was re-assessed after the procedure. After I obtained informed consent, the scope was passed under direct vision. Throughout the procedure, the patient's blood pressure, pulse, and oxygen saturations were monitored continuously. The Colonoscope was introduced through the anus and advanced to the cecum, identified by appendiceal orifice and ileocecal valve. The colonoscopy was performed without difficulty. The patient tolerated the procedure well. The quality of the bowel preparation was fair. Findings: Hemorrhoids were found on perianal exam. Multiple small and large-mouthed diverticula were found in the sigmoid colon, descending colon and ascending colon. Internal hemorrhoids were found during retroflexion. The hemorrhoids were moderate. Red blood was found in the recto-sigmoid colon, extensive search of the left colon was performed however no obvious bleeding diverticulum could be identified. Of note the right colon and transverse colon were free of blood and contained brown stool. A 6 mm polyp was found in the sigmoid colon. The polyp was sessile. Impression: - Preparation of the colon was fair. - Hemorrhoids found on perianal exam. - Severe diverticulosis in the sigmoid colon, in the descending colon and in the ascending colon. - Internal hemorrhoids. - Blood in the recto-sigmoid colon, likely from diverticular hemorrhage within the left colon. - No specimens collected. Recommendation: - Transfer patient to another hospital as patient may benefit from angiography -Surveillance colonoscopy in 3 months to remove the colonic polyps seen during today's Kimberly Borrego D.O. Kimberly Borrego, 09/30/2022 3:08:10 PM This report has been signed electronically. Note Initiated On: 09/30/2022 2:48 PM Number of Addenda: 0 I attest to the content of the Intraoperative Record and orders documented therein, exceptions below {[id number]}
[2022-09-30] MEDS ORDERED: PHENYLEPHRINE 100MCG/ML 5ML SYR ONE (15:14)
--- NOTE | 2022-09-30 15:21 | Communication Note ---
Date of Service: September 30, 2022 The patient underwent upper endoscopy and colonoscopy today. She was found to have extensive diverticulosis involving the entire colon. There was blood with in the left colon, unfortunately I was unable to identify specific bleeding site. Recommendations Consider referral to a tertiary center for radiology evaluation GI to sign off
--- NOTE | 2022-09-30 15:25 | Electrocardiogram Report ---
Test Reason : Blood Pressure : / mmHG Vent. Rate : 102 BPM Atrial Rate : 102 BPM P-R Int : 154 ms QRS Dur : 090 ms QT Int : 370 ms P-R-T Axes : 068 -31 099 degrees QTc Int : 482 ms Sinus tachycardia Left axis deviation Nonspecific T wave abnormality Abnormal ECG When compared with ECG of 28-SEP-2022 15:47, No significant change was found Confirmed by Daniel Luna ([id number]) on 09/30/2022 3:25:23 PM Referred By: REFERRED SELF Confirmed By:Alan Luna
--- NOTE | 2022-09-30 15:36 | Anesthesiology Progress Note ---
Date of Service September 30, 2022 Anesthesia Post Procedure Vital Signs Vital Signs: Temp Pulse Pulse Pulse Resp BP BP 09/30/22 15:25 90 16 139/71 09/30/22 15:10 101 H 16 113/72 09/30/22 14:25 37.5 C 104 H 16 142/82 H 09/30/22 12:00 37.1 C 102 H 18 144/77 H 09/30/22 07:38 36.7 C 109 H 17 150/79 H 09/30/22 03:00 36.5 C 96 H 16 147/80 H 09/30/22 01:45 36.9 C 101 H 13 150/82 H 09/29/22 22:00 97 H 09/29/22 22:43 36.7 C 117 H 16 132/84 09/29/22 22:40 36.9 C 94 H 12 130/78 09/29/22 20:49 125 H 130/78 09/29/22 20:08 09/29/22 19:44 36.6 C 118 H 20 127/84 09/29/22 17:16 37.3 C 131 H 18 111/69 Pulse Ox O2 Del Method 09/30/22 15:25 93 Room Air 09/30/22 15:10 94 Room Air 09/30/22 14:25 91 Room Air 09/30/22 12:00 93 Room Air 09/30/22 07:38 93 Room Air 09/30/22 03:00 95 Room Air 09/30/22 01:45 91 Room Air 09/29/22 22:00 09/29/22 22:43 93 Room Air 09/29/22 22:40 91 Room Air 09/29/22 20:49 09/29/22 20:08 Room Air 09/29/22 19:44 91 Room Air 09/29/22 17:16 90 Room Air Transfer of Care Handoff Completed per policy Notes Mental Status: alert / awake / arousable and participated in evaluation Patient Amnestic to Procedure: Yes Nausea / Vomiting: adequately controlled Pain: adequately controlled Airway Patency, RR, SpO2: stable & adequate BP & HR: stable & adequate Hydration State: stable & adequate Anesthetic Complications: no major complications apparent
[2022-09-30 17:09] LABS: Basophils # (auto) 0.07 K/uL (0-0.2); Eosinophils # (auto) 0.11 K/uL (0-0.50); Eosinophils % (auto) 1.6 %; Hematocrit (blood only) 25.6 % (37.0-47.0); Hemoglobin 8.3 g/dl (12.0-16.0); Immature Granulocytes # (auto) 0.07 K/uL (0.01-0.20); Lymphocytes # (auto) 1.66 K/uL (1.2-3.4); Lymphocytes % (auto) 24.4 %; Mean Corpuscular Hemoglobin 30.9 pg (25.0-34.0); Mean Corpuscular Hgb Conc 32.4 g/dL (32.0-36.0); Mean Corpuscular Volume 95.2 fL (80.0-100.0); Mean Platelet Volume 10.1 fL (9.4-12.4); Monocytes # (auto) 0.81 K/uL (0.11-0.59); Monocytes % (auto) 11.9 %; Neutrophils # (auto) 4.07 K/uL (1.40-6.50); Neutrophils % (auto) 60.1 %; Platelet Count 172 K/uL (130-400); RDW Coefficient of Variation 15.1 % (11.5-14.5); RDW Standard Deviation 52.7 fL (36.4-46.3); Red Blood Count 2.69 M/uL (4.20-5.40); White Blood Count 6.79 K/ul (4.8-10.8)
--- NOTE | 2022-09-30 17:47 | Hospitalist Progress Note ---
Date of Service September 30, 2022 Assessment & Plan (1) BRBPR (bright red blood per rectum): (2) Hypoxia: (3) History of gastrointestinal diverticular hemorrhage: (4) HTN (hypertension): (5) Dyslipidemia: (6) Hypothyroidism: (7) GERD (gastroesophageal reflux disease): (8) Depression: Plan Per admitting service notes with addendum: 87 year old presents with BRBPR that started this morning. 3 episodes in the toilet and in a brief. History of GI diverticular hemorrhage. Has had colonoscopy for diverticulosis; EGD 2014 with mild inflammation Hgb 13.4; will trend Q6 x2 and in AM. NPO for now. LR at 80mL/hour x2 bags; reassess in AM. Blood consent signed. Type and Cross ordered; hold 2 UPRBC; transfuse for Hgb < 8.0 GI consult placed. Hematochezia History of GI diverticular hemorrhage: Not on any AC Has had colonoscopy for diverticulosis; EGD 2014 with mild inflammation Hgb 13.4; will trend Q6 x2 and in AM NPO for now LR at 80mL/hour x2 bags; reassess in AM Blood consent signed Type and Cross ordered; hold 2 UPRBC; transfuse for Hgb < 8.0 GI consult placed 09/30 Hemoglobin trended down from 11.5, 10, now 8 s/p EGD: unrevealing s/p Colonoscopy: (+) multiple diverticulosis, blood in the descending colon, source of bleeding not identified discussed with GI, [facility]- transfer for IR if (+) HTN: hold Enalapril and Lasix Hypothyroidism: Takes levothyroxine; continue GERD: Takes Protonix and Pepcid; continue Depression: Takes Celexa; continue Disposition: PCP: Dr. Frost Code Status: DNR/DNI VTE Prophylaxis: Teds and SCDs for now plan of care discussed with patient in detail all questions answered she is understanding, agreeable, comfortable with the plan of care Admission and Anticipated Discharge Date Admission Date: September 28, 2022 Subjective ff up for hematochezia, etc resting in bed, sitting up comfortable still having hematochezia states she feels fine otherwise no chest pain, dyspnea, palpitations, dizziness no abdominal pain, fever/chills Review of Systems Review of Systems: all noted and negative except for above Physical Exam Physical Exam: General- oriented x 3, not in distress, speaks in sentences with no effort or accessory muscle use Eyes- anicteric Neck- no JVD Lungs- clear breath sounds bilaterally Heart- normal rate, regular rhythm; no murmurs Abdomen- normal bowel sounds, nondistended, soft, nontender Extremities- no pretibial edema, no calf tenderness Neuro- alert, oriented x 3; no gross focal neurologic deficits Skin- warm & dry Results & Data Results & Data Vital Signs (Past 12 Hours) Vital Signs Temp Pulse Pulse Resp BP Pulse Ox O2 Del Method 09/30/22 16:04 36.8 C 107 H 18 160/91 H 93 Room Air 09/30/22 15:40 109 H 16 139/90 94 Room Air 09/30/22 15:25 90 16 139/71 93 Room Air 09/30/22 15:10 101 H 16 113/72 94 Room Air 09/30/22 14:25 37.5 C 104 H 16 142/82 H 91 Room Air 09/30/22 12:00 37.1 C 102 H 18 144/77 H 93 Room Air 09/30/22 07:38 36.7 C 109 H 17 150/79 H 93 Room Air all noted and reviewed including below (4) HTN (hypertension) Hypertension type: essential hypertension Qualified Code(s): I10 - Essential (primary) hypertension (6) Hypothyroidism Hypothyroidism type: acquired Qualified Code(s): E03.9 - Hypothyroidism, unspecified
[2022-09-30] MEDS ORDERED: OPTIRAY 320 500ml IV ONE (17:48)
--- NOTE | 2022-09-30 18:20 | CT Scan Report ---
CT angio abd pelvis wo/w con HISTORY: 87 years-old Female locate site of gi bleed acute GI bleed COMPARISON: CT abdomen and pelvis 11/22/2021 TECHNIQUE: CTA abdomen and pelvis was obtained both with and without the use of 115 mL Optiray 320. 3 -D coronal and sagittal MIPS were obtained and transmitted for review. All measurements were obtained according to NASCET criteria. A dose lowering technique was used consistent with the principals of Paul STEELE. FINDINGS: CTA: Cardiomegaly. Suggesting pulmonary arterial hypertension. Mild to moderate atherosclerosis. No abdomi nal aortic aneurysm or dissection. Patent iliac arteries. The arteries of the celiac trunk, superior and inferior mesenteric artery appear patent. The renal arteries are also patent bilaterally. No acti ve shallow dictation. CT ABDOMEN/PELVIS: There are a few probable cysts noted within the liver measuring up to 1.9 cm. Cholecystectomy with po stsurgical biliary ductal dilation. There is patency of the hepatic and portal veins. Unremarkable sp joey, mildly atrophic pancreas and adrenal glands. Multifocal cortical scarring with parenchymal thin nat of left kidney again noted. Bilateral renal cysts measure up to 10.5 cm on the left. No renal or ureteral calculi or hydronephrosis identified. 2.1 x 2.2 cm exophytic cyst of the interpolar right k idney and image 144 demonstrates a thin septation compatible with a Bosniak 2 lesion. No enhancing so lid renal mass lesions identified. Mild urothelial thickening of the left renal collecting system. A nonspecific urinary bladder wall thickening. The uterus appears surgically absent. There is no bowel structure and or intra-abdominal abscess. There is wall thickening of the anal rect al junction with moderate adjacent inflammatory stranding. Colonic diverticulosis. A right inguinal h ernia is again noted containing mesenteric fat and nonobstructed loops of bowel. No CT evidence of ac [place] appendicitis. Unremarkable soft tissues. Degenerative changes of the spine, pelvis and hips. IMPRESSION: 1. Circumferential wall thickening of the anal rectal junction with mild adjacent inflammatory strand ing. Differential considerations include an infectious or inflammatory process versus a mucosal lesio n. Findings could be correlated with colonoscopy. 2. Colonic diverticulosis. 3. No bowel obstruction or pneumoperitoneum. 4. Small bowel containing right inguinal hernia is similar to prior. 5. Unremarkable CTA. 6. Additional findings as above. ACT 112: Negative or not required by law. The above report was generated using voice recognition software. It may contain grammatical, syntax o r spelling errors. Electronically signed by: Hudson Machado M.D. 09/30/2022 6:18 PM
[2022-09-30 23:17] LABS: Basophils # (auto) 0.05 K/uL (0-0.2); Basophils % (auto) 0.6 %; Eosinophils # (auto) 0.15 K/uL (0-0.50); Eosinophils % (auto) 1.8 %; Hemoglobin 8.5 g/dl (12.0-16.0); Immature Granulocytes # (auto) 0.07 K/uL (0.01-0.20); Immature Granulocytes % (auto) 0.8 %; Lymphocytes # (auto) 1.59 K/uL (1.2-3.4); Lymphocytes % (auto) 19.3 %; Mean Corpuscular Hemoglobin 30.9 pg (25.0-34.0); Mean Corpuscular Hgb Conc 32.7 g/dL (32.0-36.0); Mean Corpuscular Volume 94.5 fL (80.0-100.0); Mean Platelet Volume 10.7 fL (9.4-12.4); Monocytes # (auto) 0.91 K/uL (0.11-0.59); Neutrophils # (auto) 5.48 K/uL (1.40-6.50); Neutrophils % (auto) 66.5 %; Platelet Count 177 K/uL (130-400); RDW Coefficient of Variation 15.1 % (11.5-14.5); RDW Standard Deviation 52.3 fL (36.4-46.3); Red Blood Count 2.75 M/uL (4.20-5.40); White Blood Count 8.25 K/ul (4.8-10.8)
[2022-10-01] MEDS: SODIUM CHLORIDE 0.9% 1000ML 1,000 ML IV SCH ×2 (04:46→12:45)
[2022-10-01 05:21] LABS: Basophils # (auto) 0.07 K/uL (0-0.2); Basophils % (auto) 0.9 %; Eosinophils % (auto) 2.6 %; Hemoglobin 8.2 g/dl (12.0-16.0); Immature Granulocytes # (auto) 0.12 K/uL (0.01-0.20); Immature Granulocytes % (auto) 1.6 %; Lymphocytes # (auto) 1.49 K/uL (1.2-3.4); Lymphocytes % (auto) 19.3 %; Mean Corpuscular Hemoglobin 30.1 pg (25.0-34.0); Mean Corpuscular Hgb Conc 31.5 g/dL (32.0-36.0); Mean Corpuscular Volume 95.6 fL (80.0-100.0); Mean Platelet Volume 10.4 fL (9.4-12.4); Monocytes # (auto) 0.89 K/uL (0.11-0.59); Monocytes % (auto) 11.5 %; Neutrophils # (auto) 4.94 K/uL (1.40-6.50); Neutrophils % (auto) 64.1 %; Platelet Count 172 K/uL (130-400); RDW Coefficient of Variation 14.9 % (11.5-14.5); RDW Standard Deviation 52.2 fL (36.4-46.3); Red Blood Count 2.72 M/uL (4.20-5.40); White Blood Count 7.71 K/ul (4.8-10.8)
[2022-10-01] MEDS: LEVOTHYROXINE SODIUM 100 MCG TABLET PO SCH (05:33)
[2022-10-01] MEDS: VIBEGRON 75 MG TAB PO SCH (10:00)
[2022-10-01] MEDS: PANTOprazole 40 MG TAB PO SCH (10:00)
[2022-10-01] MEDS: OXYBUTYNIN CHLORIDE XL 5 MG TABCR PO SCH (10:00)
[2022-10-01] MEDS: FAMOTIDINE 20 MG TAB PO SCH (10:00)
[2022-10-01] MEDS: CITALOPRAM 20 MG TAB PO SCH (10:00)
[2022-10-01] MEDS: CALCIUM 600MG + VIT D 400 IU TAB PO SCH (10:01)
[2022-10-01] MEDS: DOCUSATE SODIUM 100 MG CAP PO SCH (10:01)
[2022-10-01] MEDS ORDERED: LOPERAMIDE HCL 2 MG CAP PO PRN (15:40)
--- NOTE | 2022-10-01 15:40 | Hospitalist Progress Note ---
Date of Service October 01, 2022 Assessment & Plan (1) BRBPR (bright red blood per rectum): (2) Hypoxia: (3) History of gastrointestinal diverticular hemorrhage: (4) HTN (hypertension): (5) Dyslipidemia: (6) Hypothyroidism: (7) GERD (gastroesophageal reflux disease): (8) Depression: Plan Per admitting service notes with addendum: 87 year old presents with BRBPR that started this morning. 3 episodes in the toilet and in a brief. History of GI diverticular hemorrhage. Has had colonoscopy for diverticulosis; EGD 2014 with mild inflammation Hgb 13.4; will trend Q6 x2 and in AM. NPO for now. LR at 80mL/hour x2 bags; reassess in AM. Blood consent signed. Type and Cross ordered; hold 2 UPRBC; transfuse for Hgb < 8.0 GI consult placed. Hematochezia History of GI diverticular hemorrhage: Not on any AC Has had colonoscopy for diverticulosis; EGD 2014 with mild inflammation Hgb 13.4; will trend Q6 x2 and in AM NPO for now LR at 80mL/hour x2 bags; reassess in AM Blood consent signed Type and Cross ordered; hold 2 UPRBC; transfuse for Hgb < 8.0 GI consult placed 09/30 Hemoglobin trended down from 11.5, 10, now 8 s/p EGD: unrevealing s/p Colonoscopy: (+) multiple diverticulosis, blood in the descending colon, source of bleeding not identified discussed with GI, recommend transfer discussed with [facility], recommend CTA- transfer for IR if (+) 10/01 CT angio: no active site of bleeding Hg stable at 8 since yesterday hematochezia slowing- resolving will start clear liquid diet HTN: resume Enalapril and Lasix Hypothyroidism: Takes levothyroxine; continue GERD: Takes Protonix and Pepcid; continue Depression: Takes Celexa; continue Disposition: PCP: Dr. Frost Code Status: DNR/DNI VTE Prophylaxis: Teds and SCDs for now plan of care discussed with patient and her son in detail all questions answered they are understanding, agreeable, comfortable with the plan of care Admission and Anticipated Discharge Date Admission Date: September 28, 2022 Subjective ff up for GI bleed, etc seen resting in bed, comfortable son Robert visiting at bedside states she feels fine overall had 1 BM - brown- earlier no abdominal pain, nausea/vomiting no chest pain, dyspnea, palpitations, dizziness no other symptoms Review of Systems Review of Systems: all noted and negative except for above Physical Exam Physical Exam: General- oriented x 3, not in distress, speaks in sentences with no effort or accessory muscle use Eyes- anicteric Neck- no JVD Lungs- clear breath sounds bilaterally, no rales/wheezes Heart- normal rate, regular rhythm; no murmurs Abdomen- normal bowel sounds, nondistended, soft, nontender Extremities- no pretibial edema, no calf tenderness Neuro- alert, oriented x 3; no gross focal neurologic deficits Skin- warm & dry Results & Data Results & Data Vital Signs (Past 12 Hours) Vital Signs Temp Pulse Pulse Resp BP Pulse Ox O2 Del Method 10/01/22 12:12 36.7 C 99 H 20 153/78 H 96 Nasal Cannula 10/01/22 08:00 Room Air 10/01/22 08:02 36.8 C 112 H 19 150/76 H 95 Nasal Cannula 10/01/22 07:14 102 H 10/01/22 03:44 36.6 C 87 18 145/82 H 97 Nasal Cannula O2 Flow Rate 10/01/22 12:12 3.0 10/01/22 08:00 10/01/22 08:02 3.0 10/01/22 07:14 10/01/22 03:44 3 all noted and reviewed including below (4) HTN (hypertension) Hypertension type: essential hypertension Qualified Code(s): I10 - Essential (primary) hypertension (6) Hypothyroidism Hypothyroidism type: acquired Qualified Code(s): E03.9 - Hypothyroidism, unspecified
[2022-10-01 20:14] LABS: Hematocrit (blood only) 26.1 % (37.0-47.0); Hemoglobin 8.5 g/dl (12.0-16.0)
[2022-10-02 05:31] LABS: Basophils # (auto) 0.04 K/uL (0-0.2); Basophils % (auto) 0.5 %; Eosinophils # (auto) 0.23 K/uL (0-0.50); Eosinophils % (auto) 2.6 %; Hemoglobin 8.3 g/dl (12.0-16.0); Immature Granulocytes # (auto) 0.05 K/uL (0.01-0.20); Immature Granulocytes % (auto) 0.6 %; Lymphocytes # (auto) 1.61 K/uL (1.2-3.4); Lymphocytes % (auto) 18.5 %; Mean Corpuscular Hemoglobin 30.4 pg (25.0-34.0); Mean Corpuscular Hgb Conc 31.9 g/dL (32.0-36.0); Mean Corpuscular Volume 95.2 fL (80.0-100.0); Mean Platelet Volume 10.3 fL (9.4-12.4); Monocytes # (auto) 0.96 K/uL (0.11-0.59); Neutrophils # (auto) 5.83 K/uL (1.40-6.50); Neutrophils % (auto) 66.8 %; Platelet Count 208 K/uL (130-400); RDW Coefficient of Variation 14.6 % (11.5-14.5); RDW Standard Deviation 50.1 fL (36.4-46.3); Red Blood Count 2.73 M/uL (4.20-5.40); White Blood Count 8.72 K/ul (4.8-10.8)
[2022-10-02 05:48] LABS: BUN Creatinine Ratio 9.4 (10-20); Calcium 7.7 mg/dl (8.6-10.3); Creatinine Clr Calc Pharmacy 75.6 ml/min; Est GFR (African American) 98.3 ml/min; Est GFR (Non-African American) 84.8 ml/min; Magnesium 1.9 mg/dl (1.7-2.4); Potassium 2.9 mmol/L (3.5-5.1)
[2022-10-02] MEDS ORDERED: POTASSIUM CHLORIDE CRTAB 20 MEQ TABCR PO STA (06:20)
[2022-10-02] MEDS: LEVOTHYROXINE SODIUM 100 MCG TABLET PO SCH (06:21)
[2022-10-02] MEDS: POTASSIUM CHLORIDE / WTR 10 MEQ/100 ML PLCT IV SCH ×4 (06:32→11:01)
[2022-10-02] MEDS: DOCUSATE SODIUM 100 MG CAP PO SCH (07:50)
[2022-10-02] MEDS: FUROSEMIDE 20 MG TAB PO SCH (08:12)
[2022-10-02] MEDS: OXYBUTYNIN CHLORIDE XL 5 MG TABCR PO SCH (08:12)
[2022-10-02] MEDS: PANTOprazole 40 MG TAB PO SCH (08:12)
[2022-10-02] MEDS: VIBEGRON 75 MG TAB PO SCH (08:12)
[2022-10-02] MEDS: ENALAPRIL MALEATE 5 MG TAB PO SCH (08:13)
[2022-10-02] MEDS: FAMOTIDINE 20 MG TAB PO SCH (08:13)
[2022-10-02] MEDS: CITALOPRAM 20 MG TAB PO SCH (08:13)
[2022-10-02] MEDS: CALCIUM 600MG + VIT D 400 IU TAB PO SCH (08:13)
--- NOTE | 2022-10-02 19:08 | Hospitalist Progress Note ---
Date of Service October 02, 2022 Assessment & Plan (1) BRBPR (bright red blood per rectum): (2) Hypoxia: (3) History of gastrointestinal diverticular hemorrhage: (4) HTN (hypertension): (5) Dyslipidemia: (6) Hypothyroidism: (7) GERD (gastroesophageal reflux disease): (8) Depression: Plan Per admitting service notes with addendum: 87 year old presents with BRBPR that started this morning. 3 episodes in the toilet and in a brief. History of GI diverticular hemorrhage. Has had colonoscopy for diverticulosis; EGD 2014 with mild inflammation Hgb 13.4; will trend Q6 x2 and in AM. NPO for now. LR at 80mL/hour x2 bags; reassess in AM. Blood consent signed. Type and Cross ordered; hold 2 UPRBC; transfuse for Hgb < 8.0 GI consult placed. Hematochezia History of GI diverticular hemorrhage: Not on any AC Has had colonoscopy for diverticulosis; EGD 2014 with mild inflammation Hgb 13.4; will trend Q6 x2 and in AM NPO for now LR at 80mL/hour x2 bags; reassess in AM Blood consent signed Type and Cross ordered; hold 2 UPRBC; transfuse for Hgb < 8.0 GI consult placed 09/30 Hemoglobin trended down from 11.5, 10, now 8 s/p EGD: unrevealing s/p Colonoscopy: (+) multiple diverticulosis, blood in the descending colon, source of bleeding not identified discussed with GI, recommend transfer discussed with [facility], recommend CTA- transfer for IR if (+) 10/01 CT angio: no active site of bleeding Hg stable at 8 since yesterday hematochezia slowing- resolving will start clear liquid diet 10/02 no recurrence of hematochezia Hg remains stable at 8 for 2 days diet advanced monitor HTN: resume Enalapril and Lasix Hypothyroidism: Takes levothyroxine; continue GERD: Takes Protonix and Pepcid; continue Depression: Takes Celexa; continue Disposition: PCP: Dr. Frost Code Status: DNR/DNI VTE Prophylaxis: Teds and SCDs for now PT/OT eval lives at home with daughter Admission and Anticipated Discharge Date Admission Date: September 28, 2022 Subjective ff up for GI bleed, etc seen resting in bed, comfortable no recurrence of melena states she feels good overall no abdominal pain, nausea tolerating soft diet well no chest pain, dyspnea, palpitations, dizziness no other symptoms Review of Systems Review of Systems: all noted and negative except for above Physical Exam Physical Exam: General- oriented x 3, not in distress, speaks in sentences with no effort or accessory muscle use Eyes- anicteric Neck- no JVD Lungs- clear breath sounds bilaterally, no rales/wheezes Heart- normal rate, regular rhythm; no murmurs Abdomen- normal bowel sounds, nondistended, soft, nontender Extremities- no pretibial edema, no calf tenderness Neuro- alert, oriented x 3; no gross focal neurologic deficits Skin- warm & dry Results & Data Results & Data Vital Signs (Past 12 Hours) Vital Signs Temp Pulse Pulse Resp BP Pulse Ox O2 Del Method 10/02/22 16:14 37.4 C 105 H 18 137/76 95 Nasal Cannula 10/02/22 08:00 96 H 10/02/22 12:35 37.2 C 112 H 16 125/80 98 Room Air 10/02/22 07:39 36.9 C 91 H 16 139/73 98 Nasal Cannula O2 Flow Rate 10/02/22 16:14 3.0 10/02/22 08:00 10/02/22 12:35 10/02/22 07:39 3.0 all noted and reviewed including below (4) HTN (hypertension) Hypertension type: essential hypertension Qualified Code(s): I10 - Essential (primary) hypertension (6) Hypothyroidism Hypothyroidism type: acquired Qualified Code(s): E03.9 - Hypothyroidism, unspecified
[2022-10-02] MEDS ORDERED: SODIUM CHLORIDE 0.9% 500 ML IV SCH (20:00)
[2022-10-03] MEDS: LEVOTHYROXINE SODIUM 100 MCG TABLET PO SCH (05:38)
--- NOTE | 2022-10-03 08:10 | XRay Report ---
XR chest 1V portable CLINICAL HISTORY: hypoxia TECHNIQUE: Single frontal radiograph of the chest was obtained. Comparison: Comparison is made to chest radiograph 09/28/2022 FINDINGS: No lines and tubes are seen. The cardiomediastinal silhouette is normal. The lungs are clear. No evid ence of pleural effusion or pneumothorax. IMPRESSION: No acute chest disease. ACT 112: Negative or not required by law. Electronically signed by: Brandon Nichols M.D. 10/03/2022 8:07 AM
[2022-10-03 08:40] LABS: Basophils # (auto) 0.04 K/uL (0-0.2); Basophils % (auto) 0.4 %; Eosinophils # (auto) 0.06 K/uL (0-0.50); Eosinophils % (auto) 0.6 %; Hematocrit (blood only) 26.3 % (37.0-47.0); Hemoglobin 8.6 g/dl (12.0-16.0); Immature Granulocytes # (auto) 0.05 K/uL (0.01-0.20); Immature Granulocytes % (auto) 0.5 %; Lymphocytes # (auto) 0.94 K/uL (1.2-3.4); Mean Corpuscular Hemoglobin 30.4 pg (25.0-34.0); Mean Corpuscular Hgb Conc 32.7 g/dL (32.0-36.0); Mean Corpuscular Volume 92.9 fL (80.0-100.0); Monocytes # (auto) 1.31 K/uL (0.11-0.59); Monocytes % (auto) 13.9 %; Neutrophils # (auto) 7.04 K/uL (1.40-6.50); Neutrophils % (auto) 74.6 %; Platelet Count 208 K/uL (130-400); RDW Coefficient of Variation 15.1 % (11.5-14.5); RDW Standard Deviation 51.1 fL (36.4-46.3); Red Blood Count 2.83 M/uL (4.20-5.40); White Blood Count 9.44 K/ul (4.8-10.8)
[2022-10-03 09:02] LABS: BUN Creatinine Ratio 15.7 (10-20); Calcium 8.4 mg/dl (8.6-10.3); Est GFR (African American) 99.5 ml/min; Est GFR (Non-African American) 85.9 ml/min; Potassium 3.6 mmol/L (3.5-5.1)
[2022-10-03] MEDS: OXYBUTYNIN CHLORIDE XL 5 MG TABCR PO SCH (09:10)
[2022-10-03] MEDS: VIBEGRON 75 MG TAB PO SCH (09:10)
[2022-10-03] MEDS: CALCIUM 600MG + VIT D 400 IU TAB PO SCH (09:10)
[2022-10-03] MEDS: FUROSEMIDE 20 MG TAB PO SCH (09:10)
[2022-10-03] MEDS: ENALAPRIL MALEATE 5 MG TAB PO SCH (09:10)
[2022-10-03] MEDS: PANTOprazole 40 MG TAB PO SCH (09:10)
[2022-10-03] MEDS: DOCUSATE SODIUM 100 MG CAP PO SCH (09:10)
[2022-10-03] MEDS: FAMOTIDINE 20 MG TAB PO SCH (09:10)
[2022-10-03] MEDS: CITALOPRAM 20 MG TAB PO SCH (09:11)
[2022-10-03] MEDS: ONDANSETRON INJ 2 MG/ML 2 ML VIAL IV PRN (10:44)
--- NOTE | 2022-10-03 12:02 | Electrocardiogram Report ---
Test Reason : Blood Pressure : / mmHG Vent. Rate : 124 BPM Atrial Rate : 124 BPM P-R Int : 174 ms QRS Dur : 084 ms QT Int : 280 ms P-R-T Axes : 066 -32 089 degrees QTc Int : 402 ms Sinus tachycardia Left axis deviation Nonspecific T wave abnormality Abnormal ECG When compared with ECG of 30-SEP-2022 01:39, Nonspecific T wave abnormality now evident in Anterior leads Confirmed by Hardy Selby ([id number]) on 10/03/2022 12:01:49 PM Referred By: REFERRED SELF Confirmed By:Hardy Selby
--- NOTE | 2022-10-03 14:27 | Gastroenterology Progress Note ---
Date of Service October 03, 2022 Assessment & Plan (1) BRBPR (bright red blood per rectum): Plan: Likely diverticular. Bleeding has resolved. Plan No GI indication for transfer at this point, CTA w/o abnormalities. Bleeding stopped. Diet as tolerated. Recommend OP colonoscopy in 3m (per colonoscopy results by Dr. Borrego). Reviewed w pt/family who agree. Our office will contact her to arrange. GI will sign off. Recall if questions. Admission and Anticipated Discharge Date Admission Date: September 28, 2022 Supervising Physician Co-Signing Physician Notes We made a clear cut recommendations after the colonoscopy to transfer the patient in view of obscure GI bleeding and possible need for IR, this was not done by the hospitalist team yet, unclear why, however we are asked now after 4 days if the patient still needs to be transferred. The answer is NO if she is not bleeding and YES if she is bleeding. Please call me back if you still require further clarification. Subjective Was asked by Dr. Santana to re-evaluate, specifically because GI had made recommendation to transfer on 09/30. 87 yr old female rectal bleeding, likely diverticular. Colonoscopy on 09/30 w multiple ascending colon, descending colon and sigmoid diverticula. EGD w gastritis also on 09/30 Bleeding has tapered off. Daughter who is a [employer] is here and adds that pt had a diverticular bleed a few years ago, was tx but no additional tx was needed as the bleeding eventually stopped. Today, pt denies abd pain, passing small bowel loose BMs. Hb 8.6, down from 11.5 on arrival. No blood products received. Review of Systems Review of Systems: ROS: Gen: + generalized weakness (very slowly improving) No fevers, no confusion, no new symptoms over the weekend. Eyes: No eye redness, or pain, no recent vision changes Resp: No SOB, no cough Cardio: + fast HR, no CP, no SOB (but resting in bed). No edema. GI: No abdominal pain, no nausea/vomiting : Denies pain on urination Skin: No jaundice, itching or new rashes Physical Exam Constitutional: WD/WN, vitals as above Eyes: PERRL, conjunctivae normal, anicteric sclerae ENMT: external ear and nose normal, oropharynx normal Neck: trachea midline, no thyromegaly Respiratory: normal respiratory effort, lungs clear to auscultation (On O2 via NC at 2L/min) Cardiovascular: HT 110, regular, no mumurs. Gastrointestinal (Abdomen): normal bowel sounds, soft, nontender, no hepatosplenomegaly Skin: pale, no rashes or lesions Neurologic: PERRL, EOMI, accommodation nl, no face palsy, no dysarthria Psychiatric: A+Ox3, euthymic affect Results & Data Vital Signs (Past 12 Hours) Vital Signs Temp Pulse Resp BP Pulse Ox Pulse Ox Pulse Ox 10/03/22 13:33 98 97 10/03/22 12:30 36.6 C 113 H 18 101/66 94 10/03/22 08:09 37.7 C H 115 H 18 149/87 H 95 10/03/22 03:10 37.1 C 105 H 18 136/82 96 O2 Del Method O2 Flow Rate O2 Flow Rate O2 Flow Rate 10/03/22 13:33 2 2 10/03/22 12:30 Nasal Cannula 2 10/03/22 08:09 Nasal Cannula 2 10/03/22 03:10 Nasal Cannula 2 Laboratory Results WBC 9.4, Hb 8.6, Hct 26, Plts 208, Na 136, K 3.6, Cl 103, CO2 29, BUn 8, Cr 0.51, glucose 123 Diagnostic Findings CTA 09/30/22: Circumferential wall thickening of the anal rectal junction with mild adjacent inflammatory stranding. Differential considerations include an infectious or inflammatory process versus a mucosal lesion. Findings could be correlated with colonoscopy. 2. Colonic diverticulosis. 3. No bowel obstruction or pneumoperitoneum. 4. Small bowel containing right inguinal hernia is similar to prior. 5. Unremarkable CTA.
--- NOTE | 2022-10-03 15:27 | Hospitalist Progress Note ---
Date of Service October 03, 2022 Assessment & Plan (1) BRBPR (bright red blood per rectum): (2) Hypoxia: (3) History of gastrointestinal diverticular hemorrhage: (4) HTN (hypertension): (5) Dyslipidemia: (6) Hypothyroidism: (7) GERD (gastroesophageal reflux disease): (8) Depression: Plan Per admitting service notes with addendum: 87 year old presents with BRBPR that started this morning. 3 episodes in the toilet and in a brief. History of GI diverticular hemorrhage. Has had colonoscopy for diverticulosis; EGD 2014 with mild inflammation Hgb 13.4; will trend Q6 x2 and in AM. NPO for now. LR at 80mL/hour x2 bags; reassess in AM. Blood consent signed. Type and Cross ordered; hold 2 UPRBC; transfuse for Hgb < 8.0 GI consult placed. Hematochezia Acute blood loss anemia History of GI diverticular hemorrhage: Not on any AC Has had colonoscopy for diverticulosis; EGD 2014 with mild inflammation Hgb 13.4; will trend Q6 x2 and in AM NPO for now LR at 80mL/hour x2 bags; reassess in AM Blood consent signed Type and Cross ordered; hold 2 UPRBC; transfuse for Hgb < 8.0 GI consult placed 09/30 Hemoglobin trended down from 11.5, 10, now 8 s/p EGD: unrevealing s/p Colonoscopy: (+) multiple diverticulosis, blood in the descending colon, source of bleeding not identified discussed with GI, recommend transfer discussed with [facility] Te[facility], recommend CTA- transfer for IR if (+) 10/01 CT angio: no active site of bleeding Hg stable at 8 since yesterday hematochezia slowing- resolving will start clear liquid diet 10/02 no recurrence of hematochezia Hg remains stable at 8 for 2 days diet advanced monitor 10/03 no recurrence of GI bleed Hg 8.6, stable monitor Sinus Tachycardia likely from anemia encouraged oral fluid intake HTN: resume Enalapril hold Lasix Hypothyroidism: Takes levothyroxine; continue GERD: Takes Protonix and Pepcid; continue Depression: Takes Celexa; continue Disposition: PCP: Dr. Frost Code Status: DNR/DNI VTE Prophylaxis: Teds and SCDs for now PT/OT eval lives at home with daughter Admission and Anticipated Discharge Date Admission Date: September 28, 2022 Subjective ff up for gi bleed, etc seen resting in chair, comfortable states she feels fine overall no abd pain, nausea/vomiting, gi bleed tolerating diet well no chest pain, dyspnea, palpitations, dizziness no other symptoms Review of Systems Review of Systems: all noted and negative except for above Physical Exam Physical Exam: General- oriented x 3, not in distress, speaks in sentences with no effort or accessory muscle use Eyes- anicteric Neck- no JVD Lungs- clear breath sounds bilaterally, no rales/wheezes Heart- mild tachycardic rate, regular rhythm; no murmurs Abdomen- normal bowel sounds, nondistended, soft, nontender Extremities- no pretibial edema, no calf tenderness Neuro- alert, oriented x 3; no gross focal neurologic deficits Skin- warm & dry Results & Data Results & Data Vital Signs (Past 12 Hours) Vital Signs Temp Pulse Pulse Resp BP Pulse Ox Pulse Ox 10/03/22 09:00 10/03/22 09:00 102 H 10/03/22 13:33 98 10/03/22 12:30 36.6 C 113 H 18 101/66 94 10/03/22 08:09 37.7 C H 115 H 18 149/87 H 95 Pulse Ox O2 Del Method O2 Flow Rate O2 Flow Rate O2 Flow Rate 10/03/22 09:00 Nasal Cannula 2 10/03/22 09:00 10/03/22 13:33 97 2 2 10/03/22 12:30 Nasal Cannula 2 10/03/22 08:09 Nasal Cannula 2 all noted and reviewed including below (4) HTN (hypertension) Hypertension type: essential hypertension Qualified Code(s): I10 - Essential (primary) hypertension (6) Hypothyroidism Hypothyroidism type: acquired Qualified Code(s): E03.9 - Hypothyroidism, unspecified
[2022-10-03] MEDS ORDERED: SODIUM CHLORIDE 0.9% 1000ML 1,000 ML IV SCH (19:45)
[2022-10-04] MEDS: LEVOTHYROXINE SODIUM 100 MCG TABLET PO SCH (05:41)
[2022-10-04] MEDS ORDERED: IRON SUCROSE 150 MG in 0.9 % SODIUM CHLORIDE 100 ML IV ONE (08:15)
[2022-10-04] MEDS: FAMOTIDINE 20 MG TAB PO SCH (09:24)
[2022-10-04] MEDS: DOCUSATE SODIUM 100 MG CAP PO SCH (09:24)
[2022-10-04] MEDS: VIBEGRON 75 MG TAB PO SCH (09:24)
[2022-10-04] MEDS: PANTOprazole 40 MG TAB PO SCH (09:24)
[2022-10-04] MEDS: POTASSIUM CHLORIDE 10 MEQ TABCR PO SCH (09:24)
[2022-10-04] MEDS: FERROUS SULFATE 325 MG TAB PO SCH ×2 (09:24→16:51)
[2022-10-04] MEDS: CALCIUM 600MG + VIT D 400 IU TAB PO SCH (09:25)
[2022-10-04] MEDS: ENALAPRIL MALEATE 5 MG TAB PO SCH (09:25)
[2022-10-04] MEDS: CITALOPRAM 20 MG TAB PO SCH (09:25)
[2022-10-04] MEDS: OXYBUTYNIN CHLORIDE XL 5 MG TABCR PO SCH (09:25)
--- NOTE | 2022-10-04 14:47 | Hospitalist Progress Note ---
Date of Service October 04, 2022 Assessment & Plan (1) Hematochezia: (2) History of gastrointestinal diverticular hemorrhage: (3) HTN (hypertension): (4) Dyslipidemia: (5) Hypothyroidism: (6) GERD (gastroesophageal reflux disease): (7) Depression: Plan Per admitting service notes with addendum: 87 year old presents with BRBPR that started this morning. 3 episodes in the toilet and in a brief. History of GI diverticular hemorrhage. Has had colonoscopy for diverticulosis; EGD 2014 with mild inflammation Hgb 13.4; will trend Q6 x2 and in AM. NPO for now. LR at 80mL/hour x2 bags; reassess in AM. Blood consent signed. Type and Cross ordered; hold 2 UPRBC; transfuse for Hgb < 8.0 GI consult placed. Hematochezia Acute blood loss anemia History of GI diverticular hemorrhage: Not on any AC Has had colonoscopy for diverticulosis; EGD 2014 with mild inflammation Hemoglobin trended down from 11.5 to 8 s/p EGD: unrevealing s/p Colonoscopy: (+) Severe diverticulosis in the sigmoid, descending and asc ending colon, blood in the descending colon, source of bleeding not identified discussed with GI, recommend transfer discussed with [facility], recommend CTA CT angiogram abdomen pelvis: No active site of bleeding noted Transfer to [facility] canceled Patient's hematochezia resolved, hemoglobin remained stable around 8 Diet slowly advanced, tolerating well Outpatient colonoscopy in 3 months Sinus Tachycardia likely from anemia encouraged oral fluid intake Also requiring 2 L of oxygen by nasal cannula Clear breath sounds, chest x-ray clear Advised staff to measure pulse oximetry on the forehead Patient's daughter requesting nocturnal pulse oximetry HTN: resume Enalapril Hold Lasix for now as the patient seems to be on the dry side Hypothyroidism: Takes levothyroxine; continue GERD: Takes Protonix and Pepcid; continue Depression: Takes Celexa; continue Disposition: PCP: Dr. Frost Code Status: DNR/DNI VTE Prophylaxis: Teds and SCDs for now Patient and family prefers that she return home with home health services and PT OT once medically stable lives at home with daughter Admission and Anticipated Discharge Date Admission Date: September 28, 2022 Subjective Follow-up for GI bleed, etc. Resting in chair, comfortable, on 2 L of oxygen in Good spirits States she feels fine overall Denies chest pain, shortness of breath, palpitations No abdominal pain, no recurrence of hematochezia, tolerating diet well No other symptoms Review of Systems Review of Systems: all noted and negative except for above Physical Exam Physical Exam: General- oriented x 3, not in distress, speaks in sentences with no effort or accessory muscle use Eyes- anicteric Neck- no JVD Lungs- clear BS BL Heart- normal rate, regular rhythm; no murmurs Abdomen- normal bowel sounds, nondistended, soft, nontender Extremities- mild edema on the Left lower leg- chronic per daughter at bedside Neuro- alert, oriented x 3; no gross focal neurologic deficits Skin- warm & dry Results & Data Results & Data Vital Signs (Past 12 Hours) Vital Signs Temp Pulse Pulse Resp BP Pulse Ox O2 Del Method 10/04/22 12:00 36.8 C 100 H 18 119/71 96 Nasal Cannula 10/04/22 11:39 96 10/04/22 11:23 Nasal Cannula 10/04/22 09:50 88 10/04/22 07:59 36.8 C 98 H 18 118/68 97 Nasal Cannula 10/04/22 04:26 36.7 C 100 H 18 120/74 98 Nasal Cannula O2 Flow Rate 10/04/22 12:00 2 10/04/22 11:39 10/04/22 11:23 2 10/04/22 09:50 10/04/22 07:59 2 10/04/22 04:26 3 all noted and reviewed including below (3) HTN (hypertension) Hypertension type: essential hypertension Qualified Code(s): I10 - Essential (primary) hypertension (5) Hypothyroidism Hypothyroidism type: acquired Qualified Code(s): E03.9 - Hypothyroidism, unspecified
[2022-10-05] MEDS: LEVOTHYROXINE SODIUM 100 MCG TABLET PO SCH (05:28)
[2022-10-05 06:54] LABS: Hematocrit (blood only) 25.5 % (37.0-47.0); Hemoglobin 8.1 g/dl (12.0-16.0); Mean Corpuscular Hgb Conc 31.8 g/dL (32.0-36.0); Mean Corpuscular Volume 97.7 fL (80.0-100.0); Mean Platelet Volume 10.6 fL (9.4-12.4); Platelet Count 229 K/uL (130-400); RDW Coefficient of Variation 15.2 % (11.5-14.5); RDW Standard Deviation 54.3 fL (36.4-46.3); Red Blood Count 2.61 M/uL (4.20-5.40); White Blood Count 6.35 K/ul (4.8-10.8)
[2022-10-05 06:55] LABS: Basophils # (auto) 0.05 K/uL (0-0.2); Basophils % (auto) 0.8 %; Eosinophils # (auto) 0.34 K/uL (0-0.50); Eosinophils % (auto) 5.4 %; Immature Granulocytes # (auto) 0.03 K/uL (0.01-0.20); Immature Granulocytes % (auto) 0.5 %; Lymphocytes # (auto) 1.15 K/uL (1.2-3.4); Lymphocytes % (auto) 18.1 %; Monocytes # (auto) 0.88 K/uL (0.11-0.59); Monocytes % (auto) 13.9 %; Neutrophils % (auto) 61.3 %
[2022-10-05 07:07] LABS: BUN Creatinine Ratio 20.3 (10-20); Calcium 8.7 mg/dl (8.6-10.3); Est GFR (African American) 94.8 ml/min; Est GFR (Non-African American) 81.8 ml/min; Potassium 4.2 mmol/L (3.5-5.1)
[2022-10-05] MEDS: FERROUS SULFATE 325 MG TAB PO SCH (08:09)
[2022-10-05] MEDS: CALCIUM 600MG + VIT D 400 IU TAB PO SCH (08:09)
[2022-10-05] MEDS: CITALOPRAM 20 MG TAB PO SCH (08:10)
[2022-10-05] MEDS: DOCUSATE SODIUM 100 MG CAP PO SCH (08:10)
[2022-10-05] MEDS: VIBEGRON 75 MG TAB PO SCH (08:10)
[2022-10-05] MEDS: ENALAPRIL MALEATE 5 MG TAB PO SCH (08:10)
[2022-10-05] MEDS: FAMOTIDINE 20 MG TAB PO SCH (08:10)
[2022-10-05] MEDS: OXYBUTYNIN CHLORIDE XL 5 MG TABCR PO SCH (08:10)
[2022-10-05] MEDS: POTASSIUM CHLORIDE 10 MEQ TABCR PO SCH (08:10)
[2022-10-05] MEDS: PANTOprazole 40 MG TAB PO SCH (08:10)
--- NOTE | 2022-10-05 13:50 | Hospitalist Progress Note ---
Date of Service October 05, 2022 Assessment & Plan (1) Hematochezia: (2) History of gastrointestinal diverticular hemorrhage: (3) HTN (hypertension): (4) Dyslipidemia: (5) Hypothyroidism: (6) GERD (gastroesophageal reflux disease): (7) Depression: Plan 87 yo F presents with BRBPR. 3 episodes in the toilet and in a brief. History of GI diverticular hemorrhage. Has had colonoscopy for diverticulosis; EGD 2014 with mild inflammation Blood consent signed. Type and Cross ordered; hold 2 UPRBC; transfuse for Hgb < 8.0 GI consult placed. Hematochezia Acute blood loss anemia GI bleed - likely diverticular History of GI diverticular hemorrhage: Not on any AC Has had colonoscopy for diverticulosis; EGD 2014 with mild inflammation Hemoglobin trended down from 11.5 to 8 s/p EGD: unrevealing s/p Colonoscopy: (+) Severe diverticulosis in the sigmoid, descending and ascending colon, blood in the descending colon, source of bleeding not identified discussed with GI, recommend transfer (per previous hospitalist) discussed with [facility], recommend CTA (per previous hospitalist) CT angiogram abdomen pelvis: No active site of bleeding noted Transfer to [facility] canceled Patient's hematochezia resolved, hemoglobin remained stable around 8 Diet slowly advanced, tolerating well Outpatient colonoscopy in 3 months Iron deficiency anemia IV iron yesterday and today PO Ferrous sulfate twice daily Monitor H&H Follow-up as an outpatient Sinus Tachycardia likely from anemia encouraged oral fluid intake will start small dose metoprolol - per daughter at the bedside pt tachycardic at home as well - now may be worseed d/t anemia Also required 2 L of oxygen by nasal cannula, now on RA - will likely need 2 step prior to DC Clear breath sounds, chest x-ray clear Advised staff to measure pulse oximetry on the forehead Patient's daughter requesting nocturnal pulse oximetry- as pt has hx of AVE Nocturnal hypoxia - pt needed 3L of suppl. O2 overnight HTN: resumed Enalapril Hold Lasix for now as the patient seems to be on the dry side Hypothyroidism: Takes levothyroxine; continue GERD: Takes Protonix and Pepcid; continue Depression: Takes Celexa; continue Disposition: PCP: Dr. Frost Code Status: DNR/DNI VTE Prophylaxis: Teds and SCDs for now Patient and family prefers that she return home with home health services and PT OT once medically stable lives at home with daughter Admission and Anticipated Discharge Date Admission Date: September 28, 2022 Subjective Pt seen follow-up for GI bleed, anemia, etc. Resting in chair, comfortable, on RA Feeling well, but still tachycardic Denies chest pain, shortness of breath, palpitations No abdominal pain, no recurrence of hematochezia, tolerating diet well No other symptoms Daughter present at the bedside Nocturnal hypoxia study done. Per daughter pt has hx of AVE. Review of Systems Review of Systems: All systems reviewed & are unremarkable except as noted in Subjective Physical Exam Physical Exam: General- oriented x 3, not in distress, speaks in sentences with no effort or accessory muscle use Eyes- anicteric Neck- no JVD Lungs- clear BS BL Heart- normal rate, regular rhythm; no murmurs Abdomen- normal bowel sounds, nondistended, soft, nontender Extremities- mild edema on the Left lower leg- chronic per daughter at bedside Neuro- alert, oriented x 3; no gross focal neurologic deficits Skin- warm & dry Results & Data Results & Data Vital Signs (Past 12 Hours) Vital Signs Temp Pulse Pulse Pulse Resp BP Pulse Ox 10/05/22 12:18 36.9 C 121 H 18 125/75 94 10/05/22 11:46 10/05/22 08:06 37.3 C 95 H 16 123/76 91 10/05/22 03:59 101 H 10/05/22 03:51 37.1 C 88 18 135/55 L 99 Pulse Ox O2 Del Method O2 Del Method O2 Flow Rate O2 Flow Rate 10/05/22 12:18 Room Air 10/05/22 11:46 Room Air 10/05/22 08:06 Nasal Cannula 3 10/05/22 03:59 98 Nasal Cannula 3 10/05/22 03:51 Nasal Cannula 3 Laboratory Results 10/05/22 10/05/22 Range/Units 05:30 05:30 WBC 6.35 (4.8-10.8) K/ul RBC 2.61 L (4.20-5.40) M/uL Hgb 8.1 L (12.0-16.0) g/dl Hct 25.5 L (37.0-47.0) % MCV 97.7 D (80.0-100.0) fL MCH 31.0 (25.0-34.0) pg MCHC 31.8 L (32.0-36.0) g/dL RDW Std Deviation 54.3 H (36.4-46.3) fL RDW Coeff of Talisha 15.2 H (11.5-14.5) % Plt Count 229 (130-400) K/uL MPV 10.6 (9.4-12.4) fL Immature Gran % (Auto) 0.5 % Neut % (Auto) 61.3 % Lymph % (Auto) 18.1 % [place] % (Auto) 13.9 % Eos % (Auto) 5.4 % Baso % (Auto) 0.8 % Neut # (Auto) 3.90 (1.40-6.50) K/uL Lymph # (Auto) 1.15 L (1.2-3.4) K/uL [place] # (Auto) 0.88 H (0.11-0.59) K/uL Eos # (Auto) 0.34 (0-0.50) K/uL Baso # (Auto) 0.05 (0-0.2) K/uL Immature Gran # (Auto) 0.03 (0.01-0.20) K/uL Sodium 139 (136-145) mmol/L Potassium 4.2 (3.5-5.1) mmol/L Chloride 105 (98-107) mmol/L Carbon Dioxide 31 (21-32) mmol/L Anion Gap 3 (3-11) BUN 12 (6-23) mg/dl Creatinine 0.59 L (0.6-1.2) mg/dl Est Cr Clr Drug Dosing 70.0 ml/min Est GFR ( Amer) 94.8 ml/min Est GFR (Non-Af Amer) 81.8 ml/min BUN/Creatinine Ratio 20.3 H (10-20) Glucose 90 (70-99(Fasting)) mg/dl Calcium 8.7 (8.6-10.3) mg/dl Medications Administered Current Inpatient Medications Acetaminophen (Acetaminophen 325 Mg Tab) 650 mg PO Q4H PRN PRN Reason: Pain or Fever Stop: 10/28/22 17:31 Last Admin: 10/03/22 07:06 Dose: 650 mg Al Hydrox/Mg Hydrox/Simethicone (Aluminum/Magnesium Susp 30 Ml Udc) 15 ml PO Q4H PRN PRN Reason: Dyspepsia Stop: 10/28/22 17:31 Calcium/Vitamin D (Calcium 600mg + Vit D 400 Iu Tab) 1 tab PO DAILY [facility] Stop: 10/29/22 08:59 Last Admin: 10/05/22 08:09 Dose: 1 tab Citalopram Hydrobromide (Citalopram 20 Mg Tab) 10 mg PO DAILY [facility] Stop: 10/29/22 08:59 Last Admin: 10/05/22 08:10 Dose: 10 mg Docusate Sodium (Docusate Sodium 100 Mg Cap) 200 mg PO DAILY [facility] Stop: 10/29/22 08:59 Last Admin: 10/05/22 08:10 Dose: 200 mg Enalapril Maleate (Enalapril Maleate 5 Mg Tab) 5 mg PO QAM [facility] Stop: 11/01/22 08:59 Last Admin: 10/05/22 08:10 Dose: 5 mg Famotidine (Famotidine 20 Mg Tab) 20 mg PO DAILY [facility] Stop: 10/29/22 08:59 Last Admin: 10/05/22 08:10 Dose: 20 mg Ferrous Sulfate (Ferrous Sulfate 325 Mg Tab) 325 mg PO BIDM [facility] Stop: 11/03/22 07:59 Last Admin: 10/05/22 08:09 Dose: 325 mg Furosemide (Furosemide 20 Mg Tab) 20 mg PO QAM [facility] Stop: 11/01/22 08:59 Last Admin: 10/03/22 09:10 Dose: 20 mg Iron Sucrose 200 mg/ Sodium (Chloride) 110 mls @ 220 mls/hr IV TODAY ONE Stop: 10/05/22 14:05 Levothyroxine Sodium (Levothyroxine Sodium 100 Mcg Tablet) 100 mcg PO DAILYBB [facility] Stop: 10/29/22 06:29 Last Admin: 10/05/22 05:28 Dose: 100 mcg Loperamide HCl (Loperamide Hcl 2 Mg Cap) 2 mg PO UD PRN PRN Reason: diarrhea Stop: 10/31/22 15:39 Last Admin: 10/01/22 17:33 Dose: 2 mg Magnesium Hydroxide (Magnesium Hydroxide Susp 30 Ml Udc) 30 ml PO Q12H PRN PRN Reason: Constipation Stop: 10/28/22 17:31 Metoprolol Tartrate (Metoprolol Tartrate 25 Mg Tab) 12.5 mg PO QAM [facility] Stop: 11/04/22 13:44 Ondansetron HCl (Ondansetron Inj 2 Mg/Ml 2 Ml Vial) 4 mg IV Q6H PRN PRN Reason: Nausea Stop: 10/28/22 17:31 Last Admin: 10/03/22 10:44 Dose: 4 mg Oxybutynin Chloride (Oxybutynin Chloride Xl 5 Mg Tabcr) 5 mg PO DAILY [facility] Stop: 10/29/22 08:59 Last Admin: 10/05/22 08:10 Dose: 5 mg Pantoprazole Sodium (Pantoprazole 40 Mg Tab) 40 mg PO DAILY [facility] Stop: 10/29/22 08:59 Last Admin: 10/05/22 08:10 Dose: 40 mg Polyethylene Glycol (Polyethylene (Miralax) 17 Gm Pack) 17 gm PO DAILY PRN PRN Reason: Constipation Stop: 10/28/22 17:31 Potassium Chloride (Potassium Chloride 10 Meq Tabcr) 10 meq PO DAILY [facility] Stop: 11/03/22 08:59 Last Admin: 10/05/22 08:10 Dose: 10 meq Vibegron (Vibegron 75 Mg Tab) 75 mg PO DAILY [facility] Stop: 10/30/22 08:59 Last Admin: 10/05/22 08:10 Dose: 75 mg (3) HTN (hypertension) Hypertension type: essential hypertension Qualified Code(s): I10 - Essential (primary) hypertension (5) Hypothyroidism Hypothyroidism type: acquired Qualified Code(s): E03.9 - Hypothyroidism, unspecified
[2022-10-05] MEDS ORDERED: IRON SUCROSE 200 MG in 0.9 % SODIUM CHLORIDE 100 ML IV ONE (14:00)
[2022-10-05] MEDS: METOPROLOL TARTRATE 25 MG TAB PO SCH (15:47)
--- NOTE | 2022-10-05 17:29 | XRay Report ---
XR chest 1V portable CLINICAL HISTORY: follow up COMPARISON STUDY: Chest radiograph October 03, 2022. FINDINGS: Elevation of the right hemidiaphragm is unchanged. Cardiomediastinal silhouette is stable. There is no evidence for pulmonary edema. No consolidation is identified to suggest pneumonia. IMPRESSION: No acute cardiopulmonary findings. No change in appearance of the chest. ACT 112: Negative or not required by law. Electronically signed by: Jamison Cespedes M.D. 10/05/2022 5:28 PM
[2022-10-06 06:24] LABS: Hematocrit (blood only) 25.2 % (37.0-47.0); Hemoglobin 8.2 g/dl (12.0-16.0)
[2022-10-06 06:39] LABS: BUN Creatinine Ratio 17.3 (10-20); Calcium 8.5 mg/dl (8.6-10.3); Creatinine Clr Calc Pharmacy 77.7 ml/min; Est GFR (African American) 98.9 ml/min; Est GFR (Non-African American) 85.3 ml/min; Magnesium 1.9 mg/dl (1.7-2.4); Phosphorus 1.7 mg/dl (2.5-4.9); Potassium 3.8 mmol/L (3.5-5.1)
--- NOTE | 2022-10-06 07:06 | Hospitalist Progress Note ---
Date of Service October 06, 2022 Assessment & Plan (1) Hematochezia: (2) History of gastrointestinal diverticular hemorrhage: (3) HTN (hypertension): (4) Dyslipidemia: (5) Hypothyroidism: (6) GERD (gastroesophageal reflux disease): (7) Depression: Plan 87 yo F presents with BRBPR. 3 episodes in the toilet and in a brief. History of GI diverticular hemorrhage. Has had colonoscopy for diverticulosis; EGD 2014 with mild inflammation Blood consent signed. Type and Cross ordered; hold 2 UPRBC; transfuse for Hgb < 8.0 GI consult placed. Hematochezia Acute blood loss anemia GI bleed - likely diverticular History of GI diverticular hemorrhage: Not on any AC Has had colonoscopy for diverticulosis; EGD 2014 with mild inflammation Hemoglobin trended down from 11.5 to 8 s/p EGD: unrevealing s/p Colonoscopy: (+) Severe diverticulosis in the sigmoid, descending and ascending colon, blood in the descending colon, source of bleeding not identified discussed with GI, recommend transfer (per previous hospitalist) discussed with [facility], recommend CTA (per previous hospitalist) CT angiogram abdomen pelvis: No active site of bleeding noted Transfer to [facility] canceled Patient's hematochezia resolved, hemoglobin remained stable around 8 Diet slowly advanced, tolerating well Outpatient colonoscopy in 3 months Iron deficiency anemia IV iron x2 days PO Ferrous sulfate twice daily Monitor H&H Follow-up as an outpatient Sinus Tachycardia likely from anemia encouraged oral fluid intake started small dose metoprolol - per daughter at the bedside pt tachycardic at home as well - now may be worsened d/t anemia Tachycardia improved- HR low 100s Also required 2 L of oxygen by nasal cannula, now on RA - will obtain 2 step prior to DC Clear breath sounds, chest x-ray clear - CXR repeated and reviewed personally Patient's daughter requested nocturnal pulse oximetry- as pt has hx of AVE Nocturnal hypoxia - pt needed 3L of suppl. O2 overnight HTN: resumed Enalapril can resume Lasix Hypothyroidism: Takes levothyroxine; continue GERD: Takes Protonix and Pepcid; continue Depression: Takes Celexa; continue Disposition: PCP: Dr. Frost Code Status: DNR/DNI VTE Prophylaxis: Teds and SCDs for now Patient and family prefers that she return home with home health services lives at home with daughter Admission and Anticipated Discharge Date Admission Date: September 28, 2022 Subjective Pt seen follow-up for GI bleed, anemia, etc. Resting in bed comfortable, on RA, saturating 94% Feeling well Denies chest pain, shortness of breath, palpitations No abdominal pain, no recurrence of hematochezia, tolerating diet well No other symptoms Nocturnal hypoxia study done. Per daughter pt has hx of AVE. Review of Systems Review of Systems: All systems reviewed & are unremarkable except as noted in Subjective Physical Exam Physical Exam: General- oriented x 3, not in distress, speaks in sentences with no effort or accessory muscle use Eyes- anicteric Neck- no JVD Lungs- clear BS BL Heart- normal rate, regular rhythm; no murmurs Abdomen- normal bowel sounds, nondistended, soft, nontender Extremities- mild LE edema Neuro- alert, oriented x 3; speech fluent, no facial asymmetry, moves extremities Skin- warm & dry Results & Data Results & Data Vital Signs (Past 12 Hours) Vital Signs Temp Pulse Pulse Resp BP Pulse Ox O2 Del Method 10/06/22 03:22 36.7 C 98 H 16 158/83 H 97 Nasal Cannula 10/05/22 20:00 Nasal Cannula 10/05/22 23:37 36.8 C 108 H 18 160/90 H 97 Nasal Cannula 10/05/22 23:00 101 H 10/05/22 19:14 37.0 C 119 H 16 130/76 94 Nasal Cannula O2 Flow Rate 10/06/22 03:22 2.0 10/05/22 20:00 3 10/05/22 23:37 2.0 10/05/22 23:00 10/05/22 19:14 2.0 Laboratory Results 10/06/22 10/06/22 10/05/22 Range/Units 05:39 05:39 05:30 Hgb 8.2 L (12.0-16.0) g/dl Hct 25.2 L (37.0-47.0) % Sodium 138 139 (136-145) mmol/L Potassium 3.8 4.2 (3.5-5.1) mmol/L Chloride 102 105 (98-107) mmol/L Carbon Dioxide 32 31 (21-32) mmol/L Anion Gap 4 3 (3-11) BUN 9 12 (6-23) mg/dl Creatinine 0.52 L 0.59 L (0.6-1.2) mg/dl Est Cr Clr Drug Dosing 77.7 70.0 ml/min Est GFR ( Amer) 98.9 94.8 ml/min Est GFR (Non-Af Amer) 85.3 81.8 ml/min BUN/Creatinine Ratio 17.3 20.3 H (10-20) Glucose 95 90 (70-99(Fasting)) mg/dl Calcium 8.5 L 8.7 (8.6-10.3) mg/dl Phosphorus 1.7 L (2.5-4.9) mg/dl Magnesium 1.9 (1.7-2.4) mg/dl Medications Administered Current Inpatient Medications Acetaminophen (Acetaminophen 325 Mg Tab) 650 mg PO Q4H PRN PRN Reason: Pain or Fever Stop: 10/28/22 17:31 Last Admin: 10/03/22 07:06 Dose: 650 mg Al Hydrox/Mg Hydrox/Simethicone (Aluminum/Magnesium Susp 30 Ml Udc) 15 ml PO Q4H PRN PRN Reason: Dyspepsia Stop: 10/28/22 17:31 Calcium/Vitamin D (Calcium 600mg + Vit D 400 Iu Tab) 1 tab PO DAILY [facility] Stop: 10/29/22 08:59 Last Admin: 10/06/22 08:48 Dose: 1 tab Citalopram Hydrobromide (Citalopram 20 Mg Tab) 10 mg PO DAILY [facility] Stop: 10/29/22 08:59 Last Admin: 10/06/22 08:48 Dose: 10 mg Docusate Sodium (Docusate Sodium 100 Mg Cap) 200 mg PO DAILY [facility] Stop: 10/29/22 08:59 Last Admin: 10/06/22 08:48 Dose: 200 mg Enalapril Maleate (Enalapril Maleate 5 Mg Tab) 5 mg PO QAM [facility] Stop: 11/01/22 08:59 Last Admin: 10/06/22 08:48 Dose: 5 mg Famotidine (Famotidine 20 Mg Tab) 20 mg PO DAILY [facility] Stop: 10/29/22 08:59 Last Admin: 10/06/22 08:48 Dose: 20 mg Ferrous Sulfate (Ferrous Sulfate 325 Mg Tab) 325 mg PO BIDM [facility] Stop: 11/03/22 07:59 Last Admin: 10/05/22 08:09 Dose: 325 mg Furosemide (Furosemide 20 Mg Tab) 20 mg PO QAM [facility] Stop: 11/01/22 08:59 Last Admin: 10/03/22 09:10 Dose: 20 mg Levothyroxine Sodium (Levothyroxine Sodium 100 Mcg Tablet) 100 mcg PO DAILYBB [facility] Stop: 10/29/22 06:29 Last Admin: 10/06/22 08:48 Dose: 100 mcg Loperamide HCl (Loperamide Hcl 2 Mg Cap) 2 mg PO UD PRN PRN Reason: diarrhea Stop: 10/31/22 15:39 Last Admin: 10/01/22 17:33 Dose: 2 mg Magnesium Hydroxide (Magnesium Hydroxide Susp 30 Ml Udc) 30 ml PO Q12H PRN PRN Reason: Constipation Stop: 10/28/22 17:31 Metoprolol Tartrate (Metoprolol Tartrate 25 Mg Tab) 12.5 mg PO QAM [facility] Stop: 11/04/22 13:44 Last Admin: 10/06/22 08:47 Dose: 12.5 mg Ondansetron HCl (Ondansetron Inj 2 Mg/Ml 2 Ml Vial) 4 mg IV Q6H PRN PRN Reason: Nausea Stop: 10/28/22 17:31 Last Admin: 10/03/22 10:44 Dose: 4 mg Oxybutynin Chloride (Oxybutynin Chloride Xl 5 Mg Tabcr) 5 mg PO DAILY [facility] Stop: 10/29/22 08:59 Last Admin: 10/06/22 08:48 Dose: 5 mg Pantoprazole Sodium (Pantoprazole 40 Mg Tab) 40 mg PO DAILY [facility] Stop: 10/29/22 08:59 Last Admin: 10/06/22 08:48 Dose: 40 mg Polyethylene Glycol (Polyethylene (Miralax) 17 Gm Pack) 17 gm PO DAILY PRN PRN Reason: Constipation Stop: 10/28/22 17:31 Potassium Chloride (Potassium Chloride 10 Meq Tabcr) 10 meq PO DAILY [facility] Stop: 11/03/22 08:59 Last Admin: 10/06/22 08:47 Dose: 10 meq Potassium Phosphate (Pot Phosphate Monobasic W/ Sod Tab) 1 tab PO QID [facility] Stop: 11/05/22 08:59 Last Admin: 10/06/22 08:55 Dose: 1 tab Vibegron (Vibegron 75 Mg Tab) 75 mg PO DAILY [facility] Stop: 10/30/22 08:59 Last Admin: 10/06/22 08:48 Dose: 75 mg (3) HTN (hypertension) Hypertension type: essential hypertension Qualified Code(s): I10 - Essential (primary) hypertension (5) Hypothyroidism Hypothyroidism type: acquired Qualified Code(s): E03.9 - Hypothyroidism, unspecified
[2022-10-06] MEDS: METOPROLOL TARTRATE 25 MG TAB PO SCH (08:47)
[2022-10-06] MEDS: POTASSIUM CHLORIDE 10 MEQ TABCR PO SCH (08:47)
[2022-10-06] MEDS: VIBEGRON 75 MG TAB PO SCH (08:48)
[2022-10-06] MEDS: OXYBUTYNIN CHLORIDE XL 5 MG TABCR PO SCH (08:48)
[2022-10-06] MEDS: CITALOPRAM 20 MG TAB PO SCH (08:48)
[2022-10-06] MEDS: DOCUSATE SODIUM 100 MG CAP PO SCH (08:48)
[2022-10-06] MEDS: ENALAPRIL MALEATE 5 MG TAB PO SCH (08:48)
[2022-10-06] MEDS: FAMOTIDINE 20 MG TAB PO SCH (08:48)
[2022-10-06] MEDS: CALCIUM 600MG + VIT D 400 IU TAB PO SCH (08:48)
[2022-10-06] MEDS: LEVOTHYROXINE SODIUM 100 MCG TABLET PO SCH (08:48)
[2022-10-06] MEDS: PANTOprazole 40 MG TAB PO SCH (08:48)
[2022-10-06] MEDS: POT PHOSPHATE MONOBASIC W/ SOD TAB PO SCH ×2 (08:55→12:40)
--- NOTE | 2022-10-06 11:52 | Discharge Summary ---
Date of Service October 06, 2022 Admission HPI Per Admitting Provider Ms. Steiner is an 87 year old female that presented to the [facility] with complaints of bright red blood per her rectum that started this morning and continued two additional times. She denied any dizziness with her bowel movements. She reports clots and blood prior to it hitting the toilet water. She was hypoxic on arrival, with SPO2 89%. She is not taking any anticoagulation. Additional past medical history includes aortic valve sclerosis, HTN, HLD, diverticular hemorrhage, OA, hypothyroidism, depression, and GERD. EGD and colonoscopy in past: Diverticulosis and EGD mild inflammation 2014. She has a history of diverticular hemorrhage that occurred 10 years ago requiring admission at [facility]. No surgery at that time but she did have blood transfusions without any transfusion reactions. Hgb 13.4; will trend Q6 x2 and in AM. Blood consent obtained and type and cross just to have on hand if needed. Suspect could be hemorrhoids vs acute GIB. Hgb may be normal during first 24 hours of acute GIB before equilibration. In ED, Hgb holding at 13.4, no leukocytosis; tachycardia heart rate 127 otherwise hemodynamically stable. Troponin negative. Pt denies MCCRAY, dizziness, chest pain, heart palpitations, N/V/D, recent falls or trauma, tenesmus. Suspect could be lower GIB vs hemorrhoids, anal fissure, telangictasia. Pt reports eating and drinking ok. Pt lives with her and their daughter, Alissa (at bedside), lives with them. Pt sitting upright in her hospital bed in no apparent distress. Pt had one BM while I was in the room with clots and BRBPR. Patient will be admitted for further evaluation and management. Please see A/P for further details. Admission Exam Per Admitting Provider Neuro: AAOx4, PERRLA, no aphagia, memory changes, CNII-XII grossly intact HEENT: head normocephalic, moist mucus membranes CV: S1/S2, (-) M/G/R, (-) edema, cap refill < 3 seconds. tachycardia Resp: Lungs CTA in all carias. On RA GI: Abdomen S/NT/ND, Ax4 bowel sounds, (-) CVA tenderness Musculoskeletal: 5/5 B/L UE strength, 5/5 B/L LE strength. No gait disturbance Skin: (-) rashes , (-) erythema. Psych: euthymic mood Principal Diagnosis Acute blood loss anemia, GI bleed, likely diverticular Discharge Exam General- oriented x 3, not in distress, speaks in sentences with no effort or accessory muscle use Eyes- anicteric Neck- no JVD Lungs- CTAB, no wheezing, no rhonchi. Breathing comfortably on RA, saturating 94% Heart- normal rate, regular rhythm; no murmurs Abdomen- normal bowel sounds, nondistended, soft, nontender Extremities- mild LE edema Neuro- alert, oriented x 3; speech fluent, no facial asymmetry, moves extremities Skin- warm & dry Discharge Data Allergies Allergy/AdvReac Type Severity Reaction Status Date / Time adhesive Allergy Intermediate SENSITIVE, Verified 11/22/21 20:23 RASH montelukast Allergy Intermediate RASH, HYPER Verified 11/22/21 20:23 Penicillins Allergy Rash Verified 11/23/21 16:10 salicylates AdvReac Intermediate VOMITING Verified 11/22/21 20:23 Consultations 09/28/22 17:15 ED Decision to Admit Stat 09/28/22 17:32 Consult Gastroenterology Routine Procedures Performed Operation Date: 09/30/22 16:45 Actual Procedures p Esophagogastroduodenoscopy - Kimberly Borrego DO s Colonoscopy - Kimberly Borrego, Ordered Studies 09/30/22 16:03 CT angio abd pelvis wo/w con Stat FINDINGS: CTA: Cardiomegaly. Suggesting pulmonary arterial hypertension. Mild to moderate atherosclerosis. No abdominal aortic aneurysm or dissection. Patent iliac arteries. The arteries of the celiac trunk, superior and inferior mesenteric artery appear patent. The renal arteries are also patent bilaterally. No active shallow dictation. CT ABDOMEN/PELVIS: There are a few probable cysts noted within the liver measuring up to 1.9 cm. Cholecystectomy with postsurgical biliary ductal dilation. There is patency of the hepatic and portal veins. Unremarkable spleen, mildly atrophic pancreas and adrenal glands. Multifocal cortical scarring with parenchymal thinning of left kidney again noted. Bilateral renal cysts measure up to 10.5 cm on the left. No renal or ureteral calculi or hydronephrosis identified. 2.1 x 2.2 cm exophytic cyst of the interpolar right kidney and image 144 demonstrates a thin septation compatible with a Bosniak 2 lesion. No enhancing solid renal mass lesions identified. Mild urothelial thickening of the left renal collecting system. A nonspecific urinary bladder wall thickening. The uterus appears surgically absent. There is no bowel structure and or intra-abdominal abscess. There is wall thickening of the anal rectal junction with moderate adjacent inflammatory stranding. Colonic diverticulosis. A right inguinal hernia is again noted containing mesenteric fat and nonobstructed loops of bowel. No CT evidence of acute appendicitis. Unremarkable soft tissues. Degenerative changes of the spine, pelvis and hips. IMPRESSION: 1. Circumferential wall thickening of the anal rectal junction with mild adjacent inflammatory stranding. Differential considerations include an in fectious or inflammatory process versus a mucosal lesion. Findings could be correlated with colonoscopy. 2. Colonic diverticulosis. 3. No bowel obstruction or pneumoperitoneum. 4. Small bowel containing right inguinal hernia is similar to prior. 5. Unremarkable CTA. 6. Additional findings as above. Hospital Course (1) Hematochezia: (2) History of gastrointestinal diverticular hemorrhage: (3) HTN (hypertension): (4) Dyslipidemia: (5) Hypothyroidism: (6) GERD (gastroesophageal reflux disease): (7) Depression: Plan 87 yo F presents with BRBPR. 3 episodes in the toilet and in a brief. History of GI diverticular hemorrhage. Has had colonoscopy for diverticulosis; EGD 2014 with mild inflammation Blood consent signed. Type and Cross ordered; hold 2 UPRBC; transfuse for Hgb < 8.0 GI consult placed. Hematochezia Acute blood loss anemia GI bleed - likely diverticular History of GI diverticular hemorrhage: Not on any AC Has had colonoscopy for diverticulosis; EGD 2014 with mild inflammation Hemoglobin trended down from 11.5 to 8 s/p EGD: unrevealing s/p Colonoscopy: (+) Severe diverticulosis in the sigmoid, descending and ascending colon, blood in the descending colon, source of bleeding not identified discussed with GI, recommend transfer (per previous hospitalist) discussed with [facility], recommend CTA (per previous hospitalist) CT angiogram abdomen pelvis: No active site of bleeding noted Transfer to [facility] canceled Patient's hematochezia resolved, hemoglobin remained stable around 8 Diet slowly advanced, tolerating well Outpatient colonoscopy in 3 months Iron deficiency anemia IV iron x2 days PO Ferrous sulfate twice daily Monitor H&H Follow-up as an outpatient Sinus Tachycardia likely from anemia encouraged oral fluid intake started small dose metoprolol - per daughter at the bedside pt tachycardic at home as well - now may be worsened d/t anemia Tachycardia improved- HR low 100s Also required 2 L of oxygen by nasal cannula, now on RA - obtained 2 step prior to DC - pt does not require suppl. O2 Clear breath sounds, chest x-ray clear - CXR repeated and reviewed personally Patient's daughter requested nocturnal pulse oximetry- as pt has hx of AVE Nocturnal hypoxia - pt needed 3L of suppl. O2 overnight - pt should follow up as outpt re: poss. AVE HTN: resumed Enalapril can resume Lasix Hypothyroidism: Takes levothyroxine; continue GERD: Takes Protonix and Pepcid; continue Depression: Takes Celexa; continue PCP: Dr. Frost Disposition: Patient and family prefers that she return home with home health services lives at home with daughter Total Time Total Time Spent Total Time Spent (In Minutes): 40 Discharge Plan Discharge Items Patient Disposition: Home - Home Health Services Reason For Visit: GIB Discharge Diagnosis: Acute blood loss anemia, GI bleed, likely diverticular Activity: Per Instructions section Non-emergency contact: Primary Care Provider and [employer] Call non-emergency contact if: you have any medication questions and your symptoms worsen Follow-up/Referrals: Josesito Frost MD [Primary Care Provider] - (Date & Time 10/12/2022 11:20 AM Provider Josesito Frost MD Department [facility] ) Diet: Low Fiber Addtl Attending Provider Instructions: Follow-up with primary care physician and gastroenterology. The appointment with your primary care provider was scheduled for you for October 12. Continue iron supplement. You were started on medication, metoprolol, discuss further with your family physician if you should continue this. Use supplemental oxygen, 3 L while sleeping, follow-up with your outpatient providers for sleep apnea. Pending Studies at Discharge: No Stand-Alone Forms: My [employer], Smoking Cessation Medications and DC Order Prescriptions: New metoprolol tartrate 25 mg Tablet 12.5 mg PO BID 14 Days Qty: 14 0RF Continued tramadol 50 mg tablet 50 mg PO Q6H PRN (Reason: Pain) famotidine 20 mg tablet 20 mg PO DAILY solifenacin 5 mg tablet 5 mg PO DAILY citalopram [Celexa] 10 mg Tablet 10 mg PO DAILY levothyroxine 100 mcg Tablet 100 mcg PO DAILY pantoprazole 40 mg Tablet,Delayed Release (Dr/Ec) 40 mg PO DAILY multivitamin Tablet 1 tab PO DAILY potassium chloride 10 mEq capsule, extended release 10 meq PO DAILY Rx Instructions: take daily with each dose of furosemide enalapril maleate 5 mg tablet 5 mg PO QAM acetaminophen [Tylenol Extra Strength] 500 mg Tablet 1,000 mg PO BID docusate sodium [Stool Softener] 100 mg Capsule 200 mg PO DAILY furosemide 20 mg tablet 20 mg PO QAM calcium carbonate-vitamin D3 [Calcium 600 + D(3)] 600 mg-10 mcg (400 unit) Tablet 1 tab PO DAILY Prolia 60 mg/mL syringe 60 mg SUBCUT .Q6M Myrbetriq 50 mg tablet extended release 24 hr 50 mg PO DAILY Discharge Orders: Discharge Order (Routine); Ordered 10/06/22 Ordered By: Sree Em Admission Data Admit Date/Time: 09/28/22 17:32 Attending Provider: Sree Em Admit Provider: Dante Roman Primary Care Provider: Josesito Frost Other Providers: Dante Roman ; Alan Mendes ; [facility] ; Channing Santana
== END 2022-10-06 14:56 | disposition home health service (06) | DRG 378 ==
LOC: ED 15:31 → SUATTDRO 17:32 → 4W 17:32

== ENCOUNTER 2023-03-10 11:52 | Inpatient (IN) ==
--- NOTE | 2023-03-10 12:07 | ED Triage Note ---
Date of Service March 10, 2023 History of Present Illness This patient was briefly evaluated while in triage. An abbreviated physical exam was performed. This patient is a 87-year-old Female who presents to the ED for evaluation of coughing, nausea, dizziness and headache. Symptoms have been ongoing for the past few weeks. Patient does have history of sleep apnea, and is on O2 via nasal cannula at 3 L/min. O2 level was 89% at home this morning. Patient denies any minal shortness of breath at this time. Patient has not been evaluated by her PCP for the symptoms. She did call the office, and was referred to the emergency department for further evaluation. Physical Exam CONSTITUTIONAL: Healthy and well nourished. HEENT: No scleral icterus or conjunctival injection. RESPIRATORY: Clear to auscultation bilaterally with no wheezing, crackles, rhonchi or stridor. CARDIOVASCULAR: Regular rate and rhythm with no murmurs, rubs or gallops. INTEGUMENTARY: No rash or other significant dermatologic conditions noted. HEMATOLOGIC: No ecchymosis or petechiae. PSYCHIATRIC: Positive affect. NEUROLOGIC: No focal neurologic deficits noted. Initial orders for labs and / or imaging were placed and patient was placed in the waiting area until a bed is available. Please see further documentation for the full ED course.
--- NOTE | 2023-03-10 13:12 | XRay Report ---
XR chest 1V not portable HISTORY: 87 years-old Female weakness COMPARISON: 10/05/2022 TECHNIQUE: AP view of the chest FINDINGS: Cardiac silhouette is enlarged. Mild right hemidiaphragmatic elevation. No pneumothorax, large pleura l effusion or pulmonary edema. Mild subsegmental bibasilar atelectasis. Cholecystectomy. Bones appear grossly intact. IMPRESSION: Cardiomegaly without acute process. ACT 112: Negative or not required by law. The above report was generated using voice recognition software. It may contain grammatical, syntax o r spelling errors. Electronically signed by: Hudson Machado M.D. 03/10/2023 1:11 PM
[2023-03-10 13:44] LABS: Basophils # (auto) 0.05 K/uL (0.00-0.20); Basophils % (auto) 0.5 %; Eosinophils # (auto) 0.05 K/uL (0.00-0.50); Eosinophils % (auto) 0.5 %; Hematocrit (blood only) 39.2 % (37.0-47.0); Immature Granulocytes # (auto) 0.06 K/uL (0.01-0.20); Immature Granulocytes % (auto) 0.6 %; Lymphocytes # (auto) 1.09 K/uL (1.20-3.40); Lymphocytes % (auto) 11.8 %; Mean Corpuscular Hemoglobin 30.4 pg (25.0-34.0); Mean Corpuscular Hgb Conc 33.2 g/dL (32.0-36.0); Mean Corpuscular Volume 91.8 fL (80.0-100.0); Mean Platelet Volume 10.4 fL (9.4-12.4); Monocytes # (auto) 1.08 K/uL (0.11-0.59); Monocytes % (auto) 11.7 %; Neutrophils # (auto) 6.92 K/uL (1.40-6.50); Neutrophils % (auto) 74.9 %; Platelet Count 188 K/uL (130-400); RDW Coefficient of Variation 15.4 % (11.5-14.5); RDW Standard Deviation 51.6 fL (36.4-46.3); Red Blood Count 4.27 M/uL (4.20-5.40); White Blood Count 9.25 K/ul (4.8-10.8)
[2023-03-10 13:53] LABS: Alanine Aminotransferase 6 U/L (7-52); Albumin Globulin Ratio 1.1 (0.9-2); Albumin Level 4.1 gm/dl (3.4-5.0); Alkaline Phosphatase 59 U/L (34-104); Anion Gap 6 (3-11); Aspartate Aminotransferase 15 U/L (13-39); Bilirubin,Total 1.3 mg/dl (0.2-1.0); Blood Urea Nitrogen 14 mg/dl (6-23); Calcium 9.5 mg/dl (8.6-10.3); Carbon Dioxide 31 mmol/L (21-32); Chloride 100 mmol/L (98-107); Est GFR (African American) 93.8 ml/min; Est GFR (Non-African American) 80.9 ml/min; Globulin 3.6 gm/dl (2.5-4.0); Glucose 105 mg/dl (70-99(Fasting)); Magnesium 2.2 mg/dl (1.7-2.4); Sodium 137 mmol/L (136-145); Total Protein 7.7 gm/dl (6.0-8.3)
[2023-03-10 13:58] LABS: Appearance Urine Cloudy (Clear); Bacteria Urine Automated 2+ (Negative); Bilirubin Urine Negative (Negative); Blood Urine 1+ (Negative); Color Urine Yellow; Glucose Urine UA Negative (Negative); Ketones Urine Negative (Negative); Leukocyte Esterase Urine 1+ (Negative); Nitrite Urine Negative (Negative); Protein Urine 1+ (Negative); Specific Gravity Urine 1.015 (1.000-1.030); Urobilinogen Urine Negative (Negative); WBC Urine Automated >30 /hpf (0-5)
[2023-03-10 13:58] LABS: Troponin I High Sensitivity 7.6 pg/ml (0-14)
[2023-03-10 14:08] LABS: Thyroid Stimulating Hormone 1.483 uIu/ml (0.300-4.500)
[2023-03-10] MEDS ORDERED: cefTRIAXone SODIUM 2,000 MG/50 ML BAG IV STA (15:09)
[2023-03-10] MEDS ORDERED: SODIUM CHLORIDE 0.9% 1,000 ML IV ONE (15:09)
--- NOTE | 2023-03-10 15:48 | Emergency Department Note ---
Impression & Plan Acute alteration in mental status, Hypoxia, Acute UTI (urinary tract infection) ED Provider Note NAME: YENNI BUCIO AGE: 87 SEX: F : 1935 ARRIVES VIA: Ambulance INFORMANT: Patient, the patient's family member ED PROVIDER(S): Hardy Lopez DO CHIEF COMPLAINT: Altered mental status HPI: The patient is an 87-year-old female who presented to the emergency department for an evaluation of altered mental status. The patient is with her family member. She states that she has been having problems over the last 24 hours. She has been having shortness of breath. She is also been having chills and rigors. There was no reported UTI symptoms including dysuria or frequency. There is no reported falls. There were not seen by the primary care physician prior to coming to the emergency department. ROS: See above HPI for pertinent positives & negatives. A total of 10 systems reviewed and were otherwise negative. PAST MEDICAL HISTORY: See Below PAST SURGICAL HISTORY: See Below FAMILY HISTORY: See Below SOCIAL HISTORY: See Below the patient is an 87-year-old female who presented to HOME MEDICATIONS: See Below ALLERGIES: See Below VITALS: See Below PHYSICAL EXAMINATION: GENERAL: The patient is awake and alert. She does not appear to be uncomfortable. EYES: The conjunctivae are clear. The pupils are round and reactive. EARS, NOSE, MOUTH AND THROAT: The nose is without any evidence of any deformity. Mucous membranes are dry. NECK: The neck is nontender and supple. RESPIRATORY: Diminished breath sounds are noted throughout. CARDIOVASCULAR: Tachycardic with regular heart rate was noted to auscultation. There is no definite murmur. GASTROINTESTINAL: The abdomen is soft. Abdomen is nontender. MUSCULOSKELETAL/EXTREMITIES: There is no evidence of gross deformity full range of motion is noted in the hips and shoulders. SKIN: The skin is warm and dry. Trace pedal edema was noted bilaterally. NEUROLOGIC: Patient is awake alert and oriented x3. Strength was symmetric. MEDICAL DECISION MAKING: The patient is an 87-year-old female who presented to the emergency department with family for an evaluation of altered mental status. The patient does have a history of requiring oxygen but only at night. She was found to be hypoxic on arrival to the emergency department. The patient appeared comfortable. She did not have a physical exam consistent with an acute surgical abdomen however given her presentation as well as her laboratory findings I did feel the patient required further radiographic studies in the way of CT of the head chest abdomen and pelvis. I discussed the patient's laboratory and radiographic studies with her family member. She was treated with IV fluids as well as IV antibiotics. She was reevaluated. I discussed her condition with the on-call [facility] hospitalist. They have agreed to evaluate the patient in the emergency department for further management and disposition. Triage Nursing notes reviewed. Prior medical records reviewed Vital Signs: reviewed and remarkable for elevated blood pressure and tachycardia. Differential diagnosis: Infection, hypoglycemia, electrolyte abnormalities, overdose, toxicologic, cardiac sources, intracerebral event, neurologic, trauma, as well as other pathologies. ER treatment provided: See below Diagnostics interpreted by me: ECG: EKG was obtained in the emergency department. My interpretation is sinus tachycardia 116 bpm. There was no ectopy. Nonspecific ST segment abnormalities were noted. This was compared to a tracing from October 03, 2022. No changes were noted. Cardiac Monitoring: An order was placed for continuous cardiac monitoring. The monitor shows a rate of 111 bpm with sinus tachycardia. Laboratory studies: As stated above and show below. Imaging studies: See below. Radiographic imaging was reviewed by myself Consultation(s): I discussed this case with Dr. Connolly [facility]. Past Med/Surg History Medical History Aortic valve sclerosis BRBPR (bright red blood per rectum) Depression Dyslipidemia Encounter for pre-operative examination GERD (gastroesophageal reflux disease) History of gastrointestinal diverticular hemorrhage HTN (hypertension) Hypothyroidism Hypoxia LGI bleed Nausea & vomiting Near syncope Osteoarthritis Rectal bleeding Urge incontinence Surgical History History of arthroscopic knee surgery History of cholecystectomy History of hysterectomy History of tonsillectomy Family History Father Heart disease Brother Lung cancer Brother Gastric cancer Mother Brain cancer Social History Smoking Status: Never smoker Second Hand Exposure: No; Do You Dip or Chew Tobacco: No; Hx Alcohol Use: No Hx Substance Use: No Preferred Language: Vietnamese Communication Ability: Effective Market Developer Required: No Beliefs That Will Affect Care: None Current Living Situation: Spouse and Family Current Living Situation Comment: lives with and daughter Feels Safe at Home: Yes Assistive Devices: Walker Allergies Allergies Allergy/AdvReac Type Severity Reaction Status Date / Time adhesive Allergy Intermediate SENSITIVE, Verified 11/22/21 20:23 RASH amoxicillin [From Augmentin] Allergy Intermediate Hives Unverified 03/10/23 19:34 clavulanic acid Allergy Intermediate Hives Unverified 03/10/23 19:34 [From Augmentin] montelukast Allergy Intermediate RASH, HYPER Verified 11/22/21 20:23 Penicillins Allergy Rash Verified 11/23/21 16:10 salicylates AdvReac Intermediate VOMITING Verified 11/22/21 20:23 Home Meds Home Medications Medication Instructions Recorded Confirmed citalopram 10 mg tablet (Celexa) 10 mg PO DAILY 06/15/20 03/10/23 famotidine 20 mg tablet 20 mg PO DAILY 06/15/20 03/10/23 levothyroxine 100 mcg tablet 100 mcg PO DAILY 06/15/20 03/10/23 pantoprazole 40 mg tablet,delayed 40 mg PO DAILY 06/15/20 03/10/23 release solifenacin 5 mg tablet 5 mg PO DAILY 06/15/20 03/10/23 tramadol 50 mg tablet 50 mg PO Q6H PRN Pain 06/15/20 03/10/23 acetaminophen 500 mg tablet 1,000 mg PO BID 11/22/21 03/10/23 (Tylenol Extra Strength) calcium carbonate 600 mg-vitamin 1 tab PO DAILY 11/22/21 03/10/23 D3 10 mcg (400 unit) tablet (Calcium 600 + D(3)) docusate sodium 100 mg capsule 200 mg PO DAILY 11/22/21 03/10/23 (Stool Softener) enalapril maleate 5 mg tablet 5 mg PO QAM 11/22/21 03/10/23 furosemide 20 mg tablet 20 mg PO QAM 11/22/21 03/10/23 multivitamin 1 tab PO DAILY 11/22/21 03/10/23 potassium chloride 10 mEq 10 meq PO DAILY 11/22/21 03/10/23 capsule,extended release denosumab 60 mg/mL subcutaneous 60 mg subcut .Q6M 09/28/22 03/10/23 syringe (Prolia) mirabegron 50 mg tablet,extended 50 mg PO DAILY 09/28/22 03/10/23 release 24 hr (Myrbetriq) ferrous sulfate 325 mg (65 mg 325 mg PO DAILY 03/10/23 03/10/23 iron) tablet (iron) metoprolol tartrate 25 mg tablet 0.5 mg PO AMPM 03/10/23 03/10/23 Results & Data (ED) Vital Signs Vital Signs - 24 hr 03/10/23 12:04 03/10/23 16:42 03/10/23 20:36 Temperature 36.8 C Temperature Source Temporal Artery Scan Pulse Rate 113 H 94 H Pulse Rate [Apical] 111 H Respiratory Rate 18 20 Blood Pressure 159/82 H Blood Pressure [Right Arm] 172/103 H Blood Pressure Mean 107 Blood Pressure Mean [Right Arm] 126 Pulse Oximetry 95 95 Oxygen Delivery Method Nasal Cannula Nasal Cannula Oxygen Flow Rate 3 3 Sepsis Recent Fever Within 48 Hours No Sepsis New/Unexplained Change in Mental Status No Sepsis Action Taken by Nursing No Action Required 03/10/23 20:36 Temperature Temperature Source Pulse Rate Pulse Rate [Apical] Respiratory Rate Blood Pressure Blood Pressure [Right Arm] Blood Pressure Mean Blood Pressure Mean [Right Arm] Pulse Oximetry Oxygen Delivery Method Nasal Cannula Oxygen Flow Rate Sepsis Recent Fever Within 48 Hours Sepsis New/Unexplained Change in Mental Status Sepsis Action Taken by Group Home Medications Current Medication List: was personally reviewed by me Laboratory Data Attestation: I reviewed the patient's lab results. 03/10/23 13:12 03/10/23 13:12 Lab Results 03/10/23 03/10/23 03/10/23 Range/Units 13:12 13:12 13:42 WBC 9.25 (4.8-10.8) K/ul RBC 4.27 (4.20-5.40) M/uL Hgb 13.0 (12.0-16.0) g/dl Hct 39.2 (37.0-47.0) % MCV 91.8 (80.0-100.0) fL MCH 30.4 (25.0-34.0) pg MCHC 33.2 (32.0-36.0) g/dL RDW Std Deviation 51.6 H (36.4-46.3) fL RDW Coeff of Talisha 15.4 H (11.5-14.5) % Plt Count 188 (130-400) K/uL MPV 10.4 (9.4-12.4) fL Immature Gran % (Auto) 0.6 % Neut % (Auto) 74.9 % Lymph % (Auto) 11.8 % Whitman % (Auto) 11.7 % Eos % (Auto) 0.5 % Baso % (Auto) 0.5 % Neut # (Auto) 6.92 H (1.40-6.50) K/uL Lymph # (Auto) 1.09 L (1.20-3.40) K/uL Whitman # (Auto) 1.08 H (0.11-0.59) K/uL Eos # (Auto) 0.05 (0.00-0.50) K/uL Baso # (Auto) 0.05 (0.00-0.20) K/uL Immature Gran # (Auto) 0.06 (0.01-0.20) K/uL VBG pH (7.36-7.41) VBG pCO2 (38-50) mmHg VBG pO2 mmHg VBG HCO3 mmol/L VBG O2 Saturation % VBG Base Excess mEq/L Sodium 137 (136-145) mmol/L Potassium 4.0 (3.5-5.1) mmol/L Chloride 100 (98-107) mmol/L Carbon Dioxide 31 (21-32) mmol/L Anion Gap 6 (3-11) BUN 14 (6-23) mg/dl Creatinine 0.61 (0.6-1.2) mg/dl Est Cr Clr Drug Dosing Not Reportable Est GFR ( Amer) 93.8 ml/min Est GFR (Non-Af Amer) 80.9 ml/min BUN/Creatinine Ratio 23.0 H (10-20) Glucose 105 H (70-99(Fasting)) mg/dl Calcium 9.5 (8.6-10.3) mg/dl Magnesium 2.2 (1.7-2.4) mg/dl Total Bilirubin 1.3 H (0.2-1.0) mg/dl AST 15 (13-39) U/L ALT 6 L (7-52) U/L Alkaline Phosphatase 59 (34-104) U/L Troponin I High Sens 7.6 (0-14) pg/ml Total Protein 7.7 (6.0-8.3) gm/dl Albumin 4.1 (3.4-5.0) gm/dl Globulin 3.6 (2.5-4.0) gm/dl Albumin/Globulin Ratio 1.1 (0.9-2) TSH 1.483 (0.300-4.500) uIu/ml Urine Color Yellow Urine Appearance Cloudy A (Clear) Urine pH 7.0 (4.5-7.5) Ur Specific Bourbon 1.015 (1.000-1.030) Urine Protein 1+ H (Negative) Urine Glucose (UA) Negative (Negative) Urine Ketones Negative (Negative) Urine Blood 1+ H (Negative) Urine Nitrite Negative (Negative) Urine Bilirubin Negative (Negative) Urine Urobilinogen Negative (Negative) Ur Leukocyte Esterase 1+ H (Negative) Urine WBC (Auto) >30 H (0-5) /hpf Urine RBC (Auto) 5-10 H (0-4) /hpf U Hyaline Cast (Auto) 1-5 (0-5) /lpf U Epithel Cells (Auto) 5-10 H (0-5) /lpf Urine Bacteria (Auto) 2+ H (Negative) 03/10/23 Range/Units 15:57 WBC (4.8-10.8) K/ul RBC (4.20-5.40) M/uL Hgb (12.0-16.0) g/dl Hct (37.0-47.0) % MCV (80.0-100.0) fL MCH (25.0-34.0) pg MCHC (32.0-36.0) g/dL RDW Std Deviation (36.4-46.3) fL RDW Coeff of Talisha (11.5-14.5) % Plt Count (130-400) K/uL MPV (9.4-12.4) fL Immature Gran % (Auto) % Neut % (Auto) % Lymph % (Auto) % Whitman % (Auto) % Eos % (Auto) % Baso % (Auto) % Neut # (Auto) (1.40-6.50) K/uL Lymph # (Auto) (1.20-3.40) K/uL Whitman # (Auto) (0.11-0.59) K/uL Eos # (Auto) (0.00-0.50) K/uL Baso # (Auto) (0.00-0.20) K/uL Immature Gran # (Auto) (0.01-0.20) K/uL VBG pH 7.37 (7.36-7.41) VBG pCO2 59 H (38-50) mmHg VBG pO2 37 mmHg VBG HCO3 34 mmol/L VBG O2 Saturation 68.0 % VBG Base Excess 6.9 mEq/L Sodium (136-145) mmol/L Potassium (3.5-5.1) mmol/L Chloride (98-107) mmol/L Carbon Dioxide (21-32) mmol/L Anion Gap (3-11) BUN (6-23) mg/dl Creatinine (0.6-1.2) mg/dl Est Cr Clr Drug Dosing Est GFR ( Amer) ml/min Est GFR (Non-Af Amer) ml/min BUN/Creatinine Ratio (10-20) Glucose (70-99(Fasting)) mg/dl Calcium (8.6-10.3) mg/dl Magnesium (1.7-2.4) mg/dl Total Bilirubin (0.2-1.0) mg/dl AST (13-39) U/L ALT (7-52) U/L Alkaline Phosphatase (34-104) U/L Troponin I High Sens (0-14) pg/ml Total Protein (6.0-8.3) gm/dl Albumin (3.4-5.0) gm/dl Globulin (2.5-4.0) gm/dl Albumin/Globulin Ratio (0.9-2) TSH (0.300-4.500) uIu/ml Urine Color Urine Appearance (Clear) Urine pH (4.5-7.5) Ur Specific Bourbon (1.000-1.030) Urine Protein (Negative) Urine Glucose (UA) (Negative) Urine Ketones (Negative) Urine Blood (Negative) Urine Nitrite (Negative) Urine Bilirubin (Negative) Urine Urobilinogen (Negative) Ur Leukocyte Esterase (Negative) Urine WBC (Auto) (0-5) /hpf Urine RBC (Auto) (0-4) /hpf U Hyaline Cast (Auto) (0-5) /lpf U Epithel Cells (Auto) (0-5) /lpf Urine Bacteria (Auto) (Negative) Administered Medications Discontinued Medications Sodium Chloride (Nss) 1,000 mls @ 999 mls/hr IV .Q1H1M ONE Stop: 03/10/23 16:09 Last Infusion: 03/10/23 16:34 Dose: 0 mls/hr Documented By: Admin: 03/10/23 15:40 Dose: 999 mls/hr Documented By: JEN Ceftriaxone Sodium (Rocephin) 2,000 mg in 50 mls @ 100 mls/hr IV NOW STA Stop: 03/10/23 15:38 Last Infusion: 03/10/23 16:25 Dose: 0 mls/hr Documented By: Admin: 03/10/23 15:40 Dose: 100 mls/hr Documented By: JEN Ioversol (Optiray 320 500ml) 103 ml IV ONCE ONE Stop: 03/10/23 16:48 Last Admin: 03/10/23 16:47 Dose: 103 ml Documented By: RASTA Imaging Data Attestation: I personally reviewed and interpreted this imaging study as follows: My Impression: 1 view chest x-ray was obtained in the emergency department. My interpretation is cardiomegaly, there is no free air, final report below. CT of the brain was obtained in the emergency department. My interpretation is no intracranial hemorrhage or mass effect, final report below. Radiologist's Impression: Chest X-Ray 03/10/23 12:07 XR chest 1V not portable HISTORY: 87 years-old Female weakness COMPARISON: 10/05/2022 TECHNIQUE: AP view of the chest FINDINGS: Cardiac silhouette is enlarged. Mild right hemidiaphragmatic elevation. No pneumothorax, large pleural effusion or pulmonary edema. Mild subsegmental bibasilar atelectasis. Cholecystectomy. Bones appear grossly intact. IMPRESSION: Cardiomegaly without acute process. ACT 112: Negative or not required by law. The above report was generated using voice recognition software. It may contain grammatical, syntax or spelling errors. Electronically signed by: Hudson Machado M.D. 03/10/2023 1:11 PM Abdomen/Pelvis CT 03/10/23 15:43 CT abd pelvis IV con only CLINICAL HISTORY: urine infection, ,sepsis TECHNIQUE: Helical axial images of the abdomen and pelvis were obtained and displayed. Automated dose lowering techniques and/or adjustment according to patient size were utilized for this exam. This exam was performed with intravenous contrast. COMPARISON: Comparison is made to CT abdomen pelvis 09/30/2022 FINDINGS: Lower chest: Bibasilar atelectasis versus scarring is seen. Liver: Hepatic cysts are seen. Gallbladder and biliary tree: Patient is status post cholecystectomy. Physiologic prominence of the biliary ducts is noted. Pancreas: The pancreas is atrophic. Spleen: Unremarkable. Adrenals: Unremarkable. Kidneys and ureters: Renal cysts are seen. Prominence of the right renal collecting system and pelvis is noted without evidence of obstructive stone. Bladder: Unremarkable. Reproductive organs: Patient is status post hysterectomy. Bowel: Diverticulosis is seen without diverticulitis. The appendix is normal. Lymph nodes Retroperitoneal: Unremarkable. Pelvic: Unremarkable. Mesenteric: Unremarkable. Peritoneum: Normal. Vessels: Unremarkable. Abdominal wall: Right fat-containing inguinal hernia. Internal hernia contains fat and a nondistended loop of bowel. Bones: Degenerative changes in the visualized spine. Bilateral femoral nail noted. Scoliotic curvature is noted in the spine. IMPRESSION: 1. No acute abnormalities are seen. No evidence of pyelonephritis is seen. 2. Diverticulosis without diverticulitis. 3. 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 ACT 112: Negative or not required by law. Electronically signed by: Brandon Nichols M.D. 03/10/2023 5:[address] 03/10/23 15:43 CT head/brain wo con CLINICAL HISTORY: 87 years-old Female with ams. Acutely altered mental status TECHNIQUE: Multiple axial CT images of the head were obtained without contrast. A dose lowering technique was utilized adhering to the principles of ALARA. COMPARISON: None. FINDINGS: No acute intracranial hemorrhage, midline shift, intracranial mass, hydrocephalus, territorial ischemia or abnormal extra-axial collection. Inv olutional changes with chronic microvascular ischemic disease. There is ill- defined areas of decreased attenuation within the left parieto-occipital lobes suggestive of encephalomalacia. Megacisterna magna. Chronic appearing lacunar infarcts of the cerebellum. The calvarium is intact. Prior bilateral lens repair. The paranasal sinuses, mastoid air cells, and middle ear cavities are clear. IMPRESSION: 1. No acute intracranial abnormality identified. 2. Involutional changes with chronic microvascular ischemic disease. 3. Chronic cerebellar lacunar infarcts with encephalomalacia of the left parietal and occipital lobes suggestive of chronic infarcts. ACT 112: Negative or not required by law. The above report was generated using voice recognition software. It may contain grammatical, syntax or spelling errors. Electronically signed by: Hudson Machado M.D. 03/10/2023 4:46 PM Chest CTA 03/10/23 15:44 CT angio chest PE protocol CLINICAL HISTORY: hypoxia TECHNIQUE: Multidetector row helical CT of the chest was performed with angio graphic protocol. Coronal and sagittal reformations were obtained. Coronal and sagittal MIPS were obtained from the axial data set and were submitted for review. Automated dose lowering techniques and/or adjustment according to patient size were utilized for this exam. CT DOSE: 3864.76 mGy.cm Comparison: Comparison is made to CTA chest 10/01/2012 FINDINGS: Lungs and pleura: Atelectasis versus scarring is seen in the dependent portions of the lungs. Heart and pericardium: There is cardiomegaly without evidence of pericardial effusion. Vessels: No evidence of pulmonary embolism. Pulmonary trunk measures 39 mm. Mediastinum and michael: Unremarkable. Chest wall and lower neck: Unremarkable. Abdomen: For findings below the diaphragm, please refer to CT of the abdomen dated the same. Bones: Degenerative changes in the thoracic spine. IMPRESSION: 1. No evidence of pulmonary embolus. 2. Pulmonary hypertension. 3. No airspace disease. Atelectasis is noted in the lower lungs. ACT 112: Negative or not required by law. Electronically signed by: Brandon Nichols M.D. 03/10/2023 4:54 PM Discharge Plan Visit Data Chief Complaint: Illness Stated Complaint: ILLNESS, DIZZINESS, ED Provider: Hardy Lopez Discharge Problem: Acute alteration in mental status, Hypoxia, Acute UTI (urinary tract infection) Patient Disposition: Being Evaluated by Hospitalist Forms Stand Alone Forms: [employer] Prescriptions Prescriptions: No Action tramadol 50 mg tablet 50 mg PO Q6H PRN (Reason: Pain) famotidine 20 mg tablet 20 mg PO DAILY solifenacin 5 mg tablet 5 mg PO DAILY citalopram [Celexa] 10 mg Tablet 10 mg PO DAILY levothyroxine 100 mcg Tablet 100 mcg PO DAILY pantoprazole 40 mg Tablet,Delayed Release (Dr/Ec) 40 mg PO DAILY multivitamin Tablet 1 tab PO DAILY potassium chloride 10 mEq capsule, extended release 10 meq PO DAILY Rx Instructions: take daily with each dose of furosemide enalapril maleate 5 mg tablet 5 mg PO QAM acetaminophen [Tylenol Extra Strength] 500 mg Tablet 1,000 mg PO BID docusate sodium [Stool Softener] 100 mg Capsule 200 mg PO DAILY furosemide 20 mg tablet 20 mg PO QAM calcium carbonate-vitamin D3 [Calcium 600 + D(3)] 600 mg-10 mcg (400 unit) Tablet 1 tab PO DAILY metoprolol tartrate 25 mg tablet 0.5 mg PO AMPM ferrous sulfate [iron] 325 mg (65 mg iron) Tablet 325 mg PO DAILY Prolia 60 mg/mL syringe 60 mg SUBCUT .Q6M Myrbetriq 50 mg tablet extended release 24 hr 50 mg PO DAILY Referrals Referrals: Josesito Frost MD [Primary Care Provider] -
[2023-03-10 16:06] LABS: Base Excess VBG 6.9 mEq/L; HCO3 VBG 34 mmol/L; PCO2 VBG 59 mmHg (38-50); PO2 VBG 37 mmHg; pH VBG 7.37 (7.36-7.41)
[2023-03-10] MEDS ORDERED: OPTIRAY 320 500ml IV ONE (16:47)
--- NOTE | 2023-03-10 16:49 | CT Scan Report ---
CT head/brain wo con CLINICAL HISTORY: 87 years-old Female with ams. Acutely altered mental status TECHNIQUE: Multiple axial CT images of the head were obtained without contrast. A dose lowering tech nique was utilized adhering to the principles of ALARA. COMPARISON: None. FINDINGS: No acute intracranial hemorrhage, midline shift, intracranial mass, hydrocephalus, territorial ischem ia or abnormal extra-axial collection. Involutional changes with chronic microvascular ischemic disea se. There is ill-defined areas of decreased attenuation within the left parieto-occipital lobes sugge stive of encephalomalacia. Megacisterna magna. Chronic appearing lacunar infarcts of the cerebellum. The calvarium is intact. Prior bilateral lens repair. The paranasal sinuses, mastoid air cells, and middle ear cavities are clear. IMPRESSION: 1. No acute intracranial abnormality identified. 2. Involutional changes with chronic microvascular ischemic disease. 3. Chronic cerebellar lacunar infarcts with encephalomalacia of the left parietal and occipital lobes suggestive of chronic infarcts. ACT 112: Negative or not required by law. The above report was generated using voice recognition software. It may contain grammatical, syntax o r spelling errors. Electronically signed by: Hudson Machado M.D. 03/10/2023 4:46 PM
--- NOTE | 2023-03-10 16:56 | CT Scan Report ---
CT angio chest PE protocol CLINICAL HISTORY: hypoxia TECHNIQUE: Multidetector row helical CT of the chest was performed with angiographic protocol. Coker l and sagittal reformations were obtained. Coronal and sagittal MIPS were obtained from the axial winnie a set and were submitted for review. Automated dose lowering techniques and/or adjustment according to patient size were utilized for this exam. CT DOSE: 3864.76 mGy.cm Comparison: Comparison is made to CTA chest 10/01/2012 FINDINGS: Lungs and pleura: Atelectasis versus scarring is seen in the dependent portions of the lungs. Heart and pericardium: There is cardiomegaly without evidence of pericardial effusion. Vessels: No evidence of pulmonary embolism. Pulmonary trunk measures 39 mm. Mediastinum and michael: Unremarkable. Chest wall and lower neck: Unremarkable. Abdomen: For findings below the diaphragm, please refer to CT of the abdomen dated the same. Bones: Degenerative changes in the thoracic spine. IMPRESSION: 1. No evidence of pulmonary embolus. 2. Pulmonary hypertension. 3. No airspace disease. Atelectasis is noted in the lower lungs. ACT 112: Negative or not required by law. Electronically signed by: Brandon Nichols M.D. 03/10/2023 4:54 PM
--- NOTE | 2023-03-10 17:05 | CT Scan Report ---
CT abd pelvis IV con only CLINICAL HISTORY: urine infection, ,sepsis TECHNIQUE: Helical axial images of the abdomen and pelvis were obtained and displayed. Automated dose lowering techniques and/or adjustment according to patient size were utilized for this exam. This e xam was performed with intravenous contrast. COMPARISON: Comparison is made to CT abdomen pelvis 09/30/2022 FINDINGS: Lower chest: Bibasilar atelectasis versus scarring is seen. Liver: Hepatic cysts are seen. Gallbladder and biliary tree: Patient is status post cholecystectomy. Physiologic prominence of the b iliary ducts is noted. Pancreas: The pancreas is atrophic. Spleen: Unremarkable. Adrenals: Unremarkable. Kidneys and ureters: Renal cysts are seen. Prominence of the right renal collecting system and pelvis is noted without evidence of obstructive stone. Bladder: Unremarkable. Reproductive organs: Patient is status post hysterectomy. Bowel: Diverticulosis is seen without diverticulitis. The appendix is normal. Lymph nodes Retroperitoneal: Unremarkable. Pelvic: Unremarkable. Mesenteric: Unremarkable. Peritoneum: Normal. Vessels: Unremarkable. Abdominal wall: Right fat-containing inguinal hernia. Internal hernia contains fat and a nondistended loop of bowel. Bones: Degenerative changes in the visualized spine. Bilateral femoral nail noted. Scoliotic curvatur e is noted in the spine. IMPRESSION: 1. No acute abnormalities are seen. No evidence of pyelonephritis is seen. 2. Diverticulosis without diverticulitis. 3. 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 ACT 112: Negative or not required by law. Electronically signed by: Brandon Nichols M.D. 03/10/2023 5:04 PM
[2023-03-10] MEDS ORDERED: METOPROLOL TARTRATE 25 MG TAB PO STA (21:45)
--- NOTE | 2023-03-10 22:04 | History & Physical Report ---
Date of Service March 10, 2023 Assessment & Plan (1) Acute UTI (urinary tract infection): Plan: 87-year-old female with past med history significant for dyslipidemia, hypothyroidism, hypertension, multiple sclerosis, GERD, incontinence, osteoarthritis of multiple joints, osteoporosis, depression, history of diverticular bleed, mild dementia who lives with and daughter was brought in because of not feeling well and found to have UTI. Acute UTI Started on IV Rocephin and gentle fluids Follow cultures Follow response PT/OT when stable Hypertension Currently elevated Continue home Lopressor and Vasotec IV labetalol as needed GERD On famotidine and Protonix Hypothyroidism on Synthyroid Incontinence of urine . Home medications Depression on citalopram Dementia Mild Monitor for delirium DVT prophylaxis Heparin subcu Disposition Med/telemetry CODE STATUS full code only if there is chance of recovery as per my discussion with the daughter History of Present Illness Chief Complaint: Illness Primary Care Provider: Josesito Frost MD 87-year-old female with past med history significant for dyslipidemia, hypothyroidism, hypertension, multiple sclerosis, GERD, incontinence, osteoarthritis of multiple joints, osteoporosis, depression, history of diverticular bleed, mild dementia who lives with and daughter was brought in because of not feeling well. Patient was feeling dizzy, nauseous and having headache which prompted her daughter to bring her to hospital and found to have UTI. Resting comfortably and hemodynamically stable. Somewhat hard of hearing. Daughter is in the room helping with H&P. No blurred visions. Has some runny nose and sneezing. No sore throat. Appetite is down. No chest pain or shortness of breath. No fevers. Normal bowel and bladder movements. Ambulates with walker Past medical history as mentioned above Past surgical history. Colonoscopy. EGD. Knee arthroscopy. Laparoscopic cholecystectomy. Tonsillectomy. Right hip fracture repair. Total hysterectomy. Social history. No smoking. No alcohol. No drug use. Family history. Brother had gastric cancer. Brother had lung cancer. Mother had brain cancer. Father had NC. Allergies Allergy/AdvReac Type Severity Reaction Status Date / Time adhesive Allergy Intermediate SENSITIVE, Verified 11/22/21 20:23 RASH amoxicillin [From Augmentin] Allergy Intermediate Hives Unverified 03/10/23 19:34 clavulanic acid Allergy Intermediate Hives Unverified 03/10/23 19:34 [From Augmentin] montelukast Allergy Intermediate RASH, HYPER Verified 11/22/21 20:23 Penicillins Allergy Rash Verified 11/23/21 16:10 salicylates AdvReac Intermediate VOMITING Verified 11/22/21 20:23 Home Medications Medication Instructions Recorded Confirmed Type citalopram 10 mg tablet (Celexa) 10 mg PO DAILY 06/15/20 03/10/23 History famotidine 20 mg tablet 20 mg PO DAILY 06/15/20 03/10/23 History levothyroxine 100 mcg tablet 100 mcg PO DAILY 06/15/20 03/10/23 History pantoprazole 40 mg tablet,delayed 40 mg PO DAILY 06/15/20 03/10/23 History release solifenacin 5 mg tablet 5 mg PO DAILY 06/15/20 03/10/23 History tramadol 50 mg tablet 50 mg PO Q6H PRN Pain 06/15/20 03/10/23 History acetaminophen 500 mg tablet 1,000 mg PO BID 11/22/21 03/10/23 History (Tylenol Extra Strength) calcium carbonate 600 mg-vitamin 1 tab PO DAILY 11/22/21 03/10/23 History D3 10 mcg (400 unit) tablet (Calcium 600 + D(3)) docusate sodium 100 mg capsule 200 mg PO DAILY 11/22/21 03/10/23 History (Stool Softener) enalapril maleate 5 mg tablet 5 mg PO QAM 11/22/21 03/10/23 History furosemide 20 mg tablet 20 mg PO QAM 11/22/21 03/10/23 History multivitamin 1 tab PO DAILY 11/22/21 03/10/23 History potassium chloride 10 mEq 10 meq PO DAILY 11/22/21 03/10/23 History capsule,extended release denosumab 60 mg/mL subcutaneous 60 mg subcut .Q6M 09/28/22 03/10/23 History syringe (Prolia) mirabegron 50 mg tablet,extended 50 mg PO DAILY 09/28/22 03/10/23 History release 24 hr (Myrbetriq) ferrous sulfate 325 mg (65 mg 325 mg PO DAILY 03/10/23 03/10/23 History iron) tablet (iron) metoprolol tartrate 25 mg tablet 0.5 mg PO AMPM 03/10/23 03/10/23 History Past Med/Surg History Medical History Aortic valve sclerosis BRBPR (bright red blood per rectum) Depression Dyslipidemia Encounter for pre-operative examination GERD (gastroesophageal reflux disease) History of gastrointestinal diverticular hemorrhage HTN (hypertension) Hypothyroidism Hypoxia LGI bleed Nausea & vomiting Near syncope Osteoarthritis Rectal bleeding Urge incontinence Surgical History History of arthroscopic knee surgery History of cholecystectomy History of hysterectomy History of tonsillectomy Family History Father Heart disease Brother Lung cancer Brother Gastric cancer Mother Brain cancer Social History Smoking Status: Never smoker Second Hand Exposure: No; Do You Dip or Chew Tobacco: No; Hx Alcohol Use: No Hx Substance Use: No Preferred Language: Syriac Communication Ability: Effective Binder Chainstitch Required: No Beliefs That Will Affect Care: None Current Living Situation: Family Current Living Situation Comment: lives with and daughter Feels Safe at Home: Yes Assistive Devices: Denture - Upper, Denture - Lower, Hearing Aid - Bilateral, Oxygen - at Night and Stair Lift Review of Systems Review of Systems: All systems reviewed & are unremarkable except as noted in HPI & below Physical Exam Physical Exam: General- Not in distress Head- atraumatic Eyes- PERRL. ENT- oropharynx clear Neck- supple, no JVD. Lungs- clear to auscultation no wheezing or crackles. Heart- regular rate and rhythm; no murmur, no gallop. Abdomen- normal bowel sounds, soft, nontender, no distension. Extremities- mild pretibial edema, no erythema seen. Neuro- alert, oriented x 2; PERRL, no facial palsy; no dysarthria; moves extremities Skin- warm & dry Results & Data Results & Data Vital Signs (Past 12 Hours) Vital Signs Temp Pulse Pulse Resp BP BP Pulse Ox 03/10/23 21:33 86 03/10/23 20:36 03/10/23 20:36 111 H 20 172/103 H 95 03/10/23 16:42 94 H 03/10/23 12:04 36.8 C 113 H 18 159/82 H 95 O2 Del Method O2 Flow Rate 03/10/23 21:33 03/10/23 20:36 Nasal Cannula 03/10/23 20:36 Nasal Cannula 3 03/10/23 16:42 03/10/23 12:04 Nasal Cannula 3 Diagnostic Findings Laboratory Results WBC 9.25 K/ul (4.8-10.8) 03/10/23 13:12 RBC 4.27 M/uL (4.20-5.40) 03/10/23 13:12 Hgb 13.0 g/dl (12.0-16.0) 03/10/23 13:12 Hct 39.2 % (37.0-47.0) 03/10/23 13:12 MCV 91.8 fL (80.0-100.0) 03/10/23 13:12 MCH 30.4 pg (25.0-34.0) 03/10/23 13:12 MCHC 33.2 g/dL (32.0-36.0) 03/10/23 13:12 RDW Std Deviation 51.6 fL (36.4-46.3) H 03/10/23 13:12 RDW Coeff of Talisha 15.4 % (11.5-14.5) H 03/10/23 13:12 Plt Count 188 K/uL (130-400) 03/10/23 13:12 MPV 10.4 fL (9.4-12.4) 03/10/23 13:12 Immature Gran % (Auto) 0.6 % 03/10/23 13:12 Neut % (Auto) 74.9 % 03/10/23 13:12 Lymph % (Auto) 11.8 % 03/10/23 13:12 [place] % (Auto) 11.7 % 03/10/23 13:12 Eos % (Auto) 0.5 % 03/10/23 13:12 Baso % (Auto) 0.5 % 03/10/23 13:12 Neut # (Auto) 6.92 K/uL (1.40-6.50) H 03/10/23 13:12 Lymph # (Auto) 1.09 K/uL (1.20-3.40) L 03/10/23 13:12 [place] # (Auto) 1.08 K/uL (0.11-0.59) H 03/10/23 13:12 Eos # (Auto) 0.05 K/uL (0.00-0.50) 03/10/23 13:12 Baso # (Auto) 0.05 K/uL (0.00-0.20) 03/10/23 13:12 Immature Gran # (Auto) 0.06 K/uL (0.01-0.20) 03/10/23 13:12 VBG pH 7.37 (7.36-7.41) 03/10/23 15:57 VBG pCO2 59 mmHg (38-50) H 03/10/23 15:57 VBG pO2 37 mmHg 03/10/23 15:57 VBG HCO3 34 mmol/L 03/10/23 15:57 VBG O2 Saturation 68.0 % 03/10/23 15:57 VBG Base Excess 6.9 mEq/L 03/10/23 15:57 Sodium 137 mmol/L (136-145) 03/10/23 13:12 Potassium 4.0 mmol/L (3.5-5.1) 03/10/23 13:12 Chloride 100 mmol/L (98-107) 03/10/23 13:12 Carbon Dioxide 31 mmol/L (21-32) 03/10/23 13:12 Anion Gap 6 (3-11) 03/10/23 13:12 BUN 14 mg/dl (6-23) 03/10/23 13:12 Creatinine 0.61 mg/dl (0.6-1.2) 03/10/23 13:12 Est Cr Clr Drug Dosing Not Reportable 03/10/23 13:12 Est GFR ( Amer) 93.8 ml/min 03/10/23 13:12 Est GFR (Non-Af Amer) 80.9 ml/min 03/10/23 13:12 BUN/Creatinine Ratio 23.0 (10-20) H 03/10/23 13:12 Glucose 105 mg/dl (70-99(Fasting)) H 03/10/23 13:12 Calcium 9.5 mg/dl (8.6-10.3) 03/10/23 13:12 Magnesium 2.2 mg/dl (1.7-2.4) 03/10/23 13:12 Total Bilirubin 1.3 mg/dl (0.2-1.0) H 03/10/23 13:12 AST 15 U/L (13-39) 03/10/23 13:12 ALT 6 U/L (7-52) L 03/10/23 13:12 Alkaline Phosphatase 59 U/L (34-104) 03/10/23 13:12 Troponin I High Sens 7.6 pg/ml (0-14) 03/10/23 13:12 Total Protein 7.7 gm/dl (6.0-8.3) 03/10/23 13:12 Albumin 4.1 gm/dl (3.4-5.0) 03/10/23 13:12 Globulin 3.6 gm/dl (2.5-4.0) 03/10/23 13:12 Albumin/Globulin Ratio 1.1 (0.9-2) 03/10/23 13:12 TSH 1.483 uIu/ml (0.300-4.500) 03/10/23 13:12 Urine Color Yellow 03/10/23 13:42 Urine Appearance Cloudy (Clear) A 03/10/23 13:42 Urine pH 7.0 (4.5-7.5) 03/10/23 13:42 Ur Specific [place] 1.015 (1.000-1.030) 03/10/23 13:42 Urine Protein 1+ (Negative) H 03/10/23 13:42 Urine Glucose (UA) Negative (Negative) 03/10/23 13:42 Urine Ketones Negative (Negative) 03/10/23 13:42 Urine Blood 1+ (Negative) H 03/10/23 13:42 Urine Nitrite Negative (Negative) 03/10/23 13:42 Urine Bilirubin Negative (Negative) 03/10/23 13:42 Urine Urobilinogen Negative (Negative) 03/10/23 13:42 Ur Leukocyte Esterase 1+ (Negative) H 03/10/23 13:42 Urine WBC (Auto) >30 /hpf (0-5) H 03/10/23 13:42 Urine RBC (Auto) 5-10 /hpf (0-4) H 03/10/23 13:42 U Hyaline Cast (Auto) 1-5 /lpf (0-5) 03/10/23 13:42 U Epithel Cells (Auto) 5-10 /lpf (0-5) H 03/10/23 13:42 Urine Bacteria (Auto) 2+ (Negative) H 03/10/23 13:42 Impressions Chest X-Ray 03/10/23 12:07 XR chest 1V not portable HISTORY: 87 years-old Female weakness COMPARISON: 10/05/2022 TECHNIQUE: AP view of the chest FINDINGS: Cardiac silhouette is enlarged. Mild right hemidiaphragmatic elevation. No pneumothorax, large pleural effusion or pulmonary edema. Mild subsegmental bibasilar atelectasis. Cholecystectomy. Bones appear grossly intact. IMPRESSION: Cardiomegaly without acute process. ACT 112: Negative or not required by law. The above report was generated using voice recognition software. It may contain grammatical, syntax or spelling errors. Electronically signed by: Hudson Machado M.D. 03/10/2023 1:11 PM Abdomen/Pelvis CT 03/10/23 15:43 CT abd pelvis IV con only CLINICAL HISTORY: urine infection, ,sepsis TECHNIQUE: Helical axial images of the abdomen and pelvis were obtained and displayed. Automated dose lowering techniques and/or adjustment according to patient size were utilized for this exam. This exam was performed with intravenous contrast. COMPARISON: Comparison is made to CT abdomen pelvis 09/30/2022 FINDINGS: Lower chest: Bibasilar atelectasis versus scarring is seen. Liver: Hepatic cysts are seen. Gallbladder and biliary tree: Patient is status post cholecystectomy. Phys iologic prominence of the biliary ducts is noted. Pancreas: The pancreas is atrophic. Spleen: Unremarkable. Adrenals: Unremarkable. Kidneys and ureters: Renal cysts are seen. Prominence of the right renal collecting system and pelvis is noted without evidence of obstructive stone. Bladder: Unremarkable. Reproductive organs: Patient is status post hysterectomy. Bowel: Diverticulosis is seen without diverticulitis. The appendix is normal. Lymph nodes Retroperitoneal: Unremarkable. Pelvic: Unremarkable. Mesenteric: Unremarkable. Peritoneum: Normal. Vessels: Unremarkable. Abdominal wall: Right fat-containing inguinal hernia. Internal hernia contains fat and a nondistended loop of bowel. Bones: Degenerative changes in the visualized spine. Bilateral femoral nail noted. Scoliotic curvature is noted in the spine. IMPRESSION: 1. No acute abnormalities are seen. No evidence of pyelonephritis is seen. 2. Diverticulosis without diverticulitis. 3. 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 ACT 112: Negative or not required by law. Electronically signed by: Brandon Nichols M.D. 03/10/2023 5:[address] 03/10/23 15:43 CT head/brain wo con CLINICAL HISTORY: 87 years-old Female with ams. Acutely altered mental status TECHNIQUE: Multiple axial CT images of the head were obtained without contrast. A dose lowering technique was utilized adhering to the principles of ALARA. COMPARISON: None. FINDINGS: No acute intracranial hemorrhage, midline shift, intracranial mass, hydrocephalus, territorial ischemia or abnormal extra-axial collection. Involutional changes with chronic microvascular ischemic disease. There is ill- defined areas of decreased attenuation within the left parieto-occipital lobes suggestive of encephalomalacia. Megacisterna magna. Chronic appearing lacunar infarcts of the cerebellum. The calvarium is intact. Prior bilateral lens repair. The paranasal sinuses, mastoid air cells, and middle ear cavities are clear. IMPRESSION: 1. No acute intracranial abnormality identified. 2. Involutional changes with chronic microvascular ischemic disease. 3. Chronic cerebellar lacunar infarcts with encephalomalacia of the left parietal and occipital lobes suggestive of chronic infarcts. ACT 112: Negative or not required by law. The above report was generated using voice recognition software. It may contain grammatical, syntax or spelling errors. Electronically signed by: Hudson Machado M.D. 03/10/2023 4:46 PM Chest CTA 03/10/23 15:44 CT angio chest PE protocol CLINICAL HISTORY: hypoxia TECHNIQUE: Multidetector row helical CT of the chest was performed with angiographic protocol. Coronal and sagittal reformations were obtained. Coronal and sagittal MIPS were obtained from the axial data set and were submitted for review. Automated dose lowering techniques and/or adjustment according to patient size were utilized for this exam. CT DOSE: 3864.76 mGy.cm Comparison: Comparison is made to CTA chest 10/01/2012 FINDINGS: Lungs and pleura: Atelectasis versus scarring is seen in the dependent portions of the lungs. Heart and pericardium: There is cardiomegaly without evidence of pericardial effusion. Vessels: No evidence of pulmonary embolism. Pulmonary trunk measures 39 mm. Mediastinum and michael: Unremarkable. Chest wall and lower neck: Unremarkable. Abdomen: For findings below the diaphragm, please refer to CT of the abdomen dated the same. Bones: Degenerative changes in the thoracic spine. IMPRESSION: 1. No evidence of pulmonary embolus. 2. Pulmonary hypertension. 3. No airspace disease. Atelectasis is noted in the lower lungs. ACT 112: Negative or not required by law. Electronically signed by: Brandon Nichols M.D. 03/10/2023 4:54 PM ECG Additional Comments: ECG. Sinus tachycardia rate with PACs at a rate of 116. Nonspecific ST changes Code Status & VTE Plan VTE Prophylaxis Plan VTE Prophylaxis will be ordered: Yes
--- NOTE | 2023-03-10 23:39 | Electrocardiogram Report ---
Test Reason : Blood Pressure : / mmHG Vent. Rate : 116 BPM Atrial Rate : 116 BPM P-R Int : 178 ms QRS Dur : 082 ms QT Int : 330 ms P-R-T Axes : 052 -29 056 degrees QTc Int : 458 ms Sinus tachycardia with Premature atrial complexes Minimal voltage criteria for LVH, may be normal variant ( R in aVL ) Borderline ECG When compared with ECG of 03-OCT-2022 07:40, Nonspecific T wave abnormality, improved in Inferior leads Nonspecific T wave abnormality, improved in Anterolateral leads Confirmed by Coy Grimes ([id number]) on 03/10/2023 11:38:41 PM Referred By: Confirmed By:Coy Grimes
[2023-03-11] MEDS ORDERED: traMADol HCL 50 MG TABLET PO PRN (00:15)
[2023-03-11] MEDS ORDERED: LABETALOL HCL IV 5 MG/ML 20ML IV PRN (00:15)
[2023-03-11] MEDS ORDERED: ACETAMINOPHEN 325 MG TAB PO PRN (00:15)
[2023-03-11] MEDS ORDERED: SODIUM CHLORIDE 0.9% 1,000 ML IV SCH (00:15)
[2023-03-11] MEDS ORDERED: ONDANSETRON INJ 2 MG/ML 2 ML VIAL IV PRN (00:15)
[2023-03-11] MEDS ORDERED: NITROGLYCERIN SL 0.4 MG/TAB TAB SL PRN (00:15)
[2023-03-11] MEDS ORDERED: INFLUENZA VACCINE HIGH-DOSE (HD-IIV4) PF 65+ 0.7mL SYR IM ONE (00:33)
[2023-03-11] MEDS: LEVOTHYROXINE SODIUM 100 MCG TABLET PO SCH (07:02)
[2023-03-11] MEDS: PANTOprazole 40 MG TAB PO SCH (08:59)
[2023-03-11] MEDS: CALCIUM 600MG + VIT D 400 IU TAB PO SCH (08:59)
[2023-03-11] MEDS: VIBEGRON 75 MG TAB PO SCH (08:59)
[2023-03-11] MEDS: OXYBUTYNIN CHLORIDE XL 5 MG TABCR PO SCH (08:59)
[2023-03-11] MEDS: METOPROLOL TARTRATE 25 MG TAB PO SCH ×2 (08:59→21:04)
[2023-03-11] MEDS: CITALOPRAM 20 MG TAB PO SCH (08:59)
[2023-03-11] MEDS: MULTIVITAMIN TAB PO SCH (08:59)
[2023-03-11] MEDS: POTASSIUM CHLORIDE 10 MEQ TABCR PO SCH (08:59)
[2023-03-11] MEDS: FERROUS SULFATE 325 MG TAB PO SCH (09:00)
[2023-03-11] MEDS: HEPARIN SOD 5,000 UNIT/0.5 ML VIAL SQ SCH ×2 (09:00→21:04)
[2023-03-11] MEDS: FUROSEMIDE 20 MG TAB PO SCH (09:00)
[2023-03-11] MEDS: DOCUSATE SODIUM 100 MG CAP PO SCH (09:00)
[2023-03-11] MEDS: FAMOTIDINE 20 MG TAB PO SCH (09:00)
[2023-03-11] MEDS ORDERED: ACETAMINOPHEN 500 MG TAB PO SCH (09:00)
[2023-03-11] MEDS ORDERED: ENALAPRIL MALEATE 5 MG TAB PO STA (09:07)
[2023-03-11 09:14] LABS: Hematocrit (blood only) 38.5 % (37.0-47.0); Hemoglobin 12.4 g/dl (12.0-16.0); Mean Corpuscular Hemoglobin 29.9 pg (25.0-34.0); Mean Corpuscular Hgb Conc 32.2 g/dL (32.0-36.0); Mean Corpuscular Volume 92.8 fL (80.0-100.0); Mean Platelet Volume 10.3 fL (9.4-12.4); Platelet Count 194 K/uL (130-400); RDW Coefficient of Variation 15.3 % (11.5-14.5); RDW Standard Deviation 52.3 fL (36.4-46.3); Red Blood Count 4.15 M/uL (4.20-5.40); White Blood Count 9.36 K/ul (4.8-10.8)
[2023-03-11 09:32] LABS: BUN Creatinine Ratio 21.1 (10-20); Calcium 8.5 mg/dl (8.6-10.3); Est GFR (African American) 95.9 ml/min; Est GFR (Non-African American) 82.8 ml/min
[2023-03-11] MEDS ORDERED: cefTRIAXone SODIUM 1,000 MG in DEXTROSE 5 % MINI-B 50 ML IV SCH (15:00)
--- NOTE | 2023-03-11 17:18 | Hospitalist Progress Note ---
Date of Service March 11, 2023 Assessment & Plan (1) Acute UTI (urinary tract infection): Plan: Ms. Cecy Steiner is an 87-year-old female with past med history significant for dyslipidemia, hypothyroidism, hypertension, multiple sclerosis, GERD, incontinence, osteoarthritis of multiple joints, osteoporosis, depression, history of diverticular bleed, mild dementia who lives with and daughter who was admitted on 03/10 for acute encephalopathy secondary to UTI. #Acute toxic metabolic encephalopathy, secondary to infection #Acute uncomplicated cystitis Continue IV Rocephin and gentle fluids Follow cultures and transition to PO Requesting HH, declines rehab services #Hypertension Currently elevated Continue home Lopressor 12.5mg bid Increased Vasotec 10mg daily IV labetalol as needed #GERD On famotidine and Protonix #Hypothyroidism on Synthyroid #Incontinence of urine . Home medications #Depression on citalopram #Dementia Mild Monitor for delirium DVT prophylaxis Heparin subcu Disposition Med/telemetry CODE STATUS full code only if there is chance of recovery as per my discussion with the daughter Admission and Anticipated Discharge Date Admission Date: March 10, 2023 Subjective Evaluated at bedside, states she is doing much better-reports notable improvement in cognition Denies any acute concerns at this time, denies headache, vision changes, or other issues Review of Systems Review of Systems: All systems reviewed & are unremarkable except as noted in Subjective Physical Exam Constitutional: WD/WN, vitals as above Respiratory: normal respiratory effort, lungs clear to auscultation Cardiovascular: RRR, no murmur, no edema Results & Data Results & Data Vital Signs (Past 12 Hours) Vital Signs Temp Pulse Pulse Resp BP Pulse Ox O2 Del Method 03/11/23 12:11 37.3 C 85 18 168/96 H 97 Room Air 03/11/23 08:19 36.6 C 78 18 163/75 H 96 Room Air 03/11/23 07:14 75 Laboratory Results Short CBC 03/11/23 Range/Units 09:01 WBC 9.36 (4.8-10.8) K/ul Hgb 12.4 (12.0-16.0) g/dl Hct 38.5 (37.0-47.0) % Plt Count 194 (130-400) K/uL BMP 03/11/23 09:01 Sodium 139 Potassium 4.0 Chloride 102 Carbon Dioxide 30 BUN 12 Creatinine 0.57 L Glucose 94 Calcium 8.5 L Medications Administered Home Medications Medication Instructions Recorded Confirmed Last Taken citalopram 10 mg tablet (Celexa) 10 mg PO DAILY 06/15/20 03/10/23 11/22/21 famotidine 20 mg tablet 20 mg PO DAILY 06/15/20 03/10/23 11/22/21 levothyroxine 100 mcg tablet 100 mcg PO DAILY 06/15/20 03/10/23 11/22/21 pantoprazole 40 mg tablet,delayed 40 mg PO DAILY 06/15/20 03/10/23 11/22/21 release solifenacin 5 mg tablet 5 mg PO DAILY 06/15/20 03/10/23 11/22/21 tramadol 50 mg tablet 50 mg PO Q6H PRN Pain 06/15/20 03/10/23 06/14/20 acetaminophen 500 mg tablet 1,000 mg PO BID 11/22/21 03/10/23 11/22/21 08:00 (Tylenol Extra Strength) calcium carbonate 600 mg-vitamin 1 tab PO DAILY 11/22/21 03/10/23 11/22/21 D3 10 mcg (400 unit) tablet (Calcium 600 + D(3)) docusate sodium 100 mg capsule 200 mg PO DAILY 11/22/21 03/10/23 11/22/21 (Stool Softener) enalapril maleate 5 mg tablet 5 mg PO QAM 11/22/21 03/10/23 11/22/21 furosemide 20 mg tablet 20 mg PO QAM 11/22/21 03/10/23 11/22/21 multivitamin 1 tab PO DAILY 11/22/21 03/10/23 11/22/21 potassium chloride 10 mEq 10 meq PO DAILY 11/22/21 03/10/23 11/22/21 capsule,extended release denosumab 60 mg/mL subcutaneous 60 mg subcut .Q6M 09/28/22 03/10/23 02/27/23 syringe (Prolia) mirabegron 50 mg tablet,extended 50 mg PO DAILY 09/28/22 03/10/23 Unknown release 24 hr (Myrbetriq) ferrous sulfate 325 mg (65 mg 325 mg PO DAILY 03/10/23 03/10/23 Unknown iron) tablet (iron) metoprolol tartrate 25 mg tablet 0.5 mg PO AMPM 03/10/23 03/10/23 Unknown Active Medications Generic Name Dose Route Start Last Admin Trade Name Homa PRN Reason Stop Dose Admin Calcium/Vitamin D 1 tab 03/11/23 09:00 03/11/23 08:59 Calcium 600mg + Vit D 400 Iu Tab PO 04/10/23 08:59 1 tab DAILY AREN Administration Citalopram Hydrobromide 10 mg 03/11/23 09:00 03/11/23 08:59 Citalopram 20 Mg Tab PO 04/10/23 08:59 10 mg DAILY AREN Administration Docusate Sodium 200 mg 03/11/23 09:00 03/11/23 09:00 Docusate Sodium 100 Mg Cap PO 04/10/23 08:59 200 mg DAILY AREN Administration Famotidine 20 mg 03/11/23 09:00 03/11/23 09:00 Famotidine 20 Mg Tab PO 04/10/23 08:59 20 mg DAILY AREN Administration Ferrous Sulfate 325 mg 03/11/23 09:00 03/11/23 09:00 Ferrous Sulfate 325 Mg Tab PO 04/10/23 08:59 325 mg DAILY AREN Administration Furosemide 20 mg 03/11/23 09:00 03/11/23 09:00 Furosemide 20 Mg Tab PO 04/10/23 08:59 20 mg QAM AREN Administration Heparin Sodium (Porcine) 5,000 units 03/11/23 09:00 03/11/23 09:00 Heparin Sod 5,000 Unit/0.5 Ml Vial SQ 04/10/23 08:59 5,000 units Q12 AREN Administration Levothyroxine Sodium 100 mcg 03/11/23 06:30 03/11/23 07:02 Levothyroxine Sodium 100 Mcg Tablet PO 04/10/23 06:29 100 mcg DAILYBB AREN Administration Metoprolol Tartrate 12.5 mg 03/11/23 09:00 03/11/23 08:59 Metoprolol Tartrate 25 Mg Tab PO 04/10/23 08:59 12.5 mg BID AREN Administration Multivitamins 1 tab 03/11/23 09:00 03/11/23 08:59 Multivitamin Tab PO 04/10/23 08:59 1 tab DAILY AREN Administration Oxybutynin Chloride 5 mg 03/11/23 09:00 03/11/23 08:59 Oxybutynin Chloride Xl 5 Mg Tabcr PO 04/10/23 08:59 5 mg DAILY AREN Administration Pantoprazole Sodium 40 mg 03/11/23 09:00 03/11/23 08:59 Pantoprazole 40 Mg Tab PO 04/10/23 08:59 40 mg DAILY AREN Administration Potassium Chloride 10 meq 03/11/23 09:00 03/11/23 08:59 Potassium Chloride 10 Meq Tabcr PO 04/10/23 08:59 10 meq DAILY AREN Administration Vibegron 75 mg 03/11/23 09:00 03/11/23 08:59 Vibegron 75 Mg Tab PO 04/10/23 08:59 75 mg DAILY AREN Administration
[2023-03-12] MEDS: LEVOTHYROXINE SODIUM 100 MCG TABLET PO SCH (05:40)
[2023-03-12 07:05] LABS: Hematocrit (blood only) 37.9 % (37.0-47.0); Hemoglobin 12.4 g/dl (12.0-16.0); Mean Corpuscular Hemoglobin 30.1 pg (25.0-34.0); Mean Corpuscular Hgb Conc 32.7 g/dL (32.0-36.0); Mean Platelet Volume 10.3 fL (9.4-12.4); Platelet Count 210 K/uL (130-400); RDW Coefficient of Variation 14.9 % (11.5-14.5); RDW Standard Deviation 50.9 fL (36.4-46.3); Red Blood Count 4.12 M/uL (4.20-5.40); White Blood Count 6.58 K/ul (4.8-10.8)
[2023-03-12 07:43] LABS: BUN Creatinine Ratio 18.3 (10-20); Calcium 9.2 mg/dl (8.6-10.3); Creatinine Clr Calc Pharmacy 63.8 ml/min; Est GFR (African American) 94.3 ml/min; Est GFR (Non-African American) 81.4 ml/min; Magnesium 2.2 mg/dl (1.7-2.4); Phosphorus 2.1 mg/dl (2.5-4.9); Potassium 4.1 mmol/L (3.5-5.1)
--- NOTE | 2023-03-12 07:56 | Hospitalist Progress Note ---
Date of Service March 12, 2023 Assessment & Plan (1) Acute UTI (urinary tract infection): Plan: Ms. Cecy Steiner is an 87-year-old female with past med history significant for dyslipidemia, hypothyroidism, hypertension, multiple sclerosis, GERD, nocturnal hypoxia 2/[address], incontinence, osteoarthritis of multiple joints, osteoporosis, depression, history of diverticular bleed, mild dementia who lives with and daughter who was admitted on 03/10 for acute encephalopathy secondary to UTI. Patient improving to baseline.Hypertensive to 160s persistently, making medication adjustments. likely transition to PO abx this afternoon with dispo in am . #Acute toxic metabolic encephalopathy, secondary to infection #Acute uncomplicated cystitis Continue IV Rocephin and gentle fluids Follow cultures and transition to PO Requesting HH, declines rehab services #Hypertension Currently elevated Transitioned to Metoprolol succinate 25mg BID Increased Vasotec 10mg daily #GERD On famotidine and Protonix #Hypothyroidism on Synthyroid #Incontinence of urine -Continue home medications #Depression -Continue on citalopram #Dementia Mild Monitor for delirium #Nocturnal hypoxia #AVE Declines CPAP machine home O2 3L at bedtime 2 step prior to discharge DVT prophylaxis Heparin subcu Disposition Med/telemetry CODE STATUS full code only if there is chance of recovery as per my discussion with the daughter Admission and Anticipated Discharge Date Admission Date: March 10, 2023 Subjective NAEO Doesn't recall who I am, but pleasant and denies any pain. Reports feeling "clear" and eager to get home Review of Systems Review of Systems: All systems reviewed & are unremarkable except as noted in Subjective Physical Exam Constitutional: WD/WN, vitals as above Respiratory: normal respiratory effort, lungs clear to auscultation saturating in high 90s on 3L while awake Cardiovascular: RRR, no murmur, no edema Results & Data Results & Data Vital Signs (Past 12 Hours) Vital Signs Temp Pulse Pulse Resp BP Pulse Ox O2 Del Method 03/12/23 07:16 Nasal Cannula 03/12/23 02:21 36.6 C 79 18 157/80 H 94 Nasal Cannula 03/12/23 01:22 91 H 03/11/23 23:27 37.0 C 87 18 153/82 H 96 Nasal Cannula O2 Flow Rate 03/12/23 07:16 3 03/12/23 02:21 3 03/12/23 01:22 03/11/23 23:27 3 Laboratory Results Short CBC 03/11/23 03/12/23 Range/Units 09:01 06:36 WBC 9.36 6.58 (4.8-10.8) K/ul Hgb 12.4 12.4 (12.0-16.0) g/dl Hct 38.5 37.9 (37.0-47.0) % Plt Count 194 210 (130-400) K/uL BMP 03/11/23 03/12/23 09:01 06:36 Sodium 139 138 Potassium 4.0 4.1 Chloride 102 101 Carbon Dioxide 30 32 BUN 12 11 Creatinine 0.57 L 0.60 Glucose 94 99 Calcium 8.5 L 9.2 Medications Administered Home Medications Medication Instructions Recorded Confirmed Last Taken citalopram 10 mg tablet (Celexa) 10 mg PO DAILY 06/15/20 03/10/23 11/22/21 famotidine 20 mg tablet 20 mg PO DAILY 06/15/20 03/10/23 11/22/21 levothyroxine 100 mcg tablet 100 mcg PO DAILY 06/15/20 03/10/23 11/22/21 pantoprazole 40 mg tablet,delayed 40 mg PO DAILY 06/15/20 03/10/23 11/22/21 release solifenacin 5 mg tablet 5 mg PO DAILY 06/15/20 03/10/23 11/22/21 tramadol 50 mg tablet 50 mg PO Q6H PRN Pain 06/15/20 03/10/23 06/14/20 acetaminophen 500 mg tablet 1,000 mg PO BID 11/22/21 03/10/23 11/22/21 08:00 (Tylenol Extra Strength) calcium carbonate 600 mg-vitamin 1 tab PO DAILY 11/22/21 03/10/23 11/22/21 D3 10 mcg (400 unit) tablet (Calcium 600 + D(3)) docusate sodium 100 mg capsule 200 mg PO DAILY 11/22/21 03/10/23 11/22/21 (Stool Softener) enalapril maleate 5 mg tablet 5 mg PO QAM 11/22/21 03/10/23 11/22/21 furosemide 20 mg tablet 20 mg PO QAM 11/22/21 03/10/23 11/22/21 multivitamin 1 tab PO DAILY 07/04/0503/10/23 11/22/21 potassium chloride 10 mEq 10 meq PO DAILY 11/22/21 03/10/23 11/22/21 capsule,extended release denosumab 60 mg/mL subcutaneous 60 mg subcut .Q6M 09/28/22 03/10/23 02/27/23 syringe (Prolia) mirabegron 50 mg tablet,extended 50 mg PO DAILY 09/28/22 03/10/23 Unknown release 24 hr (Myrbetriq) ferrous sulfate 325 mg (65 mg 325 mg PO DAILY 03/10/23 03/10/23 Unknown iron) tablet (iron) metoprolol tartrate 25 mg tablet 0.5 mg PO AMPM 03/10/23 03/10/23 Unknown Active Medications Generic Name Dose Route Start Last Admin Trade Name Curtisq PRN Reason Stop Dose Admin Calcium/Vitamin D 1 tab 03/11/23 09:00 03/11/23 08:59 Calcium 600mg + Vit D 400 Iu Tab PO 04/10/23 08:59 1 tab DAILY AREN Administration Citalopram Hydrobromide 10 mg 03/11/23 09:00 03/11/23 08:59 Citalopram 20 Mg Tab PO 04/10/23 08:59 10 mg DAILY AREN Administration Docusate Sodium 200 mg 03/11/23 09:00 03/11/23 09:00 Docusate Sodium 100 Mg Cap PO 04/10/23 08:59 200 mg DAILY AREN Administration Famotidine 20 mg 03/11/23 09:00 03/11/23 09:00 Famotidine 20 Mg Tab PO 04/10/23 08:59 20 mg DAILY AREN Administration Ferrous Sulfate 325 mg 03/11/23 09:00 03/11/23 09:00 Ferrous Sulfate 325 Mg Tab PO 04/10/23 08:59 325 mg DAILY AREN Administration Furosemide 20 mg 03/11/23 09:00 03/11/23 09:00 Furosemide 20 Mg Tab PO 04/10/23 08:59 20 mg QAM AREN Administration Heparin Sodium (Porcine) 5,000 units 03/11/23 09:00 03/11/23 21:04 Heparin Sod 5,000 Unit/0.5 Ml Vial SQ 04/10/23 08:59 5,000 units Q12 AREN Administration Ceftriaxone Sodium 1,000 mg/ 50 mls @ 100 mls/hr 03/11/23 15:00 03/11/23 18:25 Dextrose IV 03/21/23 14:59 Infused Q24H AREN Infusion Protocol Levothyroxine Sodium 100 mcg 03/11/23 06:30 03/12/23 05:40 Levothyroxine Sodium 100 Mcg Tablet PO 04/10/23 06:29 100 mcg DAILYBB AREN Administration Metoprolol Tartrate 12.5 mg 03/11/23 09:00 03/11/23 21:04 Metoprolol Tartrate 25 Mg Tab PO 04/10/23 08:59 12.5 mg BID AREN Administration Multivitamins 1 tab 03/11/23 09:00 03/11/23 08:59 Multivitamin Tab PO 04/10/23 08:59 1 tab DAILY AREN Administration Oxybutynin Chloride 5 mg 03/11/23 09:00 03/11/23 08:59 Oxybutynin Chloride Xl 5 Mg Tabcr PO 04/10/23 08:59 5 mg DAILY AREN Administration Pantoprazole Sodium 40 mg 03/11/23 09:00 03/11/23 08:59 Pantoprazole 40 Mg Tab PO 04/10/23 08:59 40 mg DAILY AREN Administration Potassium Chloride 10 meq 03/11/23 09:00 03/11/23 08:59 Potassium Chloride 10 Meq Tabcr PO 04/10/23 08:59 10 meq DAILY AREN Administration Vibegron 75 mg 03/11/23 09:00 03/11/23 08:59 Vibegron 75 Mg Tab PO 04/10/23 08:59 75 mg DAILY AREN Administration
[2023-03-12] MEDS ORDERED: ENALAPRIL MALEATE 5 MG TAB PO SCH (09:00)
[2023-03-12] MEDS: HEPARIN SOD 5,000 UNIT/0.5 ML VIAL SQ SCH ×2 (09:05→21:41)
[2023-03-12] MEDS: ENALAPRIL MALEATE 10 MG TAB PO SCH (09:05)
[2023-03-12] MEDS: METOPROLOL TARTRATE 25 MG TAB PO SCH (09:05)
[2023-03-12] MEDS: MULTIVITAMIN TAB PO SCH (09:06)
[2023-03-12] MEDS: VIBEGRON 75 MG TAB PO SCH (09:06)
[2023-03-12] MEDS: FUROSEMIDE 20 MG TAB PO SCH (09:06)
[2023-03-12] MEDS: OXYBUTYNIN CHLORIDE XL 5 MG TABCR PO SCH (09:06)
[2023-03-12] MEDS: FERROUS SULFATE 325 MG TAB PO SCH (09:06)
[2023-03-12] MEDS: PANTOprazole 40 MG TAB PO SCH (09:06)
[2023-03-12] MEDS: CALCIUM 600MG + VIT D 400 IU TAB PO SCH (09:07)
[2023-03-12] MEDS: CITALOPRAM 20 MG TAB PO SCH (09:07)
[2023-03-12] MEDS: FAMOTIDINE 20 MG TAB PO SCH (09:07)
[2023-03-12] MEDS: POTASSIUM CHLORIDE 10 MEQ TABCR PO SCH (09:15)
[2023-03-12] MEDS: DOCUSATE SODIUM 100 MG CAP PO SCH (09:15)
[2023-03-12] MEDS ORDERED: METOPROLOL TARTRATE 25 MG TAB PO STA (11:38)
[2023-03-12] MEDS: CIPROFLOXACIN 500 MG TAB PO SCH ×2 (14:05→21:40)
[2023-03-12] MEDS: METOPROLOL SUCC 25MG EXT REL TAB PO SCH (21:40)
[2023-03-13] MEDS: LEVOTHYROXINE SODIUM 100 MCG TABLET PO SCH (06:05)
[2023-03-13 07:21] LABS: Hematocrit (blood only) 37.9 % (37.0-47.0); Hemoglobin 12.3 g/dl (12.0-16.0); Mean Corpuscular Hemoglobin 29.7 pg (25.0-34.0); Mean Corpuscular Hgb Conc 32.5 g/dL (32.0-36.0); Mean Corpuscular Volume 91.5 fL (80.0-100.0); Mean Platelet Volume 10.2 fL (9.4-12.4); Platelet Count 231 K/uL (130-400); RDW Coefficient of Variation 14.8 % (11.5-14.5); RDW Standard Deviation 50.2 fL (36.4-46.3); Red Blood Count 4.14 M/uL (4.20-5.40); White Blood Count 6.19 K/ul (4.8-10.8)
[2023-03-13 07:44] LABS: BUN Creatinine Ratio 18.5 (10-20); Calcium 9.1 mg/dl (8.6-10.3); Creatinine Clr Calc Pharmacy 57.8 ml/min; Est GFR (African American) 91.9 ml/min; Est GFR (Non-African American) 79.3 ml/min
[2023-03-13] MEDS: METOPROLOL SUCC 25MG EXT REL TAB PO SCH (08:34)
[2023-03-13] MEDS: PANTOprazole 40 MG TAB PO SCH (08:34)
[2023-03-13] MEDS: FAMOTIDINE 20 MG TAB PO SCH (08:34)
[2023-03-13] MEDS: ENALAPRIL MALEATE 10 MG TAB PO SCH (08:35)
[2023-03-13] MEDS: VIBEGRON 75 MG TAB PO SCH (08:35)
[2023-03-13] MEDS: FUROSEMIDE 20 MG TAB PO SCH (08:35)
[2023-03-13] MEDS: OXYBUTYNIN CHLORIDE XL 5 MG TABCR PO SCH (08:35)
[2023-03-13] MEDS: CITALOPRAM 20 MG TAB PO SCH (08:35)
[2023-03-13] MEDS: MULTIVITAMIN TAB PO SCH (08:36)
[2023-03-13] MEDS: CIPROFLOXACIN 500 MG TAB PO SCH (08:36)
[2023-03-13] MEDS: CALCIUM 600MG + VIT D 400 IU TAB PO SCH (08:36)
[2023-03-13] MEDS: FERROUS SULFATE 325 MG TAB PO SCH (08:36)
[2023-03-13] MEDS: DOCUSATE SODIUM 100 MG CAP PO SCH (08:37)
[2023-03-13] MEDS: POTASSIUM CHLORIDE 10 MEQ TABCR PO SCH (08:38)
[2023-03-13] MEDS: HEPARIN SOD 5,000 UNIT/0.5 ML VIAL SQ SCH (08:40)
--- NOTE | 2023-03-13 14:16 | Hospitalist Progress Note ---
Date of Service March 13, 2023 Assessment & Plan (1) Acute UTI (urinary tract infection): Plan: Ms. Cecy Steiner is an 87-year-old female with past med history significant for dyslipidemia, hypothyroidism, hypertension, multiple sclerosis, GERD, nocturnal hypoxia 2/[address], incontinence, osteoarthritis of multiple joints, osteoporosis, depression, history of diverticular bleed, mild dementia who lives with and daughter who was admitted on 03/10 for acute encephalopathy secondary to UTI. Patient improving to baseline. Antibiotics transitioned to PO and tolerating well. Adjustments to home antihypertensives were made with noted improvement in pressures. Patient pending PT/OT eval for home health services. #Acute toxic metabolic encephalopathy, secondary to infection *resolved #Acute uncomplicated cystitis Ciprofloxacin 500mg bid EOT 03/17 Follow cultures and transition to PO Requesting HH--pending PT/OT eval #Hypertension Currently elevated Transitioned to Metoprolol succinate 25mg BID -continue Increased Vasotec 10mg daily- continue #GERD On famotidine and Protonix #Hypothyroidism on Synthyroid #Incontinence of urine -Continue home medications #Depression -Continue on citalopram #Dementia Mild Monitor for delirium #Nocturnal hypoxia #AVE Declines CPAP machine home O2 3L at bedtime 2 step prior to discharge DVT prophylaxis Heparin subcu Disposition Med/telemetry CODE STATUS full code only if there is chance of recovery as per my discussion with the daughter Admission and Anticipated Discharge Date Admission Date: March 10, 2023 Subjective NAEO Doesn't recall who I am, but pleasant and denies any pain. Reports feeling "clear" and eager to get home Review of Systems Review of Systems: All systems reviewed & are unremarkable except as noted in Subjective Physical Exam Constitutional: WD/WN, vitals as above Respiratory: normal respiratory effort, lungs clear to auscultation Cardiovascular: RRR, no murmur, no edema Results & Data Results & Data Vital Signs (Past 12 Hours) Vital Signs Temp Pulse Pulse Resp BP BP Pulse Ox 03/13/23 12:50 36.6 C 91 H 17 133/90 95 03/13/23 06:00 107 H 03/13/23 06:59 36.7 C 90 18 158/90 H 95 03/13/23 02:20 36.4 C L 101 H 18 157/99 H 97 O2 Del Method O2 Flow Rate 03/13/23 12:50 Room Air 03/13/23 06:00 03/13/23 06:59 Nasal Cannula 2 03/13/23 02:20 Nasal Cannula 2 Laboratory Results Short CBC 03/13/23 Range/Units 06:59 WBC 6.19 (4.8-10.8) K/ul Hgb 12.3 (12.0-16.0) g/dl Hct 37.9 (37.0-47.0) % Plt Count 231 (130-400) K/uL BMP 03/13/23 06:59 Sodium 138 Potassium 4.0 Chloride 101 Carbon Dioxide 33 H BUN 12 Creatinine 0.65 Glucose 103 H Calcium 9.1 Medications Administered Home Medications Medication Instructions Recorded Confirmed Last Taken citalopram 10 mg tablet (Celexa) 10 mg PO DAILY 06/15/20 03/10/23 11/22/21 famotidine 20 mg tablet 20 mg PO DAILY 06/15/20 03/10/23 11/22/21 levothyroxine 100 mcg tablet 100 mcg PO DAILY 06/15/20 03/10/23 11/22/21 pantoprazole 40 mg tablet,delayed 40 mg PO DAILY 06/15/20 03/10/23 11/22/21 release solifenacin 5 mg tablet 5 mg PO DAILY 06/15/20 03/10/23 11/22/21 tramadol 50 mg tablet 50 mg PO Q6H PRN Pain 06/15/20 03/10/23 06/14/20 acetaminophen 500 mg tablet 1,000 mg PO BID 11/22/21 03/10/23 11/22/21 08:00 (Tylenol Extra Strength) calcium carbonate 600 mg-vitamin 1 tab PO DAILY 11/22/21 03/10/23 11/22/21 D3 10 mcg (400 unit) tablet (Calcium 600 + D(3)) docusate sodium 100 mg capsule 200 mg PO DAILY 11/22/21 03/10/23 11/22/21 (Stool Softener) furosemide 20 mg tablet 20 mg PO QAM 11/22/21 03/10/23 11/22/21 multivitamin 1 tab PO DAILY 11/22/21 03/10/23 11/22/21 potassium chloride 10 mEq 10 meq PO DAILY 11/22/21 03/10/23 11/22/21 capsule,extended release denosumab 60 mg/mL subcutaneous 60 mg subcut .Q6M 09/28/22 03/10/23 02/27/23 syringe (Prolia) mirabegron 50 mg tablet,extended 50 mg PO DAILY 09/28/22 03/10/23 Unknown release 24 hr (Myrbetriq) ferrous sulfate 325 mg (65 mg 325 mg PO DAILY 03/10/23 03/10/23 Unknown iron) tablet (iron) metoprolol tartrate 25 mg tablet 0.5 mg PO AMPM 03/10/23 03/10/23 Unknown enalapril maleate 5 mg tablet 10 mg PO QAM 30 days #30 tabs 03/13/23 Unknown metoprolol succinate 25 mg 25 mg PO BID 30 days #60 tabs 03/13/23 Unknown tablet,extended release 24 hr Active Medications Generic Name Dose Route Start Last Admin Trade Name Freq PRN Reason Stop Dose Admin Acetaminophen 650 mg 03/11/23 00:15 03/12/23 15:35 Acetaminophen 325 Mg Tab PO 04/10/23 00:14 650 mg Q4H PRN Administration Pain or Fever Calcium/Vitamin D 1 tab 03/11/23 09:00 03/13/23 08:36 Calcium 600mg + Vit D 400 Iu Tab PO 04/10/23 08:59 1 tab DAILY AREN Administration Ciprofloxacin 500 mg 03/12/23 11:50 03/13/23 08:36 Ciprofloxacin 500 Mg Tab PO 03/17/23 11:49 500 mg BID AREN Administration Protocol Citalopram Hydrobromide 10 mg 03/11/23 09:00 03/13/23 08:35 Citalopram 20 Mg Tab PO 04/10/23 08:59 10 mg DAILY AREN Administration Docusate Sodium 200 mg 03/11/23 09:00 03/13/23 08:37 Docusate Sodium 100 Mg Cap PO 04/10/23 08:59 200 mg DAILY AREN Administration Enalapril Maleate 10 mg 03/12/23 09:00 03/13/23 08:35 Enalapril Maleate 10 Mg Tab PO 04/11/23 08:59 10 mg QAM AREN Administration Famotidine 20 mg 03/11/23 09:00 03/13/23 08:34 Famotidine 20 Mg Tab PO 04/10/23 08:59 20 mg DAILY AREN Administration Ferrous Sulfate 325 mg 03/11/23 09:00 03/13/23 08:36 Ferrous Sulfate 325 Mg Tab PO 04/10/23 08:59 325 mg DAILY AREN Administration Furosemide 20 mg 03/11/23 09:00 03/13/23 08:35 Furosemide 20 Mg Tab PO 04/10/23 08:59 20 mg QAM AREN Administration Heparin Sodium (Porcine) 5,000 units 03/11/23 09:00 03/13/23 08:40 Heparin Sod 5,000 Unit/0.5 Ml Vial SQ 04/10/23 08:59 5,000 units Q12 AREN Administration Levothyroxine Sodium 100 mcg 03/11/23 06:30 03/13/23 06:05 Levothyroxine Sodium 100 Mcg Tablet PO 04/10/23 06:29 100 mcg DAILYBB AREN Administration Metoprolol Succinate 25 mg 03/12/23 21:00 03/13/23 08:34 Metoprolol Succ 25mg Ext Rel Tab PO 04/11/23 20:59 25 mg BID AREN Administration Multivitamins 1 tab 03/11/23 09:00 03/13/23 08:36 Multivitamin Tab PO 04/10/23 08:59 1 tab DAILY AREN Administration Oxybutynin Chloride 5 mg 03/11/23 09:00 03/13/23 08:35 Oxybutynin Chloride Xl 5 Mg Tabcr PO 04/10/23 08:59 5 mg DAILY AREN Administration Pantoprazole Sodium 40 mg 03/11/23 09:00 03/13/23 08:34 Pantoprazole 40 Mg Tab PO 04/10/23 08:59 40 mg DAILY AREN Administration Potassium Chloride 10 meq 03/11/23 09:00 03/13/23 08:38 Potassium Chloride 10 Meq Tabcr PO 04/10/23 08:59 10 meq DAILY AREN Administration Vibegron 75 mg 03/11/23 09:00 03/13/23 08:35 Vibegron 75 Mg Tab PO 04/10/23 08:59 75 mg DAILY AREN Administration
--- NOTE | 2023-03-13 16:18 | Discharge Summary ---
Discharge Summary Date of Service March 13, 2023 Notes For Next Care Provider Medication Changes From Visit Transitioned to Metoprolol succinate 25mg BID Increased Vasotec 10mg daily Admission HPI Per Admitting Provider 87-year-old female with past med history significant for dyslipidemia, hypothyroidism, hypertension, multiple sclerosis, GERD, incontinence, osteoarthritis of multiple joints, osteoporosis, depression, history of diverticular bleed, mild dementia who lives with and daughter was brought in because of not feeling well. Patient was feeling dizzy, nauseous and having headache which prompted her daughter to bring her to hospital and found to have UTI. Resting comfortably and hemodynamically stable. Somewhat hard of hearing. Daughter is in the room helping with H&P. No blurred visions. Has some runny nose and sneezing. No sore throat. Appetite is down. No chest pain or shortness of breath. No fevers. Normal bowel and bladder movements. Ambulates with walker Past medical history as mentioned above Past surgical history. Colonoscopy. EGD. Knee arthroscopy. Laparoscopic cholecystectomy. Tonsillectomy. Right hip fracture repair. Total hysterectomy. Social history. No smoking. No alcohol. No drug use. Family history. Brother had gastric cancer. Brother had lung cancer. Mother had brain cancer. Father had NM. Principal Dx & Hospital Course #1 = Principal Diagnosis (1) Acute UTI (urinary tract infection): Ms. Cecy Steiner is an 87-year-old female with past med history significant for dyslipidemia, hypothyroidism, hypertension, multiple sclerosis, GERD, nocturnal hypoxia 2/[address], incontinence, osteoarthritis of multiple joints, osteoporosis, depression, history of diverticular bleed, mild dementia who lives with and daughter who was admitted on 03/10 for acute encephalopathy secondary to UTI. Patient improving to baseline. Antibiotics transitioned to PO and tolerating well. Adjustments to home antihypertensives were made with noted improvement in pressures. Patient pending PT/OT eval for home health services. #Acute toxic metabolic encephalopathy, secondary to infection *resolved #Acute uncomplicated cystitis Ciprofloxacin 500mg bid EOT 03/17 #Hypertension Currently elevated Transitioned to Metoprolol succinate 25mg BID -continue Increased Vasotec 10mg daily- continue #GERD On famotidine and Protonix #Hypothyroidism on Synthyroid #Incontinence of urine -Continue home medications #Depression -Continue on citalopram #Dementia Encouraged continued reorientation home PT/OT #Nocturnal hypoxia #AVE Declines CPAP machine home O2 3L at bedtime Off day time oxygen, no 2 step required-continue chronic nocturnal o2 On day of discharge, daughter at bedside and reports notable improvement in patient. Patient eating well, ambulating with assistive device, and denies any pain. Discharge Exam Constitutional WD/WN, vitals as above Respiratory normal respiratory effort, lungs clear to auscultation Cardiovascular RRR, no murmur, no edema Updated Medication List Medication Instructions Recorded Confirmed Type citalopram 10 mg tablet (Celexa) 10 mg PO DAILY 06/15/20 03/10/23 History famotidine 20 mg tablet 20 mg PO DAILY 06/15/20 03/10/23 History levothyroxine 100 mcg tablet 100 mcg PO DAILY 06/15/20 03/10/23 History pantoprazole 40 mg tablet,delayed 40 mg PO DAILY 06/15/20 03/10/23 History release solifenacin 5 mg tablet 5 mg PO DAILY 06/15/20 03/10/23 History tramadol 50 mg tablet 50 mg PO Q6H PRN Pain 06/15/20 03/10/23 History acetaminophen 500 mg tablet 1,000 mg PO BID 11/22/21 03/10/23 History (Tylenol Extra Strength) calcium carbonate 600 mg-vitamin 1 tab PO DAILY 11/22/21 03/10/23 History D3 10 mcg (400 unit) tablet (Calcium 600 + D(3)) docusate sodium 100 mg capsule 200 mg PO DAILY 11/22/21 03/10/23 History (Stool Softener) furosemide 20 mg tablet 20 mg PO QAM 11/22/21 03/10/23 History multivitamin 1 tab PO DAILY 11/22/21 03/10/23 History potassium chloride 10 mEq 10 meq PO DAILY 11/22/21 03/10/23 History capsule,extended release denosumab 60 mg/mL subcutaneous 60 mg subcut .Q6M 09/28/22 03/10/23 History syringe (Prolia) mirabegron 50 mg tablet,extended 50 mg PO DAILY 09/28/22 03/10/23 History release 24 hr (Myrbetriq) ferrous sulfate 325 mg (65 mg 325 mg PO DAILY 03/10/23 03/10/23 History iron) tablet (iron) ciprofloxacin HCl 500 mg tablet 500 mg PO BID #5 tabs 03/13/23 Rx enalapril maleate 5 mg tablet 10 mg PO QAM 30 days #30 tabs 03/13/23 Rx metoprolol succinate 25 mg 25 mg PO BID 30 days #60 tabs 03/13/23 Rx tablet,extended release 24 hr Hospital Stay Data Consultations 03/10/23 19:16 ED Decision to Admit Stat Diagnostic Imagining Performed 03/10/23 15:43 CT abd pelvis IV con only Stat CT head/brain wo con Stat 03/10/23 15:44 CT angio chest PE protocol Stat Pending Results Patient Have Any Pending Studies at Discharge: No Discharge Instructions Given to Patient (Per Discharging Provider) You were admitted to concerns of altered mental status and found to have a severe urinary tract infection. You were treated with IV antibiotics for your infection with notable improvement. Additionally, your blood pressures were elevated during your admission and a few medication adjustments were made. The following will address medication changes: #Urinary tract infection Continue Ciprofloxacin 500mg two time a day (breakfast and dinner) until prescription is completed ( your next dose will be this evening with dinner) #Hypertension Currently elevated Changed Metoprolol tartrate 12.5mg twice a day to longer acting and higher dose Metoprolol succinate 25mg twice a day -The succinate formulation is more "heart protective," longer acting, and will aid in controlling pressure Increased Vasotec 10mg daily from 5mg daily Given age and risk for falls, will opt for "looser" blood pressure goal with top number (systolics) less than 165 Home Health Attestation I certify that this patient is under my care and that I, or a physicians food service assistant working with me, had a face to-face encounter that meets the home health [id number] encounter requirements with this patient. The encounter with the patient was in whole, or in part, for the following medical condition, which is the primary reason for home health care (list medi bonita condition): I certify that, based on my findings, the following services are medically necessary home health services: My clinical findings support the need for the above services because: PT Gait and Balance Training, Strengthening and Safety Further, I certify that my clinical findings support that this patient is homebound (i.e. absences from home require considerable and taxing effort and are for medical reasons or caodaism services or infrequently or of short duration when for other reasons) because: Certification for Home Health Services: Based on the above findings, I certify that this patient is confined to the home and needs intermittent long-term care, physical therapy and/or speech therapy or continues to need occupational therapy. The patient is under my care, and I have initiated the establishment of the plan of care. This patient will be followed by a physician who will periodically review the plan of care. Total Time Total Time Spent Total Time Spent (In Minutes): 35
== END 2023-03-13 18:15 | disposition home health service (06) | DRG 689 ==
LOC: ED 11:52 → EDINP 21:50 → 2N 03-11 02:32